=== PATIENT | female | born 1950 | race Caucasian/White ===

== ENCOUNTER 2020-09-28 17:08 | Outpatient (REF) | payer MEDICARE, MEDICAID, SELFPAY ==
--- NOTE | ~2020-09-28 | XR_ITS ---
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 COMPARISON: Incidentally included images of the hips from [facility] 02/15/2016. TECHNIQUE: AP view of the pelvis with AP and frog-leg lateral views of left hip. AP and lateral views of the right hip FINDINGS: There is severe degenerative arthrosis of the left hip with nearly a [id number] appearance superiorly. There are femoral collar and lateral acetabular marginal osteophytes. Right hip joint space is maintained. No fracture or dislocation of either hip. Bilateral sacroiliac joints are patent. Sacral ala are intact. XR/XR hip RT w PEL1V IMPRESSION: Severe degenerative arthrosis of the left hip, slightly progressed from the prior study in 2016. No acute osseous abnormality.
--- NOTE | ~2020-09-28 | XR_ITS ---
EXAMINATION: XR CHEST CLINICAL INFORMATION: Pneumonia COMPARISON: 02/15/2016 TECHNIQUE: 2 views of the chest were obtained. FINDINGS: Lung volumes are decreased from the prior study. Streaky opacity at the right lung base has an appearance more consistent with atelectasis than aspiration or pneumonia. Tortuous aorta. Normal heart size. S-shaped thoracolumbar scoliosis. No pleural effusion or pneumothorax. There is gaseous distention of the transverse colon. The hepatic flexure of the colon is seen immediately beneath the right hemidiaphragm, as was the case previously. XR/XR chest 2V IMPRESSION: Lung volumes are decreased from the prior study. There is streaky opacity at the right lung base, more likely atelectasis than aspiration or pneumonia.
--- NOTE | ~2020-09-28 | XR_ITS ---
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 COMPARISON: Incidentally included images of the hips from [facility] 02/15/2016. TECHNIQUE: AP view of the pelvis with AP and frog-leg lateral views of left hip. AP and lateral views of the right hip FINDINGS: There is severe degenerative arthrosis of the left hip with nearly a pfth-pw-wvuy appearance superiorly. There are femoral collar and lateral acetabular marginal osteophytes. Right hip joint space is maintained. No fracture or dislocation of either hip. Bilateral sacroiliac joints are patent. Sacral ala are intact. XR/XR hip LT min 2V IMPRESSION: Severe degenerative arthrosis of the left hip, slightly progressed from the prior study in 2016. No acute osseous abnormality.
== END 2020-09-28 17:09 | disposition home or self-care (01) ==
LOC: HO.XRAY 17:08
PROVIDERS: PCP Internal Medicine; Visit Provider Internal Medicine
DX: M16.11 Unilateral primary osteoarthritis, right hip (principal); M16.12 Unilateral primary osteoarthritis, left hip; J18.9 Pneumonia, unspecified organism
CPT/HCPCS: 71046; 73502

== ENCOUNTER 2021-02-21 11:48 | Outpatient (REF) | payer MEDICARE, MEDICAID, SELFPAY ==
[2021-02-21 11:50] VITALS: BP 145/84; PULSE 95; RESP 16; TEMP 36.2; O2SAT 98; BMI 27.2
== END 2021-02-21 11:49 | disposition home or self-care (01) ==
LOC: HO.MS 11:48
PROVIDERS: PCP Internal Medicine; Visit Provider Ophthalmology
PROC: (CPT 66821; principal; 2021-02-21 14:40)
DX: H26.492 Other secondary cataract, left eye (principal); I10 Essential (primary) hypertension; Z79.899 Other long term (current) drug therapy
CPT/HCPCS: 66821

== ENCOUNTER 2021-03-22 13:13 | Outpatient (REF) | payer MEDICARE, MEDICAID, SELFPAY ==
--- NOTE | ~2021-03-22 | XR_ITS ---
EXAMINATION: XR RIBS, BILATERAL CLINICAL INFORMATION: Pleurodynia. COMPARISON: Chest radiograph dated 09/28/2020 TECHNIQUE: PA view of the chest as well as 3 views of the ribs. FINDINGS: Hypoinflation of the lungs with linear left basilar atelectasis. No pleural effusion or pneumothorax. Stable cardiomediastinal silhouette. There appear to be healed rib fractures of the left 4th, 5th, 6th, and 7th ribs. No definite displaced acute fracture. Evaluation is somewhat limited. XR/XR ribs BI min 4V w CXR1V IMPRESSION: Probable healed left 4th, 5th, 6th, and 7th rib fractures. No definite displaced acute fracture.
--- NOTE | ~2021-03-22 | XR_ITS ---
EXAMINATION: XR KNEE, RIGHT CLINICAL INFORMATION: Right knee pain. COMPARISON: None TECHNIQUE: AP and lateral views of the right knee. FINDINGS: Medial and lateral compartment joint space narrowing. No significant marginal osteophytes. No fracture or dislocation. No osseous erosion. No abnormal soft tissue calcification. No joint effusion. XR/XR knee RT 2V IMPRESSION: Mild medial and lateral compartment osteoarthritis.
== END 2021-03-22 13:14 | disposition home or self-care (01) ==
LOC: HO.XRAY 13:13
PROVIDERS: PCP Internal Medicine; Visit Provider Nurse Practitioner Family
DX: R07.81 Pleurodynia (principal); M25.561 Pain in right knee
CPT/HCPCS: 71111; 73560

== ENCOUNTER 2021-06-08 11:08 | Outpatient (REF) | payer MEDICARE, MEDICAID, SELFPAY ==
--- NOTE | 2021-06-09 14:37 | MHC.AU.ANO ---
Adult Audiological Evaluation Date of Visit: 06/08/21 Business Taxes Specialist Used: Not Applicable Reason for Appointment: Joanna was referred for an audiologic evaluation by her Primary Care Physician, Dr. Aj Cortes due to question of decreased hearing ability. She reports a history of unsteadiness/dizziness and uses a walker; however, Joanna does not feel she has any hearing problems. Has hearing been tested previously?: No Hearing Handicap Inventory: HHIE SCORE: 0 Based on HHIE score, patient has: No perceived hearing handicap Ear History: None Medical History: Medical History: Joanna and PCP did not provide any medical history information. Medication List: Duloxetine, Buspirone, Divalproex, Trazadone, Gabapentin Otoscopy: Right Ear: Partially occluded with cerumen Left Ear: Partially occluded with cerumen Tympanometry: Tympanometry performed due to: To assess integrity of the middle ear system Right Ear: Normal Middle Ear System (Type A) Left Ear: Normal Middle Ear System (Type A) Otoacoustic Emissions Did not test due to amount of cerumen Hearing Evaluation: Transducer(s) Used: Insert Earphones Bone Conduction Method: Conventional Audiometry Stimuli Used: Pure Tones Right Ear: Description of Hearing: Mild sloping to severe sensorineural hearing loss. Left Ear: Description of Hearing: Mild sloping to severe sensorineural hearing loss. Speech Recognition Threshold (SRT): Method Used: Monitored Live Voice Stimuli Used: Spondee Words Right Ear: 20 dB HL Left Ear: 20 dB HL Word Discrimination: Method: Recorded Lists Word Lists Used: NU-6 Right Ear: 96% at 60 dB HL Left Ear: 96% at 60 dB HL QuickSIN: Binaural Quick SIN Test: 4 dB SNR Loss suggesting Joanna experiences a mild degree of difficulty understanding speech with increasing levels of background noise in this controlled test environment. Interpretation of Results: Discussed with Joanna that with this sloping hearing loss, she likely is able to hear , but may not always understand what was said. With the severe degree of high frequency loss, she is not able to hear all the consonant sounds which help to differentiate similar sounding words such as tree and free . Speech understanding will decrease when background noise is present or when she cannot see the face of the person speaking. Also discussed that this degree of hearing loss may benefit from consistent use of hearing aids. Joanna reports she is not interested in trying hearing aids at this time. Recommendations: Today's symmetric hearing test results do not suggest that Joanna's unsteadiness/dizziness may be ear related. However, if the symptom is concerning, may consider medical consultation with an Merchandise Shopper/Cigarette Examiner for further assessment. Audiological re-evaluation in one year. Will send a reminder card. Diagnosis: Primary Diagnosis: H90.3 Bilateral Sensorineural Hearing Loss Services Performed: Comprehensive Audiological Evaluation (CPT 52487) Tympanometry (CPT 34290) Signature: Provider: Clarissa Campbell, CCC-A
== END 2021-06-08 11:09 | disposition home or self-care (01) ==
LOC: HO.SH 11:08
PROVIDERS: Visit Provider Internal Medicine
DX: H90.3 Sensorineural hearing loss, bilateral (principal)
CPT/HCPCS: 92557; 92567

== ENCOUNTER 2021-09-19 11:15 | Outpatient (REF) | payer MEDICARE, MEDICAID, SELFPAY ==
--- NOTE | ~2021-09-19 | XR_ITS ---
EXAMINATION: XR LUMBOSACRAL SPINE CLINICAL INFORMATION: Left-sided sciatica. COMPARISON: Bilateral hips 09/28/2020 TECHNIQUE: Three views of the lumbosacral spine. FINDINGS: Severe degenerative changes are present in the lumbosacral spine with associated biconvex thoracolumbar scoliosis. Multiple compression fractures are also present at L4, L1 and T12. Severe degenerative changes are also noted in the left hip with marked joint space narrowing superiorly, sclerosis and osteophytes. XR/XR lumbar spine 2-3V IMPRESSION: Scoliosis and severe degenerative changes in visualized spine and left hip with compression fractures, as described above.
[2021-09-19 11:50] LABS: MANUAL DIFF FLAG NO
[2021-09-19 12:13] LABS: Basophils Percent Auto 0.6 % (0-2); Eosinophils Absolute Auto 0.2 X10*3/uL (0.0-0.4); Eosinophils Percent Auto 2.3 % (0-4); Hematocrit 38.8 % (37.0-47.0); Hemoglobin 12.4 g/dl (12.0-16.0); Imm Gran Abs Auto 0.02 X10*3/uL (0.00-0.03); Imm Gran Pct Auto 0.3 % (0.0-0.4); Lymphocytes Absolute Auto 1.8 X10*3/uL (1.2-4.9); Lymphocytes Percent Auto 26.6 % (20-40); Mean Corpuscular Hemoglobin 31.7 pg (27.0-33.0); Mean Corpuscular Volume 99.2 fL (80.0-98.0); Mean Platelet Volume 9.1 fL (9.4-12.3); Monocytes Absolute Auto 0.6 X10*3/uL (0.1-1.2); Monocytes Percent Auto 8.1 % (2-11); Neutrophils Absolute Auto 4.3 x10*3/uL (2.0-8.3); Neutrophils Percent Auto 62.1 % (45-73); Platelet Count 287 X10*3/uL (160-400); Red Blood Count 3.91 X10*6/uL (4.20-5.50); Red Cell Distribution Width 12.5 % (11.0-16.0); White Blood Count 6.9 X10*3/uL (4.8-10.8)
[2021-09-19 12:41] LABS: Alanine Aminotransferase 16 U/L (0-31); Albumin Level 4.4 g/dL (3.5-5.0); Alkaline Phosphatase 79 U/L (39-117); Anion Gap 12 (12-20); Aspartate Amino Transferase 20 U/L (5-31); Bilirubin Total 0.3 mg/dL (0.0-1.0); Blood Urea Nitrogen 23 mg/dL (9-16); Calcium 10.3 mg/dL (8.4-10.2); Carbon Dioxide 31 mmol/L (22-29); Chloride 100 mmol/L (96-108); Cholesterol 308 mg/dL; Estimated Glomerular Filt Rate > 60; Glucose Fasting 103 mg/dL (60-99); HDL Cholesterol 70 mg/dL; LDL Cholesterol Calculated 191 mg/dl; Potassium 5.2 mmol/L (3.3-5.1); Sodium 138 mmol/L (135-145); Total Protein 7.9 g/dL (6.5-8.0); Triglycerides 239 mg/dL
[2021-09-19 13:02] LABS: Thyroid Stimulating Hormone 2.24 uIU/mL (0.32-4.0)
== END 2021-09-19 11:16 | disposition home or self-care (01) ==
LOC: HO.XRAY 11:15
PROVIDERS: PCP Internal Medicine; Visit Provider Internal Medicine
DX: Z00.00 Encounter for general adult medical examination without abnormal findings (principal); Z13.0 Encounter for screening for diseases of the blood and blood-forming organs and certain disorders involving the immune mechanism; M54.9 Dorsalgia, unspecified
CPT/HCPCS: 36415; 72100; 80053; 80061; 84443; 85025

== ENCOUNTER 2021-09-28 10:29 | Outpatient (REF) | payer MEDICARE, MEDICAID, SELFPAY ==
--- NOTE | ~2021-09-28 | MM_ITS ---
EXAMINATION: MM SCREENING DIGITAL BREAST TOMOSYNTHESIS, BILATERAL CLINICAL INFORMATION: Screening. Asymptomatic. The lifetime risk of breast cancer based on the Tyrer-Cuzick Model is 3%. COMPARISON: Mammography: 08/31/2015, 04/29/2014 TECHNIQUE: Digital breast tomosynthesis is performed in both the craniocaudal and mediolateral oblique views along with computer-aided detection (CAD). Synthesized 2D images are generated from the tomosynthesis. Additional left MLO view is provided. FINDINGS: The breasts are heterogeneously dense, which may obscure small masses (ACR BI-RADS breast composition Category c). There are no significant masses, abnormal calcifications, or other abnormalities. There are scattered bilateral benign round and vascular calcifications. Low right axillary tail node again seen as incidental finding posterior upper outer right breast. No significant changes. MM/MM tomosynthesis screening BI IMPRESSION: No mammographic evidence of malignancy. ASSESSMENT: BI-RADS 2: Benign RECOMMENDATION: Routine annual mammography screening. This patient's information was entered into a reminder system with a target due date for their next mammogram.
== END 2021-09-28 10:30 | disposition home or self-care (01) ==
LOC: HO.MAMMO 10:29
PROVIDERS: PCP Internal Medicine; Visit Provider Nurse Practitioner Family
DX: Z12.31 Encounter for screening mammogram for malignant neoplasm of breast (principal)
CPT/HCPCS: 77063; 77067

== ENCOUNTER → 2021-10-04 14:41 | Outpatient (BNVA) | payer MEDICARE, MEDICAID, SELFPAY | PROVIDERS: PCP Internal Medicine; Visit Provider Advanced Practice Midwife | DX: N95.0 Postmenopausal bleeding (principal) | CPT/HCPCS: 99202 ==

== ENCOUNTER 2021-10-11 14:19 | Outpatient (REF) | payer MEDICARE, MEDICAID, SELFPAY ==
[2021-10-14 16:41] LABS: HPV mRNA E6/E7 rflx Not Detected (Not Detected)
== END 2021-10-11 14:20 | disposition home or self-care (01) ==
LOC: HO.LAB 14:19
PROVIDERS: Visit Provider Advanced Practice Midwife
DX: Z01.411 Encounter for gynecological examination (general) (routine) with abnormal findings (principal); Z11.51 Encounter for screening for human papillomavirus (HPV); N95.0 Postmenopausal bleeding
CPT/HCPCS: 58100; 87624; 88142; 88300; 88305

== ENCOUNTER 2021-11-01 14:15 | Outpatient (REF) | payer MEDICARE, MEDICAID, SELFPAY ==
--- NOTE | ~2021-11-01 | US_ITS ---
EXAMINATION: US PELVIS CLINICAL INFORMATION: Postmenopausal bleeding. COMPARISON: None TECHNIQUE: Ultrasound of the pelvis is performed using both transabdominal and transvaginal transducers along with Doppler. Transvaginal imaging is performed due to inadequate visualization transabdominally. FINDINGS: Severely limited transabdominal exam. UTERUS: The uterus is anteverted, anteflexed and measures 4.2 x 1.3 x 2.2 cm. The double wall endometrial thickness is 0.28 cm. The uterus is smooth in contour and has normal myometrial echogenicity. There is a solitary hypoechoic heterogeneous nonvascular lesion along the lower uterine segment measuring 1.5 x 1.7 x 1.3 cm suggestive of fibroid. ADNEXA: Both ovaries are nonvisualized. There is no free fluid in the cul-de-sac. US/US pelvic and transvaginal IMPRESSION: Likely lower uterine segment fibroid. Rest of the uterus is unremarkable. The ovaries are not seen.
== END 2021-11-01 14:16 | disposition home or self-care (01) ==
LOC: HO.HMGCX 14:15
PROVIDERS: Visit Provider Obstetrics & Gynecology
DX: N95.0 Postmenopausal bleeding (principal)
CPT/HCPCS: 76830; 76856

== ENCOUNTER → 2021-11-08 12:17 | Outpatient (BNVA) | payer MEDICARE, MEDICAID, SELFPAY | PROVIDERS: PCP Internal Medicine; Visit Provider Advanced Practice Midwife | DX: Z13.89 Encounter for screening for other disorder (principal) | CPT/HCPCS: Q3014 ==

== ENCOUNTER 2021-11-09 10:57 | Outpatient (REF) | payer MEDICARE, MEDICAID, SELFPAY ==
[2021-11-09 13:46] LABS: Appearance Urine HAZY; Color Urine YELLOW; Glucose Urine UA NEG (NEG); Leukocyte Esterase Urine NEG (NEG); Nitrite Urine NEG (NEG); Urine Blood NEG (NEG); Urine Ketones NEG (NEG); Urine Protein NEG (NEG-TRACE)
== END 2021-11-09 10:58 | disposition home or self-care (01) ==
LOC: HO.HMGCLDS 10:57
PROVIDERS: PCP Internal Medicine; Visit Provider Advanced Practice Midwife
DX: R31.9 Hematuria, unspecified (principal)
CPT/HCPCS: 81003

== ENCOUNTER → 2021-11-29 15:24 | Outpatient (BNVA) | payer MEDICARE, MEDICAID, SELFPAY | PROVIDERS: PCP Internal Medicine; Visit Provider Obstetrics & Gynecology | DX: N95.0 Postmenopausal bleeding (principal) | CPT/HCPCS: 99212 ==

== ENCOUNTER 2022-05-04 14:00 | Outpatient (RCR) | payer MEDICARE, MEDICAID, SELFPAY ==
--- NOTE | 2022-01-25 15:24 | MHC.PT.EP ---
[facility] [place] [facility] [place] [facility] [place] Office [address] Ramiro Castillo [address] [phone] F: [phone] F: [phone] F: [phone] F: [phone] Physical Therapy Plan of Care Date of Evaluation: Date of Surgery: Diagnosis: Dorsalgia Assessment: Pt is a 71 y/o female referred to PT for eval and treat of dorsalgia who presents with lumbar dysfunction and global decondition resulting in decreased tolerance and ability to perform ambulatory and standing tasks as well as performing personal care and HH chores, and rolling in bed secondary to decreased hip and core strength, severe slumbar scoliosis and Hx of multiple stress fractures of the spine, as well as decreased posture, increased tissue tension, pelvic asymmetry and pain. Pt is deemed an appropriate candidate to receive skilled PT in order to address her physical limitations to improve her functional ability. Frequency and Duration: The patient will be seen 2 x / wk x 5 wks. Short Term Goals: initiate HEP with evidence of compliance. Improve baseline pain at rest from 4/10 to < 3/10. Caramel Candy Maker Helper Goals: I with HEP with caregiver assistance. Pt will be able to consistently activate her transverse abdominis independently. Pt will be I with supine to sit at edge of mat; initial: min A x 1 Pt will be able to stand as long as shed like though her pain increases with time; initial: < 30 min. Treatment Plan: Modalities to reduce pain, spasms and effusion. Manual therapy to restore motion and function. Therapeutic exercise to improve strength and flexibility. Neuromuscular re-education for posture and balance. Therapeutic activities to return to functional activities of daily living. Electronically signed by: Prieto Whitaker PT. Please sign and return to therapist. Thank you for your referral.
--- NOTE | 2022-05-04 16:29 | MHC.PT.DC ---
[facility] [place] [facility] [place] Office [place] Office [address] Ramiro Castillo [address] [phone] F: [phone] F: [phone] F: [phone] F: [phone] Physical Therapy Discharge Report Diagnosis: Dorsalgia Date of Surgery: Date of Evaluation: 01/25/22 Date of Discharge: 05/04/22 Treatments to Date: 11 Cancellations to Date: No Shows to Date: 2 Discharge Status: Improved Function Independent with HEP Discharge Summary: Joanna has been an active and pleasant though reluctant participant in her therapy; she reports her back feels better though persists with some pain. She is I with her home program with help from aids which took some time to create compliance in the home with her home program. She is encouraged to continue her HEP and participate with her aid workers when they offer to help her. Electronically signed by: Prieto Whitaker PT. Please sign and return to therapist. Thank you for your referral.
== END 2022-05-04 16:29 | disposition home or self-care (01) ==
LOC: HO.PTCHIC 14:00
PROVIDERS: PCP Internal Medicine; Visit Provider Internal Medicine
DX: M54.9 Dorsalgia, unspecified (principal)
CPT/HCPCS: 97110; 97112; 97162

== ENCOUNTER 2022-10-02 11:31 | Outpatient (REF) | payer MEDICARE, MEDICAID, SELFPAY ==
--- NOTE | ~2022-10-02 | MM_ITS ---
EXAMINATION: MM SCREENING DIGITAL BREAST TOMOSYNTHESIS, BILATERAL CLINICAL INFORMATION: Screening. Asymptomatic. The lifetime risk of breast cancer based on the Tyrer-Cuzick Model is 3.9%. COMPARISON: Mammography: September 28, 2021 and studies dating back to September 04, 2011 TECHNIQUE: Digital breast tomosynthesis is performed in both the craniocaudal and mediolateral oblique views along with computer-aided detection (CAD). Synthesized 2D images are generated from the tomosynthesis. FINDINGS: The breasts are heterogeneously dense, which may obscure small masses (ACR BI-RADS breast composition Category c). There are no significant masses, abnormal calcifications, or other abnormalities. MM/MM tomosynthesis screening BI IMPRESSION: No significant changes from prior exam. ASSESSMENT: BI-RADS 1: Negative RECOMMENDATION: Routine annual mammography screening. This patient's information was entered into a reminder system with a target due date for their next mammogram.
== END 2022-10-02 11:32 | disposition home or self-care (01) ==
LOC: HO.MAMMO 11:31
PROVIDERS: PCP Internal Medicine; Visit Provider Internal Medicine
DX: Z12.31 Encounter for screening mammogram for malignant neoplasm of breast (principal)
CPT/HCPCS: 77063; 77067

== ENCOUNTER 2023-02-28 14:17 | Outpatient (AMB) | payer MEDICARE, SELFPAY ==
--- NOTE | 2023-02-28 14:27 | MHC.PC.OV ---
Vital Signs 02/28/23 14:28 Height 4 ft 8 in BMI Reason not done Patient refused/unable BP 122/64 Blood Pressure Location Lt brachial Position Sitting Pulse 85 Pulse Source Pulse Oximeter Pulse Oximetry (%) 95 Intake Visit Reasons: fall right arm rehab 01/25-02/24 Intake Note: pt is here for f/u from rehab due to fall on right arm -02/24. Patient also has concerns about wheezing, right big toe possible infection, and pt would like her ears to be checked and right collar bone/shoulder swelling. Casino Gaming Inspector Required: No Accompanied by: Daughter Allergies amoxicillin Allergy (Unknown, Verified 02/28/23 14:31) tachycardia doxycycline Allergy (Unknown, Verified 02/28/23 14:31) stomach upset iron Allergy (Unknown, Verified 02/28/23 14:31) unknown nitroglycerin Allergy (Unknown, Verified 02/28/23 14:31) Unknown From [facility]le[facility] Allergy (Mild, Uncoded 01/12/22 13:35) RED,ITCH,BURNING,SWELLING OF FEET iv dye Allergy (Unknown, Uncoded 01/12/22 13:35) Unknown Medication List - Last Reconciled 02/28/23 by Aj Cortes MD acetaminophen 650 mg PO Q4H PRN albuterol sulfate 90 mcg/actuation (ProAir HFA) 2 puffs PO Q6H PRN ascorbic acid (vitamin C) 1 g PO DAILY buspirone 5 mg PO BID calcium carbonate 500 mg PO BID divalproex 125 mg PO Q12H duloxetine 60 mg PO DAILY gabapentin 300 mg PO BEDTIME gabapentin 300 mg PO DAILY metoprolol succinate ER 50 mg PO DAILY [id number] 1 tab PO DAILY quetiapine ER 150 mg PO BEDTIME trazodone 100 mg PO BEDTIME Tobacco use date assessed: 12/29/22 Fall risk assessment: 1 Fall in past year Last assessed Fall Risk: 02/28/23 Dental Screening Dental Screen Date: 02/28/23 Did you have a dental visit in the last 12 months?: Yes Did you have a dental problem in the last 6 months where you did not have access to dental care?: No Was dental information given to patient?: Patient has dentist HPI fall right arm rehab 01/25-02/24 HPI Details right clav fx; doing well; healing PFSH Medical History Callus of foot Hypertension Osteoarthritis of left hip Osteoarthritis of right hip Otitis media Pneumonia Rib pain on left side Right knee pain Surgical History No history of previous surgery Family History Mother No problems noted. Father No problems noted. Social History Housing: Apartment Alcohol intake: never Patient Tobacco Use Status: Never used Tobacco e-Cigarette/Vaping Use: Never Used Second Hand Smoke Exposure: No service: No Current occupational status: retired and disabled Cognitive needs: No Hearing needs: No Vision needs: No Questionnaire PHQ-9 Over the last 2 weeks, how often have you been bothered by any of the following problems? Depression Screening Interpretation: Negative Source: Developed by Drs. Felipe Leiva, Estuardo Frazier and colleagues, with an educational nghia from [employer]. Thrive Questionnaire Date Thrive assessed: 06/12/22 Currently or been in a relationship where the following occur: no concerns reported SUSAN-7 AMB Questionnaire SUSAN-7 Date SUSAN - 7 assessed: 06/12/22 Source: Developed by Drs. Felipe Leiva, Estuardo Frazier and colleagues, with an educational nghia from [employer]. Review of Systems Const Denies chills, Denies headache(s) and Denies weight loss ENT Denies headache(s) Card Denies chest pain, Denies syncope, Denies irregular heart rhythm and Denies dyspnea Resp Denies chest congestion, Denies cough and Denies dyspnea GI Denies abdominal pain, Denies change in stool character, Denies nausea and Denies vomiting Musc Denies deformity and Denies joint swelling Neuro Denies syncope and Denies headache(s) Physical exam (Primary Care) Vital Signs: Last Vital Signs Pulse 85 02/28/23 14:28 BP 122/64 02/28/23 14:28 Pulse Ox 95 02/28/23 14:28 obesity BMI Assessment/Plan discussion: High BMI High, discussed plan: lifestyle, weight reduction, dietary and physical activity Tobacco/Smoking Status: Tobacco use Status Tobacco use date assessed 12/29/22 02/28/23 14:27 Patient Tobacco Use Status Never used Tobacco 02/28/23 14:27 e-Cigarette/Vaping Use Never Used 02/28/23 14:27 Depression Screening Interpretation: Negative Thrive Assessment: Date of Thrive Assessment Date Thrive assessed 06/12/22 02/28/23 14:27 Currently or been in a relationship where the following occur: no concerns reported Const General: cooperative, healthy appearing and no acute distress Orientation/consciousness: oriented to person, oriented to place and oriented to time HENMT Head: Yes normal to inspection, Yes normocephalic and Yes atraumatic Mouth: Normal oral and palatal mucosa present and tongue normal Throat: Yes posterior oropharynx normal and Yes uvula midline Eyes General: appearance normal, both eyes and all related structures Neck Neck: Yes normal visual inspection, Yes full ROM and Yes no lymphadenopathy Thyroid: Thyroid normal Carotids: normal carotid upstroke Chest Chest palpation & inspection: normal inspection of the chest Resp Effort & Inspection: normal respiratory effort and able to speak in complete sentences Auscultation: clear to auscultation bilaterally Cardio Jugular venous distension: no JVD Palpation: normal PMI Rate: regular rate Rhythm: regular rhythm Heart sounds: S1 normal heart sound present and S2 normal heart sound present GI Inspection: Yes normal to inspection Palpation (GI): Soft to palpation and No hepatosplenomegaly present Auscultation: normal bowel sounds General: Yes no CVA tenderness Back/Spine/Pelvis Back: no CVA tenderness Skin General skin exam: no rashes or lesions noted Neuro General: oriented to person, oriented to place and oriented to time Extrem General: Yes normal to inspection and Yes full ROM Assessment and Plan Assessment & Plan (1) Fracture, clavicle: Code(s): S42.009A - Fracture of unspecified part of unspecified clavicle, initial encounter for closed fracture Plan: resoving Orders: Referrals Ear/Nose/Throat Referral H61.20 - Impacted cerumen, unspecified ear Dermatology Referral R22.9 - Localized swelling, mass and lump, unspecified Medications: New azithromycin take 500 mg today (day 1), then 250 mg for 4 days (days 2-5) PO 6 tabs 0RF albuterol sulfate 90 mcg/actuation (ProAir HFA) 2 puffs PO Q6H PRN 18 grams 8RF bronchospasm Coding Level of Care Code Est Pt Level 3 (47690) Diagnoses Fracture, clavicle S42.009A
[2023-02-28 14:28] VITALS: BP 122/64; PULSE 85; O2SAT 95
== END 2023-02-28 15:19 | disposition home or self-care (01) ==
PROVIDERS: PCP Internal Medicine; Visit Provider Internal Medicine
DX: S42.001A Fracture of unspecified part of right clavicle, initial encounter for closed fracture (principal)
CPT/HCPCS: 99213

== ENCOUNTER 2023-06-13 11:42 | Outpatient (AMB) | payer MEDICARE, MEDICAID, SELFPAY ==
[2023-06-13 11:44] VITALS: BP 122/70; PULSE 85; O2SAT 94
--- NOTE | 2023-06-13 11:44 | MHC.PC.OV ---
Vital Signs 06/13/23 11:44 Height 4 ft 8 in BMI Reason not done Patient refused/unable BP 122/70 Blood Pressure Location Lt brachial Position Sitting Pulse 85 Pulse Source Pulse Oximeter Pulse Oximetry (%) 94 Oxygen Delivery Method Room Air Intake Visit Reasons: Yeast Issues Under Breasts Immunology Teacher: Not Required per policy Accompanied by: Self / Same As Patient Allergies amoxicillin Allergy (Unknown, Verified 06/13/23 11:44) tachycardia doxycycline Allergy (Unknown, Verified 06/13/23 11:44) stomach upset iron Allergy (Unknown, Verified 06/13/23 11:44) unknown nitroglycerin Allergy (Unknown, Verified 06/13/23 11:44) Unknown From Ferrlecit Allergy (Mild, Uncoded 06/13/23 11:44) RED,ITCH,BURNING,SWELLING OF FEET iv dye Allergy (Unknown, Uncoded 06/13/23 11:44) Unknown Medication List - Last Reconciled 06/13/23 by Aj Cortes MD acetaminophen 650 mg PO Q4H PRN albuterol sulfate 90 mcg/actuation (ProAir HFA) 2 puffs PO Q6H PRN ascorbic acid (vitamin C) 1 g PO DAILY atorvastatin (Lipitor) 40 mg PO DAILY azithromycin take 500 mg today (day 1), then 250 mg for 4 days (days 2-5) PO buspirone 5 mg PO BID calcium carbonate 500 mg PO BID divalproex 125 mg PO Q12H duloxetine 60 mg PO DAILY gabapentin 300 mg PO DAILY metoprolol succinate ER 50 mg PO DAILY oxmucyxpnxqd-[id number] 1 tab PO DAILY quetiapine ER 150 mg PO BEDTIME trazodone 100 mg PO BEDTIME Tobacco use date assessed: 12/29/22 Fall risk assessment: 1 Fall in past year Last assessed Fall Risk: 06/13/23 Dental Screening Dental Screen Date: 06/13/23 Did you have a dental visit in the last 12 months?: Yes Did you have a dental problem in the last 6 months where you did not have access to dental care?: No Was dental information given to patient?: Patient has dentist HPI Yeast Issues Under Breasts HPI Details intertrigo under both breasts PFSH Medical History Otitis media Rib pain on left side Right knee pain Callus of foot Pneumonia Osteoarthritis of left hip Osteoarthritis of right hip Hypertension Surgical History No history of previous surgery Family History Mother No problems noted. Father No problems noted. Social History Housing: Apartment Alcohol intake: never Patient Tobacco Use Status: Never used Tobacco e-Cigarette/Vaping Use: Never Used Second Hand Smoke Exposure: No service: No Current occupational status: retired and disabled Cognitive needs: No Hearing needs: No Vision needs: No Questionnaire PHQ-9 Over the last 2 weeks, how often have you been bothered by any of the following problems? Depression Screening Interpretation: Negative Depression Screening Done: Yes Source: Developed by Drs. Felipe Leiva, Jessica Valadez, Estuardo Livingston and colleagues, with an educational nghia from [employer]. Thrive Questionnaire Date Thrive assessed: 06/13/23 I am a: Patient What is your living situation today?: I have a steady place to live Within the past 12 months, did the food you bought not last and you didn't have the money to get more?: Never true Within the past 12 months, did you worry whether your food would run out before you got money to buy more?: Never true Do you have trouble paying for medicines?: No Do you have trouble getting transportation to medical appointments?: No Do you have trouble paying your heating and electricity bill?: No Do you have trouble taking care of your child, family member or friend?: No Do you have trouble with day-to-day activities such as bathing, preparing meals, shopping, managing finances, etc.?: No Are you currently unemployed and looking for a job?: No Are you interested in more education?: No Please select the resources that you would like help with: None AUDIT C Alcohol Use Questionnaire (AUDIT-C) 1. How often do you have a drink containing alcohol?: Never 3. How often do you have six or more drinks on one occasion?: Never Total Score: 0 Score Reviewed/Action Taken: Yes SUSAN-7 AMB Questionnaire SUSAN-7 Date SUSAN - 7 assessed: 11/08/23 Feeling nervous, anxious, or on edge: 0 = Not at all Not being able to stop or control worryin = Not at all Worrying too much about different things: 0 = Not at all Trouble relaxin = Not at all Being so restless that it is hard to sit still: 0 = Not at all Becoming easily annoyed or irritable: 0 = Not at all Feeling afraid as if something awful might happen: 0 = Not at all Total SUSAN-7 score (0-4 normal; 5-9 mild; 10-14 moderate; 15-21 severe): 0 Source: Developed by Drs. Felipe Leiva, Jessiac Valadez, Estuardo Livingston and colleagues, with an educational nghia from [employer]. Review of Systems Const Denies chills, Denies headache(s) and Denies weight loss ENT Denies headache(s) Card Denies chest pain, Denies syncope, Denies irregular heart rhythm and Denies dyspnea Resp Denies chest congestion, Denies cough and Denies dyspnea GI Denies abdominal pain, Denies change in stool character, Denies nausea and Denies vomiting Musc Denies deformity and Denies joint swelling Neuro Denies syncope and Denies headache(s) Physical exam (Primary Care) Vital Signs: Last Vital Signs Pulse 85 06/13/23 11:44 BP 122/70 06/13/23 11:44 Pulse Ox 94 06/13/23 11:44 Oxygen Delivery Method Room Air 06/13/23 11:44 Tobacco/Smoking Status: Tobacco use Status Tobacco use date assessed 12/29/22 06/13/23 11:53 Patient Tobacco Use Status Never used Tobacco 06/13/23 11:53 e-Cigarette/Vaping Use Never Used 06/13/23 11:53 Depression Screening Interpretation: Negative Thrive Assessment: Date of Thrive Assessment Date Thrive assessed 06/13/23 06/13/23 11:53 Const General: cooperative, comfortable and no acute distress [facility] Head: Yes normal to inspection Eyes General: appearance normal, both eyes and all related structures Neck Neck: Yes normal visual inspection Chest Other: intertrigo Assessment and Plan Assessment & Plan (1) Intertrigo: Code(s): L30.4 - Erythema intertrigo Plan: rx sent Medications: New clotrimazole-betamethasone 1-0.05 % 1 appl topical BID 45 grams 2RF 2 weeks Coding Level of Care Code Est Pt Level 3 (64585) Diagnoses Intertrigo L30.4
== END 2023-06-13 14:11 | disposition home or self-care (01) ==
PROVIDERS: PCP Internal Medicine; Visit Provider Internal Medicine
DX: L30.4 Erythema intertrigo (principal)
CPT/HCPCS: 99213

== ENCOUNTER 2023-06-19 10:50 | Outpatient (AMB) | payer MEDICARE, MEDICAID, SELFPAY ==
[2023-06-19 10:52] VITALS: BP 136/70; PULSE 90; O2SAT 96
--- NOTE | 2023-06-19 10:52 | A.OFFPC_ITS ---
Vital Signs 06/19/23 10:52 Height 4 ft 8 in BMI Reason not done Patient refused/unable BP 136/70 Blood Pressure Location Lt brachial Position Sitting Pulse 90 Pulse Source Pulse Oximeter Pulse Oximetry (%) 96 Oxygen Delivery Method Room Air Intake Visit Reasons: Yeast infection under breast Neon Sign Installer Required: No Allergies amoxicillin Allergy (Unknown, Verified 06/19/23 10:52) tachycardia doxycycline Allergy (Unknown, Verified 06/19/23 10:52) stomach upset iron Allergy (Unknown, Verified 06/19/23 10:52) unknown nitroglycerin Allergy (Unknown, Verified 06/19/23 10:52) Unknown From Ferrlecit Allergy (Mild, Uncoded 06/19/23 10:52) RED,ITCH,BURNING,SWELLING OF FEET iv dye Allergy (Unknown, Uncoded 06/19/23 10:52) Unknown Tobacco use date assessed: 12/29/22 Fall risk assessment: 1 Fall in past year Last assessed Fall Risk: 06/19/23 Dental Screening Dental Screen Date: 06/19/23 Did you have a dental visit in the last 12 months?: Yes Did you have a dental problem in the last 6 months where you did not have access to dental care?: No Was dental information given to patient?: Patient has dentist HPI Yeast infection under breast HPI Details intertrigo under breasts PFSH Medical History Otitis media Rib pain on left side Right knee pain Callus of foot Pneumonia Osteoarthritis of left hip Osteoarthritis of right hip Hypertension Surgical History No history of previous surgery Family History Mother No problems noted. Father No problems noted. Social History Housing: Apartment Alcohol intake: never Patient Tobacco Use Status: Never used Tobacco e-Cigarette/Vaping Use: Never Used Second Hand Smoke Exposure: No service: No Current occupational status: retired and disabled Cognitive needs: No Hearing needs: No Vision needs: No Questionnaire PHQ-9 Over the last 2 weeks, how often have you been bothered by any of the following problems? Depression Screening Interpretation: Negative Depression Screening Done: Yes Source: Developed by Drs. Felipe Leiva, Jessica Valadez, Estuardo Livingston and colleagues, with an educational nghia from [employer]. Thrive Questionnaire Date Thrive assessed: 06/13/23 AUDIT C Alcohol Use Questionnaire (AUDIT-C) 1. How often do you have a drink containing alcohol?: Never 3. How often do you have six or more drinks on one occasion?: Never Total Score: 0 Score Reviewed/Action Taken: Yes SUSAN-7 AMB Questionnaire SUSAN-7 Date SUSAN - 7 assessed: 06/13/23 Source: Developed by Drs. Felipe Leiva, Estuardo Frazier and colleagues, with an educational nghia from [employer]. Review of Systems Const Denies chills, Denies headache(s) and Denies weight loss ENT Denies headache(s) Card Denies chest pain, Denies syncope, Denies irregular heart rhythm and Denies dyspnea Resp Denies chest congestion, Denies cough and Denies dyspnea GI Denies abdominal pain, Denies change in stool character, Denies nausea and Denies vomiting Musc Denies deformity and Denies joint swelling Neuro Denies syncope and Denies headache(s) Physical exam (Primary Care) Vital Signs: Last Vital Signs Pulse 90 06/19/23 10:52 BP 136/70 06/19/23 10:52 Pulse Ox 96 06/19/23 10:52 Oxygen Delivery Method Room Air 06/19/23 10:52 Tobacco/Smoking Status: Tobacco use Status Tobacco use date assessed 12/29/22 06/19/23 10:53 Patient Tobacco Use Status Never used Tobacco 06/19/23 10:53 e-Cigarette/Vaping Use Never Used 06/19/23 10:53 Depression Screening Interpretation: Negative Thrive Assessment: Date of Thrive Assessment Date Thrive assessed 06/13/23 06/19/23 10:53 Const General: cooperative, comfortable and no acute distress [facility] Head: Yes normal to inspection Eyes General: appearance normal, both eyes and all related structures Neck Neck: Yes normal visual inspection Chest Other: intertrigo Assessment and Plan Assessment & Plan (1) Intertrigo: Code(s): L30.4 - Erythema intertrigo Plan: rx Medications: New nystatin 1 appl topical TID 60 grams 3RF ciprofloxacin HCl (Cipro) 250 mg PO BID 10 tabs 0RF Coding Level of Care Code Est Pt Level 3 (96014) Diagnoses Intertrigo L30.4
== END 2023-06-19 11:39 | disposition home or self-care (01) ==
PROVIDERS: Visit Provider Internal Medicine
DX: L30.4 Erythema intertrigo (principal)
CPT/HCPCS: 99213

== ENCOUNTER 2023-07-05 13:16 | Outpatient (AMB) | payer MEDICARE, MEDICAID, SELFPAY ==
[2023-07-05 13:24] VITALS: BP 130/68; PULSE 93; O2SAT 94
--- NOTE | 2023-07-05 13:24 | A.OFFPC_ITS ---
Vital Signs 07/05/23 13:24 Height 4 ft 8 in BP 130/68 Blood Pressure Location Lt brachial Position Sitting Pulse 93 Pulse Source Pulse Oximeter Pulse Oximetry (%) 94 Oxygen Delivery Method Room Air Intake Visit Reasons: Cysts under breasts Summer Babysitter Required: No Dietician: Not Required per policy Allergies amoxicillin Allergy (Unknown, Verified 07/05/23 13:25) tachycardia doxycycline Allergy (Unknown, Verified 07/05/23 13:25) stomach upset iron Allergy (Unknown, Verified 07/05/23 13:25) unknown nitroglycerin Allergy (Unknown, Verified 07/05/23 13:25) Unknown From Ferrlecit Allergy (Mild, Uncoded 07/05/23 13:25) RED,ITCH,BURNING,SWELLING OF FEET iv dye Allergy (Unknown, Uncoded 07/05/23 13:25) Unknown Tobacco use date assessed: 12/29/22 HPI Cysts under breasts HPI Details continues with intertrigo beneath both breasts; improving but still present with drainage PFSH Medical History Otitis media Rib pain on left side Right knee pain Callus of foot Pneumonia Osteoarthritis of left hip Osteoarthritis of right hip Hypertension Surgical History No history of previous surgery Family History Mother No problems noted. Father No problems noted. Social History Housing: Apartment Alcohol intake: never Patient Tobacco Use Status: Never used Tobacco e-Cigarette/Vaping Use: Never Used Second Hand Smoke Exposure: No service: No Current occupational status: retired and disabled Cognitive needs: No Hearing needs: No Vision needs: No Questionnaire PHQ-9 Over the last 2 weeks, how often have you been bothered by any of the following problems? Depression Screening Interpretation: Negative Depression Screening Done: Yes Source: Developed by Drs. Felipe Leiva, Jessica Valadez, Estuardo Livingston and colleagues, with an educational nghia from [employer]. Thrive Questionnaire Date Thrive assessed: 06/13/23 SUSAN-7 AMB Questionnaire SUSAN-7 Date SUSAN - 7 assessed: 06/13/23 Source: Developed by Drs. Felipe Leiva, Jessica Valadez, Estuardo Livingston and colleagues, with an educational nghia from [employer]. Review of Systems Const Denies chills, Denies headache(s) and Denies weight loss ENT Denies headache(s) Card Denies chest pain, Denies syncope, Denies irregular heart rhythm and Denies dyspnea Resp Denies chest congestion, Denies cough and Denies dyspnea GI Denies abdominal pain, Denies change in stool character, Denies nausea and Denies vomiting Musc Denies deformity and Denies joint swelling Neuro Denies syncope and Denies headache(s) Physical exam (Primary Care) Vital Signs: Last Vital Signs Pulse 93 07/05/23 13:24 BP 130/68 07/05/23 13:24 Pulse Ox 94 07/05/23 13:24 Oxygen Delivery Method Room Air 07/05/23 13:24 Tobacco/Smoking Status: Tobacco use Status Tobacco use date assessed 12/29/22 07/05/23 13:30 Patient Tobacco Use Status Never used Tobacco 07/05/23 13:30 e-Cigarette/Vaping Use Never Used 07/05/23 13:30 Depression Screening Interpretation: Negative Thrive Assessment: Date of Thrive Assessment Date Thrive assessed 06/13/23 07/05/23 13:30 Const General: cooperative, comfortable and no acute distress [facility] Head: Yes normal to inspection Eyes General: appearance normal, both eyes and all related structures Neck Neck: Yes normal visual inspection Chest Other: intertrigo Assessment and Plan Assessment & Plan (1) Intertrigo: Code(s): L30.4 - Erythema intertrigo Plan: cont rx and dressing and VNA now Orders: [facility]errals [facility] Referral L30.4 - Erythema intertrigo Coding Level of Care Code Est Pt Level 3 (31161) Diagnoses Intertrigo L30.4
== END 2023-07-05 13:52 | disposition home or self-care (01) ==
PROVIDERS: PCP Internal Medicine; Visit Provider Internal Medicine
DX: L30.4 Erythema intertrigo (principal)
CPT/HCPCS: 99213

== ENCOUNTER 2024-01-28 10:23 | Outpatient (REF) | payer MEDICARE, MEDICAID, SELFPAY ==
[2024-01-28 13:22] LABS: Appearance Urine Clear; Color Urine Yellow; Glucose Urine UA Negative (Negative); Leukocyte Esterase Urine Trace (Negative); Nitrite Urine Negative (Negative); PH 5.5 (5.0-9.0); UMIC TRIGGER UACC YES; Urine Blood Negative (Negative); Urine Ketones Negative (Negative); Urine Protein Negative (Neg-Trace)
[2024-01-28 13:25] LABS: Bacteria Urine None Seen (None Seen); Hyaline Casts Urine 0-2 /LPF (0-2); RBC Urine 0-2 /HPF (0-2); Squamous Epithelial Cell Urine 0-2 /HPF (0-2); WBC Urine 0-5 /HPF (0-5)
== END 2024-01-28 10:24 | disposition home or self-care (01) ==
LOC: HO.HMGCLDS 10:23
PROVIDERS: PCP Internal Medicine; Visit Provider Internal Medicine
DX: N39.0 Urinary tract infection, site not specified (principal)
CPT/HCPCS: 81001

== ENCOUNTER 2024-02-29 14:11 | Outpatient (AMB) | payer MEDICARE, MEDICAID, SELFPAY ==
[2024-02-29 14:13] VITALS: BP 124/70; PULSE 85; O2SAT 96; BMI 31.8
--- NOTE | 2024-02-29 14:13 | A.OFFVIS_ITS ---
Intake Vital Signs 02/29/24 14:13 Height 4 ft 8 in Weight 141 lb 15.643 oz BMI 31.8 BP 124/70 Blood Pressure Location Lt brachial Position Sitting Pulse 85 Pulse Source Pulse Oximeter Pulse Oximetry (%) 96 Oxygen Delivery Method Room Air Intake Visit Reasons: AWV Allergies amoxicillin Allergy (Unknown, Verified 02/29/24 14:15) tachycardia doxycycline Allergy (Unknown, Verified 02/29/24 14:15) stomach upset iron Allergy (Unknown, Verified 02/29/24 14:15) unknown nitroglycerin Allergy (Unknown, Verified 02/29/24 14:15) Unknown From Ferrlecit Allergy (Mild, Uncoded 02/29/24 14:15) RED,ITCH,BURNING,SWELLING OF FEET iv dye Allergy (Unknown, Uncoded 02/29/24 14:15) Unknown Medication List - Last Reconciled 03/03/24 by Aj Cortes MD acetaminophen 650 mg PO Q4H PRN albuterol sulfate 90 mcg/actuation (ProAir HFA) 2 puffs PO Q6H PRN ascorbic acid (vitamin C) 1 g PO DAILY atorvastatin (Lipitor) 40 mg PO DAILY buspirone 5 mg PO BID calcium carbonate 500 mg PO BID clotrimazole-betamethasone 1-0.05 % 1 appl topical BID 2 weeks divalproex 125 mg PO Q12H duloxetine 60 mg PO DAILY gabapentin 300 mg PO DAILY hydroxyzine HCl 10 mg PO BID metoprolol succinate ER 50 mg PO DAILY vpmgqcgjbhwj-zvggsjgq-upjvpj 1 tab PO DAILY nystatin 1 appl topical TID quetiapine ER 150 mg PO BEDTIME trazodone 100 mg PO BEDTIME HPI AWV HPI Details hyperlipidemia and depression; sees psych PFSH Medical History Otitis media Rib pain on left side Right knee pain Callus of foot Pneumonia Osteoarthritis of left hip Osteoarthritis of right hip Hypertension Surgical History No history of previous surgery Family History Mother No problems noted. Father No problems noted. Social History Housing: Apartment Alcohol intake: never Patient Tobacco Use Status: Never used Tobacco e-Cigarette/Vaping Use: Never Used Second Hand Smoke Exposure: No service: No Current occupational status: retired and disabled Cognitive needs: No Hearing needs: No Vision needs: No Questionnaire Medicare Wellness Checkup [age] What gender do you identify with?: female During the past 4 weeks, how much have you been bothered by emotional problems such as feeling anxious, depressed, irritable, sad or downhearted, and blue?: slightly During the past 4 weeks, has your physical & emotional health limited your social activities with family, friends, neighbors, or groups?: slightly During the past 4 weeks, how much bodily pain have you generally had?: moderate pain During the past 4 weeks, was someone available to help you if you needed & wanted help?: yes, some During the past 4 weeks, what was the hardest physical activity you could do for at least 2 minutes?: light Can you get to places out of walking distance without help? (For eg., can you travel alone on buses, taxis or drive your car?): No Can you go shopping for groceries or clothes without someone's help?: No Can you prepare your own meals?: No Can you do your housework without help?: No Because of any health problems, do you need the help of another person with your personal care needs such as eating, bathing, dressing or getting around the house?: Yes Can you handle your own money without help?: Yes During the past 4 weeks, how would you rate your health in general?: good During the past 4 weeks how have things been going for you?: good & bad parts about equal Are you having difficulties driving your car?: not applicable, I don't use a car Do you always fasten your seat belt when you are in a car?: yes, usually During past 4 weeks, have you been bothered by the following: never: Falling or dizzy when standing up and Sexual problems?, seldom: Teeth or denture problems? and sometimes: Trouble eating well?, Problems using the telephone? and Tiredness or fatigue? Have you fallen 2 or more times in the past year?: Yes Are you afraid of falling?: Yes Are you a smoker?: no During the past 4 weeks, how many drinks of wine, beer, or other alcoholic beverages did you have?: no alcohol at all Do you exercise for about 20 minutes 3 or more times a week?: no, I usually do not exercise this much Have you been given information to help with the following?: yes: Keeping track of your medications? How often do you have trouble taking medicines the way you have been told to take them?: I always take medicine as prescribed How confident are you that you can control & manage most of your health problems?: not very confident What is your race?: White Mini Mental State Exam (MMSE) Orientation What is the (year) (season) (date) (day) (month)?: year and season Where are we (state) (county) (town or city) (hospital) (floor)?: state, county and town or city Registration Name of 3 unrelated objects clearly and slowly, then ask patient to repeat all 3 of them. (1st repeat determines score. Make sure they can repeat all three): object 1, object 2 and object 3 Attention & Calculation (CHOOSE ONE) Ask pt to begin with 100 & count backward by 7. Stop after 5 repeats. If pt cannot ask them to spell the word WORLD backward.: 93 Spell WORLD backwards (DLROW): 1 letter Recall Ask patient to repeat the 3 items from question #3.: object 1 Score Score: 11 Activity of Daily Living Bathing - sponge bath, tub bath or shower: receives no assistance (gets in/out by self, if usual bathing means Dressing - getting clothes from closets & drawers, including inner/outer garments & fasteners.: gets clothes & gets completely dressed without help Transfer: moves in & out of bed and chair without help (may use support object) Continence: controls urination/bowel movements completely by self Feeding: feeds self without help Total Score: 0 Information obtained from: patient Using telephone: needs assistance Traveling: needs assistance Shopping: needs assistance Preparing meals: needs assistance Housework: needs assistance Taking medicine: needs assistance Managing money: needs assistance PHQ-9 Over the last 2 weeks, how often have you been bothered by any of the following problems? 1. Little interest or pleasure in doing things: several days 2. Feeling down, depressed, or hopeless: more than half the days 3. Trouble falling or staying asleep, or sleeping too much: several days 4. Feeling tired or having little energy: more than half the days 5. Poor appetite or overeating: more than half the days 6. Feeling bad about yourself - or that you are a failure or have let yourself or your family down: not at all 7. Trouble concentrating on things, such as reading the newspaper or watching television: more than half the days 8. Moving or speaking so slowly that other people could have noticed. Or the opposite - being so fidgety or restless that you have been moving around a lot more than usual: several days 9. Thoughts that you would be better off or of hurting yourself in some way: more than half the days Total score: 13 [id number] - PHQ-9 Billing: Yes Source: Developed by Drs. Felipe Leiva, Jessica Valadez, Estuardo Livingston and colleagues, with an educational nghia from [employer]. Review of Systems Const Denies chills, Denies fatigue, Denies headache(s) and Denies weight loss Eyes Denies change in vision, Denies diplopia and Denies eye pain ENT Reports Normal hearing present, Denies vertigo, Denies dizziness, Denies headache(s) and Denies nasal discharge Card Denies chest pain, Denies rapid heart rate and Denies dyspnea on exertion Resp Denies chest congestion, Denies cough, Denies pain with cough and Denies dyspnea on exertion GI Denies abdominal pain, Denies hematochezia and Denies change in bowel habits Musc Denies myalgias, Denies arthralgias and Denies joint swelling Skin/Breast Denies lesions and Denies unusual bruising Neuro Reports Normal hearing present, Denies vertigo, Denies dizziness, Denies headache(s) and Denies focal weakness Endo Denies fatigue Physical Exam Vital Signs: Last Vital Signs Pulse 85 02/29/24 14:13 BP 124/70 02/29/24 14:13 Pulse Ox 96 02/29/24 14:13 Oxygen Delivery Method Room Air 02/29/24 14:13 BMI result Body Mass Index 31.8 Neuro Cranial nerves: Yes Normal hearing present Assessment & Plan Assessment & Plan (1) Encounter for initial annual wellness visit (AWV) in Medicare patient: Code(s): Z00.00 - Encounter for general adult medical examination without abnormal findings Plan: rhomberg and whisper tests normal (2) Hypertension: Code(s): I10 - Essential (primary) hypertension Qualifiers: Hypertension type: essential hypertension Qualified Code(s): I10 - Essential (primary) hypertension Plan: stable; same rx (3) Depression: Code(s): F32.A - Depression, unspecified Plan: stable; same rx Orders: Orders Vitamin B12 02/29/24 R41.89 - Other symptoms and signs involving cognitive functions and awareness CT head/brain wo IV con 02/29/24 R41.89 - Other symptoms and signs involving cognitive functions and awareness Lipid Panel 02/29/24 Z13.220 - Encounter for screening for lipoid disorders Thyroid Stimulating Hormone 02/29/24 Z13.29 - Encounter for screening for other suspected endocrine disorder Comprehensive [place]. Panel Fast 02/29/24 Z13.9 - Encounter for screening, unspecified Erythrocyte Sedimentation Rate 02/29/24 R41.89 - Other symptoms and signs involving cognitive functions and awareness Medications: Refilled nystatin 1 appl topical TID 60 grams 3RF Quality Reporting (2019) Depression/Bipolar (159/160/161/177) PHQ-9: Total score: 13 Coding Level of Care Code Medicare First (G0438) Diagnoses Encounter for initial annual wellness visit (AWV) in Medicare patient Z00.00 Essential hypertension I10 Hypertension type: essential hypertension Depression F32.A
== END 2024-02-29 14:59 | disposition home or self-care (01) ==
PROVIDERS: PCP Internal Medicine; Visit Provider Internal Medicine
DX: Z00.00 Encounter for general adult medical examination without abnormal findings (principal); I10 Essential (primary) hypertension; F33.9 Major depressive disorder, recurrent, unspecified
CPT/HCPCS: G0438; G0439

== ENCOUNTER 2024-03-08 18:01 | Emergency (ER) | payer MEDICARE, MEDICAID, SELFPAY ==
--- NOTE | ~2024-03-08 | CT_ITS ---
EXAMINATION: CT ABDOMEN AND PELVIS WITHOUT IV CONTRAST CLINICAL INFORMATION: Left flank pain, left upper quadrant pain COMPARISON: None TECHNIQUE: Multiple axial images were obtained from the superior aspect of the liver through the pubic symphysis without intravenous contrast. Images were evaluated on independent dedicated 3-D workstation and 3-D images were reconstructed with concurrent radiologist supervision and subsequently interpreted. Oral contrast was not administered. This CT examination was performed using dose optimization techniques as appropriate, variously including the following: *Automated exposure control *Adjustment of mA and/or kV according to patient size (this includes techniques or standardized protocols for targeted exams where dose is matched to indication/reason for exam; i.e. extremities or head) *Use of iterative reconstruction technique DLP: 539 mGy-cm FINDINGS: LUNG BASES: Hypoventilatory changes dependently. Linear atelectasis of lingula. CARDIOMEDIASTINUM: The visualized heart is normal in size without pericardial effusion. No coronary artery calcification. LIVER: Homogeneous in attenuation. Normal in size. GALLBLADDER: Noninflamed. BILIARY SYSTEM: No intrahepatic or extrahepatic biliary dilation. PANCREAS: Atrophic. No contour deforming masses. SPLEEN: Normal in size. GENITOURINARY: No contour deforming masses. Bilateral extrarenal pelves. No perinephric fluid collection. No renal calculi. No hydroureteronephrosis. ADRENAL GLANDS: Unremarkable. REPRODUCTIVE: Uterus and and bilateral adnexa are unremarkable. GASTROINTESTINAL: The visualized alimentary tract is normal in course. Sigmoid diverticular disease without diverticulitis. No evidence of obstruction. APPENDIX: The appendix is not visualized; however, no pericecal inflammatory changes are seen in the right lower quadrant. PERITONEUM: No pneumoperitoneum. No intra-abdominal fluid collection. VASCULATURE: No abdominal aortic aneurysm. LYMPH NODES: No pathologically enlarged abdominal or pelvic lymph nodes. SOFT TISSUES/MUSCULOSKELETAL: Severe diffuse osteopenia. Severe left hip osteoarthritis. Multilevel degenerative changes of the lumbar spine, worst at L3-L4, and L4-L5. CT/CT abdomen pelvis wo IV con IMPRESSION: No acute pathology of the abdomen or pelvis on this noncontrast study. Fleischner guidelines were followed.
[2024-03-08 18:08] VITALS: BP 110/88; BP 144/62; PULSE 77; PULSE 88; RESP 18; TEMP 36.7; O2SAT 93; BMI 29.1
[2024-03-08 18:16] VITALS: BP 144/62; PULSE 77; RESP 18; TEMP 36.7; O2SAT 93
--- NOTE | 2024-03-08 18:16 | ECG_ITS ---
Test Reason : ABDOMINAL PAIN Blood Pressure : / mmHG Vent. Rate : 076 BPM Atrial Rate : 076 BPM P-R Int : 166 ms QRS Dur : 084 ms QT Int : 380 ms P-R-T Axes : 032 005 021 degrees QTc Int : 427 ms Normal sinus rhythm Normal ECG When compared with ECG of 14-JUN-2010 14:36, No significant change was found Referred By: Marissa Rivera Electronically Signed By:George Calhoun
[2024-03-08 19:03] LABS: MANUAL DIFF FLAG NO
[2024-03-08 19:04] LABS: Alanine Aminotransferase 14 U/L (0-31); Albumin Level 4.1 g/dL (3.5-5.0); Alkaline Phosphatase 51 U/L (39-117); Anion Gap 14 (12-20); Aspartate Amino Transferase 17 U/L (5-31); Bilirubin Total 0.2 mg/dL (0.0-1.0); Blood Urea Nitrogen 35 mg/dL (9-16); Calcium 10.1 mg/dL (8.4-10.2); Carbon Dioxide 27 mmol/L (22-29); Chloride 107 mmol/L (96-108); Creatinine Clr Calc Pharmacy 31.4; Estimated Glomerular Filt Rate 46; Glucose Random 100 mg/dL (60-115); Potassium 5.1 mmol/L (3.3-5.1); Sodium 143 mmol/L (135-145); Total Protein 6.7 g/dL (6.5-8.0)
[2024-03-08 19:05] LABS: Basophils Percent Auto 0.4 % (0-2); Eosinophils Absolute Auto 0.1 X10*3/uL (0.0-0.4); Hematocrit 31.9 % (37.0-47.0); Hemoglobin 10.5 g/dl (12.0-16.0); Imm Gran Abs Auto 0.01 X10*3/uL (0.00-0.03); Imm Gran Pct Auto 0.1 % (0.0-0.4); Lymphocytes Absolute Auto 2.1 X10*3/uL (1.2-4.9); Lymphocytes Percent Auto 25.3 % (20-40); Mean Corpuscular HGB Conc 32.9 g/dl (31.0-35.0); Mean Corpuscular Volume 100.3 fL (80.0-98.0); Mean Platelet Volume 8.8 fL (9.4-12.3); Monocytes Absolute Auto 0.6 X10*3/uL (0.1-1.2); Monocytes Percent Auto 7.3 % (2-11); Neutrophils Absolute Auto 5.4 x10*3/uL (2.0-8.3); Neutrophils Percent Auto 65.9 % (45-73); Platelet Count 225 X10*3/uL (160-400); Red Blood Count 3.18 X10*6/uL (4.20-5.50); Red Cell Distribution Width 13.2 % (11.0-16.0); White Blood Count 8.2 X10*3/uL (4.8-10.8)
[2024-03-08 19:09] LABS: Troponin-I High Sensitivity < 2.7 ng/L (<3.5-17.0)
[2024-03-08 19:23] VITALS: BP 131/73; PULSE 76; RESP 18; O2SAT 95
--- NOTE | 2024-03-08 19:30 | PC.NURSE ---
Pt unable to provide urine sample at this time. Pt encouraged to ask for assistance when ambulating to the bathroom. Pt updated on plan of care.
[2024-03-08] MEDS: oxyCODONE HCl Immed Release 5 MG TABLET PO (19:58)
[2024-03-08 20:31] LABS: Appearance Urine Clear; Color Urine Yellow; Glucose Urine UA Negative (Negative); Leukocyte Esterase Urine Small (1+) (Negative); Nitrite Urine Negative (Negative); PH 5.5 (5.0-9.0); Specific Gravity - Urine 1.025 (1.005-1.025); UMIC TRIGGER UACC YES; Urine Blood Negative (Negative); Urine Ketones Trace mg/dL (Negative); Urine Protein Negative (Neg-Trace)
[2024-03-08 20:36] LABS: Bacteria Urine None Seen (None Seen); Hyaline Casts Urine 0-2 /LPF (0-2); RBC Urine 0-2 /HPF (0-2); Squamous Epithelial Cell Urine 0-2 /HPF (0-2); UACC Culture Trigger YES
--- NOTE | 2024-03-08 20:59 | ED_ITS ---
HPI - Back Pain/Injury General Chief Complaint: Back Pain/Injury Stated Complaint: back and rib pain Time Seen by Provider: 03/08/24 18:29 Source: patient and RN notes reviewed Mode of arrival: ambulatory Limitations: no limitations History of Present Illness ED Provider: Leslie Caldwell PA-C HPI Narrative: This is a 73-year-old female who presents emergency department with complaints of right-sided flank pain which started at 2:30p.m. this afternoon. Patient states that she woke up from a nap and states she had this pain. States that this pain is a pressure-like sensation. She denies history of similar symptoms in the past. She denies any urinary symptoms. She denies any headache, dizziness, fevers, chills, chest pain, shortness of breath. She denies any recent trauma or injury. Reports that she had a normal bowel movement today. No bloody or black stool. No other complaints or concerns at this time. MD elicited complaint: back pain Timing: constant Similar Symptoms Previously: No Quality: aching Location: left flank Radiation: abdomen Exacerbating factors: none Relieving factors: none Associated symptoms: denies other symptoms Work related injury: No Related Data Home Medications ?Medication ?Instructions ?Recorded ?Confirmed acetaminophen 325 mg capsule 650 mg PO Q4H PRN 09/13/20 03/03/24 calcium carbonate 500 mg PO BID 09/13/20 03/03/24 duloxetine 60 mg capsule,delayed 60 mg PO DAILY 09/13/20 03/03/24 release metoprolol succinate 50 mg 50 mg PO DAILY 09/13/20 03/03/24 tablet,extended release 24 hr ascorbic acid (vitamin C) 1,000 mg 1 g PO DAILY 03/22/21 03/03/24 tablet buspirone 5 mg tablet 5 mg PO BID 03/22/21 03/03/24 ikeihupihaoo-hdndnywv-oophsq tablet 1 tab PO DAILY 03/22/21 03/03/24 gabapentin 300 mg capsule 300 mg PO DAILY 02/28/23 03/03/24 quetiapine 150 mg tablet,extended 150 mg PO BEDTIME 02/28/23 03/03/24 release 24 hr trazodone 100 mg tablet 100 mg PO BEDTIME 02/28/23 03/03/24 hydroxyzine HCl 10 mg tablet 10 mg PO BID 02/29/24 03/03/24 Previous Rx's ?Medication ?Instructions ?Recorded albuterol sulfate 90 mcg/actuation 2 puff PO Q6H PRN bronchospasm #18 02/28/23 aerosol inhaler (ProAir HFA) grams atorvastatin 40 mg tablet (Lipitor) 40 mg PO DAILY #90 tabs 03/12/23 clotrimazole-betamethasone 1 1 appl topical BID 2 weeks #45 09/12/23 %-0.05 % topical cream grams divalproex 125 mg tablet,delayed 125 mg PO Q12H #60 tabs 11/10/23 release nystatin 100,000 unit/gram topical 1 appl topical TID #60 grams 02/29/24 powder oxycodone 5 mg tablet 5 mg PO Q6H PRN pain #5 tabs 03/08/24 Allergies Allergy/AdvReac Type Severity Reaction Status Date / Time amoxicillin Allergy Unknown tachycardia Verified 03/08/24 18:12 doxycycline Allergy Unknown stomach Verified 03/08/24 18:12 upset iron Allergy Unknown unknown Verified 03/08/24 18:12 nitroglycerin Allergy Unknown Unknown Verified 03/08/24 18:12 From Ferrlecit Allergy Mild RED,ITCH,BURNING,SWELLING Uncoded 03/08/24 18:12 OF FEET iv dye Allergy Unknown Unknown Uncoded 03/08/24 18:12 Review of Systems 2 Review of Systems: Yes all other systems are reviewed and are negative Constitutional: Constitutional: Reports as per [facility] Past Medical History Attestation statement: The following information was validated with the patient. Medical History Otitis media Rib pain on left side Right knee pain Callus of foot Pneumonia Osteoarthritis of left hip Osteoarthritis of right hip Hypertension Surgical History No history of previous surgery Family History Family History Mother No problems noted. Father No problems noted. Social History Social History Housing: Apartment Alcohol intake: former Patient Tobacco Use Status: Never used Tobacco Smoked in Last 30 Days: No e-Cigarette/Vaping Use: Never Used Second Hand Smoke Exposure: No Advance Directives: No Advance Directives Information Provided: No Do you have a plan to hurt others: No Plan service: No Current occupational status: retired and disabled Cognitive needs: No Hearing needs: No Vision needs: No Physical Exam 2 Vital Signs: Vital Signs: Last Vital Signs Temp 98.3 F 03/08/24 23:50 Pulse 67 03/08/24 23:50 Resp 16 03/08/24 23:50 BP 151/75 H 03/08/24 23:50 Pulse Ox 93 03/08/24 23:50 O2 Del Method Room Air 03/08/24 23:50 BMI result Body Mass Index 29.1 Const: General: cooperative, comfortable and no acute distress O rientation/consciousness: patient oriented x3 Limitations: no limitations HEENT: Head: Yes normal to inspection, Yes normocephalic and Yes atraumatic Ears: hearing grossly normal bilaterally General nose exam: Normal external nose present Face and sinus: Yes normal facial exam Mouth: Normal oral and palatal mucosa present, oropharynx normal and moist mucous membranes Throat: Yes posterior oropharynx normal Eyes: General: appearance normal, both eyes and all related structures E yelids: Yes eyelids normal Conjunctivae: conjunctivae normal Sclerae: s clerae normal Pupils: Equal, round and reactive pupils present EOM: EOMs intact bilaterally Neck: Neck: Yes normal visual inspection, Yes full ROM and Yes no lymphadenopathy Lymphatic: no lymphadenopathy noted Chest: Chest palpation & inspection: normal inspection of the chest Resp: Effort & Inspection: normal respiratory effort and able to speak in complete sentences Auscultation: clear to auscultation bilaterally, no crackles, no rales, no rhonchi and no wheezes Cardio: Rate: regular rate Rhythm: regular rhythm Heart sounds: S1 normal heart sound present and S2 normal heart sound present GI: Other: Abdomen is soft, with tenderness palpation in the left upper quadrant, extending into the left flank. Inspection: Yes normal to inspection Skin: General skin exam: no rashes or lesions noted Trauma: no lacerations or abrasions Wounds: no wounds Neuro: General: patient oriented x3 and moves all extremities Cranial nerves: Yes Equal, round and reactive pupils present Extrem: General: Yes normal to inspection Right upper extremity: normal to inspection Left upper extremity: normal to inspection Right lower extremity: normal to inspection Left lower extremity: normal to inspection Course Reevaluation(s) Reevaluation #1: Labs returned, no leukocytosis, H&H revealing macrocytic anemia with an H&H of 10.5/31.9, patient has slight elevation in her baseline creatinine however she is drinking fluids in the department, BUN 35 which is chronic for her, troponin less than 2.7, urine with small leuk esterases and wbc's, she has no urinary symptoms therefore we will await urine culture for further analysis. Patient feeling better after receiving oxycodone. CT was reviewed, no obstructive process noted she does have severe diffuse osteopenia, and severe left hip osteoarthritis, with multilevel degenerative changes of the lumbar spine, worse at L4-L5 and L3-L4. Discussed findings with patient. She understands, discharged with oxycodone, and advised to follow-up with PCP. Advised that oxycodone should only be used for severe pain only. She understands and agrees with plan. Patient stable for discharge Medications Administered Discontinued Medications Generic Name Dose Route Start Last Admin Trade Name Freq PRN Reason Stop Dose Admin Oxycodone HCl 5 mg 03/08/24 19:35 03/08/24 19:58 Oxycodone Hcl Immed Release 5 Mg Tablet PO 03/08/24 19:36 5 mg ONCE ONE Administration Medical Decision Making Medical Decision Making [facility] Narrative: This is a 73-year-old female who presents emergency department with complaints of left-sided flank pain which started this afternoon. On arrival, vital signs within normal limits. She is afebrile and nontoxic appearing. Patient denies history of similar symptoms in the past. Differential diagnoses include ACS- unlikely, obstructive uropathy, acute cystitis, pyelonephritis, bowel obstruction-unlikely, gastritis, gastroenteritis. Plan: Labs, EKG, CT, UA Differential Diagnosis Differential Diagnoses: The differential diagnosis associated with the presentation includes See above Admission/Observation Consideration of admission/observation: Escalation of care including admission/observation considered Lab Data [facility] Lab Attestation statement: I reviewed the patient's lab results. 03/08/24 18:43 03/08/24 18:43 Labs: Lab Results 03/08/24 03/08/24 Range/Units 18:43 20:22 WBC 8.2 (4.8-10.8) X10*3/uL RBC 3.18 L (4.20-5.50) X10*6/uL Hgb 10.5 L (12.0-16.0) g/dl Hct 31.9 L (37.0-47.0) % MCV 100.3 H (80.0-98.0) fL MCH 33.0 (27.0-33.0) pg MCHC 32.9 (31.0-35.0) g/dl RDW 13.2 (11.0-16.0) % Plt Count 225 (160-400) X10*3/uL MPV 8.8 L (9.4-12.3) fL Immature Gran % (Auto) 0.1 (0.0-0.4) % Neut % (Auto) 65.9 (45-73) % Lymph % (Auto) 25.3 (20-40) % [place] % (Auto) 7.3 (2-11) % Eos % (Auto) 1.0 (0-4) % Baso % (Auto) 0.4 (0-2) % Lymph # (Auto) 2.1 (1.2-4.9) X10*3/uL [place] # (Auto) 0.6 (0.1-1.2) X10*3/uL Eos # (Auto) 0.1 (0.0-0.4) X10*3/uL Baso # (Auto) 0.0 (0.0-0.2) X10*3/uL Abs Immat Gran (auto) 0.01 (0.00-0.03) X10*3/uL Absolute Neuts (auto) 5.4 (2.0-8.3) x10*3/uL Absolute Nucleated RBC 0.000 (0.0-0.012) X10*3/uL Nucleated RBC % (auto) 0.0 (0.0-0.2) /100WBC Sodium 143 (135-145) mmol/L Potassium 5.1 (3.3-5.1) mmol/L Chloride 107 (96-108) mmol/L Carbon Dioxide 27 (22-29) mmol/L Anion Gap 14 (12-20) BUN 35 H (9-16) mg/dL Creatinine 1.16 (0.5-1.4) mg/dL Estim Creat Clear Calc 31.4 Estimated GFR 46 Random Glucose 100 (60-115) mg/dL Calcium 10.1 D (8.4-10.2) mg/dL Total Bilirubin 0.2 (0.0-1.0) mg/dL AST 17 (5-31) U/L ALT 14 (0-31) U/L Alkaline Phosphatase 51 (39-117) U/L Troponin I High Sens < 2.7 (<3.5-17.0) ng/L Total Protein 6.7 (6.5-8.0) g/dL Albumin 4.1 (3.5-5.0) g/dL Urine Color Yellow Urine Appearance Clear Urine pH 5.5 (5.0-9.0) Ur Specific [place] 1.025 (1.005-1.025) Urine Protein Negative (Neg-Trace) mg/dL Urine Glucose (UA) Negative (Negative) mg/dL Urine Ketones Trace (Negative) mg/dL Urine Blood Negative (Negative) Urine Nitrite Negative (Negative) Ur Leukocyte Esterase Small (1+) H (Negative) Urine RBC 0-2 (0-2) /HPF Urine WBC 6-10 H (0-5) /HPF Ur Squamous Epith Cells 0-2 (0-2) /HPF Urine Bacteria None Seen (None Seen) Hyaline Casts 0-2 (0-2) /LPF Radiology Impression Discussion of test interpretation with radiology: I have reviewed the radiologist's reading. Radiologist Impression: CT/CT abdomen pelvis wo IV con IMPRESSION: No acute pathology of the abdomen or pelvis on this noncontrast study. Fleischner guidelines were followed. Dictated By: Tom Corral Signed By: <Electronically signed by Tom Corral in OV> External Record Review External record reviewed: Inpatient record, Office record, Outpatient record, Prior outpatient labs, Prior outpatient radiology, Primary care record and Outside ED record Discharge Plan Discharge Clinical Impression: Acute left flank pain Patient Disposition: Home, Self-Care Instructions: Flank Pain (ED) Additional Instructions: You were seen in the emergency department due to left-sided flank pain. Your workup today was reassuring. Drink plenty of fluids get plenty of rest. Your CT scan does show evidence of severe osteopenia and degenerative changes. This is likely the source of your pain. Take prescribed medication as directed. Please be advised that this can cause drowsiness, do not drink alcohol or drive while taking this medication. Only take as needed. Continue taking Tylenol as needed. Follow-up with your primary care physician, call on Sunday to make an appointment. If any new or worsening symptoms occur including but not limited to chest pain, shortness of breath, please return for re-evaluation. Prescriptions: New oxycodone 5 mg tablet 5 mg PO Q6H PRN (Reason: pain) Qty: 5 0RF Rx Instructions: Partial Fill upon patient request. No Action atorvastatin [Lipitor] 40 mg tablet 40 mg PO DAILY Qty: 90 6RF clotrimazole-betamethasone 1-0.05 % cream 1 appl topical BID 14 Days Qty: 45 2RF divalproex 125 mg tablet,delayed release (DR/EC) 125 mg PO Q12H Qty: 60 8RF Rx Instructions: 7am and 7pm metoprolol succinate 50 mg tablet extended release 24 hr 50 mg PO DAILY duloxetine 60 mg capsule,delayed release(DR/EC) 60 mg PO DAILY calcium carbonate 500 mg calcium (1,250 mg) tablet,chewable 500 mg PO BID acetaminophen 325 mg capsule 650 mg PO Q4H PRN buspirone 5 mg tablet 5 mg PO BID eyoubogvfeqp-ychywzsx-hkljeg Tablet 1 tab PO DAILY ascorbic acid (vitamin C) 1,000 mg tablet 1 g PO DAILY quetiapine 150 mg tablet extended release 24 hr 150 mg PO BEDTIME gabapentin 300 mg capsule 300 mg PO DAILY trazodone 100 mg tablet 100 mg PO BEDTIME albuterol sulfate [ProAir HFA] 90 mcg/actuation HFA aerosol inhaler 2 puff PO Q6H PRN (Reason: bronchospasm) Qty: 18 8RF hydroxyzine HCl 10 mg tablet 10 mg PO BID nystatin 100,000 unit/gram powder 1 appl topical TID Qty: 60 3RF Interventions: ED Discharge Assessment Last Done: 03/08/24 23:50 Discharge Date/Time: 03/09/24 00:10 Print Language: Ukrainian
[2024-03-08 23:48] VITALS: BP 151/75; PULSE 67; RESP 16; TEMP 36.8; O2SAT 93
[2024-03-08 23:50] VITALS: BP 151/75; PULSE 67; RESP 16; TEMP 36.8; O2SAT 93
== END 2024-03-09 00:10 | disposition home or self-care (01) ==
PROVIDERS: Physician Assistant Medical; Emergency Provider Emergency Medicine; PCP Internal Medicine
DX: R10.9 Unspecified abdominal pain (principal); R10.12 Left upper quadrant pain; I10 Essential (primary) hypertension
CPT/HCPCS: 36415; 74176; 80053; 81001; 84484; 85025; 87086; 93005; 99284; 99285

== ENCOUNTER → 2024-03-08 18:16 | Outpatient (BNV) | payer MEDICARE, MEDICAID, SELFPAY | PROVIDERS: Emergency Provider Emergency Medicine; PCP Internal Medicine; Visit Provider Internal Medicine Cardiovascular Disease | DX: R10.9 Unspecified abdominal pain (principal) | CPT/HCPCS: 93010 ==

== ENCOUNTER 2024-03-12 08:32 | Outpatient (REF) | payer MEDICARE, MEDICAID, SELFPAY ==
[2024-03-12 11:49] LABS: Alanine Aminotransferase 13 U/L (0-31); Albumin Level 4.3 g/dL (3.5-5.0); Alkaline Phosphatase 55 U/L (39-117); Anion Gap 12 (12-20); Aspartate Amino Transferase 19 U/L (5-31); Bilirubin Total 0.2 mg/dL (0.0-1.0); Blood Urea Nitrogen 46 mg/dL (9-16); Calcium 10.5 mg/dL (8.4-10.2); Carbon Dioxide 27 mmol/L (22-29); Chloride 108 mmol/L (96-108); Cholesterol 168 mg/dL (<200); Estimated Glomerular Filt Rate 47; Glucose Fasting 107 mg/dL (60-99); HDL Cholesterol 62 mg/dL (>40); LDL Cholesterol Calculated 67 mg/dL (<100); Potassium 5.2 mmol/L (3.3-5.1); Sodium 142 mmol/L (135-145); Total Protein 7.2 g/dL (6.5-8.0); Triglycerides 196 mg/dL (<150)
[2024-03-12 12:00] LABS: Vitamin B12 1326 pg/mL (200-900)
[2024-03-12 12:04] LABS: Erythrocyte Sedimentation Rate 34 MM/HR (0-20)
[2024-03-12 12:06] LABS: Thyroid Stimulating Hormone 1.78 uIU/mL (0.32-4.0)
== END 2024-03-12 08:33 | disposition home or self-care (01) ==
LOC: HO.HMGCLDS 08:32
PROVIDERS: PCP Internal Medicine; Visit Provider Internal Medicine
DX: Z13.29 Encounter for screening for other suspected endocrine disorder (principal); R41.89 Other symptoms and signs involving cognitive functions and awareness; Z13.220 Encounter for screening for lipoid disorders; Z13.9 Encounter for screening, unspecified
CPT/HCPCS: 36415; 80053; 80061; 82607; 84443; 85652

== ENCOUNTER 2024-03-12 08:45 | Outpatient (AMB) | payer MEDICARE, MEDICAID, SELFPAY ==
--- NOTE | 2024-03-12 09:07 | AM.OFFWIN_ITS ---
Intake Vital Signs 03/12/24 09:08 Height 4 ft 8 in Weight 140 lb BMI 31.4 BP 124/82 Blood Pressure Location Lt brachial Position Sitting Pulse 78 Pulse Source Pulse Oximeter Temp 98.0 F Temp Source Oral Pulse Oximetry (%) 98 Oxygen Delivery Method Room Air Intake Visit Reasons: EP Infected Right Big Toe Intake Note: pt c/o infected RT great toe Patient Tobacco Use Status: Never used Tobacco Allergies amoxicillin Allergy (Unknown, Verified 03/12/24 09:07) tachycardia doxycycline Allergy (Unknown, Verified 03/12/24 09:07) stomach upset iron Allergy (Unknown, Verified 03/12/24 09:07) unknown nitroglycerin Allergy (Unknown, Verified 03/12/24 09:07) Unknown From Ferrlecit Allergy (Mild, Uncoded 03/12/24 09:07) RED,ITCH,BURNING,SWELLING OF FEET iv dye Allergy (Unknown, Uncoded 03/12/24 09:07) Unknown Do you need a note to return to daycare/school/sports/work: No HPI EP Infected Right Big Toe HPI Details This note is constructed using voice recognition software. While every effort has been made to ensure accuracy, program management analyst errors may have been incl uded. The patient is a 71 year old female who presents to the clinic today with infected right great toe for the past several days. She notes that she had a cystic structure next to the nail, and she had soaked it in Epsom salt, it popped and drained yellow discharge. There is some erythema remaining and some warmth, and she is concerned that this is infected. [facility] Medical History Otitis media Rib pain on left side Right knee pain Callus of foot Pneumonia Osteoarthritis of left hip Osteoarthritis of right hip Hypertension Surgical History No history of previous surgery Family History Mother No problems noted. Father No problems noted. Social History Housing: Apartment Alcohol intake: former Patient Tobacco Use Status: Never used Tobacco e-Cigarette/Vaping Use: Never Used Second Hand Smoke Exposure: No service: No Current occupational status: retired and disabled Cognitive needs: No Hearing needs: No Vision needs: No Review of Systems Const All systems reviewed & are unremarkable except as noted in HPI and below Physical Exam Vital Signs: Last Vital Signs Temp 98.0 F 03/12/24 09:08 Pulse 78 03/12/24 09:08 BP 124/82 03/12/24 09:08 Pulse Ox 98 03/12/24 09:08 Oxygen Delivery Method Room Air 03/12/24 09:08 BMI result Body Mass Index 31.4 Const General: cooperative, healthy appearing, comfortable, no acute distress and alert Orientation/consciousness: patient oriented x3 Limitations: no limitations Skin Other: Open paronychia to right great toe lateral aspect, with minimal yellow discharge . Surrounding erythema and warmth remain. Neuro General: patient oriented x3 Extrem General: Yes normal to inspection, Yes full ROM, Yes capillary refill normal and Yes normal exam except as noted Psych Appearance: grossly normal Mental Status: mental status grossly normal Speech and movement: Normal speech and movement present Affect: normal affect Assessment & Plan Assessment & Plan (1) Cellulitis: Code(s): L03.90 - Cellulitis, unspecified Qualifiers: Site of cellulitis: other site Qualified Code(s): L03.818 - Cellulitis of other sites Plan: Antimicrobial therapy selected based on patient's allergy profile. Advised monitoring for worsening symptoms including erythematous streaking which would r equire systemic antimicrobial therapy. (2) Paronychia of great toe: Code(s): L03.039 - Cellulitis of unspecified toe Plan: Given resulting cellulitis, we will treat this with antimicrobials. Advised nail cutting across not rounded to help avoid any ingrown toenails. Advised patient to follow up with PCP as needed or with worsening or failure to resolve. Plan See above for full details and plan. Medications: New sulfamethoxazole-trimethoprim 800-160 mg 1 tab PO BID 7 days 14 tabs 0RF Coding Level of Care Code Est Pt Level 3 (85552) Diagnoses Cellulitis of other specified site L03.818 Site of cellulitis: other site Paronychia of great toe L03.039
[2024-03-12 09:08] VITALS: BP 124/82; PULSE 78; TEMP 36.7; O2SAT 98; BMI 31.4
== END 2024-03-12 10:01 | disposition home or self-care (01) ==
PROVIDERS: PCP Internal Medicine; Visit Provider Registered Nurse
DX: L03.818 Cellulitis of other sites (principal); L03.039 Cellulitis of unspecified toe
CPT/HCPCS: 99213

== ENCOUNTER 2024-03-13 10:30 | Outpatient (REF) | payer MEDICARE, MEDICAID, SELFPAY ==
--- NOTE | ~2024-03-13 | CT_ITS ---
EXAMINATION CT HEAD WITHOUT CONTRAST CLINICAL INFORMATION: Signs and symptoms involving cognitive functions and awareness COMPARISON: None TECHNIQUE: CT of the head was performed without intravenous contrast. Reformatted axial, coronal, and sagittal images were reviewed. This CT examination was performed using dose optimization techniques as appropriate, variously including the following: *Automated exposure control *Adjustment of mA and/or kV according to patient size (this includes techniques or standardized protocols for targeted exams where dose is matched to indication/reason for exam; i.e. extremities or head) *Use of iterative reconstruction technique DLP: 794 mGy-cm FINDINGS: No intracranial hemorrhage, extra-axial fluid collection, or midline shift is identified. Zelaya-white matter differentiation is preserved. Prominence of the cerebral sulci with commensurate ventriculomegaly consistent with age-related cerebral volume loss. Periventricular white matter hypoattenuation consistent with chronic small vessel ischemic disease. Chronic lacunar infarct within the left centrum semiovale. Basal cisterns are within normal limits. Paranasal sinuses are clear. Mastoid air cells and middle ear cavities are clear. No acute calvarial fractures. Calcifications of the cavernous internal carotid arteries, right greater than left. CT/CT head/brain wo IV con IMPRESSION: 1. No acute intracranial abnormality. 2. Chronic small vessel ischemic disease and age-related cerebral volume loss. Electronically signed by: Tom Corral DO 04/07/2024 09:34 PM EDT
== END 2024-03-13 10:31 | disposition home or self-care (01) ==
LOC: HO.CT 10:30
PROVIDERS: PCP Internal Medicine; Visit Provider Internal Medicine
DX: R41.89 Other symptoms and signs involving cognitive functions and awareness (principal)
CPT/HCPCS: 70450

== ENCOUNTER 2024-03-14 21:13 | Inpatient (IN) | payer MEDICARE, MEDICAID, SELFPAY ==
--- NOTE | 2024-03-14 | ECG_ITS ---
Test Reason : fall Blood Pressure : / mmHG Vent. Rate : 092 BPM Atrial Rate : 092 BPM P-R Int : 158 ms QRS Dur : 084 ms QT Int : 346 ms P-R-T Axes : 025 001 030 degrees QTc Int : 427 ms Normal sinus rhythm Normal ECG When compared with ECG of 08-MAR-2024 18:51, No significant change was found Referred By: Generic ED Physician Electronically Signed By:DIMAS JASMINE MD
--- NOTE | ~2024-03-14 | XR_ITS ---
EXAMINATION: XR chest 1V CLINICAL INFORMATION: Reason for Exam hypoxia COMPARISON: 1 day earlier TECHNIQUE: Single portable frontal view. Tubes and lines: Endotracheal tube tip properly positioned with its tip approximately 3 cm from ab. Lungs and pleura: Diminished lung volume, there is pulmonary vascular congestion, bibasilar infiltrate/atelectasis and subpulmonic pleural effusion unchanged. Heart and mediastinum: Stable. Bones/soft tissue: Skeletal structures included are normal for patient's age. XR/XR chest 1V IMPRESSION: 1. No significant change. 2. Endotracheal tube properly positioned. 3. Pulmonary vascular congestion, bibasilar infiltrate/atelectasis and subpulmonic pleural effusion unchanged. 4. Diminished lung volume.
--- NOTE | ~2024-03-14 | CT_ITS ---
EXAMINATION: HEAD CT WITHOUT CONTRAST CERVICAL SPINE CT WITHOUT CONTRAST CLINICAL INFORMATION: Fall. Pain. COMPARISON: 03/13/2024 TECHNIQUE: Contiguous axial imaging of the head was performed without the administration of IV contrast. Axial multidetector volumetric images were also performed through the cervical spine without intravenous contrast. Multiplanar reconstructed images in coronal and sagittal orientations were submitted. This CT examination was performed using dose optimization techniques as appropriate, variously including the following: *Automated exposure control *Adjustment of mA and/or kV according to patient size (this includes techniques or standardized protocols for targeted exams where dose is matched to indication/reason for exam; i.e. extremities or head) *Use of iterative reconstruction technique DOSE: 1096 mGy-cm FINDINGS: HEAD: There is no evidence of acute intracranial hemorrhage or territorial infarction. No abnormal mass-effect or midline shift. No extra-axial fluid collections. Zelaya to white matter differentiation is well preserved. Mild enlargement of the ventricles, sulci, and extra-axial CSF spaces is indicative of parenchymal volume loss. Multiple areas of hypoattenuation in the subcortical and periventricular white matter are most consistent with chronic microangiopathic changes. Calcific atherosclerosis is present within the cavernous segments of the internal carotid arteries. Globes are aphakic. No periorbital abnormalities. Calvarium is intact. The sinuses and mastoid air cells are clear. CERVICAL SPINE: Vertebral body heights are normal. No fractures of the vertebral bodies or posterior elements. Vertebral alignment is normal. No subluxation. Degenerative osteophytes and sclerosis are present at the atlantodental articulation, though normal alignment is maintained. Craniocervical junction is normal. Mild to moderate degenerative disc disease at C4-C5, C5-C6, and C6-C7. More mild degenerative disc disease at other levels. Moderate facet arthropathy on the left at C3-C4. Posterior disc osteophytic protrusions are present at multiple levels, most notably at C5-C6, producing at least [id number] central canal narrowing. Multilevel neural foraminal encroachment is produced by uncovertebral and facet osteophytes, most notably on the left from C3-C4 through C5-C6. No significant paravertebral soft tissue swelling. Atherosclerotic calcifications are present in the carotid arteries. Imaged portions of the lung apices are clear. CT/CT cervical spine wo IV con IMPRESSION: 1. No acute intracranial pathology. 2. No acute fracture or malalignment in the cervical spine. Multilevel degenerative spondylosis in the cervical spine.
--- NOTE | ~2024-03-14 | XR_ITS ---
EXAMINATION: XR CHEST CLINICAL INFORMATION: Cough. Rib pain. COMPARISON: 03/22/2021 TECHNIQUE: Frontal view of the chest was obtained. FINDINGS: Low lung volumes. Mild bibasilar atelectasis, left side greater than right. No consolidation, pneumothorax, or pleural effusion. Bones are osteopenic. Degenerative spondylosis is present in the thoracic spine. 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 There is a fracture at the left seventh rib laterally which appears acute. XR/XR chest 1V IMPRESSION: Left seventh rib fracture laterally, likely acute. Low lung volumes with mild bibasilar atelectasis. No acute pulmonary findings.
--- NOTE | ~2024-03-14 | XR_ITS ---
EXAMINATION: XR ANKLE, LEFT CLINICAL INFORMATION: Fall. Acute pain. COMPARISON: None available. TECHNIQUE: AP, lateral, and mortise views of the left ankle. FINDINGS: Bones are osteopenic. Soft tissues are swollen at the ankle. There is an acute avulsion fracture at the posteromedial cortex of the medial malleolus, likely at the retinacular attachment. Ankle mortise is symmetric. Distal fibular is intact. Talar dome is normal in appearance. Joint spaces appear well-preserved. Ankle joint effusion. XR/XR ankle LT min 3V IMPRESSION: 1. Acute avulsion fracture at the posteromedial cortex of the medial malleolus. 2. Ankle joint effusion and soft tissue swelling.
--- NOTE | ~2024-03-14 | XR_ITS ---
EXAMINATION: XR CHEST CLINICAL INFORMATION: Orogastric tube placement. COMPARISON: Radiograph from the same date at 6:17 PM TECHNIQUE: Frontal view of the chest was obtained. FINDINGS: Low lung volumes. ET tube terminates 2 cm from the ab. Orogastric tube tip terminates in the central chest proximally 2.5 cm from the GE junction. EKG leads are present. Atelectasis is present in the lung bases with associated effusions. Enlargement of the cardiac and mediastinal contours is likely related to the low lung volumes. No pneumothorax. Bones are osteopenic. XR/XR chest 1V IMPRESSION: 1. ET tube terminates 2 cm from the ab. 2. Orogastric tube tip terminates in the central chest, 2.5 cm from the GE junction. Recommend advancing by at least 12 cm so that the side port just distal to the GE junction. 3. Low lung volumes with bibasilar atelectasis and small pleural effusions.
--- NOTE | ~2024-03-14 | XR_ITS ---
EXAMINATION: XR CHEST CLINICAL INFORMATION: Respiratory failure. COMPARISON: Chest radiograph 03/23/2024. TECHNIQUE: Frontal view of the chest was obtained. FINDINGS: An endotracheal tube is not seen. Unchanged prominence of the cardiomediastinal silhouette. Low lung volumes with stable bibasilar airspace opacities. No significant pleural effusion or pneumothorax. No acute osseous findings. XR/XR chest 1V IMPRESSION: 1. An endotracheal tube is not seen. 2. Low lung volumes with stable bibasilar airspace opacities. 3. No significant pleural effusion or pneumothorax. Electronically signed by: Christa Roman MD 03/27/2024 02:21 PM EDT
--- NOTE | ~2024-03-14 | XR_ITS ---
EXAMINATION: XR CHEST CLINICAL INFORMATION: Intubated patient. COMPARISON: 03/22/2024 TECHNIQUE: Frontal view of the chest was obtained. FINDINGS: ET tube terminates 2 cm from the ab. Lung volumes are low. Linear bibasilar opacities likely correspond to atelectasis. Possible small pleural effusions. No pneumothorax. Cardiac and mediastinal contours are within normal limits for technique. Degenerative spondylosis is present in the thoracolumbar spine. No acute osseous findings. XR/XR chest 1V IMPRESSION: 1. ET tube terminates 2 cm from the ab. 2. Low lung volumes with bibasilar atelectasis and possible small pleural effusions.
--- NOTE | ~2024-03-14 | XR_ITS ---
EXAMINATION: XR CHEST CLINICAL INFORMATION: Cough, dyspnea. COMPARISON: Chest radiograph 03/15/2024. TECHNIQUE: 2 views of the chest were obtained. FINDINGS: No focal consolidation, pleural effusion or pneumothorax. Stable enlargement of the cardiomediastinal silhouette with a prominent epicardial fat pad partially obscuring the left lateral costophrenic angle. Redemonstration of left-sided seventh rib fracture. Degenerative changes of the thoracic spine. XR/XR chest 2V IMPRESSION: 1. Stable enlargement of the cardiomediastinal silhouette. 2. No focal consolidation, pleural effusion or pneumothorax. 3. Redemonstration of left-sided seventh rib fracture.
--- NOTE | ~2024-03-14 | XR_ITS ---
EXAMINATION: XR CHEST CLINICAL INFORMATION: Shortness of breath COMPARISON: Chest radiograph from 03/18/2024 TECHNIQUE: 2 views of the chest were obtained. FINDINGS: Bilateral low lung volumes. Bibasilar atelectasis. No pneumothorax. Trachea is midline. Cardiac mediastinal silhouette is stable. Chronic left-sided rib fracture. Soft tissues are unremarkable. XR/XR chest 2V IMPRESSION: 1. Bilateral low lung volumes. 2. Bibasilar atelectasis.
--- NOTE | ~2024-03-14 | CT_ITS ---
EXAMINATION: HEAD CT WITHOUT CONTRAST CERVICAL SPINE CT WITHOUT CONTRAST CLINICAL INFORMATION: Fall. Pain. COMPARISON: 03/13/2024 TECHNIQUE: Contiguous axial imaging of the head was performed without the administration of IV contrast. Axial multidetector volumetric images were also performed through the cervical spine without intravenous contrast. Multiplanar reconstructed images in coronal and sagittal orientations were submitted. This CT examination was performed using dose optimization techniques as appropriate, variously including the following: *Automated exposure control *Adjustment of mA and/or kV according to patient size (this includes techniques or standardized protocols for targeted exams where dose is matched to indication/reason for exam; i.e. extremities or head) *Use of iterative reconstruction technique DOSE: 1096 mGy-cm FINDINGS: HEAD: There is no evidence of acute intracranial hemorrhage or territorial infarction. No abnormal mass-effect or midline shift. No extra-axial fluid collections. Zelaya to white matter differentiation is well preserved. Mild enlargement of the ventricles, sulci, and extra-axial CSF spaces is indicative of parenchymal volume loss. Multiple areas of hypoattenuation in the subcortical and periventricular white matter are most consistent with chronic microangiopathic changes. Calcific atherosclerosis is present within the cavernous segments of the internal carotid arteries. Globes are aphakic. No periorbital abnormalities. Calvarium is intact. The sinuses and mastoid air cells are clear. CERVICAL SPINE: Vertebral body heights are normal. No fractures of the vertebral bodies or posterior elements. Vertebral alignment is normal. No subluxation. Degenerative osteophytes and sclerosis are present at the atlantodental articulation, though normal alignment is maintained. Craniocervical junction is normal. Mild to moderate degenerative disc disease at C4-C5, C5-C6, and C6-C7. More mild degenerative disc disease at other levels. Moderate facet arthropathy on the left at C3-C4. Posterior disc osteophytic protrusions are present at multiple levels, most notably at C5-C6, producing at least [id number] central canal narrowing. Multilevel neural foraminal encroachment is produced by uncovertebral and facet osteophytes, most notably on the left from C3-C4 through C5-C6. No significant paravertebral soft tissue swelling. Atherosclerotic calcifications are present in the carotid arteries. Imaged portions of the lung apices are clear. CT/CT head/brain wo IV con IMPRESSION: 1. No acute intracranial pathology. 2. No acute fracture or malalignment in the cervical spine. Multilevel degenerative spondylosis in the cervical spine.
--- NOTE | ~2024-03-14 | NM_ITS ---
PULMONARY PERFUSION ONLY STUDY: CLINICAL INDICATION: Hypoxia. Shortness of breath. PROCEDURE: Following the intravenous administration of 4.0 millicuries technetium 99m MAA, images of the chest were obtained in multiple projections using a gamma scintiphotographic camera. COMPARISON: Chest radiograph done on 03/20/2024. PERFUSION IMAGES: No segmental perfusion defects or other perfusion abnormalities are noted. NM/NM pul perfusion IMPRESSION: Based on perfusion only modified PIOPED 2 criteria, pulmonary thromboembolism is absent.
--- NOTE | ~2024-03-14 | XR_ITS ---
EXAMINATION: XR CHEST CLINICAL INFORMATION: Shortness of breath. Aspiration. COMPARISON: 03/20/2024 TECHNIQUE: Frontal view of the chest was obtained. FINDINGS: Low lung volumes. Bibasilar atelectasis is noted, right side greater than left. Cardiac and mediastinal contours are within normal limits for technique. Pulmonary vasculature is unremarkable. No consolidation or pneumothorax. No acute osseous findings. Bones are osteopenic. XR/XR chest 1V IMPRESSION: Low lung volumes with bibasilar atelectasis. No acute pulmonary findings.
[2024-03-14 21:22] VITALS: BP 154/84; PULSE 95
[2024-03-14 21:29] VITALS: BP 153/85; PULSE 93; RESP 18; TEMP 37.2; O2SAT 93
[2024-03-14 21:31] VITALS: BP 160/82; PULSE 88; RESP 16; TEMP 36.7; O2SAT 88; BMI 29.8
[2024-03-14 21:37] VITALS: O2SAT 95
[2024-03-14 22:17] LABS: MANUAL DIFF FLAG NO
[2024-03-14 22:19] LABS: Basophils Percent Auto 0.5 % (0-2); Eosinophils Absolute Auto 0.2 X10*3/uL (0.0-0.4); Eosinophils Percent Auto 2.5 % (0-4); Hematocrit 30.4 % (37.0-47.0); Imm Gran Abs Auto 0.01 X10*3/uL (0.00-0.03); Imm Gran Pct Auto 0.2 % (0.0-0.4); Lymphocytes Absolute Auto 1.3 X10*3/uL (1.2-4.9); Lymphocytes Percent Auto 20.1 % (20-40); Mean Corpuscular HGB Conc 32.9 g/dl (31.0-35.0); Mean Corpuscular Hemoglobin 33.4 pg (27.0-33.0); Mean Corpuscular Volume 101.7 fL (80.0-98.0); Mean Platelet Volume 8.5 fL (9.4-12.3); Monocytes Absolute Auto 0.5 X10*3/uL (0.1-1.2); Monocytes Percent Auto 8.1 % (2-11); Neutrophils Absolute Auto 4.5 x10*3/uL (2.0-8.3); Neutrophils Percent Auto 68.6 % (45-73); Platelet Count 201 X10*3/uL (160-400); Red Blood Count 2.99 X10*6/uL (4.20-5.50); Red Cell Distribution Width 13.2 % (11.0-16.0); White Blood Count 6.5 X10*3/uL (4.8-10.8)
[2024-03-14 22:24] LABS: INTERNATIONAL NORM RATIO 0.9 (0.9-1.1); Prothrombin Time 11.5 SEC (11.1-13.3)
[2024-03-14 22:32] LABS: Alanine Aminotransferase 12 U/L (0-31); Albumin Level 4.1 g/dL (3.5-5.0); Alkaline Phosphatase 50 U/L (39-117); Anion Gap 13 (12-20); Aspartate Amino Transferase 20 U/L (5-31); Bilirubin Total 0.1 mg/dL (0.0-1.0); Blood Urea Nitrogen 38 mg/dL (9-16); Calcium 9.2 mg/dL (8.4-10.2); Carbon Dioxide 24 mmol/L (22-29); Chloride 109 mmol/L (96-108); Creatinine Clr Calc Pharmacy 39.7; Estimated Glomerular Filt Rate 48; Glucose Random 141 mg/dL (60-115); Sodium 141 mmol/L (135-145); Total Protein 6.7 g/dL (6.5-8.0)
[2024-03-14 22:41] LABS: Troponin-I High Sensitivity < 2.7 ng/L (<3.5-17.0)
[2024-03-15] VITALS (7 sets, daily range): BP systolic 138–158; BP diastolic 57–88; PULSE 76–88; RESP 15–20; TEMP 36.7–36.8; O2SAT 90–97
--- NOTE | 2024-03-15 05:17 | ED_ITS ---
HPI - General Adult General Chief complaint: Fall Stated complaint: Fall Time Seen by Provider: 03/15/24 05:16 History of Present Illness ED Provider: Myriam FOREMAN narrative: The patient is a 73-year-old woman who lives in her own apartment by herself. She apparently fell in the bathroom this evening. She says that she was using the toilet. She then stood and after she stood up she felt mildly lightheaded, lost her balance, and fell.. She does not think she lost consciousness. She believes she probably did not hit her head but she is not sure. She does feel that she injured her left ankle. She says that she did not feel that she could get up and so used her medical alert button on her right wrist to summon an ambulance. Her chief complaint is pain in the left ankle. The patient was apparently seen at her primary care doctor's office (Dr. Aj Cortes's office) 2 weeks ago and had an outpatient CT of the brain ordered at that time on February 28. The CT was done as an outpatient the day before presentation to the emergency room for this visit on March 13. The indication for the outpatient CT scan was ?symptoms and signs involving cognitive functions and awareness. ? The patient was seen in the emergency room 1 week ago for left flank pain. She had no definite findings made on her workup in the emergency room on March 08. Ultimately she was discharged with a small prescription for oxycodone. A urine culture was sent which grew mixed jared. Related Data Home Medications ?Medication ?Instructions ?Recorded ?Confirmed acetaminophen 325 mg capsule 650 mg PO Q4H PRN 09/13/20 03/03/24 calcium carbonate 500 mg PO BID 09/13/20 03/03/24 duloxetine 60 mg capsule,delayed 60 mg PO DAILY 09/13/20 03/03/24 release metoprolol succinate 50 mg 50 mg PO DAILY 09/13/20 03/03/24 tablet,extended release 24 hr ascorbic acid (vitamin C) 1,000 mg 1 g PO DAILY 03/22/21 03/03/24 tablet buspirone 5 mg tablet 5 mg PO BID 03/22/21 03/03/24 yjimqmrsjrpr-dutpjqgk-aiahpq tablet 1 tab PO DAILY 03/22/21 03/03/24 gabapentin 300 mg capsule 300 mg PO DAILY 02/28/23 03/03/24 quetiapine 150 mg tablet,extended 150 mg PO BEDTIME 02/28/23 03/03/24 release 24 hr trazodone 100 mg tablet 100 mg PO BEDTIME 02/28/23 03/03/24 hydroxyzine HCl 10 mg tablet 10 mg PO BID 02/29/24 03/03/24 Previous Rx's ?Medication ?Instructions ?Recorded albuterol sulfate 90 mcg/actuation 2 puff PO Q6H PRN bronchospasm #18 02/28/23 aerosol inhaler (ProAir HFA) grams atorvastatin 40 mg tablet (Lipitor) 40 mg PO DAILY #90 tabs 03/12/23 clotrimazole-betamethasone 1 1 appl topical BID 2 weeks #45 09/12/23 %-0.05 % topical cream grams divalproex 125 mg tablet,delayed 125 mg PO Q12H #60 tabs 11/10/23 release nystatin 100,000 unit/gram topical 1 appl topical TID #60 grams 02/29/24 powder oxycodone 5 mg tablet 5 mg PO Q6H PRN pain #5 tabs 03/08/24 sulfamethoxazole 800 1 tab PO BID 7 days #14 tabs 03/12/24 mg-trimethoprim 160 mg tablet Allergies Allergy/AdvReac Type Severity Reaction Status Date / Time amoxicillin Allergy Unknown tachycardia Verified 03/14/24 21:35 doxycycline Allergy Unknown stomach Verified 03/14/24 21:35 upset iron Allergy Unknown unknown Verified 03/14/24 21:35 nitroglycerin Allergy Unknown Unknown Verified 03/14/24 21:35 From Ferrlecit Allergy Mild RED,ITCH,BURNING,SWELLING Uncoded 03/12/24 09:07 OF FEET iv dye Allergy Unknown Unknown Uncoded 03/12/24 09:07 Review of Systems 2 Review of Systems: Yes all other systems are reviewed and are negative [facility] Past Medical History Medical History Otitis media Rib pain on left side Right knee pain Callus of foot Pneumonia Osteoarthritis of left hip Osteoarthritis of right hip Hypertension Surgical History No history of previous surgery Family History Family History Mother No problems noted. Father No problems noted. Social History Social History Housing: Apartment Alcohol intake: former Patient Tobacco Use Status: Never used Tobacco Smoked in Last 30 Days: No e-Cigarette/Vaping Use: Never Used Second Hand Smoke Exposure: No Use of substances other than those prescribed or required for medical reasons: No Advance Directives: No Advance Directives Information Provided: No Do you have a plan to hurt others: No Plan service: No Current occupational status: retired and disabled Cognitive needs: No Hearing needs: No Vision needs: No Physical Exam ED Vital Signs: Vital Signs - 24 hr 03/14/24 21:29 03/14/24 21:31 03/14/24 21:37 Temperature 99.0 F 98.0 F Pulse Rate 93 88 Respiratory Rate 18 16 Blood Pressure 153/85 H 160/82 H Pulse Oximetry 93 88 L 95 Oxygen Delivery Method Nasal Cannula Room Air Nasal Cannula Oxygen Flow Rate 2 2 03/15/24 00:00 03/15/24 02:43 Temperature Pulse Rate 88 78 Respiratory Rate 18 15 Blood Pressure 158/88 H 138/72 Pulse Oximetry 95 95 Oxygen Delivery Method Nasal Cannula Nasal Cannula Oxygen Flow Rate 2 2 BMI result Body Mass Index 29.8 Const Other: The patient is a chronically ill-appearing 73-year-old. She was sleeping but aroused easily with verbal stimuli. She complains of left ankle pain but does not seem in distress. No increased work of breathing. Mental status seems reasonably clear. HENMT Other: The face is symmetrical. Mucous membranes moist. Eyes Other: Pupils are round equal, conjunctivae are clear, extraocular movements intact Neck Other: Mild diffuse posterior C-spine tenderness. Chest Other: Mild chest wall tenderness anteriorly without crepitus or subcutaneous emphysema. Resp Other: Breath sounds fairly clear. Possibly some minimal wheezing bilaterally. Cardio Rate: regular rate Rhythm: regular rhythm Heart sounds: S1 normal heart sound present and S2 normal heart sound present GI Other: Abdomen is soft and nontender Skin Other: There is some bruising to the left lower lowe. There is some soft tissue swelling to the left ankle. Neuro Other: The patient had fallen asleep but awoke easily to verbal stimuli. Mental status was clear. She was appropriately oriented. Cranial nerves are grossly intact. She moves her extremities with symmetrical strength. Finger-nose is intact. She seems grossly neurologically intact. No focal deficits appreciated. Extrem Other: The patient is tender at the left ankle. There is soft tissue swelling to the left ankle but no gross deformity. Tenderness is more on the medial aspect than the lateral aspect. Foot itself does not seem tender. The foot itself has good pulses. There is a bruise to the lower lowe just above the ankle which is not remarkably tender. Other extremities are unremarkable. Medications Administered Discontinued Medications Generic Name Dose Route Start Last Admin Trade Name [place] PRN Reason Stop Dose Admin Acetaminophen 975 mg 03/15/24 05:45 03/15/24 05:50 Acetaminophen 325 Mg Tablet PO 03/15/24 05:46 975 mg ONCE ONE Administration Medical Decision Making Medical Decision Making [facility] Narrative: The patient is a 73-year-old woman who was quite frail at baseline. She lives alone in her own apartment and requires a walker to get around. She fell in her bathroom when she stood up after using the toilet. She seems to describe a mechanical fall or possibly a mildly orthostatic reason for falling. She has a negative head CT and a negative cervical spine CT. Her chief complaint seems to be left ankle pain. An x-ray of the left ankle shows an avulsion fracture to the distal tibia at the medial malleolus. The patient has some mild chest wall tenderness on exam. When awake the patient's oxygen saturation is good when she falls asleep her oxygen saturations dropped mildly. She will be given albuterol. Given that she is quite frail at baseline I am not certain she will do very well with the walking boot for her left ankle avulsion fracture. We will therefore get a case management and physical therapy consult. I will be signing the patient out to the oncoming emergency physician.. Lab Data 03/14/24 22:11 03/14/24 22:11 Labs: Lab Results 03/14/24 03/15/24 Range/Units 22:11 05:23 WBC 6.5 (4.8-10.8) X10*3/uL RBC 2.99 L (4.20-5.50) X10*6/uL Hgb 10.0 L (12.0-16.0) g/dl Hct 30.4 L (37.0-47.0) % MCV 101.7 H (80.0-98.0) fL MCH 33.4 H (27.0-33.0) pg MCHC 32.9 (31.0-35.0) g/dl RDW 13.2 (11.0-16.0) % Plt Count 201 (160-400) X10*3/uL MPV 8.5 L (9.4-12.3) fL Immature Gran % (Auto) 0.2 (0.0-0.4) % Neut % (Auto) 68.6 (45-73) % Lymph % (Auto) 20.1 (20-40) % [place] % (Auto) 8.1 (2-11) % Eos % (Auto) 2.5 (0-4) % Baso % (Auto) 0.5 (0-2) % Lymph # (Auto) 1.3 (1.2-4.9) X10*3/uL [place] # (Auto) 0.5 (0.1-1.2) X10*3/uL Eos # (Auto) 0.2 (0.0-0.4) X10*3/uL Baso # (Auto) 0.0 (0.0-0.2) X10*3/uL Abs Immat Gran (auto) 0.01 (0.00-0.03) X10*3/uL Absolute Neuts (auto) 4.5 (2.0-8.3) x10*3/uL Absolute Nucleated RBC 0.000 (0.0-0.012) X10*3/uL Nucleated RBC % (auto) 0.0 (0.0-0.2) /100WBC PT 11.5 (11.1-13.3) SEC INR 0.9 (0.9-1.1) Sodium 141 (135-145) mmol/L Potassium 5.0 (3.3-5.1) mmol/L Chloride 109 H (96-108) mmol/L Carbon Dioxide 24 (22-29) mmol/L Anion Gap 13 (12-20) BUN 38 H (9-16) mg/dL Creatinine 1.11 (0.5-1.4) mg/dL Estim Creat Clear Calc 39.7 Estimated GFR 48 Random Glucose 141 H (60-115) mg/dL Calcium 9.2 D (8.4-10.2) mg/dL Total Bilirubin 0.1 (0.0-1.0) mg/dL AST 20 (5-31) U/L ALT 12 (0-31) U/L Alkaline Phosphatase 50 (39-117) U/L Troponin I High Sens < 2.7 (<3.5-17.0) ng/L Total Protein 6.7 (6.5-8.0) g/dL Albumin 4.1 (3.5-5.0) g/dL Urine Color Dark Yellow Urine Appearance Clear Urine pH 5.5 (5.0-9.0) Ur Specific [place] 1.025 (1.005-1.025) Urine Protein Negative (Neg-Trace) mg/dL Urine Glucose (UA) Negative (Negative) mg/dL Urine Ketones Negative (Negative) mg/dL Urine Blood Negative (Negative) Urine Nitrite Negative (Negative) Ur Leukocyte Esterase Negative (Negative) Urine RBC 0-2 (0-2) /HPF Urine WBC 0-5 (0-5) /HPF Ur Squamous Epith Cells 0-2 (0-2) /HPF Urine Bacteria None Seen (None Seen) Hyaline Casts 0-2 (0-2) /LPF Independent Interpretation I performed an independent interpretation of an: EKG Interpretation: EKG at 21:53 shows normal sinus rhythm at 92 beats per minute. It is an unremarkable EKG. Discharge Plan Discharge Clinical Impression: Fall, Avulsion fracture of medial malleolus of left tibia Patient Disposition: Still a Patient Prescriptions: No Action atorvastatin [Lipitor] 40 mg tablet 40 mg PO DAILY Qty: 90 6RF clotrimazole-betamethasone 1-0.05 % cream 1 appl topical BID 14 Days Qty: 45 2RF divalproex 125 mg tablet,delayed release (DR/EC) 125 mg PO Q12H Qty: 60 8RF Rx Instructions: 7am and 7pm oxycodone 5 mg tablet 5 mg PO Q6H PRN (Reason: pain) Qty: 5 0RF Rx Instructions: Partial Fill upon patient request. metoprolol succinate 50 mg tablet extended release 24 hr 50 mg PO DAILY duloxetine 60 mg capsule,delayed release(DR/EC) 60 mg PO DAILY calcium carbonate 500 mg calcium (1,250 mg) tablet,chewable 500 mg PO BID acetaminophen 325 mg capsule 650 mg PO Q4H PRN buspirone 5 mg tablet 5 mg PO BID emthusxccmme-imsvqwtm-jdaxtg Tablet 1 tab PO DAILY ascorbic acid (vitamin C) 1,000 mg tablet 1 g PO DAILY quetiapine 150 mg tablet extended release 24 hr 150 mg PO BEDTIME gabapentin 300 mg capsule 300 mg PO DAILY trazodone 100 mg tablet 100 mg PO BEDTIME albuterol sulfate [ProAir HFA] 90 mcg/actuation HFA aerosol inhaler 2 puff PO Q6H PRN (Reason: bronchospasm) Qty: 18 8RF hydroxyzine HCl 10 mg tablet 10 mg PO BID nystatin 100,000 unit/gram powder 1 appl topical TID Qty: 60 3RF sulfamethoxazole-trimethoprim 800-160 mg tablet 1 tab PO BID 7 Days Qty: 14 0RF Print Language: Vietnamese
[2024-03-15 05:28] LABS: Appearance Urine Clear; Color Urine Dark Yellow; Glucose Urine UA Negative (Negative); Leukocyte Esterase Urine Negative (Negative); Nitrite Urine Negative (Negative); PH 5.5 (5.0-9.0); Specific Gravity - Urine 1.025 (1.005-1.025); Urine Blood Negative (Negative); Urine Ketones Negative (Negative); Urine Protein Negative (Neg-Trace)
[2024-03-15 05:30] LABS: Bacteria Urine None Seen (None Seen); Hyaline Casts Urine 0-2 /LPF (0-2); RBC Urine 0-2 /HPF (0-2); Squamous Epithelial Cell Urine 0-2 /HPF (0-2); WBC Urine 0-5 /HPF (0-5)
[2024-03-15] MEDS: Acetaminophen 325 MG TABLET 975 MG PO (05:50)
--- NOTE | 2024-03-15 08:33 | PC.NURSE ---
Family Shaniqua called and has med list for pt, pharmacy to complete med rec when able and contact given to pharmacy [phone]
[2024-03-15] MEDS: Albuterol Sulfate 90 MCG 8 GM INHALER 4 PUFF INHALE (08:40)
--- NOTE | 2024-03-15 09:16 | MHC.CM.PN ---
This CM attempted to meet with pt, pt on a lengthy phone conversation and told this CM to come back. CM spoke with pts ED nurse, she states PT eval pending, but pt had a fall at home with rib fracture and is looking for STR. Per RN pt states her first choice is [facility], however she would not want to go back to [facility]. STR referral placed to [facility]. CM will continue to follow for PT evsaurabh.
--- NOTE | 2024-03-15 09:31 | PC.NURSE ---
Pt cleaned, repositioned and purewick applied as pt reports difficulty bearing weight on affected left leg. Breakfast tray given and set up.
[2024-03-15] MEDS: oxyCODONE HCl Immed Release 5 MG TABLET PO ×2 (10:47→17:13)
--- NOTE | 2024-03-15 12:46 | PHA.MEDREC ---
Pharmacy Consult ? Medication Reconciliation Pharmacy has completed the medication reconciliation. Spoke to Shaniqua ([phone]) to confirm meds. Per Shaniqua, patient is high risk for developing addiction and they have restricted her from taking oxycodone, so she is not on it at home.
[2024-03-15] MEDS: Multivitamin TABLET 1 TAB PO (14:46)
[2024-03-15] MEDS: Metoprolol Succinate ER 50 MG TAB.ER.24H PO (14:46)
[2024-03-15] MEDS: Atorvastatin Calcium 40 MG TABLET PO (14:46)
[2024-03-15] MEDS: busPIRone HCl 10 MG TABLET PO ×2 (14:47→20:27)
[2024-03-15] MEDS: DULoxetine HCl 60 MG CAPSULE.DR PO (14:47)
--- NOTE | 2024-03-15 15:18 | PC.NURSE ---
Call to NELLY Ayala for run to nurse report completed. Pt will be transported to overflow unit.
--- NOTE | 2024-03-15 19:33 | PC.NURSE ---
pt is yelling out, making the other patients yell, pt moved to room 6, so she was not in front of the other pts. Pt keeps yelling to use the bedpan, and states she has pooped, but pt has not pooped. Asked Pt not to yell, and she says she is sorry for yelling, but then yells again
[2024-03-15] MEDS: traZODone HCL 50 MG TABLET 150 MG PO (20:27)
[2024-03-15] MEDS: QUEtiapine Fumarate 25 MG TABLET PO (20:27)
[2024-03-15] MEDS: polyethylene glycoL 3350 17 GM POWD.PACK PO (21:30)
--- NOTE | 2024-03-15 23:07 | PC.NURSE ---
pt is resting quietly on bed at this time, encouraged pt to go to sleep. Pt has been yelling, on the phone, to whomever, she was talking to. Informed pt it was 11pm and time to go to sleep and to stop yelling, the other patients were trying to sleep. Pt has been yelling at her phone, and on her call light repeatly, all shift. Pt will state, she has to poop, but never does, pt states, she has to pee, and she has a purewick.
--- NOTE | 2024-03-15 23:07 | MHC.EDTECH ---
Patient screaming and yelling several times. Every tiime patient rang the arreguin, this tech will go to the room. Patient was on her phone talking to her niece, patient mentioned that no one was going to her room when this tech was just in there. RN aware of everything
--- NOTE | 2024-03-15 23:51 | MHC.EDTECH ---
This pct assumed care of patient at 2300 ,Patient yelling for help not using her call arreguin ,Patient removed Pure wick ,was incontinent of urine , Annemarie care given ,bedding and gown changed and ,warm blanket given ,call arreguin within Pt reach ,all need are met at this time .
--- NOTE | 2024-03-16 00:08 | MHC.EDTECH ---
AT 0000 PATIENT YELLING I'M WET ,,PATIENT REMOVED THE PICKWICK AND IS HOLDING IT IN HER HAND ,BED PADS WET ,SHAWNA CARE GIVEN ,AND PADS CHANGE ,PATIENT WAS RE EDUCATED AGAIN TO USE CALL COWART ,PLAN OF CARE CONTINUE .
--- NOTE | 2024-03-16 01:47 | MHC.EDTECH ---
PATIENT RANG CALL COWART AND YELLING OUT TO MOVE HER BOWELS ,PATIENT WAS ASSISTED UNTO BEDPAN ,STAYED ON BEDPAN FOR LESS THAN 2 MINUTES ,YELLING OUT SHE WAS FINISHED ,PATIENT DID NOT MOVED HER BOWELS ,PLAN OF CARE CONTINUE .
--- NOTE | 2024-03-16 03:13 | MHC.EDTECH ---
Patient rang call arreguin to use bed wahl ,was not able to have a bowel movement ,patient was incontinent of urine ,tonja carte given and bed pads change ,RN aware that patient not able to moved her bowels ,Plan of care continue .
--- NOTE | 2024-03-16 04:09 | PC.NURSE ---
resting quietly on bed at this time, resp with ease, no s/s of any distress
[2024-03-16 04:31] VITALS: BP 152/68; PULSE 62; RESP 16; TEMP 36.2; O2SAT 97
--- NOTE | 2024-03-16 04:33 | MHC.EDTECH ---
Patient screaming help help ,Pt was incontinent of urine ,tonja care given and bed pads change ,pt kept on removing purewick ,so this pct removed it ,fresh ice water given and vitals taken ,all Patient needs are met .
--- NOTE | 2024-03-16 06:26 | PC.NURSE ---
pt on phone, she is yelling at whoever, she is speaking to. Tried to redirect patient, and asked her not to be yelling
--- NOTE | 2024-03-16 06:27 | MHC.EDTECH ---
Patient yelling out for help ,was just change ,Patient called her sister saying she got a fever and we aare not doing anything about it ,rn aware .
--- NOTE | 2024-03-16 06:42 | PC.NURSE ---
pt was yelling, and her call light was on, went into pt's room, and asked pt to quit yelling, she could be heard in other rooms. Pt got disconnetted from whomever she was talking to, and blamed this nurse. Pt agreed to stop yelling. She called her sister back, and started yelling at her again, and then started cussing over they phone, pt yelled, fuck you and continues to yell over the phone,
--- NOTE | 2024-03-16 06:48 | MHC.EDTECH ---
Patient is on the phone with her sister ,screaming and cursing ,other patient are getting upset .
[2024-03-16] MEDS: Multivitamin TABLET 1 TAB PO (08:21)
[2024-03-16] MEDS: oxyCODONE HCl Immed Release 5 MG TABLET PO ×3 (08:21→20:40)
[2024-03-16] MEDS: busPIRone HCl 10 MG TABLET PO ×2 (08:21→20:31)
[2024-03-16] MEDS: Calcium Carbonate 750 MG TAB.CHEW PO (08:21)
[2024-03-16 08:22] VITALS: BP 148/87; PULSE 107
[2024-03-16] MEDS: Acetaminophen 325 MG TABLET 650 MG PO (08:22)
[2024-03-16] MEDS: Atorvastatin Calcium 40 MG TABLET PO (08:22)
[2024-03-16] MEDS: Metoprolol Succinate ER 50 MG TAB.ER.24H PO (08:22)
[2024-03-16] MEDS: QUEtiapine Fumarate 25 MG TABLET PO ×3 (08:26→20:31)
--- NOTE | 2024-03-16 08:36 | MHC.EDTECH ---
pt was cleaned this morning by car salesperson & nurse, refused to eat breakfast & was yelling for meds.
[2024-03-16] MEDS: DULoxetine HCl 60 MG CAPSULE.DR PO ×2 (09:23→09:24)
[2024-03-16] MEDS: hydrOXYzine HCL 10 MG TABLET PO (09:25)
[2024-03-16] MEDS: Gabapentin 300 MG CAPSULE PO (12:08)
[2024-03-16] MEDS: OLANZapine 5 MG TABLET PO (12:08)
[2024-03-16] MEDS: Ascorbic Acid 500 MG TABLET 1000 MG PO (12:16)
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
--- NOTE | 2024-03-16 13:14 | MHC.CM.PN ---
PT recommended STR, referrals placed, no bed offer as pt does not currently qualify. Per pts RN, pt is more agitated has been yelling, swearing, throwing objects, requiring PRN medications. Psych consult has been ordered. This CM called pts friend from contact list Felpie Zapata, he states pt is not at her baseline. Prior to admission pt was living alone in an apartment (wheelchair accessible with an elevator), and used a walker to ambulate. 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 DCP TBD: CM will await psych consult findings.
[2024-03-16 14:00] VITALS: BP 97/71; PULSE 96; RESP 16; TEMP 36.9; O2SAT 96
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
[2024-03-16 19:21] VITALS: BP 97/71; PULSE 96; RESP 16; TEMP 36.9; O2SAT 96
[2024-03-16] MEDS: traZODone HCL 50 MG TABLET 150 MG PO (20:31)
[2024-03-16] MEDS: polyethylene glycoL 3350 17 GM POWD.PACK PO (20:40)
[2024-03-17 06:23] VITALS: BP 135/76; PULSE 89; RESP 20; O2SAT 95
--- NOTE | 2024-03-17 08:34 | MHC.EDTECH ---
Patient ate 50% of breakfast. Patient stated I have to have a bowel movement . This PCT asked the patient if she wanted to use the commode. Patient stated I can't put weight on my foot, so I can't get up to use a commode . Patient requested a bedpan. This PCT assisted the patient onto the bedpan. Patient unable to have bowel movement on bedpan and states I will try later . Patient positioned for comfort. Patient states she is comfortable. Call arreguin placed within reach.
[2024-03-17 09:02] VITALS: BP 159/87; PULSE 98; RESP 18; TEMP 37.4; O2SAT 94
[2024-03-17 09:05] VITALS: BP 159/87; PULSE 98
[2024-03-17] MEDS: Multivitamin TABLET 1 TAB PO (09:05)
[2024-03-17] MEDS: busPIRone HCl 10 MG TABLET PO ×2 (09:05→20:12)
[2024-03-17] MEDS: Metoprolol Succinate ER 50 MG TAB.ER.24H PO (09:05)
[2024-03-17] MEDS: Calcium Carbonate 750 MG TAB.CHEW PO (09:05)
[2024-03-17] MEDS: QUEtiapine Fumarate 25 MG TABLET PO ×2 (09:06→20:12)
[2024-03-17] MEDS: Atorvastatin Calcium 40 MG TABLET PO (09:06)
[2024-03-17] MEDS: hydrOXYzine HCL 10 MG TABLET PO (09:06)
--- NOTE | 2024-03-17 09:06 | PC.NURSE ---
Pt. medicated per OCT. Incontinence care also provided to pt. and a Purewick applied.
[2024-03-17] MEDS: oxyCODONE HCl Immed Release 5 MG TABLET PO ×2 (10:36→16:47)
[2024-03-17] MEDS: polyethylene glycoL 3350 17 GM POWD.PACK PO (13:57)
[2024-03-17] MEDS: Ascorbic Acid 500 MG TABLET 1000 MG PO (13:57)
[2024-03-17] MEDS: Acetaminophen 325 MG TABLET 650 MG PO ×2 (13:58→20:11)
[2024-03-17] MEDS: Gabapentin 300 MG CAPSULE PO (13:59)
--- NOTE | 2024-03-17 15:06 | MHC.CM.ED ---
Addendum entered by Mally Mae 03/17/24 15:09: [facility] unable to offer a bed. Psych evaluation pending for behaviors /med management/capacity. Will hold on placing additional referrals pending psych evaluation and recommendations. Original Note: Awaiting psych consult.
--- NOTE | 2024-03-17 16:53 | PM.PSYCN ---
History of Present Illness Date of Service: 03/17/2024 Chief Complaint: Fall Discussed with referring provider: Yes Sources of Information: patient interviewed, chart reviewed and crisis/core team assessment reviewed HPI Narrative: Mrs. Jones is a 73 year-old woman who was brought to [facility] ED due to fall. While in the ED, pt has presented with some irritable and demanding behaviors. Psychiatry asked to assess pt also due to concern in terms of worsening memory and cognitive. Lab- cbc with macrocytic anemia. B12 >1000; BUN elevated 38, Cr 1.11, creatinine clearance-39.7. TSH 1.78. Head CT showed atrophy and microvascular changes but no acute changes. Pt seen in the ED with friend Riky (pt in agreement to have long time friend join meeting). Pt reports she is here because she felt. She reports she may need more supports at home as she is not able to do much. She does have some health aids services. In terms of concern of irritable behaviors- mostly as RN described, pt asking RN to hold her bread and let her use her personal phone which RN redirected pt that this is not possible, pt became verbally abusive and at one point threw the tray. She has been demanding in that she questions if she is in fact getting right dose of pain medications. when asked about this, pt reports she was a little upset but does not seem to remember extend of combative behavior which then required PO prn medication (given olanzapine with good effect). she denies SI/HI. No signs of psychosis or delusions. Per friend Riky, pt becoming more irritable in evening, however, this is not result of confusion, but demanding behavior with intact orientation. Pt reports she has one prior psychiatric admission at [place]. Friend reported that she may have hx of Bipolar, although pt denied this. Past Psychiatric History: INpt: [facility] 2017 OP: none. PCP prescribed buspar and seroquel Past trials: seroquel, buspar Medical Evaluation Reviewed: Yes [facility] Medical History Otitis media Rib pain on left side Right knee pain Callus of foot Pneumonia Osteoarthritis of left hip Osteoarthritis of right hip Hypertension Surgical History No history of previous surgery Diagnostics Vital Signs (24Hr): Vital Signs - 24 hr 03/16/24 19:21 03/17/24 06:23 03/17/24 09:02 Temperature 98.5 F 99.4 F Pulse Rate 96 89 98 Respiratory Rate 16 20 18 Blood Pressure 97/71 135/76 159/87 H Pulse Oximetry 96 95 94 Oxygen Delivery Method Room Air Room Air 03/17/24 09:05 Temperature Pulse Rate 98 Respiratory Rate Blood Pressure 159/87 H Pulse Oximetry Oxygen Delivery Method BMI result Body Mass Index 29.8 Labs 03/14/24 22:11 03/14/24 22:11 Imaging Radiology Impressions: ITS Impressions Cervical Spine CT 03/14/24 21:53 IMPRESSION: 1. No acute intracranial pathology. 2. No acute fracture or malalignment in the cervical spine. Multilevel degenerative spondylosis in the cervical spine. Head CT 03/14/24 21:53 IMPRESSION: 1. No acute intracranial pathology. 2. No acute fracture or malalignment in the cervical spine. Multilevel degenerative spondylosis in the cervical spine. Ankle X-Ray 03/15/24 05:31 IMPRESSION: 1. Acute avulsion fracture at the posteromedial cortex of the medial malleolus. 2. Ankle joint effusion and soft tissue swelling. Chest X-Ray 03/15/24 05:47 IMPRESSION: Left seventh rib fracture laterally, likely acute. Low lung volumes with mild bibasilar atelectasis. No acute pulmonary findings. Mental Status Exam Mental Status Exam Narrative: Appearance: wearing hospital gown, good hygiene, in NAD Behavior: somewhat guarded, but mostly cooperative Psychomotor: no agitation or retardation noted speech: clear, normal rate/rhythm/volume, spontaneous TP: mostly linear TC; wanting help with getting more supports in the community Mood: good Affect: congruent SI: denies HI: denies VH/AH: none Delusions: none Insight/judgment: poor x 2 Memory/cog: alert, oriented to place, month, situation not year. pending MOCA Medications Medications Current Medications Acetaminophen (Acetaminophen 325 Mg Tablet) 650 mg PO Q4H PRN PRN Reason: Pain, Mild (Pain Scale 1-3) Last Admin: 03/17/24 13:58 Dose: 650 mg Ascorbic Acid (Ascorbic Acid 500 Mg Tablet) 1,000 mg PO DAILY@1200 JESSA Last Admin: 03/17/24 13:57 Dose: 1,000 mg Atorvastatin Calcium (Atorvastatin Calcium 40 Mg Tablet) 40 mg PO DAILY [facility] Last Admin: 03/17/24 09:06 Dose: 40 mg Buspirone HCl (Buspirone Hcl 10 Mg Tablet) 10 mg PO BID [facility] Last Admin: 03/17/24 09:05 Dose: 10 mg Calcium Carbonate (Calcium Carbonate 750 Mg Tab.Chew) 750 mg PO DAILY [facility] Last Admin: 03/17/24 09:05 Dose: 750 mg Duloxetine HCl (Duloxetine Hcl 60 Mg Capsule.Dr) 60 mg PO DAILY [facility] Last Admin: 03/16/24 09:24 Dose: 60 mg Gabapentin (Gabapentin 300 Mg Capsule) 300 mg PO DAILY@1300 [facility] Last Admin: 03/17/24 13:59 Dose: 300 mg Hydroxyzine HCl (Hydroxyzine Hcl 10 Mg Tablet) 10 mg PO SUMOWEFR@1000 [facility] Last Admin: 03/17/24 09:06 Dose: 10 mg Metoprolol Succinate (Metoprolol Succinate Er 50 Mg Tab.Er.24h) 50 mg PO DAILY [facility]; Protocol Last Admin: 03/17/24 09:05 Dose: 50 mg Multivitamins/Vitamin C (Multivitamin Tablet) 1 tab PO DAILY [facility] Last Admin: 03/17/24 09:05 Dose: 1 tab Nystatin (Nystatin Powder 15 Gm Bottle) 1 appl TOPICAL TID PRN; Protocol PRN Reason: Rash Oxycodone HCl (Oxycodone Hcl Immed Release 5 Mg Tablet) 5 mg PO Q6H PRN PRN Reason: Pain, Moderate(Pain Scale 4-6) Last Admin: 03/17/24 16:47 Dose: 5 mg Polyethylene Glycol (Polyethylene Glycol 3350 17 Gm Powd.Pack) 17 gm PO DAILY PRN PRN Reason: Constipation Last Admin: 03/17/24 13:57 Dose: 17 gm Quetiapine Fumarate (Quetiapine Fumarate 25 Mg Tablet) 25 mg PO BID [facility] Last Admin: 03/17/24 09:06 Dose: 25 mg Quetiapine Fumarate (Quetiapine Fumarate 25 Mg Tablet) 25 mg PO Q6H PRN PRN Reason: agitation Last Admin: 03/16/24 11:26 Dose: 25 mg Trazodone HCl (Trazodone Hcl 50 Mg Tablet) 150 mg PO BEDTIME [facility] Last Admin: 03/16/24 20:31 Dose: 150 mg Allergies Allergies Allergy/AdvReac Type Severity Reaction Status Date / Time amoxicillin Allergy Unknown tachycardia Verified 03/14/24 21:35 doxycycline Allergy Unknown stomach Verified 03/14/24 21:35 upset iron Allergy Unknown unknown Verified 03/14/24 21:35 nitroglycerin Allergy Unknown Unknown Verified 03/14/24 21:35 From Ferrlecit Allergy Mild RED,ITCH,BURNING,SWELLING Uncoded 03/12/24 09:07 OF FEET iv dye Allergy Unknown Unknown Uncoded 03/12/24 09:07 Assessment & Plan Assessment & Plan (1) Cognitive impairment: Status: Acute Code(s): R41.89 - Other symptoms and signs involving cognitive functions and awareness Plan Mrs. Moses is a 73 year-old woman who was brought after fall at home. She has been observed to have irritable and demanding behaviors and question of cognitive impairments. Pt presents as cooperative, somewhat guarded but not in a paranoid way. She does not present with signs of delirium. She is observed with some gaps in memory, although her orientation seems mostly intact. demanding behaviors are not due to increase confusion, but either personality or mood. She does not seem to have much insight as to how her behaviors affect others, including referrals for STR. She does report seroquel has been helpful for anxiety. We discussed increasing seroquel to 50mg po TID. monitor for over sedation. pending MOCA. PLAN 1. complete MOCA/ACL- determine extent of cognitive impairment and needs in community 2. no imminent safety concerns to need inpatient psych admission. 3. will increase seroquel 50mg po TID- monitor oversedation. Total time managing care of this patient today ____ minutes.
[2024-03-17 19:00] VITALS: BP 112/64; PULSE 77; RESP 16; TEMP 36.8; O2SAT 91
--- NOTE | 2024-03-17 19:15 | PC.NURSE ---
received report from Lili VILLEGAS, assume care of pt at this time
[2024-03-17] MEDS: traZODone HCL 50 MG TABLET 150 MG PO (20:12)
[2024-03-17 20:21] VITALS: BP 171/74; PULSE 80; RESP 16; O2SAT 91
--- NOTE | 2024-03-18 02:51 | PC.NURSE ---
1900- Assumed care of patient . Patient resting comfortably, safety measures in place, call arreguin within reach.
[2024-03-18] MEDS: polyethylene glycoL 3350 17 GM POWD.PACK PO (04:48)
[2024-03-18 04:49] VITALS: BP 116/68; PULSE 102; RESP 18; TEMP 36.6; O2SAT 93
[2024-03-18 08:27] VITALS: BP 117/70; PULSE 98; RESP 17; TEMP 37.6; O2SAT 92
[2024-03-18] MEDS: Multivitamin TABLET 1 TAB PO (08:47)
[2024-03-18] MEDS: Atorvastatin Calcium 40 MG TABLET PO (08:48)
[2024-03-18] MEDS: busPIRone HCl 10 MG TABLET PO ×2 (08:48→20:52)
[2024-03-18] MEDS: Metoprolol Succinate ER 50 MG TAB.ER.24H PO (08:48)
[2024-03-18] MEDS: Calcium Carbonate 750 MG TAB.CHEW PO (08:48)
[2024-03-18] MEDS: DULoxetine HCl 60 MG CAPSULE.DR PO (08:49)
[2024-03-18] MEDS: oxyCODONE HCl Immed Release 5 MG TABLET PO ×2 (11:37→18:00)
[2024-03-18] MEDS: QUEtiapine Fumarate 25 MG TABLET PO ×2 (11:38→20:52)
--- NOTE | 2024-03-18 11:40 | PC.NURSE ---
Pt medicated per MAR with PRN Seroquel and Oxycodone. Pt is A&OX3 Staff Research Scientist at bedside and Pt resting in bed with TV on.
[2024-03-18] MEDS: Gabapentin 300 MG CAPSULE PO (12:29)
[2024-03-18] MEDS: Ascorbic Acid 500 MG TABLET 1000 MG PO (12:29)
[2024-03-18] MEDS: Albuterol/Iprat 2.5/0.5MG 3 ML AMPUL.NEB INHALE (14:09)
[2024-03-18 14:12] VITALS: PULSE 98; RESP 17
[2024-03-18 14:17] VITALS: BP 97/56; PULSE 100; RESP 19; TEMP 37.6; O2SAT 94
[2024-03-18 15:57] VITALS: BP 106/74; PULSE 96; RESP 18; TEMP 36.9; O2SAT 93
[2024-03-18] MEDS: traZODone HCL 50 MG TABLET 150 MG PO (20:52)
[2024-03-18 21:00] VITALS: BP 115/72; PULSE 84; RESP 18; TEMP 36.6; O2SAT 95
--- NOTE | 2024-03-19 00:08 | MHC.EDTECH ---
THIS PCT ASSUMED CARE OF PT AT 2300 ,PT SLEEPING ,CALL COWART WITHIN PT REACH ,PLAN OF CARE CONTINUE .
[2024-03-19 05:34] VITALS: BP 139/79; PULSE 98; RESP 16; TEMP 36.7; O2SAT 96
--- NOTE | 2024-03-19 05:37 | MHC.EDTECH ---
Patient slept all night woke up around 0520 ,watching television ,vitals taken ,Patient was given a bed bath,Patient was incontinent once ,clean Pure wick in placed Pt reposition for comfort ,Pillow placed under heels ,warm blanket given ,Patient is calm and cooperative and in pleasant mood topher danelle given ,Call arreguin given and bed alarm on ,Plan of care continue .
[2024-03-19] MEDS: hydrOXYzine HCL 10 MG TABLET PO (08:52)
[2024-03-19] MEDS: Metoprolol Succinate ER 50 MG TAB.ER.24H PO (08:52)
[2024-03-19] MEDS: Multivitamin TABLET 1 TAB PO (08:53)
[2024-03-19] MEDS: Acetaminophen 325 MG TABLET 650 MG PO ×2 (08:53→12:19)
[2024-03-19] MEDS: busPIRone HCl 10 MG TABLET PO ×2 (08:53→20:38)
[2024-03-19] MEDS: Atorvastatin Calcium 40 MG TABLET PO (08:53)
[2024-03-19] MEDS: Calcium Carbonate 750 MG TAB.CHEW PO (08:53)
[2024-03-19] MEDS: QUEtiapine Fumarate 25 MG TABLET PO (08:53)
[2024-03-19] MEDS: oxyCODONE HCl Immed Release 5 MG TABLET PO ×2 (08:55→15:42)
--- NOTE | 2024-03-19 09:05 | MHC.EDTECH ---
pt was assisted in in washing up took a hour pt very demanding and wanting to do everything for her.
--- NOTE | 2024-03-19 09:08 | MHC.EDTECH ---
pt brushed her teeth and ate 75% of her breakfast
[2024-03-19] MEDS: DULoxetine HCl 60 MG CAPSULE.DR PO (10:40)
[2024-03-19] MEDS: Ascorbic Acid 500 MG TABLET 1000 MG PO (11:50)
[2024-03-19] MEDS: Gabapentin 300 MG CAPSULE PO (12:03)
--- NOTE | 2024-03-19 12:41 | PC.NURSE ---
Pt. is requesting a breathing treatment. Brianna Jay NP notified.
--- NOTE | 2024-03-19 12:46 | MHC.EDTECH ---
pt ate 100% lunch
--- NOTE | 2024-03-19 12:47 | PC.NURSE ---
Pt. continues to be very demanding of staff, continuously on the call light as soon as you leave the room from the previous task.
[2024-03-19 13:09] VITALS: PULSE 79; RESP 16; O2SAT 95
[2024-03-19] MEDS: Albuterol/Iprat 2.5/0.5MG 3 ML AMPUL.NEB INHALE (13:09)
[2024-03-19 13:49] VITALS: BP 92/45; PULSE 89; RESP 20; TEMP 36.8; O2SAT 93
--- NOTE | 2024-03-19 14:33 | PC.NURSE ---
Pt. requested PRN Oxycodone. When this RN entered pt.'s room with the medication, pt. was noted to be sleeping/snoring and also with a low BP 92/45. PRN Oxycodone held at this time and LEENA Jay aware.
[2024-03-19 15:21] VITALS: BP 93/59
[2024-03-19 18:25] VITALS: BP 97/60; PULSE 84
--- NOTE | 2024-03-19 18:25 | MHC.CM.ED ---
Pt behaviors have improved over past 2 days, is demanding, but not aggressive. Pt is taking all medications. Awaiting psych report.
--- NOTE | 2024-03-19 18:49 | PC.NURSE ---
Patient medicated for pain per MAR . Blood pressure stable. Patient resting comfortably at present time.
[2024-03-19] MEDS: QUEtiapine Fumarate 50 MG TABLET PO (20:38)
[2024-03-19] MEDS: traZODone HCL 50 MG TABLET 150 MG PO (20:38)
[2024-03-19 22:00] VITALS: BP 101/60; PULSE 81; RESP 18; TEMP 36.2; O2SAT 92
--- NOTE | 2024-03-20 02:41 | PC.NURSE ---
Patient resting comfortably at this time, eyes closed, resp. even, unlabored. call arreguin within reach, no complaints at this time.
[2024-03-20 06:00] VITALS: BP 142/74; PULSE 101; RESP 18; TEMP 37.3; O2SAT 97
[2024-03-20] MEDS: Acetaminophen 325 MG TABLET 650 MG PO ×2 (07:55→12:19)
[2024-03-20] MEDS: Calcium Carbonate 750 MG TAB.CHEW PO (07:55)
[2024-03-20] MEDS: busPIRone HCl 10 MG TABLET PO ×2 (07:56→19:40)
[2024-03-20] MEDS: QUEtiapine Fumarate 50 MG TABLET PO ×3 (07:56→19:40)
[2024-03-20] MEDS: Atorvastatin Calcium 40 MG TABLET PO (07:56)
[2024-03-20] MEDS: Multivitamin TABLET 1 TAB PO (07:56)
[2024-03-20] MEDS: oxyCODONE HCl Immed Release 5 MG TABLET PO ×3 (07:56→22:00)
[2024-03-20 07:57] VITALS: BP 98/72; PULSE 102
[2024-03-20] MEDS: Metoprolol Succinate ER 50 MG TAB.ER.24H PO (07:57)
--- NOTE | 2024-03-20 09:08 | PC.NURSE ---
This RN and FIXTURE RELAMPER have been in patient room since resuming care at 0700. Pt is very demanding and demeaning to staff. PA ordered scans to assess for r/o PE d/t new O2 demand and complaint of SOB when transport brought pt she was yelling at them, refusing the scan, woud not lay still screaming she needed pain medications. When patient came back this RN talked with patient that she just received her pain medication, and that we need this scan to better help her, pt then stated she never told them no. Tech who is performing the scan was at bedside with this RN, will attempt one more time to get scan completed.
[2024-03-20] MEDS: DULoxetine HCl 60 MG CAPSULE.DR PO (10:56)
[2024-03-20] MEDS: QUEtiapine Fumarate 25 MG TABLET PO (12:19)
[2024-03-20] MEDS: Gabapentin 300 MG CAPSULE PO (12:19)
[2024-03-20 14:00] VITALS: BP 116/60; PULSE 94; RESP 18; TEMP 36.9; O2SAT 97
--- NOTE | 2024-03-20 16:09 | MHC.EDTECH ---
pt was 1 assisted in the bed pt was cleaned up had a small bowel movement brown and pasty.
--- NOTE | 2024-03-20 17:41 | MHC.EDTECH ---
pt ate 75% dinner
--- NOTE | 2024-03-20 18:02 | MHC.CM.ED ---
Pt remains demanding, but is not aggressive and has been cooperative at times. Pt is taking her medications. Awaiting psych evaluation. [place] text to Kari Roach NP.
[2024-03-20] MEDS: traZODone HCL 50 MG TABLET 150 MG PO (19:39)
[2024-03-20 22:00] VITALS: BP 120/58; PULSE 86; RESP 15; TEMP 37; O2SAT 97
[2024-03-21] VITALS (8 sets, daily range): BP systolic 87–117; BP diastolic 61–69; PULSE 81–89; RESP 18; TEMP 36.6–37; O2SAT 88–95
[2024-03-21] MEDS: oxyCODONE HCl Immed Release 5 MG TABLET PO ×2 (05:10→12:16)
--- NOTE | 2024-03-21 05:32 | PC.NURSE ---
a&ox3, hard of hearing at times. patient interittent bursts of anger/rudeness but at other times is pleasant. medicated with oxycodone x2 overnight see OCT. safety and comfort maintained, call arreguin within reach.
[2024-03-21] MEDS: busPIRone HCl 10 MG TABLET PO ×2 (08:09→21:20)
[2024-03-21] MEDS: Multivitamin TABLET 1 TAB PO (08:09)
[2024-03-21] MEDS: Atorvastatin Calcium 40 MG TABLET PO (08:12)
[2024-03-21] MEDS: QUEtiapine Fumarate 50 MG TABLET PO ×3 (08:12→21:20)
[2024-03-21] MEDS: DULoxetine HCl 60 MG CAPSULE.DR PO (08:12)
[2024-03-21] MEDS: Calcium Carbonate 750 MG TAB.CHEW PO (08:13)
[2024-03-21] MEDS: Metoprolol Succinate ER 50 MG TAB.ER.24H PO (08:16)
--- NOTE | 2024-03-21 08:49 | MHC.EDTECH ---
pt requesting bedpan to have a bowel movement, bedpan placed, pt did not have bm, pt given pericare and pure wick removed due to contamination, unable to obtain another at the moment, all needs of pt are met at this time, will continue to monitor
[2024-03-21] MEDS: hydrOXYzine HCL 10 MG TABLET PO (09:08)
--- NOTE | 2024-03-21 09:23 | PC.NURSE ---
pt trailed off O2 per request of PA. pt dips to id 80s when asleep and high 80s when awake when off oxygen. communicated this to PA. Pt put back on 2L of O2 and spo2 is mid 90s.
--- NOTE | 2024-03-21 11:06 | MHC.CM.ED ---
Patient remains in ER overflow. Per Kari, band ripsaw operator, has capacity. CM will attempt to find STR. Continue to monitor for d/c needs.
[2024-03-21] MEDS: Gabapentin 300 MG CAPSULE PO (12:13)
[2024-03-21] MEDS: Ascorbic Acid 500 MG TABLET 1000 MG PO (12:14)
--- NOTE | 2024-03-21 12:51 | PC.NURSE ---
pt agitated, and argumentative. will medicate with PRN seroquil. HAIR MACHINE OPERATOR here and has been assisting trying to keep pt calm.
[2024-03-21] MEDS: QUEtiapine Fumarate 25 MG TABLET PO (12:53)
--- NOTE | 2024-03-21 16:09 | PC.NURSE ---
pt has visitor, awake from nap. slept for approximately 2 hours in the afternoon
--- NOTE | 2024-03-21 16:14 | PC.NURSE ---
pt awake, watching television, reports no pain at this time. 250ml in purewick canister. visitor, Riky, at bedside. warm blanket given
--- NOTE | 2024-03-21 18:05 | PC.NURSE ---
full bed changed. Pt had a medium/large solid BM. purewick back in place.
--- NOTE | 2024-03-21 19:07 | PC.NURSE ---
This RN assumed pt care @ 1900. Pt resting in bed, watching TV. Plan of care ongoing.
--- NOTE | 2024-03-21 19:41 | PC.NURSE ---
Pt req and channel changed Pt req and given drink Plan of care ongoing.
[2024-03-21] MEDS: traZODone HCL 50 MG TABLET 150 MG PO (21:20)
--- NOTE | 2024-03-21 21:25 | PC.NURSE ---
Pt medicated per oct, tolerated well. Pts b/p provider notified and aware. Plan of care ongoing.
[2024-03-22] VITALS (16 sets, daily range): BP systolic 83–144; BP diastolic 6–89; PULSE 77–96; RESP 14–20; TEMP 35–37.1; O2SAT 89–100
[2024-03-22] MEDS: oxyCODONE HCl Immed Release 5 MG TABLET PO ×2 (05:10→12:45)
--- NOTE | 2024-03-22 07:58 | PC.NURSE ---
Pt was trialed off of Oxygen per provider request. After 45 min off O2, Pt is maintaining Spo2 of 93%. Provider notified.
[2024-03-22] MEDS: Calcium Carbonate 750 MG TAB.CHEW PO (08:30)
[2024-03-22] MEDS: busPIRone HCl 10 MG TABLET PO (08:30)
[2024-03-22] MEDS: Acetaminophen 325 MG TABLET 650 MG PO (08:30)
[2024-03-22] MEDS: Atorvastatin Calcium 40 MG TABLET PO (08:30)
[2024-03-22] MEDS: Multivitamin TABLET 1 TAB PO (08:35)
[2024-03-22] MEDS: QUEtiapine Fumarate 50 MG TABLET PO ×2 (08:35→14:37)
[2024-03-22] MEDS: DULoxetine HCl 60 MG CAPSULE.DR PO (08:35)
[2024-03-22] MEDS: Ascorbic Acid 500 MG TABLET 1000 MG PO (12:44)
--- NOTE | 2024-03-22 14:49 | MHC.CM.ED ---
Patient remains in ER overflow. [facility], [facility] and [facility] are the only facilities that are willing to offer a bed at this time. Met with patient and friend, Felipe, in regards to discharge planning. Patient was hoping to go to [facility]. T/W explained [facility] didn't have a bed. Patient and Felipe agreeable to [facility]. Both are aware patient will not transfer to facility until [facility] leveling is obtained. Earliest availability would be Sunday afternoon. Both verbalize understanding. Felipe can be reached via telephone at [phone] when transfer time is available. Continue to monitor for d/c needs.
[2024-03-22 16:57] LABS: Glucose, Whole Blood 147 mg/dL (60-115)
[2024-03-22] MEDS: Ketamine HCl/NS 50 MG/5 ML SYRINGE 90 MG IVPUSH (17:11)
[2024-03-22] MEDS: Succinylcholine Chloride 100 MG/5 ML SYRINGE 90 MG IVPUSH (17:16)
[2024-03-22] MEDS: Morphine Sulfate 4 MG/ML CARTRIDGE IVPUSH (17:21)
[2024-03-22] MEDS: LORazepam 2 MG/ML VIAL IVPUSH (17:22)
[2024-03-22] MEDS: propofoL 1,000 MG/100 ML VIAL 12.46 MG IVCONT ×2 (17:25→21:17)
--- NOTE | 2024-03-22 17:28 | ECG_ITS ---
Test Reason : S/P CARDIAC ARREST CHOKING Blood Pressure : / mmHG Vent. Rate : 087 BPM Atrial Rate : 087 BPM P-R Int : 164 ms QRS Dur : 086 ms QT Int : 362 ms P-R-T Axes : 018 001 025 degrees QTc Int : 435 ms Normal sinus rhythm Nonspecific ST abnormality Abnormal ECG When compared with ECG of 14-MAR-2024 21:53, Nonspecific ST abnormality is now Present Referred By: Ignacio Miguel Electronically Signed By:SIOMARA SHAW
[2024-03-22] MEDS: Lidocaine HCl 2 % Urojet 10 ML JEL.PF.APP TOPICAL (17:30)
[2024-03-22] MEDS: Midazolam HCl/NS 50 MG/50 ML PLAST..BAG IVCONT (17:30)
[2024-03-22] MEDS: Lactated Ringers 1,000 ML 999 ML IV (17:33)
--- NOTE | 2024-03-22 18:20 | PC.NURSE ---
late entry: patient presented from overflow to ED 5 at 1700 post choking episode which resulted in cardiac arrest with rosc. patient satting 82% on oxymask HR 130. patient not responding to commands, not managing airway or secretions. patient given 90mg ketamine via IV at 1711 VSS 105HR 94% 13 RR 128/88. patient desat down to 74% patient then ambu bagged for ventilation. 1716 succinylcholine given IV for intubation to begin 1717. patient intubated with a 7.5 tube 21' at the lip, positive color metric change. Rice seen in airway, jesse forceps and suction used to re,move food product. patient given 4mg morphine 1721 and 1722 2mg ativan for sedation. 1725 propofol started at 12.45ml/hr 92HR 95% 93/59. prop titrated at 1730 to 40mcg/kg/min due to patient agitation. patient provider had two unsuccessful attempts at og/ng placement. 1733 propofol stopped due to patient becoming increasingly hypotensive 71/39, Lr started 1L, switched to versed gtt 2mg/hr, adequate sedation. patient bp stable 16fr chen cath placed by this RN 300cc urine output. 1836 patient now appears to be sedated properly, with 2mg/hr versed gtt. patient on vent, labs being drawn by cnc maintenance technician.
[2024-03-22 18:47] LABS: MANUAL DIFF FLAG NO
[2024-03-22 18:49] LABS: Basophils Percent Auto 0.5 % (0-2); Eosinophils Absolute Auto 0.1 X10*3/uL (0.0-0.4); Eosinophils Percent Auto 1.5 % (0-4); Hematocrit 24.6 % (37.0-47.0); Hemoglobin 7.9 g/dl (12.0-16.0); Imm Gran Abs Auto 0.07 X10*3/uL (0.00-0.03); Imm Gran Pct Auto 0.8 % (0.0-0.4); Lymphocytes Absolute Auto 1.1 X10*3/uL (1.2-4.9); Lymphocytes Percent Auto 12.4 % (20-40); Mean Corpuscular HGB Conc 32.1 g/dl (31.0-35.0); Mean Corpuscular Hemoglobin 33.3 pg (27.0-33.0); Mean Corpuscular Volume 103.8 fL (80.0-98.0); Mean Platelet Volume 8.5 fL (9.4-12.3); Monocytes Absolute Auto 0.6 X10*3/uL (0.1-1.2); Monocytes Percent Auto 6.9 % (2-11); Neutrophils Absolute Auto 6.6 x10*3/uL (2.0-8.3); Neutrophils Percent Auto 77.9 % (45-73); Platelet Count 257 X10*3/uL (160-400); Red Blood Count 2.37 X10*6/uL (4.20-5.50); Red Cell Distribution Width 12.5 % (11.0-16.0); White Blood Count 8.5 X10*3/uL (4.8-10.8)
[2024-03-22 19:02] LABS: Lactic Acid 1.9 mmol/L (0.5-2.0)
[2024-03-22 19:06] LABS: Anion Gap 15 (12-20); Blood Urea Nitrogen 36 mg/dL (9-16); Calcium 9.1 mg/dL (8.4-10.2); Carbon Dioxide 23 mmol/L (22-29); Chloride 105 mmol/L (96-108); Creatinine Clr Calc Pharmacy 53.1; Estimated Glomerular Filt Rate > 60; Glucose Random 128 mg/dL (60-115); Magnesium 1.8 mg/dL (1.6-2.6); Potassium 4.2 mmol/L (3.3-5.1); Sodium 139 mmol/L (135-145)
[2024-03-22] MEDS: fentaNYL citrate/NS 1,000 MCG/100 ML PLAST..BAG 2.5 MCG IVCONT (19:20)
--- NOTE | 2024-03-22 19:22 | PM.CCHP ---
History of Present Illness Date of Service: 03/22/24 Attending physician on admission: Everardo Spears Chief Complaint: Cardiopulmonary arrest ?The patient is a 73-year-old female with a past medical history of? hypertension, chronic lower back pain,? osteoarthritis and depression who presented to the emergency department on 03/15/2024 after sustaining a fall.? She denied loss of consciousness in hitting her head at the time of the fall,? but reported left ankle pain.An x-ray of the left ankle shows an avulsion fracture to the distal tibia at the medial malleolus and was seen by ortho who recommended? immobilization with a boot.? Patient lives at home by herself, ? so she was admitted to [facility] until she was able to go to rehab. Today,? patient acutely became hypoxic and cardiac arrested.? She received 2 rounds of epi, total CPR was about 4 minutes.? She was intubated post cardiac arrest, during intubation significant amount of food was noted in her her airway.? ??No significant laboratory data findings Review of Systems Review of Systems: Yes unobtainable due to endotracheal tube PMFSH Past Medical History Medical History Otitis media Rib pain on left side Right knee pain Callus of foot Pneumonia Osteoarthritis of left hip Osteoarthritis of right hip Hypertension Family History Family History Mother No problems noted. Father No problems noted. Surgical History Surgical History No history of previous surgery Social History Social History Household Members: Unknown / Unable to assess Housing: Apartment Unable to assess alcohol history related to: Unknown Alcohol intake: former Patient Tobacco Use Status: Never used Tobacco Smoked in Last 30 Days: No e-Cigarette/Vaping Use: Never Used Second Hand Smoke Exposure: No Use of substances other than those prescribed or required for medical reasons: Unable to respond Currently Displaying Signs/Symptoms of Drug Intoxication Withdrawal: No Advance Directives: No Advance Directives Information Provided: No Do you have a plan to hurt others: No Plan Recently lost weight without trying: Unsure Patient : No service: No Current occupational status: retired and disabled Cognitive needs: No Hearing needs: No Vision needs: No Meds Allergies Allergy/AdvReac Type Severity Reaction Status Date / Time amoxicillin Allergy Unknown tachycardia Verified 03/14/24 21:35 doxycycline Allergy Unknown stomach Verified 03/14/24 21:35 upset iron Allergy Unknown unknown Verified 03/14/24 21:35 nitroglycerin Allergy Unknown Unknown Verified 03/14/24 21:35 From Ferrlecit Allergy Mild RED,ITCH,BURNING,SWELLING Uncoded 03/12/24 09:07 OF FEET iv dye Allergy Unknown Unknown Uncoded 03/12/24 09:07 Active Medications: Current Medications Heparin Sodium (Porcine) (Heparin Sodium,Porcine 5,000 Unit/Ml Vial) 5,000 unit SUBCUT Q8H JESSA Propofol (Diprivan) 1,000 mg in 100 mls @ 0 mls/hr IVCONT .Q0M JESSA; Protocol Last Titration: 03/22/24 17:33 Dose: Infused Fentanyl (Sublimaze/Ns) 1,000 mcg in 100 mls @ 0 mls/hr IVCONT .Q0M JESSA; Protocol Midazolam HCl (Versed) 50 mg in 50 mls @ 2 mls/hr IVCONT .Q24H JESSA Last Admin: 03/22/24 17:30 Dose: 2 mg/hr, 2 mls/hr Levofloxacin (Levaquin) 750 mg in 150 mls @ 100 mls/hr IV ONCE ONE Stop: 03/22/24 20:10 Nystatin (Nystatin Powder 15 Gm Bottle) 1 appl TOPICAL TID PRN; Protocol PRN Reason: Rash Polyethylene Glycol (Polyethylene Glycol 3350 17 Gm Powd.Pack) 17 gm PO DAILY PRN PRN Reason: Constipation Last Admin: 03/18/24 04:48 Dose: 17 gm Home Medications ?Medication ?Instructions ?Recorded ?Confirmed ?Last Taken ?Type acetaminophen 325 mg capsule 650 mg PO Q4H PRN Pain 09/13/20 03/15/24 Unknown History duloxetine 60 mg capsule,delayed 60 mg PO DAILY 09/13/20 03/15/24 03/14/24 History release metoprolol succinate 50 mg 50 mg PO DAILY 09/13/20 03/15/24 03/14/24 History tablet,extended release 24 hr ascorbic acid (vitamin C) 1,000 mg 1 g PO DAILY@1200 03/22/21 03/15/24 03/14/24 History tablet ajatqzuzuocg-hluqvbao-rrsjtp tablet 1 tab PO DAILY 03/22/21 03/15/24 03/14/24 History gabapentin 300 mg capsule 300 mg PO DAILY@1300 02/28/23 03/15/24 03/14/24 History quetiapine 150 mg tablet,extended 150 mg PO BEDTIME 02/28/23 03/15/24 03/14/24 History release 24 hr hydroxyzine HCl 10 mg tablet 10 mg PO SUMOWEFR@1000 02/29/24 03/15/24 03/14/24 History buspirone 10 mg tablet 10 mg PO BID 03/15/24 03/15/24 03/14/24 History calcium carbonate (Calcium 600) 600 mg PO DAILY 03/15/24 03/15/24 03/14/24 History nystatin 100,000 unit/gram topical 1 appl topical TID PRN Rash 03/15/24 03/15/24 Unknown History powder trazodone 150 mg tablet 150 mg PO BEDTIME 03/15/24 03/15/24 03/14/24 History Physical Exam Vital Signs: Vital Signs: Last Vital Signs Temp 97.8 F 03/22/24 14:00 Pulse 83 03/22/24 19:10 Resp 14 03/22/24 19:10 BP 92/53 L 03/22/24 19:10 Pulse Ox 93 03/22/24 19:10 O2 Del Method Mechanical Ventil ation 03/22/24 19:10 O2 Flow Rate 2 03/22/24 06:00 FiO2 40 03/22/24 17:00 BMI result Body Mass Index 29.8 ?General:? Intubated ?HEENT:? Head is normocephalic, atraumatic, pupils equal round reactive to light accommodation bilaterally.? Extraocular movements appear intact.? Buccal mucosa is dry, Neck is supple ?Cardiac:? Clear S1-S2, no murmurs rubs or gallops. ?Pulmonary:? Diminished at bases. no wheezes ?Abdomen:? ?Abdomen soft, non-tender, non-distended. Normal bowel sounds. No pulsatile mass. No hepatosplenomegaly. ?Musculoskeletal:? Moving all 4 extremities to pain and randomly. Left ortho air boot ?Neurologic:?+ gag ?Skin:? Intact, no lesions, edema, erythema, clubbing or cyanosis.? No ulcers. Vascular:? 2+ pulses upper and lower extremities distally.? Results Labs 03/23/24 06:37 03/23/24 05:26 Labs: Laboratory Results - last 24 hr 03/22/24 03/22/24 03/22/24 16:54 18:34 18:39 Anion Gap 15 Estim Creat Clear Calc 53.1 Estimated GFR > 60 POC Glucose 147 H Random Glucose 128 H Lactic Acid 1.9 Calcium 9.1 Magnesium 1.8 Imaging Radiologist's Impressions: Impressions Chest X-Ray 03/22/24 17:08 IMPRESSION: Low lung volumes with bibasilar atelectasis. No acute pulmonary findings. Assessment and Plan (1) Cardiopulmonary arrest: Status: Acute (2) Airway obstruction due to foreign body: Status: Acute (3) Aspiration into airway: Status: Acute (4) Avulsion fracture of medial malleolus of left tibia: Status: Acute (5) Transaminitis: Status: Acute (6) Anemia: Status: Acute Plan 73-year-old female with a past medical history of? hypertension, chronic lower back pain,? osteoarthritis and depression? admitted to ICU status post cardiopulmonary arrest from aspiration/ Obstruction in the airway event Neuro:? ?No acute issues Cardiac:?? ?Status post cardiapulmonary arrest: ? patient has had approximately 4 minutes of CPR, From aspiration/Obstruction in the airway event, noted to have food in airway at time of intubation. ? Hypotensive from sedation,? no evidence of septic shock at this time.?? Pulmonary:? ?Acute hypoxic respiratory failure from aspiration/ Obstruction in the airway- ? this is likely the reason for cardiopulmonary arrest .? Patient does not seem to have severe infection at this time.? Will empirically treat with? Levaquin.? Wean off vent as tolerated Renal:?? ?No acute issues MSK:? Left avulsion fracture to the distal tibia at the medial malleolus: cont immobilazation with aircast boot?? GI:?? ?Transaminitis:? from cardiopulmonary arrest,? continue to trend Endo:?? ?No acute issues Heme/Onc:? ?Anemia:? hemoglobin is stable,? no evidence of bleeding.? Continue to trend hemoglobin.? ID:? ?No acute issues Psych:? No acute issues. Prophylaxis: ? subQ heparin. GI:? IV Protonix Code? status: ? ? FULL CODE.? Critical care time: x 90 min of critical care time?
[2024-03-22 19:33] LABS: Alanine Aminotransferase 190 U/L (0-31); Albumin Level 3.4 g/dL (3.5-5.0); Alkaline Phosphatase 72 U/L (39-117); Aspartate Amino Transferase 187 U/L (5-31); Bilirubin Direct < 0.2 mg/dL (0.0-0.5); Bilirubin Total 0.2 mg/dL (0.0-1.0); Phosphorus 3.1 mg/dL (2.7-4.5); Total Protein 5.9 g/dL (6.5-8.0)
[2024-03-22] MEDS: levoFLOXacin/D5W 750 MG/150 ML PIGGYBACK 100 MG IV (19:37)
[2024-03-22 19:39] LABS: Venous Blood Gas Refer to POC result
[2024-03-22] MEDS: Heparin Sodium,Porcine 5,000 UNIT/ML VIAL 5000 UNIT SUBCUT (19:39)
[2024-03-22 19:41] LABS: VBG Base Excess 0.8 mmol/L; VBG HCO3 25 mmol/L (22-26); VBG pCO2 39 mmHg; VBG pO2 182 mmHg
--- NOTE | 2024-03-22 19:55 | PC.NURSE ---
ogt placed, +placement verification ausc, pending cxr for confirmation. fent gtt started d/t vent asynchrony. bp improving. remains nsr. fio2 inc to 45%.
--- NOTE | 2024-03-22 21:06 | PC.NURSE ---
ogt not in place on cxr, Ignacio MCCRACKEN advanced tube. pt did not tlerate well, became restless, biting on ett, desatting. mouth guard for tube requested and placed by RT, sedation increased as per facility protocol. MAP remains >65. #22 piv placed in L hand. 300ccs urinary output upon transfer to ICU.
[2024-03-22] MEDS: Albumin Human 25 % 100 ML IV ×2 (21:22→22:01)
[2024-03-22] MEDS: Chlorhexidine Gluc Oral Rinse 15 ML MOUTHWASH BUCCAL (21:24)
[2024-03-22 23:59] LABS: ABG Base Excess 7.4 mmol/L; ABG HCO3 30 mmol/L (22-26); ABG pCO2 34 mmHg (32-45); ABG pH 7.54 (7.35-7.45); ABG pO2 89 mmHg (83-108)
[2024-03-23] VITALS (30 sets, daily range): BP systolic 101–152; BP diastolic 18–86; PULSE 77–122; RESP 12–21; TEMP 35–37.9; O2SAT 92–99
[2024-03-23 00:07] LABS: ABG Refer to POC result
[2024-03-23 01:06] LABS: Albumin Level 3.9 g/dL (3.5-5.0); Anion Gap 17 (12-20); Blood Urea Nitrogen 32 mg/dL (9-16); Calcium 9.5 mg/dL (8.4-10.2); Carbon Dioxide 22 mmol/L (22-29); Chloride 103 mmol/L (96-108); Creatinine Clr Calc Pharmacy 54.5; Estimated Glomerular Filt Rate > 60; Glucose Random 103 mg/dL (60-115); Magnesium 1.8 mg/dL (1.6-2.6); Phosphorus 1.4 mg/dL (2.7-4.5); Potassium 4.4 mmol/L (3.3-5.1); Sodium 138 mmol/L (135-145)
[2024-03-23] MEDS: Potassium Phosphate/NS 15 MMOL/250 ML PLAST..BAG 62.5 MMOL IV ×2 (02:27→07:30)
[2024-03-23] MEDS: Heparin Sodium,Porcine 5,000 UNIT/ML VIAL 5000 UNIT SUBCUT ×3 (02:28→18:57)
[2024-03-23 02:33] LABS: Basophils Percent Auto 0.3 % (0-2); Eosinophils Absolute Auto 0.1 X10*3/uL (0.0-0.4); Eosinophils Percent Auto 0.9 % (0-4); Hemoglobin 7.6 g/dl (12.0-16.0); Imm Gran Abs Auto 0.04 X10*3/uL (0.00-0.03); Imm Gran Pct Auto 0.5 % (0.0-0.4); Lymphocytes Absolute Auto 1.3 X10*3/uL (1.2-4.9); MANUAL DIFF FLAG SCAN; Mean Corpuscular HGB Conc 34.5 g/dl (31.0-35.0); Mean Corpuscular Hemoglobin 33.8 pg (27.0-33.0); Mean Corpuscular Volume 97.8 fL (80.0-98.0); Mean Platelet Volume 8.9 fL (9.4-12.3); Monocytes Absolute Auto 0.6 X10*3/uL (0.1-1.2); Monocytes Percent Auto 7.9 % (2-11); Neutrophils Absolute Auto 5.9 x10*3/uL (2.0-8.3); Neutrophils Percent Auto 74.4 % (45-73); PLT CLUMP 1; Red Blood Count 2.25 X10*6/uL (4.20-5.50); Red Cell Distribution Width 12.7 % (11.0-16.0); SCAN SMEAR FLAG 1
[2024-03-23 02:37] LABS: White Blood Count 7.9 X10*3/uL (4.8-10.8)
[2024-03-23 03:19] LABS: SLIDE REVIEW VERIFIED
[2024-03-23] MEDS: propofoL 1,000 MG/100 ML VIAL 12.46 MG IVCONT ×2 (04:06→09:07)
[2024-03-23 05:36] LABS: VBG Base Excess 7.2 mmol/L; VBG HCO3 29 mmol/L (22-26); VBG pCO2 32 mmHg; VBG pH 7.57 (7.32-7.43); VBG pO2 60 mmHg
[2024-03-23 05:52] LABS: Venous Blood Gas Refer to POC result
[2024-03-23] MEDS: Pantoprazole Sodium 40 MG/10 ML VIAL IVPUSH (06:02)
[2024-03-23 06:31] LABS: Alanine Aminotransferase 133 U/L (0-31); Albumin Level 4.3 g/dL (3.5-5.0); Alkaline Phosphatase 65 U/L (39-117); Anion Gap 16 (12-20); Aspartate Amino Transferase 117 U/L (5-31); Bilirubin Total 0.5 mg/dL (0.0-1.0); Blood Urea Nitrogen 28 mg/dL (9-16); Calcium 9.5 mg/dL (8.4-10.2); Carbon Dioxide 24 mmol/L (22-29); Chloride 105 mmol/L (96-108); Creatinine Clr Calc Pharmacy 61.3; Estimated Glomerular Filt Rate > 60; Glucose Random 89 mg/dL (60-115); Magnesium 1.7 mg/dL (1.6-2.6); Phosphorus 2.3 mg/dL (2.7-4.5); Sodium 141 mmol/L (135-145); Total Protein 6.7 g/dL (6.5-8.0)
[2024-03-23 07:18] LABS: Basophils Percent Auto 0.5 % (0-2); Eosinophils Absolute Auto 0.1 X10*3/uL (0.0-0.4); Eosinophils Percent Auto 1.5 % (0-4); Hematocrit 21.4 % (37.0-47.0); Hemoglobin 7.5 g/dl (12.0-16.0); Imm Gran Abs Auto 0.06 X10*3/uL (0.00-0.03); Imm Gran Pct Auto 0.7 % (0.0-0.4); Lymphocytes Absolute Auto 1.6 X10*3/uL (1.2-4.9); Lymphocytes Percent Auto 19.7 % (20-40); MANUAL DIFF FLAG SCAN; Mean Corpuscular Hemoglobin 33.9 pg (27.0-33.0); Mean Corpuscular Volume 96.8 fL (80.0-98.0); Mean Platelet Volume 9.2 fL (9.4-12.3); Monocytes Absolute Auto 0.7 X10*3/uL (0.1-1.2); Monocytes Percent Auto 8.9 % (2-11); Neutrophils Absolute Auto 5.6 x10*3/uL (2.0-8.3); Neutrophils Percent Auto 68.7 % (45-73); PLT CLUMP 1; Red Blood Count 2.21 X10*6/uL (4.20-5.50); Red Cell Distribution Width 12.9 % (11.0-16.0); SCAN SMEAR FLAG 1
[2024-03-23 07:19] LABS: White Blood Count 8.2 X10*3/uL (4.8-10.8)
[2024-03-23 07:47] LABS: Platelet Count 233 X10*3/uL (160-400)
[2024-03-23] MEDS: Chlorhexidine Gluc Oral Rinse 15 ML MOUTHWASH BUCCAL (09:07)
--- NOTE | 2024-03-23 09:45 | PC.NURSE ---
Sedation vacation initiated at 0908. RT initiated PSV trial at 09. Pt extubated at 0930 with MD and RT at bedside. Oral suction provided. Pt placed on 5L supplemental o2 via oxymask.
--- NOTE | 2024-03-23 10:00 | P.PNCC_ITS ---
Subjective Subjective Date of Service: 03/23/24 Interval History: 73-year-old lady with underlying history of hypertension, low-back pain, depression in emergency department on 03/15/24 after fall, monitored in the ER overflow unit through 03/22/2024 for rehab placement. On 03/22/2024 patient with pulmonary aspiration of food resulting in a systolic cardiac arrest with return of spontaneous circulation after 2 rounds of CPR, intubated during CPR, admitted to intensive care unit. No events overnight. Awake and alert on sedation vacation this a.m., extubated uneventfully. Critical Care Time (minutes): 60 Physical Exam 2 Vital Signs: Vital Signs: Last Vital Signs Temp 100.2 F 03/23/24 09:00 Pulse 86 03/23/24 09:00 Resp 16 03/23/24 09:00 BP 125/59 L 03/23/24 09:00 Pulse Ox 92 03/23/24 09:00 O2 Del Method Mechanical Ventil ation 03/23/24 09:00 O2 Flow Rate 2 03/22/24 06:00 FiO2 40 03/23/24 09:00 BMI result Body Mass Index 29.8 Const: General: no acute distress, alert and awake Eyes: Sclerae: sclerae normal EOM: EOMs intact bilaterally Neck: Neck: Yes no lymphadenopathy, Yes trachea midline and Yes supple Resp: Effort & Inspection: normal respiratory effort and no respiratory distress Auscultation: clear to auscultation bilaterally Cardio: Rate: tachycardic Rhythm: regular rhythm Heart sounds: no gallops, no murmurs and no rubs GI: Palpation (GI): Soft to palpation and Other GI palpation findings present ( Nontender) Auscultation: normal bowel sounds Extrem: General: Yes no pedal edema, No clubbing and No cyanosis Objective Data Labs 03/23/24 06:37 03/23/24 05:26 Labs: Laboratory Results - last 24 hr 03/22/24 03/22/24 03/22/24 16:54 18:34 18:39 WBC RBC Hgb Hct MCV MCH MCHC RDW Plt Count MPV Immature Gran % (Auto) Neut % (Auto) Lymph % (Auto) [place] % (Auto) Eos % (Auto) Baso % (Auto) Lymph # (Auto) [place] # (Auto) Eos # (Auto) Baso # (Auto) Abs Immat Gran (auto) Absolute Neuts (auto) Absolute Nucleated RBC Nucleated RBC % (auto) Smear Tech's Comments O2 Saturation ABG pH at Pt Temp ABG pCO2 at Pt Temp ABG pO2 at Pt Temp ABG HCO3 ABG Base Excess (Actual) VBG pH VBG pCO2 VBG pO2 VBG HCO3 VBG O2 Saturation VBG Base Excess Sodium 139 Potassium 4.2 Chloride 105 Carbon Dioxide 23 Anion Gap 15 BUN 36 H Creatinine 0.83 Estim Creat Clear Calc 53.1 Estimated GFR > 60 POC Glucose 147 H Random Glucose 128 H Lactic Acid 1.9 Calcium 9.1 Phosphorus 3.1 Magnesium 1.8 Total Bilirubin 0.2 Direct Bilirubin < 0.2 AST 187 H ALT 190 H Alkaline Phosphatase 72 Troponin I High Sens Total Protein 5.9 L Albumin 3.4 L 03/22/24 03/22/24 03/22/24 18:40 19:31 23:49 WBC 8.5 RBC 2.37 L D Hgb 7.9 L D Hct 24.6 L MCV 103.8 H MCH 33.3 H MCHC 32.1 RDW 12.5 Plt Count 257 D MPV 8.5 L Immature Gran % (Auto) 0.8 H Neut % (Auto) 77.9 H Lymph % (Auto) 12.4 L [place] % (Auto) 6.9 Eos % (Auto) 1.5 Baso % (Auto) 0.5 Lymph # (Auto) 1.1 L [place] # (Auto) 0.6 Eos # (Auto) 0.1 Baso # (Auto) 0.0 Abs Immat Gran (auto) 0.07 H Absolute Neuts (auto) 6.6 Absolute Nucleated RBC 0.000 Nucleated RBC % (auto) 0.0 Smear Tech's Comments O2 Saturation 98.0 ABG pH at Pt Temp 7.54 H ABG pCO2 at Pt Temp 34 ABG pO2 at Pt Temp 89 ABG HCO3 30 H ABG Base Excess (Actual) 7.4 VBG pH 7.40 VBG pCO2 39 VBG pO2 182 VBG HCO3 25 VBG O2 Saturation 99.0 VBG Base Excess 0.8 Sodium Potassium Chloride Carbon Dioxide Anion Gap BUN Creatinine Estim Creat Clear Calc Estimated GFR POC Glucose Random Glucose Lactic Acid Calcium Phosphorus Magnesium Total Bilirubin Direct Bilirubin AST ALT Alkaline Phosphatase Troponin I High Sens Total Protein Albumin 03/23/24 03/23/24 03/23/24 00:37 02:26 05:26 WBC 7.9 RBC 2.25 L Hgb 7.6 L Hct 22.0 L MCV 97.8 D MCH 33.8 H MCHC 34.5 RDW 12.7 Plt Count TNP MPV 8.9 L Immature Gran % (Auto) 0.5 H Neut % (Auto) 74.4 H Lymph % (Auto) 16.0 L [place] % (Auto) 7.9 Eos % (Auto) 0.9 Baso % (Auto) 0.3 Lymph # (Auto) 1.3 [place] # (Auto) 0.6 Eos # (Auto) 0.1 Baso # (Auto) 0.0 Abs Immat Gran (auto) 0.04 H Absolute Neuts (auto) 5.9 Absolute Nucleated RBC 0.000 Nucleated RBC % (auto) 0.0 Smear Tech's Comments VERIFIED O2 Saturation ABG pH at Pt Temp ABG pCO2 at Pt Temp ABG pO2 at Pt Temp ABG HCO3 ABG Base Excess (Actual) VBG pH 7.57 H VBG pCO2 32 VBG pO2 60 VBG HCO3 29 H VBG O2 Saturation 94.0 VBG Base Excess 7.2 Sodium 138 141 Potassium 4.4 4.0 Chloride 103 105 Carbon Dioxide 22 24 Anion Gap 17 16 BUN 32 H 28 H Creatinine 0.81 0.72 Estim Creat Clear Calc 54.5 61.3 Estimated GFR > 60 > 60 POC Glucose Random Glucose 103 89 Lactic Acid Calcium 9.5 9.5 Phosphorus 1.4 L 2.3 L Magnesium 1.8 1.7 Total Bilirubin 0.5 Direct Bilirubin AST 117 H ALT 133 H Alkaline Phosphatase 65 Troponin I High Sens Total Protein 6.7 Albumin 3.9 4.3 03/23/24 03/23/24 05:27 06:37 WBC 8.2 RBC 2.21 L Hgb 7.5 L Hct 21.4 L MCV 96.8 MCH 33.9 H MCHC 35.0 RDW 12.9 Plt Count 233 MPV 9.2 L Immature Gran % (Auto) 0.7 H Neut % (Auto) 68.7 Lymph % (Auto) 19.7 L [place] % (Auto) 8.9 Eos % (Auto) 1.5 Baso % (Auto) 0.5 Lymph # (Auto) 1.6 [place] # (Auto) 0.7 Eos # (Auto) 0.1 Baso # (Auto) 0.0 Abs Immat Gran (auto) 0.06 H Absolute Neuts (auto) 5.6 Absolute Nucleated RBC 0.000 Nucleated RBC % (auto) 0.0 Smear Tech's Comments O2 Saturation ABG pH at Pt Temp ABG pCO2 at Pt Temp ABG pO2 at Pt Temp ABG HCO3 ABG Base Excess (Actual) VBG pH VBG pCO2 VBG pO2 VBG HCO3 VBG O2 Saturation VBG Base Excess Sodium Potassium Chloride Carbon Dioxide Anion Gap BUN Creatinine Estim Creat Clear Calc Estimated GFR POC Glucose Random Glucose Lactic Acid Calcium Phosphorus Magnesium Total Bilirubin Direct Bilirubin AST ALT Alkaline Phosphatase Troponin I High Sens 10.0 D Total Protein Albumin Progress Note: A&P Assessment and plan (1) Cardiopulmonary arrest: Status: Acute (2) Aspiration into airway: Status: Acute (3) Anemia: Status: Acute Plan Assessment: 71-year-old lady admitted with cardiac arrest secondary to pulmonary aspiration food with returned spontaneous circulation after 2 rounds of CPR, intubated during the CPR Plan: Neuro: This a.m. with return to baseline mental status. Cardiac: Status post cardiac arrest secondary to pulmonary aspiration of food. 2D echo is pending. Underlying hypertension. Pulmonary: Intubated during cardiac arrest, extubated uneventfully this morning. Renal: No acute issues. Endo: No acute issues. GI: No acute issues. ID: No acute issues Heme/Onc: No acute issues. Psych: No acute issues. Miscellaneous: Left ankle avulsion fracture, evaluated by Orthopedics, now in immobilization boot Prophylaxis: Heparin Diet: Pending swallow evaluation Critical care time spent: 60 minutes Quality Stroke Does the patient have a stroke diagnosis?: No VTE Prior VTE?: No VTE Risk Level:: Medical - moderate - high VTE Device Contraindication: Treatment Not Indicated VTE Drug Contraindication: N/A - Med Ordered
[2024-03-23] MEDS: hydrOXYzine HCL 25 MG TABLET PO (11:59)
[2024-03-23] MEDS: fentaNYL citrate/PF 100 MCG/2 ML VIAL 25 MCG IVPUSH ×3 (14:03→23:16)
--- NOTE | 2024-03-23 14:09 | MHC.CM.PN ---
Addendum entered by Olinda Mancuso 03/23/24 14:14: Riky's email: tel: [phone] Original Note: Patient was in ER since 03/14 after a fall. Physical therapy eval completed. Short term rehab was recommended. Patient was aggitated and appeared confused at one point and psych consult for capacity was ordered. It was determined patient had capacity to make her own decisions. Short term rehab was attempting to be found. [facility] was only facility willing to offer a bed. It was anticipated patient would d/c on Sunday. Patient has aspiration episode and went into cardiac arrest. Patient was intubated and transferred to ICU. Patient extubated on 03/23. Met with patient and friend/2nd HCP, Riky in regards to discharge planning. [facility] 1st choice for [facility]. [facility] made aware and asked to follow for d/c needs. IMM explained and left bedside. Patient is alert and oriented to self but still a liittle confused from medications. Riky is legally blind and is not able to sign IMM. IMM explained and left bedside. Also emailed to Riky at his request. Copy of HCP obtained from [facility]. Continue to monitor for d/c needs.
[2024-03-23] MEDS: 0.9 % Sodium Chloride Flush 3 ML SYRINGE IVFLUSH (23:16)
[2024-03-24] VITALS (14 sets, daily range): BP systolic 131–161; BP diastolic 50–78; PULSE 87–113; RESP 14–24; TEMP 36.1–36.7; O2SAT 92–99
[2024-03-24] MEDS: fentaNYL citrate/PF 100 MCG/2 ML VIAL 25 MCG IVPUSH (01:21)
[2024-03-24] MEDS: Heparin Sodium,Porcine 5,000 UNIT/ML VIAL 5000 UNIT SUBCUT ×3 (03:28→17:18)
[2024-03-24 05:24] LABS: VBG Base Excess 4.5 mmol/L; VBG HCO3 29 mmol/L (22-26); VBG pCO2 42 mmHg; VBG pH 7.43 (7.32-7.43); VBG pO2 46 mmHg; Venous Blood Gas Refer to POC result
[2024-03-24 05:30] LABS: MANUAL DIFF FLAG NO
[2024-03-24 05:35] LABS: Basophils Percent Auto 0.6 % (0-2); Eosinophils Absolute Auto 0.2 X10*3/uL (0.0-0.4); Eosinophils Percent Auto 2.3 % (0-4); Hematocrit 25.4 % (37.0-47.0); Imm Gran Abs Auto 0.03 X10*3/uL (0.00-0.03); Imm Gran Pct Auto 0.5 % (0.0-0.4); Lymphocytes Absolute Auto 1.3 X10*3/uL (1.2-4.9); Lymphocytes Percent Auto 19.7 % (20-40); Mean Corpuscular HGB Conc 31.5 g/dl (31.0-35.0); Mean Corpuscular Hemoglobin 33.1 pg (27.0-33.0); Mean Platelet Volume 8.6 fL (9.4-12.3); Monocytes Absolute Auto 0.6 X10*3/uL (0.1-1.2); Neutrophils Absolute Auto 4.5 x10*3/uL (2.0-8.3); Neutrophils Percent Auto 67.9 % (45-73); Platelet Count 267 X10*3/uL (160-400); Red Blood Count 2.42 X10*6/uL (4.20-5.50); Red Cell Distribution Width 13.3 % (11.0-16.0); White Blood Count 6.6 X10*3/uL (4.8-10.8)
[2024-03-24 05:50] LABS: Albumin Level 3.9 g/dL (3.5-5.0); Anion Gap 15 (12-20); Blood Urea Nitrogen 15 mg/dL (9-16); Calcium 9.3 mg/dL (8.4-10.2); Carbon Dioxide 25 mmol/L (22-29); Chloride 107 mmol/L (96-108); Creatinine Clr Calc Pharmacy 66.8; Estimated Glomerular Filt Rate > 60; Glucose Random 95 mg/dL (60-115); Magnesium 1.7 mg/dL (1.6-2.6); Phosphorus 3.3 mg/dL (2.7-4.5); Potassium 4.1 mmol/L (3.3-5.1); Sodium 143 mmol/L (135-145)
[2024-03-24] MEDS: ondansetron HCL 4 MG/2 ML VIAL IVPUSH ×2 (06:01→21:37)
--- NOTE | 2024-03-24 09:34 | P.PNCC_ITS ---
Subjective Subjective Date of Service: 03/24/24 Interval History: 73-year-old lady with underlying history of hypertension, low-back pain, depression in emergency department on 03/15/24 after fall, monitored in the ER overflow unit through 03/22/2024 for rehab placement. On 03/22/2024 patient with pulmonary aspiration of food resulting in a systolic cardiac arrest with return of spontaneous circulation after 2 rounds of CPR, intubated during CPR, admitted to intensive care unit. Extubated uneventfully on 03/23/2024. No events overnight. Critical Care Time (minutes): 0 Physical Exam 2 Vital Signs: Vital Signs: Last Vital Signs Temp 98.1 F 03/24/24 08:00 Pulse 108 H 03/24/24 09:00 Resp 14 03/24/24 09:00 BP 131/60 03/24/24 09:00 Pulse Ox 97 03/24/24 09:00 O2 Del Method Oxymask 03/24/24 09:00 O2 Flow Rate 5 03/24/24 09:00 FiO2 40 03/23/24 09:00 BMI result Body Mass Index 29.8 Const: General: no acute distress, alert and awake Eyes: Sclerae: sclerae normal EOM: EOMs intact bilaterally Neck: Neck: Yes no lymphadenopathy, Yes trachea midline and Yes supple Resp: Effort & Inspection: normal respiratory effort and no respiratory distress Auscultation: clear to auscultation bilaterally Cardio: Rate: tachycardic Rhythm: regular rhythm Heart sounds: no gallops, no murmurs and no rubs GI: Palpation (GI): Soft to palpation and Other GI palpation findings present ( Nontender) Auscultation: normal bowel sounds Extrem: General: Yes no pedal edema, No clubbing and No cyanosis Objective Data Labs 03/24/24 05:17 03/24/24 05:17 Labs: Laboratory Results - last 24 hr 03/24/24 03/24/24 05:14 05:17 WBC 6.6 RBC 2.42 L Hgb 8.0 L Hct 25.4 L MCV 105.0 H D MCH 33.1 H MCHC 31.5 RDW 13.3 Plt Count 267 MPV 8.6 L Immature Gran % (Auto) 0.5 H Neut % (Auto) 67.9 Lymph % (Auto) 19.7 L [place] % (Auto) 9.0 Eos % (Auto) 2.3 Baso % (Auto) 0.6 Lymph # (Auto) 1.3 [place] # (Auto) 0.6 Eos # (Auto) 0.2 Baso # (Auto) 0.0 Abs Immat Gran (auto) 0.03 Absolute Neuts (auto) 4.5 Absolute Nucleated RBC 0.000 Nucleated RBC % (auto) 0.0 VBG pH 7.43 VBG pCO2 42 VBG pO2 46 VBG HCO3 29 H VBG O2 Saturation 78.0 VBG Base Excess 4.5 Sodium 143 Potassium 4.1 Chloride 107 Carbon Dioxide 25 Anion Gap 15 BUN 15 Creatinine 0.66 Estim Creat Clear Calc 66.8 Estimated GFR > 60 Random Glucose 95 Calcium 9.3 Phosphorus 3.3 Magnesium 1.7 Albumin 3.9 Microbiology Microbiology Results: Microbiology 03/22/24 18:34 Blood - Venous Blood Culture - Preliminary No growth after 24 hours. 03/22/24 18:39 Blood - Venous Blood Culture - Preliminary No growth after 24 hours. Progress Note: A&P Assessment and plan (1) Cardiopulmonary arrest: Status: Acute (2) Aspiration into airway: Status: Acute (3) Avulsion fracture of medial malleolus of left tibia: Status: Acute Plan Assessment: 71-year-old lady admitted with cardiac arrest secondary to pulmonary aspiration food with returned spontaneous circulation after 2 rounds of CPR, intubated during the CPR Plan: Neuro: This a.m. with return to baseline mental status. Cardiac: Status post cardiac arrest secondary to pulmonary aspiration of food. 2D echo is pending. Underlying hypertension. Pulmonary: Intubated during cardiac arrest, extubated uneventfully 03/23/2024. Continue to titrate off supplemental oxygen as tolerated. Renal: No acute issues. Endo: No acute issues. GI: No acute issues. ID: No acute issues Heme/Onc: No acute issues. Psych: No acute issues. Miscellaneous: Left ankle avulsion fracture, evaluated by Orthopedics, now in immobilization boot Prophylaxis: Heparin Diet: Pending swallow evaluation Quality Stroke Does the patient have a stroke diagnosis?: No VTE Prior VTE?: No VTE Risk Level:: Medical - moderate - high VTE Device Contraindication: Treatment Not Indicated VTE Drug Contraindication: N/A - Med Ordered
[2024-03-24] MEDS: 0.9 % Sodium Chloride Flush 3 ML SYRINGE IVFLUSH ×3 (09:56→21:37)
--- NOTE | 2024-03-24 10:45 | PM.EVENT ---
Event Note Date of Service: 03/24/24 Event Note: Discussed with ICU attending. Transfer to medical floor. Admitted for aspiration pneumonia, 2 rounds of CPR, intubated on 03/22/2024, extubated 03/23/2024. Awake and alert, pass swallow evaluation. Time Spent With Patient Time: Total time managing care of this patient today ____ minutes.
--- NOTE | 2024-03-24 11:09 | PC.NURSE ---
Indwelling catheter removed at 1100, patient due to void by 1700
--- NOTE | 2024-03-24 12:00 | CA_ITS ---
Transthoracic Echocardiogram Patient (Last, First, Middle): Joanna Jones H Gender: Female Date of : 1950 Age: 73 Procedure Date: 03/24/2024 Procedure Type: Transthoracic Echocardiogram Location: ICU Height: 152.4 cm Weight: 68.95 kg BSA: 1.66 m2 Heart Rate: 73 bpm BP: 152 / 72 mmHg Analysis Engineer: SB Referring MD: Everardo Spears MD Symptoms: Status post cardiac arrest Study Quality: Adequate w contrast ECG Rhythm: Sinus Conclusions: - Normal left ventricular cavity size. There is mildly increased left ventricular wall thickness. The left ventricular systolic function is hyperdynamic. The visually estimated ejection fraction is >70%. - Normal right ventricular cavity size and systolic function. - The left atrium is normal in size. - There is mild calcification of the aortic valve. - Mild pulmonary hypertension is present. Findings Procedure Information Contrast agent, definity, is being given per protocol without apparent complications. The quality of the study was technically difficult. The study quality is limited by the patients inability to tolerate the test. Left Ventricle Normal left ventricular cavity size. There is mildly increased left ventricular wall thickness. The left ventricular systolic function is hyperdynamic. The visually estimated ejection fraction is >70%. There is no evidence of regional wall motion abnormalities. Diastolic function is indeterminate on the basis of available data. Right Ventricle Normal right ventricular cavity size and systolic function. Atria The left atrium is normal in size. Aortic Valve There is a normal trileaflet aortic valve. There is mild calcification of the aortic valve. There is no aortic valve stenosis. There is no aortic valve regurgitation. Mitral Valve The mitral valve appears normal. There is no mitral valve regurgitation. There is no mitral valve stenosis. Pulmonic Valve The pulmonic valve is normal. There is trace pulmonic valve regurgitation. Tricuspid Valve Likely normal tricuspid valve structure and function. The right ventricular systolic pressure is 43 mmHg. Normal right atrial pressure. Mild pulmonary hypertension is present. Great Vessels All visible segments of the aorta are normal in size. Venous The inferior vena cava is normal in size and collapses greater than 50% with inspiration. Pericardium/Pleural There is no evidence of pericardial effusion. Measurements 2D Linear Measurements IVSd: 0.97 0.6-0.9/0.6-1.0 cm LVIDd: 4.54 3.9-5.3/4.2-5.9 cm LVIDd Index: 2.73 2.4-3.2/2.2-3.1 cm/m2 LVIDs: 2.15 2.0-3.6 cm LVPWd: 0.93 0.7-1.1 cm LA Diam: 3.50 2.7-3.8/3.0-4.0 cm LAIDs Index: 2.11 1.5-2.3 cm/m2 LV Mass: 180.84 67-162/88-224 g LV Mass Index: 108.94 43-95/49-115 g/m2 LVOT Diam: 2.10 3.0+(-)1.3 cm 2D Systolic Function EF 4C: 80.30 >55% EF 2C: 85.80 >55% EF BiP: 83.10 >55% Mitral Valve MV Pk E: 1.00 MV PK A: 1.52 MV Decel Time: 159.00 E/A: 0.70 PHT: 47.00 MVA PHT: 4.68 Decel Solano: 6.27 Aortic Valve AoV Pk Mitchell: 1.42 AoV Pk Grad: 8.00 ADRIÁN: 2.99 LVOT LVOT Pk Mitchell: 1.33 LVOT Mn Mitchell: 0.92 LVOT VTI: 0.25 LVOT Pk Grad: 7.00 LVOT Mn Grad: 4.00 LVOT Diam: 2.10 LVOT Area: 3.46 Diastolic Function MV Pk E: 1.00 MV Pk A: 1.52 E/A: 0.70 Right Ventricle TAPSE (mm): 22.30 TVS' Mitchell: 17.50 Tricuspid Valve TR Pk Mitchell: 2.96 TR Pk Grad: 35.00 RA Press: 8.00 RVSP: 43.00 Great Vessels Aorta Sinus of Valsalva: 3.30 2.0-3.5 cm Ao Asc: 3.00 2.1-3.4 cm Pulmonary Valve PV Pk Mitchell: 1.15 Peak PV Grad: 5.00 Updated in Other Vendor System with Status of Final George Calhoun MD electronically signed on 03/24/2024 2:10:12 PM with status of Final
--- NOTE | 2024-03-24 12:05 | MHC.SL.SWA ---
Speech Pathologist Impression: Risk of aspiration, oropharyngeal dysphagia Risk of Aspiration Due to: History of Pneumonia Hx of Recent Extubation Dysphasia Diet Status:UPGRADE from NPO, start on NDD2/THIN Liquid Consistency and Strategies for Safe Swallow: Liquid Intake Recommendation: Thin Liquid Intake Strategies: Small Sips No Straws Solid Food Consistency: Dietary Recommendations: Grnd/Mech Altered (NDD2) Additional Modifications to Solid Foods: Recommend UPGRADE from NPO, start on GROUND/MECH ALTERED (NDD2) diet and THIN liquids, pills CRUSHED in PUREE. Given recent choking event, patient is recommended direct supervision and close monitoring during all PO intake. Patient was counselled on strategies: optimal positioning (90 degrees upright), taking small bites, chew food well, dry swallow then liquid wash between bites, clear oral cavity before taking next bite. Oral Medication Intake: Crushed with Puree Please contact the pharmacy regarding appropriate crushable or liquid drug formulations that are available whenever modified delivery is recommended. Compensatory Strategies and Precautions to be Taken for Safe Swallow: Sitting Upright (90 deg) Double Swallow No Straw Small Bites and Sips Alternate Liquids/Solids Rate of Ingestion Change Oral Check Avoid Specific Foods Supervision While Eating and Drinking for Safe Swallow: Total Supervision (1:1) Foods to Avoid: Hard to chew solids; crunchy, dry, or sticky foods Swallowing Recommended Treatments: Compens. Strategy Educat. Recommendation for Speech: Inpatient Speech Therapy Comment: GEOGRAPHY HEAD will continue to follow to monitor patient's tolerance of recommended dietary textures; feeding needs; provide counselling/education for behavioral strategies. Frequency/Duration: PRN M-F Date Range for Service Req: Timeline to reassess: [place] Clinican/Clinical Fellow: No Supervisory Statement: I have reviewed and agree with the student/clinical fellow's documentation: N/A Speech Language Pathologist: Stephany Jacobs M.A., CCC-GEOGRAPHY HEAD
[2024-03-24] MEDS: Acetaminophen 325 MG TABLET 650 MG PO (13:24)
[2024-03-24] MEDS: Metoprolol Succinate ER 50 MG TAB.ER.24H PO (13:24)
[2024-03-24] MEDS: hydrOXYzine HCL 25 MG TABLET PO (13:25)
[2024-03-24] MEDS: oxyCODONE HCl Immed Release 5 MG TABLET PO ×2 (16:50→22:44)
[2024-03-25] VITALS (10 sets, daily range): BP systolic 131–185; BP diastolic 68–90; PULSE 80–97; RESP 14–20; TEMP 36.4–36.8; O2SAT 94–98; BMI 29.1
[2024-03-25] MEDS: Heparin Sodium,Porcine 5,000 UNIT/ML VIAL 5000 UNIT SUBCUT ×3 (03:43→21:00)
[2024-03-25] MEDS: oxyCODONE HCl Immed Release 5 MG TABLET PO ×5 (03:53→22:53)
[2024-03-25 06:31] LABS: MANUAL DIFF FLAG NO
[2024-03-25 06:33] LABS: Basophils Absolute Auto 0.1 X10*3/uL (0.0-0.2); Basophils Percent Auto 0.6 % (0-2); Eosinophils Absolute Auto 0.2 X10*3/uL (0.0-0.4); Eosinophils Percent Auto 2.2 % (0-4); Hematocrit 26.8 % (37.0-47.0); Hemoglobin 8.5 g/dl (12.0-16.0); Imm Gran Abs Auto 0.04 X10*3/uL (0.00-0.03); Imm Gran Pct Auto 0.5 % (0.0-0.4); Lymphocytes Absolute Auto 1.4 X10*3/uL (1.2-4.9); Lymphocytes Percent Auto 17.2 % (20-40); Mean Corpuscular HGB Conc 31.7 g/dl (31.0-35.0); Mean Corpuscular Hemoglobin 33.2 pg (27.0-33.0); Mean Corpuscular Volume 104.7 fL (80.0-98.0); Mean Platelet Volume 8.6 fL (9.4-12.3); Monocytes Absolute Auto 0.8 X10*3/uL (0.1-1.2); Monocytes Percent Auto 9.7 % (2-11); Neutrophils Absolute Auto 5.7 x10*3/uL (2.0-8.3); Neutrophils Percent Auto 69.8 % (45-73); Platelet Count 298 X10*3/uL (160-400); Red Blood Count 2.56 X10*6/uL (4.20-5.50); Red Cell Distribution Width 12.8 % (11.0-16.0); White Blood Count 8.2 X10*3/uL (4.8-10.8)
[2024-03-25] MEDS: Acetaminophen 325 MG TABLET 650 MG PO ×2 (06:43→22:53)
[2024-03-25 06:59] LABS: Albumin Level 4.1 g/dL (3.5-5.0); Anion Gap 13 (12-20); Blood Urea Nitrogen 17 mg/dL (9-16); Calcium 9.6 mg/dL (8.4-10.2); Carbon Dioxide 29 mmol/L (22-29); Chloride 104 mmol/L (96-108); Creatinine Clr Calc Pharmacy 62.1; Estimated Glomerular Filt Rate > 60; Glucose Random 113 mg/dL (60-115); Magnesium 1.6 mg/dL (1.6-2.6); Phosphorus 3.1 mg/dL (2.7-4.5); Potassium 4.1 mmol/L (3.3-5.1); Sodium 142 mmol/L (135-145)
[2024-03-25] MEDS: Metoprolol Succinate ER 50 MG TAB.ER.24H PO ×3 (07:49→17:45)
[2024-03-25] MEDS: hydrOXYzine HCL 25 MG TABLET PO ×3 (07:51→21:00)
[2024-03-25] MEDS: 0.9 % Sodium Chloride Flush 3 ML SYRINGE IVFLUSH ×2 (07:51→17:45)
--- NOTE | 2024-03-25 11:06 | HO.PM.IMPN ---
Subjective Subjective Date of Service: 03/25/24 Physical Exam Vital Signs: Vital Signs: Last Vital Signs Temp 97.8 F 03/25/24 08:00 Pulse 85 03/25/24 08:00 Resp 20 03/25/24 08:00 BP 178/77 H 03/25/24 08:00 Pulse Ox 97 03/25/24 08:00 O2 Del Method Nasal Cannula 03/25/24 08:00 O2 Flow Rate 1 03/25/24 08:00 FiO2 40 03/23/24 09:00 BMI result Body Mass Index 29.8 Objective Data Active Medications Acetaminophen (Acetaminophen 325 Mg Tablet) 650 mg PO Q6H PRN PRN Reason: Pain, Mild (Pain Scale 1-3) Last Admin: 03/25/24 06:43 Dose: 650 mg Documented By: DARRIN Benzonatate (Benzonatate 100 Mg Capsule) 200 mg PO TID PRN PRN Reason: Cough Heparin Sodium (Porcine) (Heparin Sodium,Porcine 5,000 Unit/Ml Vial) 5,000 unit SUBCUT Q8H [facility] Last Admin: 03/25/24 10:46 Dose: 5,000 unit Documented By: ROBB Hydroxyzine HCl (Hydroxyzine Hcl 25 Mg Tablet) 25 mg PO Q6H PRN PRN Reason: anxiety/restlessness Last Admin: 03/25/24 07:51 Dose: 25 mg Documented By: MIRIAM Metoprolol Succinate (Metoprolol Succinate Er 50 Mg Tab.Er.24h) 50 mg PO DAILY [facility]; Protocol Last Admin: 03/25/24 07:49 Dose: 50 mg Documented By: MIRIAM Nystatin (Nystatin Powder 15 Gm Bottle) 1 appl TOPICAL TID PRN; Protocol PRN Reason: Rash Ondansetron HCl (Ondansetron Hcl 4 Mg/2 Ml Vial) 4 mg IVPUSH Q6H PRN PRN Reason: Nausea and Vomiting Last Admin: 03/24/24 21:37 Dose: 4 mg Documented By: DARRIN Oxycodone HCl (Oxycodone Hcl Immed Release 5 Mg Tablet) 5 mg PO Q4H PRN PRN Reason: Pain, Severe (Pain Scale 7-10) Last Admin: 03/25/24 07:50 Dose: 5 mg Documented By: MIRIAM Polyethylene Glycol (Polyethylene Glycol 3350 17 Gm Powd.Pack) 17 gm PO DAILY PRN PRN Reason: Constipation Last Admin: 03/18/24 04:48 Dose: 17 gm Documented By: TREVIN Sodium Chloride (0.9 % Sodium Chloride Flush 3 Ml Syringe) 3 ml IVFLUSH QSHIFT JESSA Last Admin: 03/25/24 07:51 Dose: 3 ml Documented By: MIRIAM Labs 03/25/24 05:55 03/25/24 05:55 Labs: Laboratory Results - last 24 hr 03/25/24 05:55 MCV 104.7 H MCH 33.2 H MCHC 31.7 RDW 12.8 Plt Count 298 MPV 8.6 L Immature Gran % (Auto) 0.5 H Neut % (Auto) 69.8 Lymph % (Auto) 17.2 L [place] % (Auto) 9.7 Eos % (Auto) 2.2 Baso % (Auto) 0.6 Lymph # (Auto) 1.4 [place] # (Auto) 0.8 Eos # (Auto) 0.2 Baso # (Auto) 0.1 Abs Immat Gran (auto) 0.04 H Absolute Neuts (auto) 5.7 Absolute Nucleated RBC 0.000 Nucleated RBC % (auto) 0.0 Anion Gap 13 Estim Creat Clear Calc 62.1 Estimated GFR > 60 Random Glucose 113 Calcium 9.6 Phosphorus 3.1 Magnesium 1.6 Albumin 4.1 Microbiology Microbiology Results: Microbiology 03/22/24 18:34 Blood Culture - Preliminary Blood - Venous No growth after 48 hours. 03/22/24 18:39 Blood Culture - Preliminary Blood - Venous No growth after 48 hours. Assessment and Plan (1) Anemia: Status: Acute (2) Cardiopulmonary arrest: Status: Acute Plan 73 year old women admitted after a fall at home. She had an episode while she was in overflow of aspiration and a code blue was called. She had systolic cardiac arrest with return of spontaneous circulation after 2 rounds of CPR. She was intubated during CPR and admitted to the ICU. She was successfully extubated on 03/23/2024 and transferred to medical floor yesterday. Aspiration secondary to airway obstruction with cardiac arrest Patient is stable at this time Seen by speech therapy with recommendation for ground mechanical diet with thin liquids Medications crushed with puree Hypertension Continue metoprolol Hyperlipidemia Continue statin Mental health Continue home medications Microcytic anemia Stable H&H DVT prophylaxis with heparin Full code Attending Dr. Corral Disposition. Physical therapy recommended short-term rehab, out of bed to chair Quality Stroke Does the patient have a stroke diagnosis?: No VTE Prior VTE?: No VTE Risk Level:: Medical - moderate - high VTE Device Contraindication: Treatment Not Indicated VTE Drug Contraindication: N/A - Med Ordered
--- NOTE | 2024-03-25 12:54 | MHC.SPEECHCO ---
TYPE CASTER attempted to work with the Pt however she declined multiple offers of different PO. She is agitated and perseverating on someone coming to visit her.
[2024-03-25] MEDS: Gabapentin 300 MG CAPSULE PO (17:40)
[2024-03-25] MEDS: DULoxetine HCl 60 MG CAPSULE.DR PO (17:40)
[2024-03-25] MEDS: Atorvastatin Calcium 40 MG TABLET PO (21:00)
[2024-03-25] MEDS: busPIRone HCl 10 MG TABLET PO (21:00)
[2024-03-25] MEDS: QUEtiapine Fumarate 50 MG TABLET 150 MG PO (21:00)
[2024-03-26] VITALS (7 sets, daily range): BP systolic 97–120; BP diastolic 52–61; PULSE 66–84; RESP 16–20; TEMP 36.1–37; O2SAT 93–97; BMI 29.9
[2024-03-26] MEDS: Heparin Sodium,Porcine 5,000 UNIT/ML VIAL 5000 UNIT SUBCUT ×3 (04:25→18:31)
[2024-03-26] MEDS: 0.9 % Sodium Chloride Flush 3 ML SYRINGE IVFLUSH ×2 (04:26→11:11)
[2024-03-26] MEDS: oxyCODONE HCl Immed Release 5 MG TABLET PO ×3 (06:01→19:58)
[2024-03-26] MEDS: DULoxetine HCl 60 MG CAPSULE.DR PO (08:31)
[2024-03-26] MEDS: busPIRone HCl 10 MG TABLET PO ×2 (08:31→19:58)
[2024-03-26] MEDS: Metoprolol Succinate ER 50 MG TAB.ER.24H PO ×2 (08:31→12:20)
[2024-03-26] MEDS: Gabapentin 300 MG CAPSULE PO (08:31)
[2024-03-26] MEDS: hydrOXYzine HCL 25 MG TABLET PO (11:05)
--- NOTE | 2024-03-26 11:48 | HO.PM.IMPN ---
Subjective Subjective Date of Service: 03/26/24 Interval History: Somnolent but arousable. No acute issues overnight Review of Systems Denies chest pain Denies shortness of breath Denies nausea vomiting diarrhea Denies fever Physical Exam Vital Signs: Vital Signs: Last Vital Signs Temp 97.5 F 03/26/24 10:58 Pulse 83 03/26/24 10:58 Resp 18 03/26/24 10:58 BP 118/55 L 03/26/24 10:58 Pulse Ox 94 03/26/24 10:58 O2 Del Method Nasal Cannula 03/26/24 10:58 O2 Flow Rate 5 03/26/24 10:58 FiO2 40 03/23/24 09:00 BMI result Body Mass Index 29.9 Const: Other: Awake alert when aroused. No acute distress Resp: Other: Diminished at bases. Scattered expiratory wheezes Cardio: Other: No S4; positive S1-S2; no S3 murmurs rubs or gallops GI: Other: Soft nontender nondistended normoactive bowel sounds Extrem: Other: No edema bilaterally Objective Data Active Medications Acetaminophen (Acetaminophen 325 Mg Tablet) 650 mg PO Q6H PRN PRN Reason: Pain, Mild (Pain Scale 1-3) Last Admin: 03/25/24 22:53 Dose: 650 mg Documented By: GEORGINA Atorvastatin Calcium (Atorvastatin Calcium 40 Mg Tablet) 40 mg PO BEDTIME [facility] Last Admin: 03/25/24 21:00 Dose: 40 mg Documented By: GEORGINA Benzonatate (Benzonatate 100 Mg Capsule) 200 mg PO TID PRN PRN Reason: Cough Buspirone HCl (Buspirone Hcl 10 Mg Tablet) 10 mg PO BID [facility] Last Admin: 03/26/24 08:31 Dose: 10 mg Documented By: DIMAS Duloxetine HCl (Duloxetine Hcl 60 Mg Capsule.) 60 mg PO DAILY [facility] Last Admin: 03/26/24 08:31 Dose: 60 mg Documented By: DIMAS Gabapentin (Gabapentin 300 Mg Capsule) 300 mg PO DAILY [facility] Last Admin: 03/26/24 08:31 Dose: 300 mg Documented By: DIMAS Heparin Sodium (Porcine) (Heparin Sodium,Porcine 5,000 Unit/Ml Vial) 5,000 unit SUBCUT Q8H [facility] Last Admin: 03/26/24 11:05 Dose: 5,000 unit Documented By: DIMAS Hydroxyzine HCl (Hydroxyzine Hcl 25 Mg Tablet) 25 mg PO Q6H PRN PRN Reason: anxiety/restlessness Last Admin: 03/26/24 11:05 Dose: 25 mg Documented By: DIMAS Metoprolol Succinate (Metoprolol Succinate Er 50 Mg Tab.Er.24h) 50 mg PO DAILY [facility]; Protocol Last Admin: 03/26/24 08:31 Dose: 50 mg Documented By: DIMAS Metoprolol Succinate (Metoprolol Succinate Er 50 Mg Tab.Er.24h) 50 mg PO DAILY [facility]; Protocol Last Admin: 03/25/24 17:45 Dose: 50 mg Documented By: GEORGINA Nystatin (Nystatin Powder 15 Gm Bottle) 1 appl TOPICAL TID PRN; Protocol PRN Reason: Rash Ondansetron HCl (Ondansetron Hcl 4 Mg/2 Ml Vial) 4 mg IVPUSH Q6H PRN PRN Reason: Nausea and Vomiting Last Admin: 03/24/24 21:37 Dose: 4 mg Documented By: DARRIN Oxycodone HCl (Oxycodone Hcl Immed Release 5 Mg Tablet) 5 mg PO Q4H PRN PRN Reason: Pain, Severe (Pain Scale 7-10) Last Admin: 03/26/24 11:09 Dose: 5 mg Documented By: DIMAS Polyethylene Glycol (Polyethylene Glycol 3350 17 Gm Powd.Pack) 17 gm PO DAILY PRN PRN Reason: Constipation Last Admin: 03/18/24 04:48 Dose: 17 gm Documented By: TREVIN Quetiapine Fumarate (Quetiapine Fumarate 50 Mg Tablet) 150 mg PO BEDTIME [facility] Last Admin: 03/25/24 21:00 Dose: 150 mg Documented By: GEORGINA Sodium Chloride (0.9 % Sodium Chloride Flush 3 Ml Syringe) [facility] Last Admin: 03/26/24 11:11 Dose: 3 ml Documented By: DIMAS Labs 03/25/24 05:55 03/25/24 05:55 Assessment and Plan (1) Aspiration into airway: Status: Acute (2) Cardiopulmonary arrest: Status: Acute Plan 73 year old women admitted after a fall at home. She had an episode while she was in overflow of aspiration and a code blue was called. She had systolic cardiac arrest with return of spontaneous circulation after 2 rounds of CPR. She was intubated during CPR and admitted to the ICU. She was successfully extubated on 03/23/2024 and transferred to medical floor yesterday. 1.Aspiration secondary to airway obstruction with cardiac arrest -speech recommendations noted (recently extubated 03/23) -titrate O2 to maintain sats greater than equal to 90% -no white count; follow clinically 2.Hypertension -Continue metoprolol -adjust as indicated Heparin Full code Disposition. Physical therapy recommended short-term rehab, out of bed to chair Quality Stroke Does the patient have a stroke diagnosis?: No VTE Prior VTE?: No VTE Risk Level:: Medical - moderate - high VTE Device Contraindication: Treatment Not Indicated VTE Drug Contraindication: N/A - Med Ordered
--- NOTE | 2024-03-26 13:46 | MHC.SL.SWA ---
Risk of Aspiration Due to: History of Pneumonia Hx of Recent Extubation Dysphasia Diet Status: NO CHANGE Liquid Consistency and Strategies for Safe Swallow: Liquid Intake Recommendation: Thin Liquid Intake Strategies: Small Sips No Straws Solid Food Consistency: Dietary Recommendations: Grnd/Mech Altered (NDD2) Oral Medication Intake: Crushed with Puree Please contact the pharmacy regarding appropriate crushable or liquid drug formulations that are available whenever modified delivery is recommended. Compensatory Strategies and Precautions to be Taken for Safe Swallow: Sitting Upright (90 deg) No Straw Small Bites and Sips Alternate Liquids/Solids Rate of Ingestion Change Avoid Specific Foods Supervision While Eating and Drinking for Safe Swallow: Total Supervision (1:1) Foods to Avoid: Hard to chew solids; crunchy, dry, or sticky foods Swallowing Recommended Treatments: Compens. Strategy Educat. Recommendation for Speech: Inpatient Speech Therapy Comment: Recommend pt continue with GROUND solids (NDD2), THIN liquids, and pills CRUSHED in PUREE. Pt requires cues to not talk while eating/drinking. Given recent choking event, patient is recommended direct supervision and close monitoring during all PO intake. Recommended strategies: optimal positioning (90 degrees upright), taking small bites, chew food well, dry swallow then liquid wash between bites, clear oral cavity before taking next bite. Recommend avoid use of straws at this time until evaluated by RECORDER GRAVITY PROSPECTING. RECORDER GRAVITY PROSPECTING will continue to follow to monitor patient's tolerance of recommended dietary textures; feeding needs; provide counselling/education for behavioral strategies. Examination [place] Clinican/Clinical Fellow: No Supervisory Statement: I have reviewed and agree with the student/clinical fellow's documentation: N/A Speech Language Pathologist: Tina Stubbs M.A., [facility]-RECORDER GRAVITY PROSPECTING
[2024-03-26] MEDS: metroNIDAZOLE 500 MG TABLET PO ×2 (14:50→19:59)
--- NOTE | 2024-03-26 17:51 | PC.NURSE ---
Pt had difficulty swallowing. This is not new to the pt. speech eval completed. pt states I cant breathe . O2 sat 97 pt insists she is choking. Dr. Basurto at bedside. ordered IV solumedrol and flagyl. IV leaking. pt refuses to let another IV be placed in her. notified.
[2024-03-26] MEDS: methylPREDNISolone Sod Succ 125 MG/2 ML VIAL 60 MG IVPUSH (19:57)
[2024-03-26] MEDS: Atorvastatin Calcium 40 MG TABLET PO (19:58)
[2024-03-26] MEDS: QUEtiapine Fumarate 50 MG TABLET 150 MG PO (19:58)
[2024-03-27] VITALS (7 sets, daily range): BP systolic 134–171; BP diastolic 63–83; PULSE 78–98; RESP 18–20; TEMP 36.1–37.1; O2SAT 92–97
[2024-03-27] MEDS: oxyCODONE HCl Immed Release 5 MG TABLET PO ×4 (00:41→19:57)
[2024-03-27] MEDS: methylPREDNISolone Sod Succ 125 MG/2 ML VIAL 60 MG IVPUSH ×2 (00:41→10:28)
[2024-03-27] MEDS: hydrOXYzine HCL 25 MG TABLET PO ×2 (00:41→10:18)
[2024-03-27] MEDS: Heparin Sodium,Porcine 5,000 UNIT/ML VIAL 5000 UNIT SUBCUT ×3 (05:03→17:55)
[2024-03-27] MEDS: metroNIDAZOLE 500 MG TABLET PO ×3 (05:04→19:56)
[2024-03-27] MEDS: 0.9 % Sodium Chloride Flush 3 ML SYRINGE IVFLUSH ×4 (05:06→20:03)
[2024-03-27] MEDS: DULoxetine HCl 60 MG CAPSULE.DR PO (10:17)
[2024-03-27] MEDS: Gabapentin 300 MG CAPSULE PO (10:18)
[2024-03-27] MEDS: Metoprolol Succinate ER 50 MG TAB.ER.24H PO (10:18)
[2024-03-27] MEDS: busPIRone HCl 10 MG TABLET PO ×2 (10:18→19:57)
--- NOTE | 2024-03-27 10:58 | MHC.CM.PN ---
CM received a call from Patient's Niece/Addie @ [phone]. Addie's Mother/Elizabeth, is the Patient's HCP. Addie is asking if the PA could call Addie and Elizabeth around 2PM today to provide them with an update on Patient's medical condition; this request has been relayed to PA/Dionne, who is agreeable to call.CM will continue to follow.
--- NOTE | 2024-03-27 13:05 | MHC.SL.SWA ---
Speech Pathologist Impression: Risk of Aspiration Due to: History of Pneumonia Hx of Recent Extubation Dysphasia Diet Status: Recommend pt continue with GROUND solids (NDD2), THIN liquids, and pills CRUSHED in PUREE. Pt requires cues to not talk while eating/drinking. Given recent choking event, patient is recommended direct supervision and close monitoring during all PO intake. Recommended strategies: optimal positioning (90 degrees upright), taking small bites, chew food well, alternate liquids and solids. Liquid Consistency and Strategies for Safe Swallow: Liquid Intake Recommendation: Thin Liquid Intake Strategies: Small Sips Solid Food Consistency: Dietary Recommendations: Grnd/Mech Altered (NDD2) Additional Modifications to Solid Foods: Given recent choking event, behavioral issues (impulsivity, confusion, anxiety) patient is recommended direct supervision and close monitoring during all PO intake. Patient was counselled on strategies: optimal positioning (90 degrees upright), taking small bites, chew food well, dry swallow then liquid wash between bites, clear oral cavity before taking next bite. Oral Medication Intake: Crushed with Puree Please contact the pharmacy regarding appropriate crushable or liquid drug formulations that are available whenever modified delivery is recommended. Compensatory Strategies and Precautions to be Taken for Safe Swallow: Sitting Upright (90 deg) No Straw Small Bites and Sips Alternate Liquids/Solids Rate of Ingestion Change Avoid Specific Foods Supervision While Eating and Drinking for Safe Swallow: Total Supervision (1:1) Foods to Avoid: Hard to chew solids; crunchy, dry, or sticky foods Swallowing Recommended Treatments: Compens. Strategy Educat. Recommendation for Speech: Inpatient Speech Therapy Comment: Patient seen at lunch with NDD2 diet/thin liquids. Patient was awake and alert, somewhat slumped in bed with the head of the bead at 70 degrees at onset, and complaining/agitated about a number of issues. Patient had friend in room who was very pleasant and encouraging with her. Friend assisted SPACE SYSTEMS OPERATIONS SUPERINTENDENT with repositioning patient so that she was seated more comfortably with the head of bed at 90 degrees. Patient c/o it's the same every time with the meal, but with encouragement and direct assistance, took bites of ground chicken, mashed potatoes and pureed squash. When given the ground chicken patient immediately c/o I'm choking with food in mouth, then produced a swallow with good clearance of the bolus. On bites of purees, patient produced timely oral and pharyngeal phases of swallow. Patient needed occasional cuing not to speak with food in mouth. Patient had an array of liquids on tray, including and iced coffee brought from outside, and topher ales in cups with ice, all with straws. Patient was observed sipping ice coffee with straw, demonstrated small sips, timely swallow and no clinical signs of aspiration. Patient appeared to expect to be fed and accepted offered bites of food from the SPACE SYSTEMS OPERATIONS SUPERINTENDENT, but also evidenced that she could independently eat if oriented to the food and given supervision and assurance. Given patient's level of confusion, anxiety about a repeat choking event, and impulsivity, current diet of NDD2/Ground with thin liquids continues to present as the safest most appropriate diet at this time. Straws for drinking is o.k., patient will continue to benefit from supervision at meals. If upgrade to be considered, would recommend observation of meal with next level consistency before advancing. Frequency/Duration: PRN M-F Date Range for Service Req: Timeline to reassess: Chief Of Hospital Medicine Clinican/Clinical Fellow: No Supervisory Statement: I have reviewed and agree with the student/clinical fellow's documentation: N/A Speech Language Pathologist: Celeste Browning M.A., CCC-SPACE SYSTEMS OPERATIONS SUPERINTENDENT
--- NOTE | 2024-03-27 13:19 | P.PNIM_ITS ---
Subjective Subjective Date of Service: 03/27/24 Interval History: Seen and examined this morning Follow-up for respiratory arrest/aspiration Patient awake alert, oriented to person and place but seems confused denies sob Review of Systems Review of Systems: Yes all other systems are reviewed and are negative Constitutional Constitutional: Denies fever(s) Cardiovascular Cardiovascular: Denies chest pain, Denies palpitations and Denies dyspnea Respiratory Respiratory: Denies cough and Denies dyspnea Endocrine Endocrine: Denies palpitations Physical Exam 2 Vital Signs: Vital Signs: Last Vital Signs Temp 97.0 F 03/27/24 12:00 Pulse 98 03/27/24 12:00 Resp 19 03/27/24 12:00 BP 166/83 H 03/27/24 12:00 Pulse Ox 93 03/27/24 12:00 O2 Del Method Nasal Cannula 03/27/24 12:00 O2 Flow Rate 5 03/27/24 12:00 FiO2 40 03/23/24 09:00 BMI result Body Mass Index 29.9 Const: General: no acute distress, alert and awake Nutritional Appearance: overweight Orientation/consciousness: oriented to person and oriented to place Resp: Effort & Inspection: normal respiratory effort, able to speak in complete sentences, no respiratory distress and no use of accessory muscles Cardio: Rate: regular rate GI: Inspection: No distended Palpation (GI): Soft to palpation and nontender Neuro: General: oriented to person, oriented to place, moves all extremities and CN's II-XI intact bilaterally Extrem: Other: left ankle in boot right great toe small area dry ulceration, no surrounding erythema, no fluctuance or drainage General: Yes no pedal edema Objective Data Active Medications Acetaminophen (Acetaminophen 325 Mg Tablet) 650 mg PO Q6H PRN PRN Reason: Pain, Mild (Pain Scale 1-3) Last Admin: 03/25/24 22:53 Dose: 650 mg Documented By: GEORGINA Atorvastatin Calcium (Atorvastatin Calcium 40 Mg Tablet) 40 mg PO BEDTIME [facility] Last Admin: 03/26/24 19:58 Dose: 40 mg Documented By: SALMOD Benzonatate (Benzonatate 100 Mg Capsule) 200 mg PO TID PRN PRN Reason: Cough Buspirone HCl (Buspirone Hcl 10 Mg Tablet) 10 mg PO BID [facility] Last Admin: 03/27/24 10:18 Dose: 10 mg Documented By: PABLO Duloxetine HCl (Duloxetine Hcl 60 Mg Capsule.) 60 mg PO DAILY [facility] Last Admin: 03/27/24 10:17 Dose: 60 mg Documented By: PABLO Gabapentin (Gabapentin 300 Mg Capsule) 300 mg PO DAILY [facility] Last Admin: 03/27/24 10:18 Dose: 300 mg Documented By: PABLO Heparin Sodium (Porcine) (Heparin Sodium,Porcine 5,000 Unit/Ml Vial) 5,000 unit SUBCUT Q8H [facility] Last Admin: 03/27/24 10:20 Dose: 5,000 unit Documented By: PABLO Hydroxyzine HCl (Hydroxyzine Hcl 25 Mg Tablet) 25 mg PO Q6H PRN PRN Reason: anxiety/restlessness Last Admin: 03/27/24 10:18 Dose: 25 mg Documented By: PABLO Levofloxacin (Levaquin) 500 mg in 100 mls @ 100 mls/hr IV Q24H [facility] Last Admin: 03/26/24 16:10 Dose: Not Given Documented By: DIMAS Non-Admin Reason: No Access Methylprednisolone Sodium Succinate (Methylprednisolone Sod Succ 125 Mg/2 Ml Vial) 60 mg IVPUSH Q12H [facility] Last Admin: 03/27/24 10:28 Dose: Not Given Documented By: PABLO Non-Admin Reason: Previously Administered Metoprolol Succinate (Metoprolol Succinate Er 50 Mg Tab.Er.24h) 50 mg PO DAILY [facility]; Protocol Last Admin: 03/26/24 08:31 Dose: 50 mg Documented By: DIMAS Metoprolol Succinate (Metoprolol Succinate Er 50 Mg Tab.Er.24h) 50 mg PO DAILY [facility]; Protocol Last Admin: 03/27/24 10:18 Dose: 50 mg Documented By: PABLO Metronidazole (Metronidazole 500 Mg Tablet) 500 mg PO Q8H [facility] Last Admin: 03/27/24 05:04 Dose: 500 mg Documented By: SAMY Nystatin (Nystatin Powder 15 Gm Bottle) 1 appl TOPICAL TID PRN; Protocol PRN Reason: Rash Ondansetron HCl (Ondansetron Hcl 4 Mg/2 Ml Vial) 4 mg IVPUSH Q6H PRN PRN Reason: Nausea and Vomiting Last Admin: 03/24/24 21:37 Dose: 4 mg Documented By: DARRIN Oxycodone HCl (Oxycodone Hcl Immed Release 5 Mg Tablet) 5 mg PO Q4H PRN PRN Reason: Pain, Severe (Pain Scale 7-10) Last Admin: 03/27/24 10:17 Dose: 5 mg Documented By: PABLO Polyethylene Glycol (Polyethylene Glycol 3350 17 Gm Powd.Pack) 17 gm PO DAILY PRN PRN Reason: Constipation Last Admin: 03/18/24 04:48 Dose: 17 gm Documented By: TREVIN Quetiapine Fumarate (Quetiapine Fumarate 50 Mg Tablet) 150 mg PO BEDTIME [facility] Last Admin: 03/26/24 19:58 Dose: 150 mg Documented By: SAMY Sodium Chloride (0.9 % Sodium Chloride Flush 3 Ml Syringe) 3 ml IVFLUSH QSHIFT [facility] Last Admin: 03/27/24 10:18 Dose: 3 ml Documented By: PABLO Labs 03/25/24 05:55 03/25/24 05:55 Assessment and Plan (1) Airway obstruction due to foreign body: Status: Acute (2) Aspiration into airway: Status: Acute Plan This is a 73 year old women admitted after a fall at home. She had an episode while she was in overflow of aspiration and a code blue was called. She had systolic cardiac arrest with return of spontaneous circulation after 2 rounds of CPR. She was intubated during CPR and admitted to the ICU. She was successfully extubated on 03/23/2024 and downgraded to the medical floor 03/24 acute respiratory failure due to Aspiration secondary to airway obstruction with cardiac arrest s/p intubation in ICU Seen by speech therapy with recommendation for NDD2 diet with thin liquids and direct supervision with meals due to recent choking event, impulsively etc Medications crushed with puree wean oxygen as tolerated empiric antibiotics with flagyl and levaquin started 03/26 continue systemic steroids, will begin to wean repeat CXR wean oxygen as tolerated Hypertension Continue metoprolol Hyperlipidemia hold statin due to transaminitis Transaminitis Hold statin as above Repeat LFTs in a.m. Mental health Continue home medications psych consult pending acute on chronic Microcytic anemia Stable H&H follow CBC Left ankle Acute avulsion fracture at the posteromedial cortex of the medial malleolus. continue walking boot Outpatient follow-up with ortho DVT prophylaxis with heparin Full code Attending Dr. Corral Disposition. Physical therapy recommended short-term rehab Quality Stroke Does the patient have a stroke diagnosis?: No VTE Prior VTE?: No VTE Risk Level:: Medical - moderate - high VTE Device Contraindication: Treatment Not Indicated VTE Drug Contraindication: N/A - Med Ordered
--- NOTE | 2024-03-27 14:39 | PM.PSYCN ---
History of Present Illness Date of Service: 03/27/24 Chief Complaint: Cardiac arrest Reason for Consult: mood, agitation, cognitive impairment Requesting physician: Dionne Vasquez Discussed with referring provider: Yes Sources of Information: patient interviewed and chart reviewed HPI Narrative: Patient is a 73 year old women admitted after a fall at home. She had an episode while she was in overflow of aspiration and a code blue was called. She had systolic cardiac arrest with return of spontaneous circulation after 2 rounds of CPR. She was intubated during CPR and admitted to the ICU. She was successfully extubated on 03/23/2024 and downgraded to the medical floor 03/24 Psychiatric consult placed for: mood, agitation, cognitive impairment. During assessment, pt presents alert and oriented x3, calm and cooperative. Pt reports feeling okay today; pt was able to express reason for hospitalization. When discussing mood and agitation, pt stated, I don't mean to be agitated; I say I'm sorry. I just feel like the nurses agarwal me to do things and it upsets me . Patient reports she sees Dr. Tai for her outpatient psychiatrist every few months; she reports being medication compliant at home. pt denies any substance use. Per OT notes on 03/18/24, MOCA score was 24/30 (please see note). No signs of psychosis or delusions. Past Psychiatric History: Inpt: [place] [id number] Psychiatrist: Dr. Tai pt does not have outpatient therapist. denies SA/SIB. Medical Evaluation Reviewed: Yes [facility] Medical History Otitis media Rib pain on left side Right knee pain Callus of foot Pneumonia Osteoarthritis of left hip Osteoarthritis of right hip Hypertension Surgical History No history of previous surgery Family History: unknown Social History: Lives alone, . Substance History: hx of alcohol use. Diagnostics Vital Signs (24Hr): Vital Signs - 24 hr 03/26/24 15:37 03/26/24 20:00 03/26/24 23:45 Temperature 97.5 F 98.6 F 98.1 F Pulse Rate 78 83 82 Respiratory Rate 20 20 20 Blood Pressure 111/57 L 118/56 L 120/61 Pulse Oximetry 96 93 93 Oxygen Delivery Method Nasal Cannula Nasal Cannula Nasal Cannula Oxygen Flow Rate 5 5 5 03/27/24 04:00 03/27/24 08:00 03/27/24 12:00 Temperature 97.3 F 97.0 F 97.0 F Pulse Rate 82 95 98 Respiratory Rate 20 19 19 Blood Pressure 144/63 H 171/69 H 166/83 H Pulse Oximetry 92 92 93 Oxygen Delivery Method Nasal Cannula Nasal Cannula Nasal Cannula Oxygen Flow Rate 5 3 5 03/27/24 13:39 Temperature Pulse Rate 98 Respiratory Rate Blood Pressure 166/83 H Pulse Oximetry 93 Oxygen Delivery Method Oxygen Flow Rate BMI result Body Mass Index 29.9 Labs 03/25/24 05:55 03/25/24 05:55 Imaging Radiology Impressions: ITS Impressions Cervical Spine CT 03/14/24 21:53 IMPRESSION: 1. No acute intracranial pathology. 2. No acute fracture or malalignment in the cervical spine. Multilevel degenerative spondylosis in the cervical spine. Head CT 03/14/24 21:53 IMPRESSION: 1. No acute intracranial pathology. 2. No acute fracture or malalignment in the cervical spine. Multilevel degenerative spondylosis in the cervical spine. Ankle X-Ray 03/15/24 05:31 IMPRESSION: 1. Acute avulsion fracture at the posteromedial cortex of the medial malleolus. 2. Ankle joint effusion and soft tissue swelling. Chest X-Ray 03/15/24 05:47 IMPRESSION: Left seventh rib fracture laterally, likely acute. Low lung volumes with mild bibasilar atelectasis. No acute pulmonary findings. Chest X-Ray 03/18/24 16:56 IMPRESSION: 1. Stable enlargement of the cardiomediastinal silhouette. 2. No focal consolidation, pleural effusion or pneumothorax. 3. Redemonstration of left-sided seventh rib fracture. Pulmonary Perfusion Imaging 03/20/24 09:30 IMPRESSION: Based on perfusion only modified PIOPED 2 criteria, pulmonary thromboembolism is absent. Chest X-Ray 03/20/24 10:47 IMPRESSION: 1. Bilateral low lung volumes. 2. Bibasilar atelectasis. Chest X-Ray 03/22/24 17:08 IMPRESSION: Low lung volumes with bibasilar atelectasis. No acute pulmonary findings. Chest X-Ray 03/22/24 18:27 IMPRESSION: 1. ET tube terminates 2 cm from the ab. 2. Low lung volumes with bibasilar atelectasis and possible small pleural effusions. Chest X-Ray 03/22/24 20:13 IMPRESSION: 1. ET tube terminates 2 cm from the ab. 2. Orogastric tube tip terminates in the central chest, 2.5 cm from the GE junction. Recommend advancing by at least 12 cm so that the side port just distal to the GE junction. 3. Low lung volumes with bibasilar atelectasis and small pleural effusions. Chest X-Ray 03/23/24 09:22 IMPRESSION: 1. No significant change. 2. Endotracheal tube properly positioned. 3. Pulmonary vascular congestion, bibasilar infiltrate/atelectasis and subpulmonic pleural effusion unchanged. 4. Diminished lung volume. Chest X-Ray 03/27/24 13:42 IMPRESSION: 1. An endotracheal tube is not seen. 2. Low lung volumes with stable bibasilar airspace opacities. 3. No significant pleural effusion or pneumothorax. Electronically signed by: Christa Roman MD 03/27/2024 02:21 PM EDT Mental Status Exam Mental Status Exam Narrative: Pt is alert and oriented x3; behavior is cooperative, friendly and calm; dressed in hospital attire; mood is described as okay ; eye contact appropriate; Speech is normal rate, volume and not pressured; thought process is organized and goal directed; Thought content is on tx; otherwise pertinent to relevant topics and without any delusional content, paranoid ideations or grandiosity; denies SI/HI/VH/AH Medications Medications Current Medications Acetaminophen (Acetaminophen 325 Mg Tablet) 650 mg PO Q6H PRN PRN Reason: Pain, Mild (Pain Scale 1-3) Last Admin: 03/25/24 22:53 Dose: 650 mg Atorvastatin Calcium (Atorvastatin Calcium 40 Mg Tablet) 40 mg PO BEDTIME [facility] Last Admin: 03/26/24 19:58 Dose: 40 mg Benzonatate (Benzonatate 100 Mg Capsule) 200 mg PO TID PRN PRN Reason: Cough Buspirone HCl (Buspirone Hcl 10 Mg Tablet) 10 mg PO BID [facility] Last Admin: 03/27/24 10:18 Dose: 10 mg Duloxetine HCl (Duloxetine Hcl 60 Mg Capsule.Dr) 60 mg PO DAILY [facility] Last Admin: 03/27/24 10:17 Dose: 60 mg Gabapentin (Gabapentin 300 Mg Capsule) 300 mg PO DAILY [facility] Last Admin: 03/27/24 10:18 Dose: 300 mg Heparin Sodium (Porcine) (Heparin Sodium,Porcine 5,000 Unit/Ml Vial) 5,000 unit SUBCUT Q8H [facility] Last Admin: 03/27/24 10:20 Dose: 5,000 unit Hydroxyzine HCl (Hydroxyzine Hcl 25 Mg Tablet) 25 mg PO Q6H PRN PRN Reason: anxiety/restlessness Last Admin: 03/27/24 10:18 Dose: 25 mg Levofloxacin (Levaquin) 500 mg in 100 mls @ 100 mls/hr IV Q24H [facility] Last Admin: 03/26/24 16:10 Dose: Not Given Methylprednisolone Sodium Succinate (Methylprednisolone Sod Succ 125 Mg/2 Ml Vial) 60 mg IVPUSH Q12H [facility] Last Admin: 03/27/24 10:28 Dose: Not Given Metoprolol Succinate (Metoprolol Succinate Er 50 Mg Tab.Er.24h) 50 mg PO DAILY [facility]; Protocol Last Admin: 03/26/24 08:31 Dose: 50 mg Metoprolol Succinate (Metoprolol Succinate Er 50 Mg Tab.Er.24h) 50 mg PO DAILY [facility]; Protocol Last Admin: 03/27/24 10:18 Dose: 50 mg Metronidazole (Metronidazole 500 Mg Tablet) 500 mg PO Q8H [facility] Last Admin: 03/27/24 14:14 Dose: 500 mg Nystatin (Nystatin Powder 15 Gm Bottle) 1 appl TOPICAL TID PRN; Protocol PRN Reason: Rash Ondansetron HCl (Ondansetron Hcl 4 Mg/2 Ml Vial) 4 mg IVPUSH Q6H PRN PRN Reason: Nausea and Vomiting Last Admin: 03/24/24 21:37 Dose: 4 mg Oxycodone HCl (Oxycodone Hcl Immed Release 5 Mg Tablet) 5 mg PO Q4H PRN PRN Reason: Pain, Severe (Pain Scale 7-10) Last Admin: 03/27/24 14:14 Dose: 5 mg Polyethylene Glycol (Polyethylene Glycol 3350 17 Gm Powd.Pack) 17 gm PO DAILY PRN PRN Reason: Constipation Last Admin: 03/18/24 04:48 Dose: 17 gm Quetiapine Fumarate (Quetiapine Fumarate 50 Mg Tablet) 50 mg PO TID [facility] Sodium Chloride (0.9 % Sodium Chloride Flush 3 Ml Syringe) 3 ml IVFLUSH QSHIFT [facility] Last Admin: 03/27/24 10:18 Dose: 3 ml Allergies Allergies Allergy/AdvReac Type Severity Reaction Status Date / Time amoxicillin Allergy Unknown tachycardia Verified 03/14/24 21:35 doxycycline Allergy Unknown stomach Verified 03/14/24 21:35 upset iron Allergy Unknown unknown Verified 03/14/24 21:35 nitroglycerin Allergy Unknown Unknown Verified 03/14/24 21:35 From Ferrlecit Allergy Mild RED,ITCH,BURNING,SWELLING Uncoded 03/12/24 09:07 OF FEET iv dye Allergy Unknown Unknown Uncoded 03/12/24 09:07 Assessment & Plan Assessment & Plan (1) Depression: Status: Acute Code(s): F32.A - Depression, unspecified Plan Psychiatric consult placed for: mood, agitation, cognitive impairment. During assessment, pt presents alert and oriented x3, calm and cooperative. Pt reports feeling okay today; pt was able to express reason for hospitalization. When discussing mood and agitation, pt stated, I don't mean to be agitated; I say I'm sorry. I just feel like the nurses agarwal me to do things and it upsets me . Patient reports she sees Dr. Tai for her outpatient psychiatrist every few months; she reports being medication compliant at home. pt denies any substance use. Per OT notes on 03/18/24, MOCA score was 24/30 (please see note). No signs of psychosis or delusions. Recommendation: Continue home medications Change Seroquel from 150mg PO bedtime to 50mg PO TID; monitor for sedation. Total time managing care of this patient today _30___ minutes. Patient educated on: diagnosis and medication risk/benefits Informed Consent: understands
[2024-03-27] MEDS: QUEtiapine Fumarate 50 MG TABLET PO ×2 (14:53→19:56)
[2024-03-27] MEDS: levoFLOXacin/D5W 500 MG/100 ML PIGGYBACK 100 MG IV (14:53)
[2024-03-27] MEDS: Atorvastatin Calcium 40 MG TABLET PO (19:56)
[2024-03-27] MEDS: traZODone HCL 50 MG TABLET 150 MG PO (19:57)
[2024-03-28] MEDS: methylPREDNISolone Sod Succ 125 MG/2 ML VIAL 60 MG IVPUSH (00:21)
[2024-03-28 03:48] VITALS: BP 168/83; PULSE 88; RESP 18; TEMP 36.3; O2SAT 93
[2024-03-28] MEDS: Heparin Sodium,Porcine 5,000 UNIT/ML VIAL 5000 UNIT SUBCUT ×3 (03:53→18:09)
[2024-03-28] MEDS: metroNIDAZOLE 500 MG TABLET PO ×3 (05:08→21:05)
[2024-03-28] MEDS: hydrOXYzine HCL 25 MG TABLET PO ×2 (05:52→12:33)
[2024-03-28 07:05] LABS: Hematocrit 26.9 % (37.0-47.0); Hemoglobin 8.9 g/dl (12.0-16.0); Mean Corpuscular HGB Conc 33.1 g/dl (31.0-35.0); Mean Corpuscular Hemoglobin 33.3 pg (27.0-33.0); Mean Corpuscular Volume 100.7 fL (80.0-98.0); Mean Platelet Volume 8.9 fL (9.4-12.3); Platelet Count 335 X10*3/uL (160-400); Red Blood Count 2.67 X10*6/uL (4.20-5.50); Red Cell Distribution Width 12.9 % (11.0-16.0)
[2024-03-28 07:16] VITALS: BP 150/83; PULSE 89; RESP 17; TEMP 37.1; O2SAT 93
[2024-03-28 07:26] LABS: Alanine Aminotransferase 38 U/L (0-31); Alkaline Phosphatase 90 U/L (39-117); Aspartate Amino Transferase 20 U/L (5-31); Bilirubin Direct 0.1 mg/dL (0.0-0.5); Bilirubin Total 0.3 mg/dL (0.0-1.0); Total Protein 6.9 g/dL (6.5-8.0)
[2024-03-28 07:46] VITALS: BMI 30.4
[2024-03-28] MEDS: oxyCODONE HCl Immed Release 5 MG TABLET PO ×3 (07:51→21:04)
[2024-03-28] MEDS: polyethylene glycoL 3350 17 GM POWD.PACK PO (07:51)
[2024-03-28] MEDS: QUEtiapine Fumarate 50 MG TABLET PO ×3 (07:51→21:05)
[2024-03-28] MEDS: DULoxetine HCl 60 MG CAPSULE.DR PO (07:51)
[2024-03-28] MEDS: Gabapentin 300 MG CAPSULE PO (07:51)
[2024-03-28] MEDS: Metoprolol Succinate ER 50 MG TAB.ER.24H PO (07:51)
[2024-03-28] MEDS: busPIRone HCl 10 MG TABLET PO ×2 (07:51→21:05)
[2024-03-28] MEDS: 0.9 % Sodium Chloride Flush 3 ML SYRINGE IVFLUSH ×3 (07:58→21:05)
[2024-03-28 11:19] VITALS: BP 158/75; PULSE 81; RESP 17; TEMP 36; O2SAT 92
--- NOTE | 2024-03-28 12:30 | P.PNIM_ITS ---
Subjective Subjective Date of Service: 03/28/24 Interval History: Seen and examined this morning Follow-up for aspiration reporting pain in left leg no sob, no cough frequently complaining of pain in left ankle Review of Systems Review of Systems: Yes all other systems are reviewed and are negative Constitutional Constitutional: Denies chills and Denies fever(s) ENT Ears, Nose, Mouth, and Throat: Denies dizziness Cardiovascular Cardiovascular: Denies chest pain, Denies palpitations and Denies dyspnea Respiratory Respiratory: Denies cough and Denies dyspnea Neurologic Neurologic: Denies dizziness Endocrine Endocrine: Denies palpitations Physical Exam 2 Vital Signs: Vital Signs: Last Vital Signs Temp 96.8 F 03/28/24 11:19 Pulse 81 03/28/24 11:19 Resp 17 03/28/24 11:19 BP 158/75 H 03/28/24 11:19 Pulse Ox 92 03/28/24 11:19 O2 Del Method Nasal Cannula 03/28/24 11:19 O2 Flow Rate 2 03/28/24 11:19 FiO2 40 03/23/24 09:00 BMI result Body Mass Index 30.4 Const: General: comfortable, no acute distress, alert and awake Nutritional Appearance: overweight Orientation/consciousness: oriented to person and oriented to place Resp: Effort & Inspection: normal respiratory effort, able to speak in complete sentences, no respiratory distress and no use of accessory muscles A uscultation: clear to auscultation bilaterally Cardio: Rate: regular rate GI: Inspection: No distended Palpation (GI): Soft to palpation and nontender Neuro: General: oriented to person, oriented to place, moves all extremities and CN's II-XI intact bilaterally Extrem: Other: left ankle in boot right great toe small area dry ulceration, no surrounding erythema, no fluctuance or drainage General: Yes no pedal edema Objective Data Active Medications Acetaminophen (Acetaminophen 325 Mg Tablet) 650 mg PO Q6H PRN PRN Reason: Pain, Mild (Pain Scale 1-3) Last Admin: 03/25/24 22:53 Dose: 650 mg Documented By: GEORGINA Atorvastatin Calcium (Atorvastatin Calcium 40 Mg Tablet) 40 mg PO BEDTIME [facility] Last Admin: 03/27/24 19:56 Dose: 40 mg Documented By: MARIELA Benzonatate (Benzonatate 100 Mg Capsule) 200 mg PO TID PRN PRN Reason: Cough Buspirone HCl (Buspirone Hcl 10 Mg Tablet) 10 mg PO BID [facility] Last Admin: 03/28/24 07:51 Dose: 10 mg Documented By: FARRUKH Duloxetine HCl (Duloxetine Hcl 60 Mg Capsule.Dr) 60 mg PO DAILY [facility] Last Admin: 03/28/24 07:51 Dose: 60 mg Documented By: FARRUKH Gabapentin (Gabapentin 300 Mg Capsule) 300 mg PO DAILY [facility] Last Admin: 03/28/24 07:51 Dose: 300 mg Documented By: FARRUKH Heparin Sodium (Porcine) (Heparin Sodium,Porcine 5,000 Unit/Ml Vial) 5,000 unit SUBCUT Q8H [facility] Last Admin: 03/28/24 10:55 Dose: 5,000 unit Documented By: FARRUKH Hydroxyzine HCl (Hydroxyzine Hcl 25 Mg Tablet) 25 mg PO Q6H PRN PRN Reason: anxiety/restlessness Last Admin: 03/28/24 05:52 Dose: 25 mg Documented By: MARIELA Levofloxacin (Levaquin) 500 mg in 100 mls @ 100 mls/hr IV Q24H [facility] Last Infusion: 03/27/24 16:03 Dose: Infused Documented By: PABLO Metoprolol Succinate (Metoprolol Succinate Er 50 Mg Tab.Er.24h) 50 mg PO DAILY [facility]; Protocol Last Admin: 03/28/24 07:51 Dose: 50 mg Documented By: FARRUKH Metronidazole (Metronidazole 500 Mg Tablet) 500 mg PO Q8H [facility] Last Admin: 03/28/24 05:08 Dose: 500 mg Documented By: MARIELA Nystatin (Nystatin Powder 15 Gm Bottle) 1 appl TOPICAL TID PRN; Protocol PRN Reason: Rash Ondansetron HCl (Ondansetron Hcl 4 Mg/2 Ml Vial) 4 mg IVPUSH Q6H PRN PRN Reason: Nausea and Vomiting Last Admin: 03/24/24 21:37 Dose: 4 mg Documented By: DARRIN Oxycodone HCl (Oxycodone Hcl Immed Release 5 Mg Tablet) 5 mg PO Q4H PRN PRN Reason: Pain, Severe (Pain Scale 7-10) Last Admin: 03/28/24 07:51 Dose: 5 mg Documented By: FARRUKH Polyethylene Glycol (Polyethylene Glycol 3350 17 Gm Powd.Pack) 17 gm PO DAILY PRN PRN Reason: Constipation Last Admin: 03/28/24 07:51 Dose: 17 gm Documented By: FARRUKH Quetiapine Fumarate (Quetiapine Fumarate 50 Mg Tablet) 50 mg PO TID [facility] Last Admin: 03/28/24 07:51 Dose: 50 mg Documented By: FARRUKH Sodium Chloride (0.9 % Sodium Chloride Flush 3 Ml Syringe) 3 ml IVFLUSH QSHIFT [facility] Last Admin: 03/28/24 07:58 Dose: 3 ml Documented By: FARRUKH Trazodone HCl (Trazodone Hcl 50 Mg Tablet) 150 mg PO BEDTIME [facility] Last Admin: 03/27/24 19:57 Dose: 150 mg Documented By: MARIELA Comments: per pt request Labs 03/28/24 06:31 03/25/24 05:55 Labs: Laboratory Results - last 24 hr 03/28/24 06:31 MCV 100.7 H MCH 33.3 H MCHC 33.1 RDW 12.9 Plt Count 335 MPV 8.9 L Absolute Nucleated RBC 0.000 Nucleated RBC % (auto) 0.0 Total Bilirubin 0.3 Direct Bilirubin 0.1 AST 20 ALT 38 H Alkaline Phosphatase 90 Total Protein 6.9 Albumin 4.0 Microbiology Microbiology Results: Microbiology 03/22/24 18:39 Blood Culture - Final Blood - Venous No growth after 5 days. 03/22/24 18:34 Blood Culture - Final Blood - Venous No growth after 5 days. Assessment and Plan (1) Aspiration into airway: Status: Acute Plan This is a 73 year old women admitted after a fall at home. She had an episode while she was in overflow of aspiration and a code blue was called. She had systolic cardiac arrest with return of spontaneous circulation after 2 rounds of CPR. She was intubated during CPR and admitted to the ICU. She was successfully extubated on 03/23/2024 and downgraded to the medical floor 03/24 acute respiratory failure due to Aspiration secondary to airway obstruction with cardiac arrest s/p intubation in ICU Seen by speech therapy with recommendation for NDD2 diet with thin liquids and direct supervision with meals due to recent choking event, impulsively etc Medications crushed with puree wean oxygen as tolerated - down to 2L NC empiric antibiotics with flagyl and levaquin started 03/26, plan 5 days continue systemic steroids, weaned to po repeat CXR stable Hypertension Continue metoprolol Hyperlipidemia statin on hold due to transaminitis, can resume upon discharge Transaminitis Hold statin as above LFTs trending down no abdominal pain Mental health Continue home medications psych consult pending acute on chronic Microcytic anemia Stable H&H follow CBC Left ankle Acute avulsion fracture at the posteromedial cortex of the medial malleolus. continue walking boot Outpatient follow-up with ortho left 7th rib fracture Seen on imaging from 03/15 IS DVT prophylaxis with heparin Full code Disposition. Physical therapy recommended short-term rehab Quality Stroke Does the patient have a stroke diagnosis?: No VTE Prior VTE?: No VTE Risk Level:: Medical - moderate - high VTE Device Contraindication: Treatment Not Indicated VTE Drug Contraindication: N/A - Med Ordered
[2024-03-28] MEDS: levoFLOXacin/D5W 500 MG/100 ML PIGGYBACK 100 MG IV (12:33)
--- NOTE | 2024-03-28 12:56 | MHC.CM.PN ---
Per ROUNDS discussion, Patient is medically cleared for dc to [facility] today. Patient[facility] SNF[facility] has denied admission. Patient has 3 SNFs ([place] & [place]) that are offering beds and the [place] location is easiest for her Friend/Felipe @ [phone] to visit (Felipe is blind and stated that it would be easiest for him to get a ride to the [place] facility)IMM was discussed at bedside and the original was given to Patient and a copy was placed on the chart. CM pointed out the # to call to appeal and summarized the process. Per Felipe's request, CM has emailed the address to [facility] to him. Patient is requesting to speak with PA, who will meet with Patient once it is confirmed that [facility] has a bed today.Felipe asked if the reason Patient was medically cleared for dc is because Patient can be difficult; CHAZ explained that Patient is medically cleared for dc because her needs can be managed at a lesser setting, other than an acute hospital.CM awaits a response from [facility], as to their bed availability today. CM will follow.
--- NOTE | 2024-03-28 13:17 | MHC.SL.SWA ---
Speech Pathologist Impression: Risk of Aspiration, Oropharyngeal Dysphagia Risk of Aspiration Due to: History of Pneumonia Hx of Recent Extubation Dysphasia Diet Status: No Change Liquid Consistency and Strategies for Safe Swallow: Liquid Intake Recommendation: Thin Liquid Intake Strategies: Small Sips Solid Food Consistency: Dietary Recommendations: Grnd/Mech Altered (NDD2) Additional Modifications to Solid Foods: Recommend continue on GROUND/MECH ALTERED (NDD2) diet and THIN liquids, pills CRUSHED in PUREE. Patient was counselled on strategies: optimal positioning (90 degrees upright), taking small bites, chew food well, dry swallow then liquid wash between bites, clear oral cavity before taking next bite. Oral Medication Intake: Crushed with Puree Please contact the pharmacy regarding appropriate crushable or liquid drug formulations that are available whenever modified delivery is recommended. Compensatory Strategies and Precautions to be Taken for Safe Swallow: Sitting Upright (90 deg) No Straw Small Bites and Sips Alternate Liquids/Solids Rate of Ingestion Change Avoid Specific Foods Supervision While Eating and Drinking for Safe Swallow: Total Supervision (1:1) Foods to Avoid: Hard to chew solids; crunchy, dry, or sticky foods Swallowing Recommended Treatments: Compens. Strategy Educat. Recommendation for Speech: Inpatient Speech Therapy Comment: TECHNICAL CONSULTANT will continue to follow to monitor patient's tolerance of recommended dietary textures; feeding needs; provide counselling/education for behavioral strategies. Frequency/Duration: PRN M-F Date Range for Service Req: Timeline to reassess: Street Sweeper Clinican/Clinical Fellow: No Supervisory Statement: I have reviewed and agree with the student/clinical fellow's documentation: N/A Speech Language Pathologist: Stephany Jacobs M.A., [facility]-TECHNICAL CONSULTANT
--- NOTE | 2024-03-28 13:58 | MHC.CM.PN ---
Per Patient's request, a referral has been made to [facility].
--- NOTE | 2024-03-28 14:37 | PM.DS ---
DS: Providers Provider Date of Service: 03/29/24 Date of admission: 03/22/24 18:40 Date of discharge: 03/29/24 Primary care physician: Aj Cortes MD Consults: 03/16/24 13:07 Consult to Psychiatry Stat Consulting Provider: Psych Covering Reason for consultation: increased agitation, concern for capacity, worsening cognitive decline. 03/27/24 11:06 Consult to Psychiatry Routine Consulting Provider: Psych Covering Reason for consultation: mood, agitation, cognitive impairment Has provider been notified: No Attending physician on discharge: [facility] Discharging clinician: Dionne Vasquez DS: Diagnosis Discharge Diagnosis (1) Aspiration into airway: Status: Acute (2) Cardiopulmonary arrest: Status: Acute (3) Transaminitis: Status: Acute (4) Avulsion fracture of medial malleolus of left tibia: Status: Acute DS: Summary Hospital Course Hospital Course: From H&P on the day of admission The patient is a 73-year-old female with a past medical history of? hypertension, chronic lower back pain,? osteoarthritis and depression who presented to the emergency department on 03/15/2024 after sustaining a fall.? She denied loss of consciousness or hitting her head at the time of the fall,? but reported left ankle pain. An x-ray of the left ankle shows an avulsion fracture to the distal tibia at the medial malleolus and was seen by ortho who recommended immobilization with a boot.? Patient lives at home by herself, so she was [facility] until she was able to go to rehab. 03/22 the patient acutely became hypoxic and cardiac arrested.? She received 2 rounds of epi, total CPR was about 4 minutes.? She was intubated post cardiac arrest, during intubation significant amount of food was noted in her her airway.?No significant laboratory data findings. She was extubated 03/23 and downgraded tot he medical floor on 03/24 acute respiratory failure due to Aspiration secondary to airway obstruction with cardiac arrest s/p intubation in ICU Seen by speech therapy with recommendation for NDD2 diet with thin liquids and direct supervision with meals due to recent choking event, impulsively etc Medications crushed with puree wean oxygen as tolerated - down to 2L NC empiric antibiotics with flagyl and levaquin, 2 more days to complete course continue systemic steroids, weaned to po, continue 2 more days to complete course repeat CXR stable Hypertension Continue metoprolol Hyperlipidemia statin initially held due to transaminitis, will resume upon discharge Transaminitis LFTs trending down as above Mental health Continue home medications. seen by the psych team - recommended to split seroquel three times per day. All other mental health medications with no change unspecified cognitive impairment, mild outpatient follow up Left ankle Acute avulsion fracture at the posteromedial cortex of the medial malleolus. continue walking boot, weight bearing as tolerated. Outpatient follow-up with ortho, call to schedule an appointment Frequently requesting pain medication. recommend to begin weaning of narcotics she was seen by PT who recommended STR left 7th rib fracture Seen on imaging from 03/15 recommend IS Time Attestation Discharge Coordination Time (in mins): 40 Quality: Safe Use of Opioids Does Pt have an Active Cancer Diagnosis on the Problem List?: No Quality: Stroke Does the patient have a stroke diagnosis?: No Physical Exam Vital Signs: Vital Signs: Last Vital Signs Temp 96.8 F 03/28/24 11:19 Pulse 81 03/28/24 11:19 Resp 17 03/28/24 11:19 BP 158/75 H 03/28/24 11:19 Pulse Ox 92 03/28/24 11:19 O2 Del Method Nasal Cannula 03/28/24 11:19 O2 Flow Rate 2 03/28/24 11:19 FiO2 40 03/23/24 09:00 BMI result Body Mass Index 30.4 Const: General: comfortable, no acute distress, alert and awake Nutritional Appearance: overweight Orientation/consciousness: oriented to person and oriented to place Resp: Effort & Inspection: normal respiratory effort, able to speak in complete sentences, no respiratory distress and no use of accessory muscles Auscultation: clear to auscultation bilaterally Cardio: Rate: regular rate GI: Inspection: No distended Palpation (GI): Soft to palpation and nontender Neuro: General: oriented to person, oriented to place, moves all extremities and CN's II-XI intact bilaterally Extrem: Other: left ankle in boot right great toe small area dry ulceration, no surrounding erythema, no fluctuance or drainage General: Yes no pedal edema DS: Data Data Completed and Pending Labs on day of discharge: Laboratory Results - last 24 hr 03/28/24 06:31 WBC 12.0 H RBC 2.67 L Hgb 8.9 L Hct 26.9 L MCV 100.7 H MCH 33.3 H MCHC 33.1 RDW 12.9 Plt Count 335 MPV 8.9 L Absolute Nucleated RBC 0.000 Nucleated RBC % (auto) 0.0 Total Bilirubin 0.3 Direct Bilirubin 0.1 AST 20 ALT 38 H Alkaline Phosphatase 90 Total Protein 6.9 Albumin 4.0 Discharge Plan Discharge Anticipated Discharge Date/Time: 03/29/24 13:00 Patient Disposition: Xfer [facility] Discharge Diagnosis: aspiration respiratory/cardiac arrest Referrals: [place] [facility] [Other] - 1 Week Charlene Mosley PA-C [Physician Financial Analysis Consultant] - 2 Weeks Aj Cortes MD [Primary Care Provider] - 1 Week Discharge Medications: New oxycodone 5 mg Tablet 5 mg PO Q6H PRN (Reason: Pain, Severe (Pain Scale 7-10)) Qty: 10 0RF Rx Instructions: Partial Fill upon patient request. quetiapine 50 mg Tablet 50 mg PO TID Qty: 1 0RF prednisone 20 mg Tablet 20 mg PO DAILY Qty: 2 0RF metronidazole 500 mg tablet 500 mg PO Q8H 2 Days Qty: 6 0RF levofloxacin 500 mg tablet 500 mg PO Q24H 2 Days Qty: 2 0RF Continued atorvastatin [Lipitor] 40 mg tablet 40 mg PO DAILY Qty: 90 6RF trazodone 150 mg tablet 150 mg PO BEDTIME buspirone 10 mg tablet 10 mg PO BID calcium carbonate [Calcium 600] 600 mg calcium (1,500 mg) Tablet 600 mg PO DAILY nystatin 100,000 unit/gram powder 1 appl topical TID PRN (Reason: Rash) metoprolol succinate 50 mg tablet extended release 24 hr 50 mg PO DAILY duloxetine 60 mg capsule,delayed release(DR/EC) 60 mg PO DAILY acetaminophen 325 mg capsule 650 mg PO Q4H PRN (Reason: Pain) [id number] Tablet 1 tab PO DAILY ascorbic acid (vitamin C) 1,000 mg tablet 1 g PO DAILY@1200 gabapentin 300 mg capsule 300 mg PO DAILY@1300 hydroxyzine HCl 10 mg tablet 10 mg PO SUMOWEFR@1000 Discontinued quetiapine 150 mg tablet extended release 24 hr 150 mg PO BEDTIME Discharge Orders: Discharge Order (Routine); Ordered 03/29/24 Ordered By: Dionne Vasquez Activity on Discharge: As tolerated Stand Alone Forms: Patient Portal Discharge page Print Language: Latvian Care Plan Goals: see below Health Concerns: choking episode/aspiration cardiac arrest left ankle avulsion fracture Plan of Treatment: Complete course of antibiotics and steroids as prescribed Call to schedule follow-up appointment with Orthopedics for monitoring of left ankle weight bearing as tolerated left leg with boot strict aspiration precautions and assistance with all meals recommended; continue NDD2 diet with think liquids and pills crushed in puree. Recommend for speech therapy to follow in facility. minimize use of narcotics when able, begin to wean oxycodone 2 more days of antibiotics and steroids as prescribed call to schedule follow up appointment with PCP continue to wean oxygen as tolerated Incentive spirometry anticipate less then 30 days stay at SNF Assessment: see discharge summary
--- NOTE | 2024-03-28 14:42 | MHC.CM.PN ---
Addendum entered by Addie Garcia 03/28/24 14:54: CM spoke with Corazon/Addie @ [phone] and informed her of the dc plan. Original Note: CM met with Patient at bedside. [facility] denied admission. Patient will dc to [facility] tomorrow at 12 noon, [facility] (who has given permission for Patient's Friend/Advocate/Felipe to ride in the Ambulance with her). Patient has her IMM and is aware of her right to appeal the dc; at this time, she is agreeable with the plan.
[2024-03-28 15:25] VITALS: BP 155/76; PULSE 80; RESP 17; TEMP 36.9; O2SAT 92
[2024-03-28 19:09] VITALS: BP 149/74; PULSE 83; RESP 18; TEMP 37.2; O2SAT 93
[2024-03-28] MEDS: traZODone HCL 50 MG TABLET 150 MG PO (21:04)
[2024-03-28] MEDS: ondansetron HCL 4 MG/2 ML VIAL IVPUSH (21:05)
[2024-03-28] MEDS: Atorvastatin Calcium 40 MG TABLET PO (21:05)
[2024-03-28] MEDS: Acetaminophen 325 MG TABLET 650 MG PO (21:05)
[2024-03-28 23:53] VITALS: BP 138/64; PULSE 78; RESP 18; TEMP 37.1; O2SAT 94
[2024-03-29] MEDS: Heparin Sodium,Porcine 5,000 UNIT/ML VIAL 5000 UNIT SUBCUT ×2 (03:15→09:30)
[2024-03-29 04:00] VITALS: BP 133/63; PULSE 67; RESP 20; TEMP 37.1; O2SAT 98
[2024-03-29] MEDS: metroNIDAZOLE 500 MG TABLET PO (06:14)
[2024-03-29 07:03] VITALS: BMI 29.7
[2024-03-29 07:26] VITALS: BP 157/73; PULSE 85; RESP 18; TEMP 36.8; O2SAT 92
[2024-03-29] MEDS: 0.9 % Sodium Chloride Flush 3 ML SYRINGE IVFLUSH (09:29)
[2024-03-29] MEDS: DULoxetine HCl 60 MG CAPSULE.DR PO (09:31)
[2024-03-29] MEDS: predniSONE 20 MG TABLET PO (09:31)
[2024-03-29] MEDS: QUEtiapine Fumarate 50 MG TABLET PO (09:31)
[2024-03-29] MEDS: oxyCODONE HCl Immed Release 5 MG TABLET PO (09:31)
[2024-03-29] MEDS: Gabapentin 300 MG CAPSULE PO (09:32)
[2024-03-29] MEDS: busPIRone HCl 10 MG TABLET PO (09:32)
[2024-03-29] MEDS: Metoprolol Succinate ER 50 MG TAB.ER.24H PO (09:32)
[2024-03-29] MEDS: hydrOXYzine HCL 25 MG TABLET PO (11:06)
== END 2024-03-29 12:00 | disposition skilled nursing facility (03) | DRG 208 ==
LOC: HO.ED 03-22 18:54 → HO.EDOVER 03-22 18:57 → HO.ICU 03-22 19:23 → HO.IMC 03-24 11:16
PROVIDERS: Registered Nurse Community Health; Admitting Provider Internal Medicine Pulmonary Disease; Emergency Provider Emergency Medicine; PCP Internal Medicine; Visit Provider Physician Assistant Medical
DX: T17.420A Food in trachea causing asphyxiation, initial encounter (principal); I46.8 Cardiac arrest due to other underlying condition; J69.0 Pneumonitis due to inhalation of food and vomit; S22.32XA Fracture of one rib, left side, initial encounter for closed fracture; S82.52XA Displaced fracture of medial malleolus of left tibia, initial encounter for closed fracture; W19.XXXA Unspecified fall, initial encounter; D50.9 Iron deficiency anemia, unspecified; F32.A Depression, unspecified; M54.50 Low back pain, unspecified; G89.29 Other chronic pain; Z79.899 Other long term (current) drug therapy
CPT/HCPCS: 36415; 36600; 70450; 71045; 71046; 72125; 73610; 78580; 80048; 80053; 80076; 81001; 82040; 82803; 82947; 83605; 83735; 84100; 84484; 85025; 85027; 85610; 87040; 92526; 92610; 93005; 93306; 94002; 94003; 94640; 94799; 97110; 97162; 97166; 97530; 99285; A9540; C1758; J0330; J1644; J1956; J2060; J2251; J2270; J2405; J2470; J2704; J2919; J3010; J7120; P9047

== ENCOUNTER → 2024-03-14 21:53 | Outpatient (BNV) | payer MEDICARE, MEDICAID, SELFPAY | PROVIDERS: Emergency Provider Emergency Medicine; PCP Internal Medicine; Visit Provider Internal Medicine Cardiovascular Disease | DX: I10 Essential (primary) hypertension (principal); S82.52XA Displaced fracture of medial malleolus of left tibia, initial encounter for closed fracture; W19.XXXA Unspecified fall, initial encounter | CPT/HCPCS: 93010 ==

== ENCOUNTER → 2024-03-14 22:18 | Outpatient (BNV) | payer MEDICARE, MEDICAID, SELFPAY | PROVIDERS: Emergency Provider Emergency Medicine; PCP Internal Medicine; Visit Provider Social Worker | DX: R41.89 Other symptoms and signs involving cognitive functions and awareness (principal) | CPT/HCPCS: 99222; 99232 ==

== ENCOUNTER 2024-03-22 18:40 | Outpatient (BNV) | payer MEDICARE, MEDICAID, SELFPAY | END 2024-03-24 12:00 | PROVIDERS: Admitting Provider Internal Medicine Pulmonary Disease; Emergency Provider Emergency Medicine; PCP Internal Medicine; Visit Provider Internal Medicine Cardiovascular Disease | DX: I46.9 Cardiac arrest, cause unspecified (principal); I35.8 Other nonrheumatic aortic valve disorders | CPT/HCPCS: 93306 ==

== ENCOUNTER → 2024-03-22 18:40 | Outpatient (BNV) | payer MEDICARE, MEDICAID, SELFPAY | PROVIDERS: Admitting Provider Internal Medicine Pulmonary Disease; Emergency Provider Emergency Medicine; PCP Internal Medicine; Visit Provider Internal Medicine Pulmonary Disease | DX: I46.9 Cardiac arrest, cause unspecified (principal); T17.908A Unspecified foreign body in respiratory tract, part unspecified causing other injury, initial encounter; D64.9 Anemia, unspecified | CPT/HCPCS: 99233; 99291 ==

== ENCOUNTER → 2024-03-22 18:40 | Outpatient (BNV) | payer MEDICARE, MEDICAID, SELFPAY | PROVIDERS: Admitting Provider Internal Medicine Pulmonary Disease; Emergency Provider Emergency Medicine; PCP Internal Medicine; Visit Provider Registered Nurse Community Health | DX: I46.9 Cardiac arrest, cause unspecified (principal); T17.900A Unspecified foreign body in respiratory tract, part unspecified causing asphyxiation, initial encounter; T17.908A Unspecified foreign body in respiratory tract, part unspecified causing other injury, initial encounter; S82.52XA Displaced fracture of medial malleolus of left tibia, initial encounter for closed fracture; R74.01 Elevation of levels of liver transaminase levels; D64.9 Anemia, unspecified | CPT/HCPCS: 99291 ==

== ENCOUNTER → 2024-03-22 18:40 | Outpatient (BNV) | payer MEDICARE, MEDICAID, SELFPAY | PROVIDERS: Admitting Provider Internal Medicine Pulmonary Disease; Emergency Provider Emergency Medicine; PCP Internal Medicine; Visit Provider Nurse Practitioner Acute Care | DX: T17.908A Unspecified foreign body in respiratory tract, part unspecified causing other injury, initial encounter (principal); I46.9 Cardiac arrest, cause unspecified; R74.01 Elevation of levels of liver transaminase levels; S82.52XA Displaced fracture of medial malleolus of left tibia, initial encounter for closed fracture | CPT/HCPCS: 99231; 99239; 99499 ==

== ENCOUNTER 2024-03-31 16:17 | Emergency (ER) | payer MEDICARE, MEDICAID, SELFPAY ==
--- NOTE | ~2024-03-31 | XR_ITS ---
EXAMINATION: XR CHEST 2 VIEWS CLINICAL INFORMATION: Recent aspiration pneumonia. COMPARISON: Chest radiographs dated 03/27/2024. TECHNIQUE: Frontal and lateral views of the chest were obtained. FINDINGS: There is stable cardiomegaly. Lung volumes are diminished. There is bibasilar patchy airspace disease, with mild interim improvement from 03/27/2024. No pleural effusion or pneumothorax is seen. There is no acute osseous abnormality. There is mandibular orthopedic hardware. XR/XR chest 2V IMPRESSION: 1. There is cardiomegaly, without congestive heart failure. 2. Lung volumes are low. 3. There is bibasilar airspace disease, with mild interval improvement from 03/27/2024. Electronically signed by: Jim Cotton MD 03/31/2024 08:46 PM EDT
[2024-03-31 16:23] VITALS: BP 144/84; PULSE 92; O2SAT 94
--- NOTE | 2024-03-31 17:19 | ED_ITS ---
HPI - General Adult General Chief complaint: Altered Mental Status Stated complaint: BEHAVIORAL Time Seen by Provider: 03/31/24 16:43 Source: patient, family and EMS Mode of arrival: EMS Limitations: no limitations History of Present Illness HPI narrative: Patient is a 73-year-old female coming, shelter facility; [facility] in [place] who was brought to the emergency department after becoming aggressive towards staff and throwing things at staff. When asked why she was here states ?I am sorry please do not be mad at me?. She frequently is asking for her Riky who is currently present at bedside, when he is out of her immediate line of sight she is asking for him. Jose states that she ?has not been right mentally since her hospital admission?, but he states he has not noticed a difference in her behavior as of lately. She is calm and cooperative with myself and staff here at the hospital, she was cooperative for EMS. Related Data Home Medications ?Medication ?Instructions ?Recorded ?Confirmed acetaminophen 325 mg capsule 650 mg PO Q4H PRN Pain 09/13/20 03/15/24 duloxetine 60 mg capsule,delayed 60 mg PO DAILY 09/13/20 04/01/24 release metoprolol succinate 50 mg 50 mg PO DAILY 09/13/20 04/01/24 tablet,extended release 24 hr ascorbic acid (vitamin C) 1,000 mg 1 g PO DAILY@1200 03/22/21 03/15/24 tablet iqnqryikafbz-yqxvpvmm-sobnpn tablet 1 tab PO DAILY 03/22/21 03/15/24 gabapentin 300 mg capsule 300 mg PO DAILY@1300 02/28/23 04/01/24 hydroxyzine HCl 10 mg tablet 10 mg PO SUMOWEFR@1000 02/29/24 04/01/24 buspirone 10 mg tablet 10 mg PO BID 03/15/24 04/01/24 calcium carbonate (Calcium 600) 600 mg PO DAILY 03/15/24 03/15/24 nystatin 100,000 unit/gram topical 1 appl topical TID PRN Rash 03/15/24 04/01/24 powder trazodone 150 mg tablet 150 mg PO BEDTIME 03/15/24 04/01/24 Previous Rx's ?Medication ?Instructions ?Recorded atorvastatin 40 mg tablet (Lipitor) 40 mg PO DAILY #90 tabs 03/12/23 levofloxacin 500 mg tablet 500 mg PO Q24H 2 days #2 tabs 03/29/24 metronidazole 500 mg tablet 500 mg PO Q8H 2 days #6 tabs 03/29/24 oxycodone 5 mg tablet 5 mg PO Q6H PRN Pain, Severe (Pain 03/29/24 Scale 7-10) #10 tabs prednisone 20 mg tablet 20 mg PO DAILY #2 tabs 03/29/24 quetiapine 50 mg tablet 50 mg PO TID #1 tab 03/29/24 Allergies Allergy/AdvReac Type Severity Reaction Status Date / Time amoxicillin Allergy Unknown tachycardia Verified 03/31/24 17:30 doxycycline Allergy Unknown stomach Verified 03/31/24 17:30 upset iron Allergy Unknown unknown Verified 03/31/24 17:30 nitroglycerin Allergy Unknown Unknown Verified 03/31/24 17:30 From Ferrlecit Allergy Mild RED,ITCH,BURNING,SWELLING Uncoded 03/12/24 09:07 OF FEET iv dye Allergy Unknown Unknown Uncoded 03/12/24 09:07 Review of Systems 2 Review of Systems: Yes all other systems are reviewed and are negative [facility] Past Medical History Attestation statement: The following information was validated with the patient. Source: old records reviewed Medical History Otitis media Rib pain on left side Right knee pain Callus of foot Pneumonia Osteoarthritis of left hip Osteoarthritis of right hip Hypertension Surgical History No history of previous surgery Family History Family History Mother No problems noted. Father No problems noted. Social History Social History Household Members: Unknown / Unable to assess Housing: Apartment Unable to assess alcohol history related to: Unknown Alcohol intake: former Patient Tobacco Use Status: Never used Tobacco Smoked in Last 30 Days: No e-Cigarette/Vaping Use: Never Used Second Hand Smoke Exposure: No Use of substances other than those prescribed or required for medical reasons: No Advance Directives: No Advance Directives Information Provided: No service: No Current occupational status: retired and disabled Cognitive needs: No Hearing needs: No Vision needs: No Physical Exam ED Vital Signs: Vital Signs - 24 hr 03/31/24 17:26 03/31/24 18:43 03/31/24 22:07 Temperature 98.0 F 97.9 F 98.5 F Pulse Rate 85 91 81 Respiratory Rate 16 18 17 Blood Pressure 146/67 H 169/89 H 184/80 H Pulse Oximetry 94 96 95 Oxygen Delivery Method Room Air Nasal Cannula Nasal Cannula Oxygen Flow Rate 2 3 04/01/24 03:11 04/01/24 12:44 Temperature 98.6 F 97.9 F Pulse Rate 86 92 Respiratory Rate 17 20 Blood Pressure 162/76 H 172/78 H Pulse Oximetry 98 95 Oxygen Delivery Method Nasal Cannula Nasal Cannula Oxygen Flow Rate 3 3 BMI result Body Mass Index 28.3 Appearance: Alert.?Oriented to person. No acute distress.?Normal affect. Eyes: Pupils equal, round and reactive to light.? ENT: Pharynx normal.?? Neck: Normal inspection.? Neck supple.?? CVS: Heart sounds normal. Normal heart rate and rhythm.? Pulses normal.?? Respiratory: No respiratory distress.? Lung sounds clear to auscultation bilaterally?? Abdomen: Soft and non-tender. Normoactive bowel sounds. Skin: Skin warm and dry.? Normal skin color.? Extremities: No lower extremity edema.? No calf ttp? Neuro: Moves all extremities spontaneously. Sensation intact bilaterally. CN II- XII intact. No focal neuro deficits. Course Course Course Narrative: 04/01/24--[id number]--patient was evaluated by CARE team and does not meet inpatient criteria. Psychiatry MANAGER ANALYSIS also met with patient. Patient referred to . Will continue to monitor for discharge needs Reevaluation(s) Reevaluation #1: CBC is without leukocytosis, macrocytic anemia consistent with baseline does not meet transfusion criteria, no thrombocytopenia. No electrolyte derangement. No CELINE. LFTs within normal range. Urinalysis without evidence of infection, microscopic hematuria secondary to straight catheterization. Viral panel is negative. CXR reveals mild interval improvement in basilar airspace disease, cardiomegaly but no evidence of CHF. At this time I feel that she could be discharged back to shelter facility, when nursing staff attempted to call report, they are declining accepting patient back until she is evaluated by Psychiatry as they feel as though she requires [facility] psych placement. I did discuss this case with the care team, she has received her nighttime scheduled trazodone and Seroquel, she will be evaluated in the morning and has been placed in physician observation as per MDM portion of this note. Additional Reevaluation(s): 04/01/2024 at 16:44 hours,Dr. Geovany Bacon's note: Continue physician observation The patient had 1 episode of vomiting while eating and given her previous aspirin therefore a obtained a speech bedside swallow exam and made the following recommendations: ?Chopped/Advanced with CHOPPED/ADVANCED SOLIDS , THIN LIQUIDS and MEDS WHOLE with PUREE. Close supervision given history of aspiration. FOOD BEVERAGE SUPERVISOR will continue to follow ? Patient was also seen by psychiatric nurse practitioner, Kari Roach who felt that the patient had vascular dementia but her behaviors were related to personality related issues. She recommended and ordered Depakote 250 mg b.i.d.. I did speak to our casework manager and the plan is to keep the patient in the emergency department to see if she demonstrates improvement on this new medications. Therefore the patient's will remain in the emergency department Behavioral Health Unit until disposition can be determined or until patient's symptoms improve over time. Medications Administered Discontinued Medications Generic Name Dose Route Start Last Admin Trade Name Freq PRN Reason Stop Dose Admin Quetiapine Fumarate 50 mg 03/31/24 21:28 03/31/24 21:42 Quetiapine Fumarate 50 Mg Tablet PO 03/31/24 21:29 50 mg ONCE ONE Administration Trazodone HCl 150 mg 03/31/24 21:28 03/31/24 21:42 Trazodone Hcl 50 Mg Tablet PO 03/31/24 21:29 150 mg ONCE ONE Administration Medical Decision Making Medical Decision Making MDM Narrative: 17:15 Patient transitioned from EMS stretcher to assigned ED stretcher. Patient is a 73-year-old female past medical history of hypertension, chronic lower back pain, osteoarthritis, depression, cognitive impairment, recent cardiac arrest, avulsion fracture of the distal tibia at the medial malleolus, left 7th rib fracture who presents emergency department for evaluation of aggression toward staff at shelter facility. Patient not offering any physical complaints at this time. Of note patient had a recent hospital stay 03/15/2024 for a left medial malleolus avulsion fracture complicated by cardiac arrest with subsequent RROSC, aspiration pneumonia treated empirically with Flagyl and Levaquin, during that time Psychiatry was involved in her care, recommendation was to split her Seroquel in to 3 times a day dosing; previously on 150 mg at bedtime currently taking 50 mg TID, she was advised to have outpatient follow-up for nonspecific cognitive impairment. Given her recent treatment for aspiration pneumonia, hospital stay, and her reported behavioral outburst, will check basic labs, obtain urinalysis to exclude urinary tract infection, repeat CXR, viral testing. Although I suspect that some degree of her behavioral changes may be due to her underlying cognitive impairment, recent hospitalization and change of environment can certainly provoked this as well. Differential Diagnosis Differential Diagnoses: The differential diagnosis associated with the presentation includes (See narrative above) Admission/Observation Consideration of admission/observation: Escalation of care including admission/observation considered Patient placed in physician observation at 22:41 on 03/31/2024 pending care team for/psychiatry evaluation as per narrative in course. Consult Healthcare Provider Management of the patient was discussed with: Behavioral Health Provider Lab Data MDM Lab Attestation statement: I reviewed the patient's lab results. 03/31/24 19:15 03/31/24 19:15 Labs: Lab Results 03/31/24 03/31/24 Range/Units 18:49 19:15 WBC 8.9 (4.8-10.8) X10*3/uL RBC 2.85 L (4.20-5.50) X10*6/uL Hgb 9.7 L (12.0-16.0) g/dl Hct 28.7 L (37.0-47.0) % MCV 100.7 H (80.0-98.0) fL MCH 34.0 H (27.0-33.0) pg MCHC 33.8 (31.0-35.0) g/dl RDW 13.0 (11.0-16.0) % Plt Count 324 (160-400) X10*3/uL MPV 8.2 L (9.4-12.3) fL Immature Gran % (Auto) 0.9 H (0.0-0.4) % Neut % (Auto) 82.0 H (45-73) % Lymph % (Auto) 9.2 L (20-40) % [place] % (Auto) 7.8 (2-11) % Eos % (Auto) 0.0 (0-4) % Baso % (Auto) 0.1 (0-2) % Lymph # (Auto) 0.8 L (1.2-4.9) X10*3/uL [place] # (Auto) 0.7 (0.1-1.2) X10*3/uL Eos # (Auto) 0.0 (0.0-0.4) X10*3/uL Baso # (Auto) 0.0 (0.0-0.2) X10*3/uL Abs Immat Gran (auto) 0.08 H (0.00-0.03) X10*3/uL Absolute Neuts (auto) 7.3 (2.0-8.3) x10*3/uL Absolute Nucleated RBC 0.000 (0.0-0.012) X10*3/uL Nucleated RBC % (auto) 0.0 (0.0-0.2) /100WBC Sodium 138 (135-145) mmol/L Potassium 4.6 (3.3-5.1) mmol/L Chloride 97 (96-108) mmol/L Carbon Dioxide 33 H (22-29) mmol/L Anion Gap 13 (12-20) BUN 18 H (9-16) mg/dL Creatinine 0.70 (0.5-1.4) mg/dL Estim Creat Clear Calc 61.5 Estimated GFR > 60 Random Glucose 125 H (60-115) mg/dL Calcium 9.3 (8.4-10.2) mg/dL Total Bilirubin 0.4 (0.0-1.0) mg/dL AST 20 (5-31) U/L ALT 22 (0-31) U/L Alkaline Phosphatase 89 (39-117) U/L Total Protein 6.1 L (6.5-8.0) g/dL Albumin 3.7 (3.5-5.0) g/dL Urine Color Yellow Urine Appearance Clear Urine pH 6.5 (5.0-9.0) Ur Specific [place] 1.015 (1.005-1.025) Urine Protein Negative (Neg-Trace) mg/dL Urine Glucose (UA) Negative (Negative) mg/dL Urine Ketones Negative (Negative) mg/dL Urine Blood Small (1+) H (Negative) Urine Nitrite Negative (Negative) Ur Leukocyte Esterase Negative (Negative) Urine RBC 3-5 H (0-2) /HPF Urine WBC 0-5 (0-5) /HPF Ur Squamous Epith Cells 0-2 (0-2) /HPF Urine Bacteria None Seen (None Seen) Hyaline Casts 0-2 (0-2) /LPF Influenza Type A (PCR) NEGATIVE (Negative) Influenza Type B (PCR) NEGATIVE (Negative) RSV RNA Qual (PCR) NEGATIVE (Negative) SARS-CoV-2 RNA (RT-PCR) NEGATIVE (Negative) Independent Interpretation I performed an independent interpretation of an: Plain X-Ray Radiology Impression Discussion of test interpretation with radiology: I have reviewed the radiologist's reading. Radiologist Impression: XR/XR chest 2V IMPRESSION: 1. There is cardiomegaly, without congestive heart failure. 2. Lung volumes are low. 3. There is bibasilar airspace disease, with mild interval improvement from 03/27/2024. Independent Historian Clinical information obtained from an independent historian. History obtained from or confirmed by: Spouse and EMS External Record Review External record reviewed: Inpatient record Discharge Plan Discharge Clinical Impression: Agitation Patient Disposition: Still a Patient Prescriptions: No Action atorvastatin [Lipitor] 40 mg tablet 40 mg PO DAILY Qty: 90 6RF trazodone 150 mg tablet 150 mg PO BEDTIME buspirone 10 mg tablet 10 mg PO BID calcium carbonate [Calcium 600] 600 mg calcium (1,500 mg) Tablet 600 mg PO DAILY nystatin 100,000 unit/gram powder 1 appl topical TID PRN (Reason: Rash) oxycodone 5 mg Tablet 5 mg PO Q6H PRN (Reason: Pain, Severe (Pain Scale 7-10)) Qty: 10 0RF Rx Instructions: Partial Fill upon patient request. quetiapine 50 mg Tablet 50 mg PO TID Qty: 1 0RF prednisone 20 mg Tablet 20 mg PO DAILY Qty: 2 0RF metronidazole 500 mg tablet 500 mg PO Q8H 2 Days Qty: 6 0RF levofloxacin 500 mg tablet 500 mg PO Q24H 2 Days Qty: 2 0RF metoprolol succinate 50 mg tablet extended release 24 hr 50 mg PO DAILY duloxetine 60 mg capsule,delayed release(DR/EC) 60 mg PO DAILY acetaminophen 325 mg capsule 650 mg PO Q4H PRN (Reason: Pain) iuvwhtejhzit-fsdhrqcb-wcmeza Tablet 1 tab PO DAILY ascorbic acid (vitamin C) 1,000 mg tablet 1 g PO DAILY@1200 gabapentin 300 mg capsule 300 mg PO DAILY@1300 hydroxyzine HCl 10 mg tablet 10 mg PO SUMOWEFR@1000 Referrals: Aj Cortes MD [Primary Care Provider] - Print Language: Syrian
[2024-03-31 17:26] VITALS: BP 146/67; PULSE 85; RESP 16; TEMP 36.7; O2SAT 94; BMI 28.3
[2024-03-31 18:43] VITALS: BP 169/89; PULSE 91; RESP 18; TEMP 36.6; O2SAT 96
[2024-03-31 19:12] LABS: Appearance Urine Clear; Color Urine Yellow; Glucose Urine UA Negative (Negative); Leukocyte Esterase Urine Negative (Negative); Nitrite Urine Negative (Negative); PH 6.5 (5.0-9.0); Specific Gravity - Urine 1.015 (1.005-1.025); UMIC TRIGGER UACC YES; Urine Blood Small (1+) (Negative); Urine Ketones Negative (Negative); Urine Protein Negative (Neg-Trace)
[2024-03-31 19:19] LABS: MANUAL DIFF FLAG NO
[2024-03-31 19:21] LABS: Basophils Percent Auto 0.1 % (0-2); Hematocrit 28.7 % (37.0-47.0); Hemoglobin 9.7 g/dl (12.0-16.0); Imm Gran Abs Auto 0.08 X10*3/uL (0.00-0.03); Imm Gran Pct Auto 0.9 % (0.0-0.4); Lymphocytes Absolute Auto 0.8 X10*3/uL (1.2-4.9); Lymphocytes Percent Auto 9.2 % (20-40); Mean Corpuscular HGB Conc 33.8 g/dl (31.0-35.0); Mean Corpuscular Volume 100.7 fL (80.0-98.0); Mean Platelet Volume 8.2 fL (9.4-12.3); Monocytes Absolute Auto 0.7 X10*3/uL (0.1-1.2); Monocytes Percent Auto 7.8 % (2-11); Neutrophils Absolute Auto 7.3 x10*3/uL (2.0-8.3); Platelet Count 324 X10*3/uL (160-400); Red Blood Count 2.85 X10*6/uL (4.20-5.50); White Blood Count 8.9 X10*3/uL (4.8-10.8)
[2024-03-31 19:24] LABS: Bacteria Urine None Seen (None Seen); Hyaline Casts Urine 0-2 /LPF (0-2); Squamous Epithelial Cell Urine 0-2 /HPF (0-2); WBC Urine 0-5 /HPF (0-5)
[2024-03-31 19:36] LABS: Alanine Aminotransferase 22 U/L (0-31); Albumin Level 3.7 g/dL (3.5-5.0); Alkaline Phosphatase 89 U/L (39-117); Anion Gap 13 (12-20); Aspartate Amino Transferase 20 U/L (5-31); Bilirubin Total 0.4 mg/dL (0.0-1.0); Blood Urea Nitrogen 18 mg/dL (9-16); Calcium 9.3 mg/dL (8.4-10.2); Carbon Dioxide 33 mmol/L (22-29); Chloride 97 mmol/L (96-108); Creatinine Clr Calc Pharmacy 61.5; Estimated Glomerular Filt Rate > 60; Glucose Random 125 mg/dL (60-115); Potassium 4.6 mmol/L (3.3-5.1); Sodium 138 mmol/L (135-145); Total Protein 6.1 g/dL (6.5-8.0)
[2024-03-31 19:40] LABS: Influenza A PCR NEGATIVE (Negative); Influenza B PCR NEGATIVE (Negative); Resp Syncy Virus RNA Qual PCR NEGATIVE (Negative); SARS COV2 PCR INHOUSE NEGATIVE (Negative)
[2024-03-31] MEDS: traZODone HCL 50 MG TABLET 150 MG PO (21:42)
[2024-03-31] MEDS: QUEtiapine Fumarate 50 MG TABLET PO (21:42)
[2024-03-31 22:07] VITALS: BP 184/80; PULSE 81; RESP 17; TEMP 36.9; O2SAT 95
--- NOTE | 2024-03-31 22:51 | MHC.CARE ---
CARE Team was unable to see the pt due to her being given her night time medications that made her sleep. She was not able to be assessed. CARE Team will see the pt in the morning when she is more lucid.
[2024-04-01 03:11] VITALS: BP 162/76; PULSE 86; RESP 17; TEMP 37; O2SAT 98
--- NOTE | 2024-04-01 03:12 | MHC.EDTECH ---
Pt O2 tank replaced with a full tank. Pt placed back on 3L oxygen. PT is Saturating at 98% currently
--- NOTE | 2024-04-01 09:18 | PC.NURSE ---
Patient vomited her breakfast of scrambled eggs shortly after eating. Will follow up with ED provider to ask if additional testing can be performed as aspiration happened in the past.
--- NOTE | 2024-04-01 11:44 | MHC.SL.SWA ---
Speech Pathologist Impression: Oralpharyngeal Dysphagia Risk of Aspiration Due to: Medically Fragile Neurological Condition History of Pneumonia Poor PO Intake Reduced Cognition Dysphasia Diet Status: Recommend pt continue with GROUND solids (NDD2), THIN liquids, and pills CRUSHED in PUREE. Pt requires cues to not talk while eating/drinking. Given recent choking event, patient is recommended direct supervision and close monitoring during all PO intake. Recommended strategies: optimal positioning (90 degrees upright), taking small bites, chew food well, alternate liquids and solids. Liquid Consistency and Strategies for Safe Swallow: Liquid Intake Recommendation: Thin Liquid Intake Strategies: Small Sips Solid Food Consistency: Dietary Recommendations: Chopped/Advanced (NDD3) Additional Modifications to Solid Foods: Recommend CHOPPED/ADVANCED SOLIDS (NDD3) and THIN LIQUIDS with MEDS WHOLE with PUREE. Close supervision given history of aspiration. PROCESSING REP will continue to follow. Oral Medication Intake: Whole with Puree Please contact the pharmacy regarding appropriate crushable or liquid drug formulations that are available whenever modified delivery is recommended. Compensatory Strategies and Precautions to be Taken for Safe Swallow: Sitting Upright (90 deg) Double Swallow Liquids from Straw Small Bites and Sips Alternate Liquids/Solids Rate of Ingestion Change Supervision While Eating and Drinking for Safe Swallow: Total Supervision (1:1) Foods to Avoid: Mixed consistencies. Swallowing Recommended Treatments: Compens. Strategy Educat. Recommendation for Speech: NA:Typical Evaluation Further Testing Needed Discharged with Instructions for Home Use Inpatient Speech Therapy Comment: Recommend CHOPPED/ADVANCED SOLIDS (NDD3) and THIN LIQUIDS with MEDS WHOLE with PUREE. Close supervision given history of aspiration. PROCESSING REP will continue to follow. Timeline to reassess: PRN Bereavement Counselor Clinican/Clinical Fellow: No Supervisory Statement: I have reviewed and agree with the student/clinical fellow's documentation: N/A Speech Language Pathologist: Ken Gray M.A., [facility]-PROCESSING REP
--- NOTE | 2024-04-01 11:47 | MHC.SL.SWA ---
Speech Pathologist Impression: Oralpharyngeal Dysphagia Risk of Aspiration Due to: Medically Fragile Neurological Condition History of Pneumonia Poor PO Intake Reduced Cognition Dysphasia Diet Status: NPO Liquid Consistency and Strategies for Safe Swallow: Liquid Intake Recommendation: Thin Liquid Intake Strategies: Small Sips Solid Food Consistency: Dietary Recommendations: Chopped/Advanced (NDD3) Additional Modifications to Solid Foods: Recommend CHOPPED/ADVANCED SOLIDS (NDD3) and THIN LIQUIDS with MEDS WHOLE with PUREE. Close supervision given history of aspiration. DISTRICT PLANT ENGINEER will continue to follow. Oral Medication Intake: Whole with Puree Please contact the pharmacy regarding appropriate crushable or liquid drug formulations that are available whenever modified delivery is recommended. Compensatory Strategies and Precautions to be Taken for Safe Swallow: Sitting Upright (90 deg) Double Swallow Liquids from Straw Small Bites and Sips Alternate Liquids/Solids Rate of Ingestion Change Supervision While Eating and Drinking for Safe Swallow: Total Supervision (1:1) Foods to Avoid: Mixed consistencies. Swallowing Recommended Treatments: Compens. Strategy Educat. Recommendation for Speech: NA:Typical Evaluation Further Testing Needed Discharged with Instructions for Home Use Inpatient Speech Therapy Comment: Recommend CHOPPED/ADVANCED SOLIDS (NDD3) and THIN LIQUIDS with MEDS WHOLE with PUREE. Close supervision given history of aspiration. DISTRICT PLANT ENGINEER will continue to follow. Frequency/Duration: Date Range for Service Req: Timeline to reassess: PRN Fire Control Assistant Clinican/Clinical Fellow: No Supervisory Statement: I have reviewed and agree with the student/clinical fellow's documentation: N/A Speech Language Pathologist: Ken Gray M.A., [facility]-DISTRICT PLANT ENGINEER
[2024-04-01 12:44] VITALS: BP 172/78; PULSE 92; RESP 20; TEMP 36.6; O2SAT 95
--- NOTE | 2024-04-01 15:50 | PM.PSYCN ---
History of Present Illness Date of Service: 04/02/2024 Chief Complaint: BEHAVIORAL Discussed with referring provider: Yes Sources of Information: patient interviewed, chart reviewed and crisis/core team assessment reviewed HPI Narrative: Mrs. Jones is a 73 year-old woman who was brought from [facility] where she was receiving STR due to throwing things and verbally abusive. Medical work up is mostly unremarkable. She is known to this typewriter assembler from previous assessment due to explosive behaviors while she was here in the hospital. Pt seen in the ED. Pt is with friend Riky. Pt asks this typewriter assembler are you mad at me? referring to incident in the SNF and led to been sent to the ED. Pt reports she does not recall what happened, but yet she is asking in several occasions if we are mad at her for her behavior. Riky who states was present when events happened, reports that pt had arreguin, calling for RN to help her change herself, she threw arreguin, not at anyone in particular but outside her room. Riky says he got the arreguin back and gave it back to her and she threw it all over again. At that point apparently, the called an ambulance and sent her to the hospital. Pt denies SI/HI. No signs f psychosis or delusions. Pt not presenting as labile nor manic nor hypomanic. No grandiose delusions. Pt had similar incidents of explosive behaviors which usually were around her asking help (at times about things that she was able to do like lifting bread of sandwich and putting condiments to it) and if requests were not completed immediately, pt would throw things and become verbally abusive towards staff. These patterns of behaviors seem to be maladaptive ways of trying to meet her needs without insight into effects on others. Collateral information from her sister, who reports she has always presented this way, in that she would make demands at times without being able to see other people's needs and becoming explosive if demands not met immediately. Collateral information from OP psychiatrist, Dr. Ruffin who reports treating pt for depression. No safety concerns reported. Past Psychiatric History: Inpt: [place] [id number] Psychiatrist: Dr. Tai pt does not have outpatient therapist. denies SA/SIB. [facility] Medical History Otitis media Rib pain on left side Right knee pain Callus of foot Pneumonia Osteoarthritis of left hip Osteoarthritis of right hip Hypertension Surgical History No history of previous surgery Family History: unknown Social History: Lives alone, . Diagnostics Vital Signs (24Hr): Vital Signs - 24 hr 03/31/24 17:26 03/31/24 18:43 03/31/24 22:07 Temperature 98.0 F 97.9 F 98.5 F Pulse Rate 85 91 81 Respiratory Rate 16 18 17 Blood Pressure 146/67 H 169/89 H 184/80 H Pulse Oximetry 94 96 95 Oxygen Delivery Method Room Air Nasal Cannula Nasal Cannula Oxygen Flow Rate 2 3 04/01/24 03:11 04/01/24 12:44 Temperature 98.6 F 97.9 F Pulse Rate 86 92 Respiratory Rate 17 20 Blood Pressure 162/76 H 172/78 H Pulse Oximetry 98 95 Oxygen Delivery Method Nasal Cannula Nasal Cannula Oxygen Flow Rate 3 3 BMI result Body Mass Index 28.3 Labs 03/31/24 19:15 03/31/24 19:15 Labs: Laboratory Results - last 48 hr 03/31/24 03/31/24 18:49 19:15 WBC 8.9 RBC 2.85 L Hgb 9.7 L Hct 28.7 L MCV 100.7 H MCH 34.0 H MCHC 33.8 RDW 13.0 Plt Count 324 MPV 8.2 L Immature Gran % (Auto) 0.9 H Neut % (Auto) 82.0 H Lymph % (Auto) 9.2 L [place] % (Auto) 7.8 Eos % (Auto) 0.0 Baso % (Auto) 0.1 Lymph # (Auto) 0.8 L [place] # (Auto) 0.7 Eos # (Auto) 0.0 Baso # (Auto) 0.0 Abs Immat Gran (auto) 0.08 H Absolute Neuts (auto) 7.3 Absolute Nucleated RBC 0.000 Nucleated RBC % (auto) 0.0 Sodium 138 Potassium 4.6 Chloride 97 Carbon Dioxide 33 H Anion Gap 13 BUN 18 H Creatinine 0.70 Estim Creat Clear Calc 61.5 Estimated GFR > 60 Random Glucose 125 H Calcium 9.3 Total Bilirubin 0.4 AST 20 ALT 22 Alkaline Phosphatase 89 Total Protein 6.1 L Albumin 3.7 Urine Color Yellow Urine Appearance Clear Urine pH 6.5 Ur Specific [place] 1.015 Urine Protein Negative Urine Glucose (UA) Negative Urine Ketones Negative Urine Blood Small (1+) H Urine Nitrite Negative Ur Leukocyte Esterase Negative Urine RBC 3-5 H Urine WBC 0-5 Ur Squamous Epith Cells 0-2 Urine Bacteria None Seen Hyaline Casts 0-2 Influenza Type A (PCR) NEGATIVE Influenza Type B (PCR) NEGATIVE RSV RNA Qual (PCR) NEGATIVE SARS-CoV-2 RNA (RT-PCR) NEGATIVE Imaging Radiology Impressions: ITS Impressions Chest X-Ray 03/31/24 17:29 IMPRESSION: 1. There is cardiomegaly, without congestive heart failure. 2. Lung volumes are low. 3. There is bibasilar airspace disease, with mild interval improvement from 03/27/2024. Electronically signed by: Jim Cotton MD 03/31/2024 08:46 PM EDT RP Mental Status Exam Mental Status Exam Narrative: Appearance: wearing hospital gown, good hygiene, in NAD Behavior: somewhat guarded, but mostly cooperative Psychomotor: no agitation or retardation noted speech: clear, normal rate/rhythm/volume, spontaneous TP: mostly linear TC; wanting help with getting more supports in the community Mood: are you mad at me Affect: calm SI: denies HI: denies VH/AH: none Delusions: none Insight/judgment: poor x 2 Memory/cog: alert, oriented to place, month,and situation. MOCA on 03/2024-> . Medications Allergies Allergies Allergy/AdvReac Type Severity Reaction Status Date / Time amoxicillin Allergy Unknown tachycardia Verified 03/31/24 17:30 doxycycline Allergy Unknown stomach Verified 03/31/24 17:30 upset iron Allergy Unknown unknown Verified 03/31/24 17:30 nitroglycerin Allergy Unknown Unknown Verified 03/31/24 17:30 From Ferrlecit Allergy Mild RED,ITCH,BURNING,SWELLING Uncoded 03/12/24 09:07 OF FEET iv dye Allergy Unknown Unknown Uncoded 03/12/24 09:07 Assessment & Plan Assessment & Plan (1) Mood disorder: Status: Acute Code(s): F39 - Unspecified mood [affective] disorder Plan Mrs. Jones is a 73 year-old woman who was sent from [facility] due to throwing things at staff. Pt known to this typewriter assembler while she was in the ED and had similar incidents. Pt does not present as delirious. Pt also does not present with alena nor hypomania(racing thoughts, flight of ideas, grandiose delusions). Pt does have tendency, which is long standing, to become explosive when demands are not met immediately independent of others needs or her own unrealistic expectations. It seems that this behaviors steam from characteriological traits, dependent personality disorder, rather than underlying dementia, or a primarily mood disorder such as bipolar. However, she may still benefit from mood stabilizer like depakote to decrease explosive behaviors in setting of low frustration tolerance and lack of insight into effects of behaviors on others. She is not suicidal nor homicidal. There is no added therapeutic benefit from inpatient psychiatric admission. Will start depakote, pt can follow up with OP psychiatrist, Dr. Tai. PLAN 1. No need for inpatient psychiatric admission. 2. Start depakote 250mg po BID 3. Pt to follow up with OP psychiatrist Dr. Tai. Total time managing care of this patient today ____ minutes.
--- NOTE | 2024-04-01 16:29 | MHC.CARE ---
Pt seen and cleared by CARE team as well as hospital psychiatry Sarah Roach BANANA ROOM CUTTER and referred to case management.
--- NOTE | 2024-04-01 16:35 | PC.NURSE ---
Recommend CHOPPED/ADVANCED SOLIDS (NDD3) and THIN LIQUIDS with MEDS WHOLE with PUREE. Close supervision given history of aspiration. HR DIRECTOR will continue to follow. [ End ]
[2024-04-01] MEDS: Divalproex Sodium 250 MG TABLET.DR PO (16:44)
--- NOTE | 2024-04-01 17:50 | MHC.CM.ED ---
CM met with patient. Pt has been cleared by the CARE team-patient does not need IPLOC. Pt seen by Kari Roach engineering psychologist. Pt does not meet criteria for IPLOC. Kari will start Depakote BID for irritability and explosive behaviors. Pt has been on Depakote in the past. Pt sees Dr. Cooley for psychiatry. HCP on file. HCP#1 Elizabeth Abdipkins ([phone]) and HCP#2/friend Riky Barrientos ([phone]). Pt lives alone. Has 35 hours/wk from [employer]. Uses a walker. No other services. Has help from friend Riky. Pt was at [facility] and returned to [facility] ED for behaviors. Pt does not remember behaviors. Pt has been cooperative and pleasant. Very forgetful and poor historian. Pt and Riky are aware of the plan of care. CM will upload psych evaluation and nurses notes to [facility] with hope that facility will accept patient after improved behaviors with new medication. Hope for return to facility on . CM will follow for discharge planning.
--- NOTE | 2024-04-01 19:33 | PC.NURSE ---
pt is resting comfortably in bed, bed alarm on. pct assist with meals pt tolerated well and ate approx 50% of food, no signs of distress/aspiration, resp even and unlabored. pt is nervous and needs frequent redirecting. call arreguin within reach.
--- NOTE | 2024-04-01 19:40 | MHC.EDTECH ---
this tech 1:1 fed pt finely chopped and puree food. pt was given regular diet so the chicken was not given. pt ate approximately 50% of their meal. Now resting comfortbaly, resp. even and unlabored.
--- NOTE | 2024-04-01 20:03 | PC.NURSE ---
depakote given to pt per oct approx 1600, Carlos Eduardo PHYSICIAN/INTERNIST aware, to skip 2100 dose and next dose at 0900.
[2024-04-01 20:36] VITALS: BP 118/75; PULSE 99; RESP 20; TEMP 37; O2SAT 97
[2024-04-01] MEDS: QUEtiapine Fumarate 50 MG TABLET PO (20:38)
[2024-04-01] MEDS: traZODone HCL 50 MG TABLET 150 MG PO (20:38)
[2024-04-01] MEDS: busPIRone HCl 10 MG TABLET PO (20:38)
--- NOTE | 2024-04-01 22:38 | MHC.EDTECH ---
pt found incontinent of stool and urine. bed & pt cleaned, linens changed. RN aware
--- NOTE | 2024-04-01 22:51 | PHA.MEDREC ---
Pharmacy Consult ? Medication Reconciliation Pharmacy has completed the medication reconciliation. Morning team attempted to call [facility] in the AM and at 2pm with no luck in getting a med list faxed over even tho they were told the facility was going to fax it over. I called 3 times and was put on hold for atleast 10 minutes and still had no luck even tho I was promised as well that I would get one faxed at 2130 and never got anything. I used a Discharge Packet from 03/29 to confirm her list.
[2024-04-02] VITALS (8 sets, daily range): BP systolic 97–175; BP diastolic 58–89; PULSE 81–120; RESP 12–18; TEMP 36.8–37.2; O2SAT 95–98
--- NOTE | 2024-04-02 00:02 | PC.NURSE ---
pt is resting comfortably with eyes closed resp even and unlabored. bed alarm on. continuous o2 monitoring sats 96& on 2L NC. call arreguin within reach.
--- NOTE | 2024-04-02 08:13 | ECG_ITS ---
Test Reason : tachycardic Blood Pressure : / mmHG Vent. Rate : 114 BPM Atrial Rate : 114 BPM P-R Int : 130 ms QRS Dur : 072 ms QT Int : 314 ms P-R-T Axes : 009 -04 068 degrees QTc Int : 432 ms Sinus tachycardia Abnormal ECG When compared with ECG of 22-MAR-2024 17:40, Heart rate has increased Nonspecific ST abnormality is no longer Present Referred By: Leslie Caldwell Electronically Signed By:SIOMARA SHAW
--- NOTE | 2024-04-02 08:15 | PC.NURSE ---
pt awake, alert and confused. breathing even and unlabored. noted to have an increase in HR to 120. Vitals assessed, no temp noted. provider alerted and ECG order placed.
[2024-04-02] MEDS: QUEtiapine Fumarate 50 MG TABLET PO ×3 (09:02→22:19)
[2024-04-02] MEDS: Divalproex Sodium 250 MG TABLET.DR PO ×2 (09:03→22:19)
[2024-04-02] MEDS: DULoxetine HCl 60 MG CAPSULE.DR PO (09:03)
[2024-04-02] MEDS: Atorvastatin Calcium 40 MG TABLET PO (09:04)
[2024-04-02] MEDS: hydrOXYzine HCL 10 MG TABLET PO (09:04)
[2024-04-02] MEDS: busPIRone HCl 10 MG TABLET PO ×2 (09:04→22:19)
[2024-04-02] MEDS: Metoprolol Succinate ER 50 MG TAB.ER.24H PO (09:05)
--- NOTE | 2024-04-02 13:17 | MHC.CM.ED ---
Patient remains in ER. Psych consult completed with medication recommendations. Spoke with patient's niece, Addie and sister, Elizabeth, via telephone at [phone]. Both are aware and agreeable to keeping patient to see if [facility] will accept patient back. Both live in [place]. Per Addie and Elizabeth, Addie can be called with updates in regards to d/c. Continue to monitor for d/c needs.
--- NOTE | 2024-04-02 13:40 | MHC.SL.SWA ---
Speech Pathologist Impression: Oralpharyngeal Dysphagia Risk of Aspiration Due to: Medically Fragile Neurological Condition History of Pneumonia Poor PO Intake Reduced Cognition Dysphasia Diet Status: NO CHANGE Liquid Consistency and Strategies for Safe Swallow: Liquid Intake Recommendation: Thin Liquid Intake Strategies: Small Sips Solid Food Consistency: Dietary Recommendations: Chopped/Advanced (NDD3) Oral Medication Intake: Whole with Puree Please contact the pharmacy regarding appropriate crushable or liquid drug formulations that are available whenever modified delivery is recommended. Compensatory Strategies and Precautions to be Taken for Safe Swallow: Sitting Upright (90 deg) Small Bites and Sips Alternate Liquids/Solids Rate of Ingestion Change Supervision While Eating and Drinking for Safe Swallow: Total Supervision (1:1) Foods to Avoid: Mixed consistencies. Swallowing Recommended Treatments: Compens. Strategy Educat. Recommendation for Speech: Inpatient Speech Therapy Comment: Patient seen by FREELANCE PATTERNMAKER w/ chopped/advanced lunch tray on this date. She persistently asked if her friend was coming to visit today and for this clinician not to leave. She frequently stated I'm scared. When asked, she reported she was scared to be in the hospital and also scared of choking. Patient tolerated chopped meatloaf, mashed potato, puree squash, pudding, and thin liquids via cup. Patient adamant for this clinician to feed her. Recommend patient continue w/ CHOPPED/ADVANCED SOLIDS (NDD3) and THIN LIQUIDS with MEDS WHOLE with PUREE. FULL supervision w/ assistance as needed. Given recent choking event, patient is recommended direct supervision and close monitoring during all PO intake. Encourage patient to self-feed. FREELANCE PATTERNMAKER will continue to follow. Patient requires frequent reminders to avoid talking w/ food/drink in her mouth. Recommended strategies: optimal positioning (90 degrees upright), taking small bites, chew food well, alternate liquids and solids. Deputy Sheriff Generalist/Bailiff Clinican/Clinical Fellow: No Supervisory Statement: I have reviewed and agree with the student/clinical fellow's documentation: N/A Speech Language Pathologist: Ken Gray M.A., [facility] PAT[facility]
[2024-04-02] MEDS: Gabapentin 300 MG CAPSULE PO (13:48)
--- NOTE | 2024-04-02 16:47 | MHC.CM.ED ---
Pt is sleeping. Friend/HCP#2 Riky present at bedside. Concerned that patient has been sleeping most of afternoon. Pt did not eat lunch. Will report to primary RN. Riky aware that [facility] is following and the hope is that patient will return to the facility tomorrow. CM will reach out to facility in am. Updated notes and Psych consult uploaded to facility.
[2024-04-02] MEDS: Acetaminophen 325 MG TABLET 975 MG PO (18:25)
--- NOTE | 2024-04-02 18:30 | PC.NURSE ---
vss and up to date aside from being slightly hypotensive. nsr on the monitoring tech. pt verbalizing 7/10 generalized body pain - one time dose of tylenol administered. effectiveness pending. pt remains on 97% on 4L via NC. resting in no apparent distress. no sob/wob noted. respirations even/unlabored. family bedside for support. plan of care ongoing. call bellp laced within reach.
--- NOTE | 2024-04-02 19:52 | PC.NURSE ---
pt fed dinner by tech via 1:1/close supervision. pt tolerated well. no difficulties noted. pt now resting comfortably in bed in no apparent distress. no sob/wob noted. respirations remain even/unlabored. plan of care ongoing. call arreguin placed within reach.
[2024-04-02] MEDS: traZODone HCL 50 MG TABLET 150 MG PO (22:19)
[2024-04-03 05:25] VITALS: BP 123/69; PULSE 88; RESP 14; O2SAT 95
--- NOTE | 2024-04-03 06:26 | PC.NURSE ---
pt's best friend Riky would like to be contacted before 1000 with an update regarding the patient's disposition. He is wondering whether or not she will be transitioning back to [place] today or if she will remain in the ER. riky can be reached at [phone]. He also stressed that he would like to ensure the patient leaves with her cell phone and wall at risk paraprofessional as he states during a previous visit she was not transferred to the next facility with it.
--- NOTE | 2024-04-03 08:27 | MHC.EDTECH ---
pt was incontinent of bowels, pt was alex cleaned, new purewick was placed, warm blankets given. pt was also 1:1 fed for breakfast. Pt ate 50% of breakfast, RN aware
--- NOTE | 2024-04-03 08:36 | MHC.CM.ED ---
Addendum entered by Olinda Mancuso 04/03/24 16:01: [facility] is unable to offer a bed. Addendum entered by Olinda Mancuso 04/03/24 15:56: Spoke with Reema Vaughn at [facility]. She is reviewing. Addendum entered by Olinda Mancuso 04/03/24 14:48: [facility] follow [facility] to see if they can offer a bed. Addendum entered by Olinda Mancuso 04/03/24 14:15: [facility] unable to offer a bed. Addendum entered by Olinda Mancuso 04/03/24 13:33: Per Riky, [facility] not [facility]. [facility] is still reviewing. Addendum entered by Olinda Mancuso 04/03/24 12:44: Due to behaviors at facility, [facility] not able to accept patient back. Also unable to offer bed at [facility] or [facility]. Referral will be broadcasted at this time. Addie, patient's niece made aware via telephone. Patient's friend and 2nd HCP, Riky, made aware via telephone. Original Note: Patient remains in ER. Clinical updates sent to [facility]. Hoping to get patient back to facility today. Continue to monitor for d/c needs.
[2024-04-03 08:39] VITALS: BP 123/72; PULSE 102
[2024-04-03] MEDS: Metoprolol Succinate ER 50 MG TAB.ER.24H PO (08:39)
[2024-04-03] MEDS: Divalproex Sodium 250 MG TABLET.DR PO ×2 (08:40→21:07)
[2024-04-03] MEDS: Atorvastatin Calcium 40 MG TABLET PO (08:40)
[2024-04-03] MEDS: DULoxetine HCl 60 MG CAPSULE.DR PO (08:40)
[2024-04-03] MEDS: QUEtiapine Fumarate 50 MG TABLET PO ×3 (08:40→21:07)
[2024-04-03 08:45] VITALS: BP 114/73; PULSE 107; RESP 13; TEMP 36.7; O2SAT 96
[2024-04-03] MEDS: busPIRone HCl 10 MG TABLET PO ×2 (08:48→21:07)
[2024-04-03 12:04] VITALS: BP 133/66; PULSE 96; RESP 20; TEMP 36.8; O2SAT 97
--- NOTE | 2024-04-03 14:25 | MHC.SLORD ---
Speech Language Pathology Order Status: Attempted to see patient this a.m. at breakfast, however it had concluded at time of visit. Patient known to this television script writer from last inpatient stay, patient had pleasant interaction on this visit with LADLE LINER. Diet recommendation is baseline from previous visit, appropriate for patient as dysphagia issues are mostly behavioral (e.g. choking events due to talking while eating, taking too much food at once). LADLE LINER will continue to follow.
[2024-04-03] MEDS: Gabapentin 300 MG CAPSULE PO (15:42)
--- NOTE | 2024-04-03 18:18 | MHC.CM.ED ---
Waiting for response on bed availability from: [facility] and [facility].
[2024-04-03 21:04] VITALS: BP 128/71; PULSE 100; RESP 16; TEMP 36.7; O2SAT 97
[2024-04-03] MEDS: traZODone HCL 50 MG TABLET 150 MG PO (21:07)
[2024-04-04] VITALS (7 sets, daily range): BP systolic 114–150; BP diastolic 56–71; PULSE 75–98; RESP 14–20; TEMP 36.8; O2SAT 94–99
[2024-04-04] MEDS: Divalproex Sodium 250 MG TABLET.DR PO ×2 (08:54→21:23)
[2024-04-04] MEDS: Metoprolol Succinate ER 50 MG TAB.ER.24H PO (08:54)
[2024-04-04] MEDS: Atorvastatin Calcium 40 MG TABLET PO (08:54)
[2024-04-04] MEDS: DULoxetine HCl 60 MG CAPSULE.DR PO (08:54)
[2024-04-04] MEDS: busPIRone HCl 10 MG TABLET PO ×2 (08:54→21:23)
[2024-04-04] MEDS: QUEtiapine Fumarate 50 MG TABLET PO ×3 (08:55→21:23)
[2024-04-04] MEDS: hydrOXYzine HCL 10 MG TABLET PO (09:00)
--- NOTE | 2024-04-04 09:09 | PC.NURSE ---
Pt. medicated per OCT. VSS. Checked for incontinence- pt. is clean at this time, no urine or stool. Purewick remains in place. Call light within reach. No complaints or concerns per pt. at this time.
--- NOTE | 2024-04-04 09:11 | PC.NURSE ---
Pt. remains on authorization coordinator at this time.
--- NOTE | 2024-04-04 09:22 | PC.NURSE ---
Pt. provided with breakfast try to bedside and breakfast tray set up.
--- NOTE | 2024-04-04 11:15 | PC.NURSE ---
Pt. requesting pain medications. MANAGER SECURITY notified
[2024-04-04] MEDS: Acetaminophen 325 MG TABLET 975 MG PO (11:40)
--- NOTE | 2024-04-04 11:51 | PC.NURSE ---
Pt. medicated per MAR for pain. Incontinence care provided and Purewick re-positioned. Call arreguin within reach
--- NOTE | 2024-04-04 13:31 | MHC.CM.ED ---
Patient remains in ER. [facility] and [facility] are not able to offer a bed. [facility] will re-review on . Waiting to hear from [facility] for [facility] Care. Patient's niece, Addie, made aware via telephone at [phone]. Continue to monitor for d/c needs.
[2024-04-04] MEDS: Gabapentin 300 MG CAPSULE PO (14:29)
--- NOTE | 2024-04-04 14:35 | PC.NURSE ---
Medicated per OCT. Incontinence care provided.
--- NOTE | 2024-04-04 20:43 | PC.NURSE ---
pt requested warm blanket. resting comfortably. call arreguin within reach TV on. Bed alarm on.
[2024-04-04] MEDS: traZODone HCL 50 MG TABLET 150 MG PO (21:23)
--- NOTE | 2024-04-04 21:28 | PC.NURSE ---
pt medicated per oct with applesauce. pt tolerated well swallowed medication well without additional swallowing/throat clearning noted. call rodríguez lai.
[2024-04-05 03:42] VITALS: PULSE 86; RESP 12
[2024-04-05 04:54] VITALS: PULSE 83; RESP 14
[2024-04-05 06:12] VITALS: BP 114/85; PULSE 85; RESP 15; TEMP 37; O2SAT 94
--- NOTE | 2024-04-05 06:50 | MHC.EDTECH ---
Pt given bed bath, alex care done. Pt changed into clean hospital gown and new purewick placed. 700ml of urine emptied from canister. Vital signs up to date, call arreguin within reach.
[2024-04-05 09:18] VITALS: BP 136/73; PULSE 94
[2024-04-05] MEDS: Metoprolol Succinate ER 50 MG TAB.ER.24H PO (09:18)
[2024-04-05] MEDS: DULoxetine HCl 60 MG CAPSULE.DR PO (09:18)
[2024-04-05] MEDS: Atorvastatin Calcium 40 MG TABLET PO (09:20)
[2024-04-05] MEDS: busPIRone HCl 10 MG TABLET PO ×2 (09:20→21:53)
[2024-04-05] MEDS: Divalproex Sodium 250 MG TABLET.DR PO ×2 (09:20→21:54)
[2024-04-05] MEDS: QUEtiapine Fumarate 50 MG TABLET PO ×3 (09:20→21:54)
[2024-04-05] MEDS: Gabapentin 300 MG CAPSULE PO (13:19)
[2024-04-05 14:39] VITALS: BP 119/58; PULSE 87; RESP 20; TEMP 36.9; O2SAT 94
--- NOTE | 2024-04-05 14:51 | MHC.EDTECH ---
Patient care progress. Assumed care of pt this AM @ 700. Pt medicated by NELLY Ayala @ approx 930. Pt fed breakfast at 1030 am upon tray arrival. Carefully observed and assisted while eating.No incidence of dysphagia. However patient advised multiple times to refrain from speaking while she is eating. Pt cleaned at 1100. Visitor Linus arrived at 1230. Pt medicated by NELLY Ayala at 1330. Pt fed lunch at 1400. Carefully observed and assisted while pt eating finely chopped and pureed foods. No incidence of dysphagia. However patient advised multiple times to refrain from speaking while she is eating. Pt cleaned at 1430. Patient continues to asked repetitive questions throughout the day and does not recall short term events and is unable to recall answers to questions she has asked a few moments prior. Although confused, Patient is fully verbal, speaking full coherent sentences without any distress.
--- NOTE | 2024-04-05 19:16 | PC.NURSE ---
assumed care of pt at 1900.
--- NOTE | 2024-04-05 19:53 | MHC.EDTECH ---
Pt fed supper with minimal assistance. Carefully observed and assisted while eating.No incidence of dysphagia. However patient advised multiple times to refrain from speaking while she is eating. Pt cleaned after supper and made comfortable. Pure wick urine canister emptied with 1050 cc of urine disposed. Call arreguin left in patient hands.
[2024-04-05] MEDS: traZODone HCL 50 MG TABLET 150 MG PO (21:53)
[2024-04-05 22:22] VITALS: PULSE 70; RESP 12; TEMP 36.4; O2SAT 95
--- NOTE | 2024-04-06 01:36 | PC.NURSE ---
pt is resting in hospital bed comfortably in no apparent distress, respirations even and unlabored. on custodian supervisor, wearing baseline O2, 96%. call arreguin within reach, plan of care ongoing
[2024-04-06 06:33] VITALS: BP 172/82; PULSE 86; RESP 12; TEMP 36.6; O2SAT 93
--- NOTE | 2024-04-06 06:37 | MHC.EDTECH ---
morning rounding complete. vital signs taken. RN made aware of BP. Pt found incontinent of urine. 750 mL emptied from suction canister. Annemarie care provided, bed linens changed. Pt given new Purewick and new hospital gown. Pt now resting comfortably resp. even and unlabored at this time.
--- NOTE | 2024-04-06 07:07 | PC.NURSE ---
report recieved from previous RN, patient resting on hospital bed at this time, offering no complaints, patient states she did not sleep well overnight, adjusted by this RN and lights dimmed for comfort. updated on plan of care.
[2024-04-06] MEDS: DULoxetine HCl 60 MG CAPSULE.DR PO (09:10)
[2024-04-06] MEDS: busPIRone HCl 10 MG TABLET PO ×2 (09:10→22:00)
[2024-04-06] MEDS: Divalproex Sodium 250 MG TABLET.DR PO ×2 (09:10→22:00)
[2024-04-06 09:11] VITALS: BP 131/74; PULSE 88
[2024-04-06] MEDS: Metoprolol Succinate ER 50 MG TAB.ER.24H PO (09:11)
[2024-04-06] MEDS: Atorvastatin Calcium 40 MG TABLET PO (09:11)
[2024-04-06] MEDS: hydrOXYzine HCL 10 MG TABLET PO (09:12)
[2024-04-06] MEDS: QUEtiapine Fumarate 50 MG TABLET PO ×3 (09:12→22:00)
--- NOTE | 2024-04-06 09:29 | PC.NURSE ---
patient medicated without incident, patient not offering any complaints at this time.
--- NOTE | 2024-04-06 10:24 | PC.NURSE ---
patient placed in recliner chair in bedroom, able to stand and pivot and take a few steps with this RN and tech at each side. patient educated on how to use call arreguin educated to press when she needs to use the bathroom so we can place her on a commode. patient states to this RN no I can just go in the bed told patient that she needs to start using the call arreguin and that it is inappropriate for her to pee the bed when she is able to get up. patient demonstrated appropriate use of call arreguin, table placed in front of patient with multiple cups of drinks, patient requesting to go back into bed , educated that she needs to sit in the chair for a little while. all safety maintained
[2024-04-06 14:17] VITALS: BP 98/54; PULSE 83; RESP 18; TEMP 36.8; O2SAT 95
[2024-04-06] MEDS: Gabapentin 300 MG CAPSULE PO (14:20)
[2024-04-06] MEDS: oxyCODONE HCl Immed Release 5 MG TABLET PO (14:20)
[2024-04-06] MEDS: Ascorbic Acid 500 MG TABLET 1000 MG PO (14:21)
--- NOTE | 2024-04-06 17:45 | PC.NURSE ---
patient placed back on hospital stretcher by ED techs, requesting pure wick be placed back on, educated patient that she needs to use the commode, at the plan is for her to be more self sufficient, patient agreeable to use callbell when she has to use the restroom. asked patient if she would like to use the bedpan while she waits for the commode, patient agreeable, placed on bedpan, then states to this RN i actually dont have to pee right now patient removed from bedpan, remains on hospital stretcher, family at bedside. all safety maintained
--- NOTE | 2024-04-06 19:10 | PC.NURSE ---
This RN assumed pt care @ 1900. Plan of care ongoing.
--- NOTE | 2024-04-06 19:41 | PC.NURSE ---
Pt ca&ox4, no signs of distress. Pt requesting and given dinner, tech assisting pt with dinner Pt reporting pain Plan of care ongoing.
[2024-04-06 20:54] VITALS: BP 106/71; PULSE 82; RESP 17; TEMP 36.7; O2SAT 96
[2024-04-06] MEDS: traZODone HCL 50 MG TABLET 150 MG PO (22:00)
--- NOTE | 2024-04-06 22:25 | PC.NURSE ---
pt medicated per oct Pt requested and given warm blanket Plan of care ongoing
[2024-04-07 06:00] VITALS: BP 135/75; PULSE 100; RESP 18; TEMP 36.6; O2SAT 96
--- NOTE | 2024-04-07 07:43 | PC.NURSE ---
patient found to be in saturated, urine stained sheets. patient had purewick in place- not working. patient cleaned up, new linens and pads. respirations equal and unlabored. skin dry and intact, patient has walking boot on left foot. patient awake and alert, focus level low. patient repeats asking this RN and RADIO OPERATOR if we are mad at her for wetting the bed, patient reassured that no one is mad at her and that it happens. patient repositioned and sat up for breakfast. patient eating on 1:1 with shipping technician.
--- NOTE | 2024-04-07 08:00 | MHC.EDTECH ---
patient was soak in urine did a complete bed bath and washed her hair as well did her vitals and set up for breakfast sat with her while she ate. nurse aware
[2024-04-07] MEDS: Divalproex Sodium 250 MG TABLET.DR PO ×2 (09:10→20:29)
[2024-04-07] MEDS: hydrOXYzine HCL 10 MG TABLET PO (09:10)
[2024-04-07] MEDS: Metoprolol Succinate ER 50 MG TAB.ER.24H PO (09:10)
[2024-04-07] MEDS: QUEtiapine Fumarate 50 MG TABLET PO ×3 (09:10→20:28)
[2024-04-07] MEDS: Atorvastatin Calcium 40 MG TABLET PO (09:10)
[2024-04-07] MEDS: Calcium Oyster Shell Elemental 500 MG TABLET PO (09:10)
[2024-04-07] MEDS: busPIRone HCl 10 MG TABLET PO ×2 (09:10→20:28)
[2024-04-07] MEDS: DULoxetine HCl 60 MG CAPSULE.DR PO (09:11)
[2024-04-07] MEDS: Multivitamin TABLET 1 TAB PO (09:11)
[2024-04-07 09:15] VITALS: BP 146/77; PULSE 91; RESP 14; TEMP 36.6; O2SAT 97
[2024-04-07] MEDS: Ascorbic Acid 500 MG TABLET 1000 MG PO (11:38)
[2024-04-07 14:00] VITALS: BP 125/65; PULSE 90; RESP 16; TEMP 36.2; O2SAT 98
--- NOTE | 2024-04-07 14:21 | MHC.SLORD ---
Speech Language Pathology Order Status: Patient monitored for toleration of diet this morning, has been tolerating well over past five days. Recommend continue on diet of Chopped/Advanced with thin liquids, pills whole with liquid, while awaiting STR placement. D/C speech service at this time.
--- NOTE | 2024-04-07 14:32 | MHC.CM.PN ---
[facility] CONTINUES TO FOLLOW FOR POSSIBLE ADMISSION 04/08. [facility]
[2024-04-07] MEDS: Gabapentin 300 MG CAPSULE PO (15:13)
--- NOTE | 2024-04-07 20:00 | MHC.EDTECH ---
Pt fed supper with minimal assistance. Carefully observed and assisted while eating.No incidence of dysphagia. However patient advised multiple times to refrain from speaking while she is eating. Pt repositioned and made comfortable after supper.
[2024-04-07] MEDS: traZODone HCL 50 MG TABLET 150 MG PO (20:28)
--- NOTE | 2024-04-07 20:40 | PC.NURSE ---
Patient medicated per OCT, patient swallowed medications whole with water w/o issues. Patient reports mild, generalized pain 3/10 at present. This RN offered patient PRN Tylenol, patient refused. Purewick in place, call arreguin in patient's reach.
[2024-04-07 22:16] VITALS: BP 113/63; PULSE 84; RESP 18; TEMP 37; O2SAT 96
[2024-04-08 05:51] VITALS: BP 160/78; PULSE 86; RESP 14; TEMP 36.7; O2SAT 96
--- NOTE | 2024-04-08 05:52 | MHC.EDTECH ---
PT repositioned in bed and given warm blankets. pt checked and is not soiled Purwick still in place. AM vital signs completed
--- NOTE | 2024-04-08 08:28 | MHC.CM.ED ---
Addendum entered by Olinda Mancuso 04/08/24 13:47: [facility] is unable to offer a bed. Original Note: Patient remains in ER. Clinical updates sent to [facility]. [facility] has not responded. T/W reached out to facility. Continue to monitor for d/c needs.
[2024-04-08 10:38] VITALS: BP 120/60; PULSE 80
[2024-04-08] MEDS: busPIRone HCl 10 MG TABLET PO ×2 (10:38→21:27)
[2024-04-08] MEDS: Multivitamin TABLET 1 TAB PO (10:38)
[2024-04-08] MEDS: Metoprolol Succinate ER 50 MG TAB.ER.24H PO (10:38)
[2024-04-08] MEDS: Divalproex Sodium 250 MG TABLET.DR PO ×2 (10:39→21:27)
[2024-04-08] MEDS: DULoxetine HCl 60 MG CAPSULE.DR PO (10:39)
[2024-04-08] MEDS: QUEtiapine Fumarate 50 MG TABLET PO ×3 (10:39→21:27)
[2024-04-08] MEDS: Calcium Oyster Shell Elemental 500 MG TABLET PO (10:39)
[2024-04-08] MEDS: Atorvastatin Calcium 40 MG TABLET PO (10:40)
[2024-04-08 12:06] VITALS: BP 151/76; PULSE 85; RESP 16; TEMP 36.7; O2SAT 100
[2024-04-08] MEDS: Gabapentin 300 MG CAPSULE PO (15:05)
[2024-04-08] MEDS: Ascorbic Acid 500 MG TABLET 1000 MG PO (15:10)
--- NOTE | 2024-04-08 16:02 | MHC.CM.ED ---
[facility] is able to offer a bed. Patient can leave tomorrow at 11am. Mariam MILLS booked. Med nec with chart. Pam RN and Laurie COYLE aware. Patient's niece, Addie, made aware via telephone. Addie will let her mother, Elizabeth know. Attempted to notify patient's 2nd HCP/friend, Riky via telephone at [phone]. Left voicemail providing d/c info and return telephone number. Continue to monitor for d/c needs.
[2024-04-08 16:23] VITALS: BP 145/72; PULSE 81; RESP 16; TEMP 36.9; O2SAT 98
[2024-04-08 18:13] VITALS: BP 114/58; PULSE 81; RESP 16; TEMP 36.8; O2SAT 98
--- NOTE | 2024-04-08 19:26 | PC.NURSE ---
Assumed care of pt. pt jayden gonzalez, no acute distress at this time. Plan for D/C to [facility] 04/09 @ 1100a per CM.
[2024-04-08] MEDS: traZODone HCL 50 MG TABLET 150 MG PO (21:27)
[2024-04-08 22:07] VITALS: BP 120/61; PULSE 76; RESP 16; TEMP 36.8; O2SAT 97
[2024-04-08] MEDS: oxyCODONE HCl Immed Release 5 MG TABLET PO (22:55)
--- NOTE | 2024-04-08 22:56 | PC.NURSE ---
pt sleeping for 10p assessment, woke at 1050p and endorsed L sided pain.
[2024-04-09 01:24] VITALS: BP 143/66; PULSE 76; RESP 15; TEMP 36.6; O2SAT 97
--- NOTE | 2024-04-09 01:28 | MHC.EDTECH ---
Q4 vitals done, Pt suction canninster emptied and purwick was checked for proper positioning. war, blankets given to patient
[2024-04-09 05:36] VITALS: BP 112/63; PULSE 87; RESP 16; TEMP 36.6; O2SAT 99
[2024-04-09 07:57] VITALS: BP 123/59; PULSE 99; RESP 18; TEMP 36.6; O2SAT 95
[2024-04-09] MEDS: DULoxetine HCl 60 MG CAPSULE.DR PO (07:59)
[2024-04-09] MEDS: QUEtiapine Fumarate 50 MG TABLET PO (07:59)
[2024-04-09] MEDS: Metoprolol Succinate ER 50 MG TAB.ER.24H PO (07:59)
[2024-04-09] MEDS: oxyCODONE HCl Immed Release 5 MG TABLET PO (07:59)
[2024-04-09] MEDS: Calcium Oyster Shell Elemental 500 MG TABLET PO (07:59)
[2024-04-09] MEDS: Atorvastatin Calcium 40 MG TABLET PO (07:59)
[2024-04-09] MEDS: Multivitamin TABLET 1 TAB PO (07:59)
[2024-04-09] MEDS: busPIRone HCl 10 MG TABLET PO (07:59)
[2024-04-09] MEDS: Divalproex Sodium 250 MG TABLET.DR PO (07:59)
--- NOTE | 2024-04-09 08:33 | PC.NURSE ---
awake, talking on phone in room. tech at bedside for breakfast w/out any incident. patient took medications - pills whole with water without issue. encouraged to get out of bed and up in the recliner by this RN and tech, patient refusing to get out of bed. bed bath done, patient changed and repositioned in bed. pure wick remains in place. call arreguin is within reach.
--- NOTE | 2024-04-09 10:34 | MHC.CM.ED ---
Patient remains in ER. Will d/c to [facility] today at 11am. Per Esteban Knott, outpatient follow up should be scheduled for 1-2 weeks. Appointment scheduled for 04/16 at 1130am. [facility] aware. Continue to monitor for d/c needs.
[2024-04-09 11:58] VITALS: BP 123/59; PULSE 99; RESP 18; TEMP 36.6; O2SAT 95
== END 2024-04-09 11:59 ==
PROVIDERS: Nurse Practitioner Family; Emergency Provider Internal Medicine; PCP Internal Medicine
DX: F39 Unspecified mood [affective] disorder (principal); R45.6 Violent behavior; R00.0 Tachycardia, unspecified; Z79.899 Other long term (current) drug therapy; Z03.818 Encounter for observation for suspected exposure to other biological agents ruled out
CPT/HCPCS: 0241U; 36415; 71046; 80053; 81001; 81003; 85025; 93005; 99285; S9485

== ENCOUNTER → 2024-03-31 18:28 | Outpatient (BNV) | payer MEDICARE, MEDICAID, SELFPAY | PROVIDERS: Emergency Provider Internal Medicine; PCP Internal Medicine; Visit Provider Social Worker | DX: F39 Unspecified mood [affective] disorder (principal) | CPT/HCPCS: 99284 ==

== ENCOUNTER 2024-04-09 13:42 | Emergency (ER) | payer MEDICARE, MEDICAID, SELFPAY ==
[2024-04-09 13:45] VITALS: BP 118/72; PULSE 82; O2SAT 95
--- NOTE | 2024-04-09 13:45 | ED.GENADULT ---
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 No complaints at this time. She is calm and cooperative. last turner report she was just asking for a lot of things and nursing staff there got overwhelmed and asked for patient to return here. Related Data Home Medications ?Medication ?Instructions ?Recorded ?Confirmed acetaminophen 325 mg capsule 650 mg PO Q4H PRN Pain 09/13/20 04/01/24 duloxetine 60 mg capsule,delayed 60 mg PO DAILY 09/13/20 04/01/24 release metoprolol succinate 50 mg 50 mg PO DAILY 09/13/20 04/01/24 tablet,extended release 24 hr ascorbic acid (vitamin C) 1,000 mg 1 g PO DAILY@1200 03/22/21 04/01/24 tablet bhotisuqhiod-trsmouty-bcgdny tablet 1 tab PO DAILY 03/22/21 04/01/24 gabapentin 300 mg capsule 300 mg PO DAILY@1300 02/28/23 04/01/24 hydroxyzine HCl 10 mg tablet 10 mg PO SUMOWEFR@1000 02/29/24 04/01/24 buspirone 10 mg tablet 10 mg PO BID 03/15/24 04/01/24 calcium carbonate (Calcium 600) 600 mg PO DAILY 03/15/24 04/01/24 nystatin 100,000 unit/gram topical 1 appl topical TID PRN Rash 03/15/24 04/01/24 powder trazodone 150 mg tablet 150 mg PO BEDTIME 03/15/24 04/01/24 Previous Rx's ?Medication ?Instructions ?Recorded atorvastatin 40 mg tablet (Lipitor) 40 mg PO DAILY #90 tabs 03/12/23 oxycodone 5 mg tablet 5 mg PO Q6H PRN Pain, Severe (Pain 03/29/24 Scale 7-10) #10 tabs prednisone 20 mg tablet 20 mg PO DAILY #2 tabs 03/29/24 quetiapine 50 mg tablet 50 mg PO TID #1 tab 03/29/24 oxycodone 5 mg tablet 5 mg PO Q6H PRN pain #10 tabs 04/09/24 Allergies Allergy/AdvReac Type Severity Reaction Status Date / Time amoxicillin Allergy Unknown tachycardia Verified 04/09/24 14:04 doxycycline Allergy Unknown stomach Verified 04/09/24 14:04 upset iron Allergy Unknown unknown Verified 04/09/24 14:04 nitroglycerin Allergy Unknown Unknown Verified 04/09/24 14:04 From Ferrlecit Allergy Mild RED,ITCH,BURNING,SWELLING Uncoded 04/09/24 14:04 OF FEET iv dye Allergy Unknown Unknown Uncoded 04/09/24 14:04 Review of Systems Review of Systems: Yes all other systems are reviewed and are [facility] Past Medical History Attestation statement: The following information was validated with the patient. Source: old records reviewed and nursing notes reviewed Medical History Anemia Cognitive impairment Depression Otitis media Rib pain on left side Right knee pain Callus of foot Pneumonia Osteoarthritis of left hip Osteoarthritis of right hip Hypertension Surgical History No history of previous surgery Family History Family History Mother No problems noted. Father No problems noted. Social History Social History Household Members: Unknown / Unable to assess Housing: Apartment Unable to assess alcohol history related to: Unknown Alcohol intake: former Patient Tobacco Use Status: Never used Tobacco e-Cigarette/Vaping Use: Never Used Second Hand Smoke Exposure: No Advance Directives: Yes Advance Directives on File: Yes Advance Directives Date on File: 03/21/24 Do you have a plan to hurt others: No Plan service: No Current occupational status: retired and disabled Cognitive needs: No Hearing needs: No Vision needs: No Physical Exam ED Vital Signs: Vital Signs - 24 hr 04/09/24 14:03 Pulse Rate 82 Respiratory Rate 18 Blood Pressure 118/72 Pulse Oximetry 95 Oxygen Delivery Method Room Air BMI result Body Mass Index 30.0 vss Appearance: Alert.? Oriented X3.? No acute distress.? Head: Normocephalic, atraumatic, no step-offs or deformities Eyes: Pupils equal, round and reactive to light.? Neck: Normal inspection.? Neck supple.? CVS: Normal heart rate and rhythm.? Pulses normal.? Respiratory: No respiratory distress.? Breath sounds normal.? Abdomen: Soft and nontender.? Skin: Skin warm and dry.? Normal skin color.? Normal skin turgor.? Extremities: No lower extremity edema.? No calf ttp. 5/5 strength to bilateral upper and lower extremities Back: No midline tenderness, no C-spine tenderness, full range of motion, no CVA tenderness bilaterally Neuro: Oriented X 3.? No motor deficit.? No sensory deficit. CN 2-12 intact Course Reevaluation(s) Reevaluation #1: Hunter AKHTAR at [facility], Omaira display director they report she was not stable , was in pain and was asking for a purewick they report that they cant provide services for her so they asked EMS to return patient here. Time: 13:54 Reevaluation #2: Mendez wide area network systems administrator at [facility] not aware at this time that patient was sent back there. He will speak to the nurses listed above. Basic labs reordered. Time: 14:02 Reevaluation #3: Still have not received a call from the wide area network systems administrator at [facility]. Labs pending however, patient will likely go to [facility] either today or tomorrow. Time: 15:32 Additional Reevaluation(s): Chemistry around patients baseline no acute abnormaliteis. Sign out to Michael to follow CBC and do med rec Medical Decision Making Medical Decision Making MDM Narrative: 73-year-old female presents from shelter facility due to her being too much for the facility to handle. She offers no complaints. Physical exam benign History and physical exam concerning for mood disorder versus dependent personality disorder versus agitation likely due to change/Chel setting. Unlikely metabolic derangements. She was medically cleared and discharge from this facility prior to arrival. Plan labs, urine Differential Diagnosis Differential Diagnoses: The differential diagnosis associated with the presentation includes History and physical exam concerning for mood disorder versus dependent personality disorder versus agitation likely due to change/Chel setting. Unlikely metabolic derangements. She was medically cleared and discharge from this facility prior to arrival. Admission/Observation Consideration of admission/observation: Escalation of care including admission/observation considered possible Lab Data MDM Lab Attestation statement: I reviewed the patient's lab results. 04/09/24 15:43 04/09/24 15:44 Labs: Lab Results 04/09/24 Range/Units 15:44 Sodium 138 (135-145) mmol/L Potassium 4.9 (3.3-5.1) mmol/L Chloride 94 L (96-108) mmol/L Carbon Dioxide 35 H (22-29) mmol/L Anion Gap 14 (12-20) BUN 19 H (9-16) mg/dL Creatinine 0.66 (0.5-1.4) mg/dL Estim Creat Clear Calc 56.0 Estimated GFR > 60 Random Glucose 100 (60-115) mg/dL Calcium 9.7 (8.4-10.2) mg/dL Total Bilirubin 0.2 (0.0-1.0) mg/dL AST 17 (5-31) U/L ALT 10 (0-31) U/L Alkaline Phosphatase 181 H (39-117) U/L Total Protein 6.2 L (6.5-8.0) g/dL Albumin 3.6 (3.5-5.0) g/dL External Record Review External record reviewed: Inpatient record, Office record, Outpatient record, Prior outpatient labs, Prior outpatient radiology, Primary care record and Outside ED record Critical Care Time Critical Care Time Critical Care Time: No Discharge Plan Discharge Clinical Impression: Mood disorder, Agitation Patient Disposition: Still a Patient Prescriptions: No Action atorvastatin [Lipitor] 40 mg tablet 40 mg PO DAILY Qty: 90 6RF oxycodone 5 mg tablet 5 mg PO Q6H PRN (Reason: pain) Qty: 10 0RF Rx Instructions: Partial Fill upon patient request. trazodone 150 mg tablet 150 mg PO BEDTIME buspirone 10 mg tablet 10 mg PO BID calcium carbonate [Calcium 600] 600 mg calcium (1,500 mg) Tablet 600 mg PO DAILY nystatin 100,000 unit/gram powder 1 appl topical TID PRN (Reason: Rash) oxycodone 5 mg Tablet 5 mg PO Q6H PRN (Reason: Pain, Severe (Pain Scale 7-10)) Qty: 10 0RF Rx Instructions: Partial Fill upon patient request. quetiapine 50 mg Tablet 50 mg PO TID Qty: 1 0RF prednisone 20 mg Tablet 20 mg PO DAILY Qty: 2 0RF metoprolol succinate 50 mg tablet extended release 24 hr 50 mg PO DAILY duloxetine 60 mg capsule,delayed release(DR/EC) 60 mg PO DAILY acetaminophen 325 mg capsule 650 mg PO Q4H PRN (Reason: Pain) nuwjiyhlvcne-dqvuftwz-lzmtts Tablet 1 tab PO DAILY ascorbic acid (vitamin C) 1,000 mg tablet 1 g PO DAILY@1200 gabapentin 300 mg capsule 300 mg PO DAILY@1300 hydroxyzine HCl 10 mg tablet 10 mg PO SUMOWEFR@1000 Print Language: Finnish
[2024-04-09 14:03] VITALS: BP 118/72; PULSE 82; RESP 18; O2SAT 95
--- NOTE | 2024-04-09 14:48 | MHC.CM.ED ---
Addendum entered by Olinda Mancuso 04/09/24 14:52: Patient was also demanding Purewick at [place]. Patient has been made aware multiple times that Purewick is not available at any SNF. Original Note: Patient was d/c'd from ER to [facility] via EMS around 11am. Received telephone call from geronimo Patrick for [facility] around 1pm stating patient was going to be returning to the ER. Patient returned to ER. EMS stated patient was requesting pain meds and water the whole 30 min transport. When patient was being taken out of the ambulance and then wheeled into building and into her assigned room, patient was yelling that she wanted water and meds. Nursing staff became concerned, notified JASMIN Tucker, Caitlin and EMS crew spoke. Patient returned to ER via EMS. T/W spoke with JASMIN Tucker and Mendez, Unloader, via speaker phone. Caitlin felt patient was not stable. T/W explained patient's hospital stay since 03/15, admission to hospital 03/22 after cardiac arrest and then d/c'd to [facility] on 03/29 and return to ER on 03/31 d/t patient throwing a call bed and facility being concerned about roommates safety d/t being a frail, elderly patient. Psych consult was completed. Patient was started on Depakote on 04/01. Patient continued to be demanding and forgetful but was not throwing things or hitting. Patient was accepted by [facility]. Plan at this time is to watch patient in ER overnight, send clinical updates in the morning and hopefully transport patient back to [facility] at 9am, that way provider can evaluate patient upon admission. Continue to monitor for d/c needs.
[2024-04-09 16:00] VITALS: BP 107/59; PULSE 80; RESP 15; TEMP 36.7; O2SAT 98
[2024-04-09 16:03] LABS: Alanine Aminotransferase 10 U/L (0-31); Albumin Level 3.6 g/dL (3.5-5.0); Alkaline Phosphatase 181 U/L (39-117); Anion Gap 14 (12-20); Aspartate Amino Transferase 17 U/L (5-31); Bilirubin Total 0.2 mg/dL (0.0-1.0); Blood Urea Nitrogen 19 mg/dL (9-16); Calcium 9.7 mg/dL (8.4-10.2); Carbon Dioxide 35 mmol/L (22-29); Chloride 94 mmol/L (96-108); Estimated Glomerular Filt Rate > 60; Glucose Random 100 mg/dL (60-115); Potassium 4.9 mmol/L (3.3-5.1); Sodium 138 mmol/L (135-145); Total Protein 6.2 g/dL (6.5-8.0)
--- NOTE | 2024-04-09 16:23 | PC.NURSE ---
Montserrat (case management) at bedside speaking with patient, her boyfriend Riky , & another visitor.
[2024-04-09 16:46] LABS: Basophils Percent Auto 0.5 % (0-2); Eosinophils Absolute Auto 0.2 X10*3/uL (0.0-0.4); Eosinophils Percent Auto 2.6 % (0-4); Hematocrit 29.3 % (37.0-47.0); Hemoglobin 9.4 g/dl (12.0-16.0); Imm Gran Abs Auto 0.05 X10*3/uL (0.00-0.03); Imm Gran Pct Auto 0.7 % (0.0-0.4); Lymphocytes Absolute Auto 2.2 X10*3/uL (1.2-4.9); Lymphocytes Percent Auto 28.8 % (20-40); Mean Corpuscular HGB Conc 32.1 g/dl (31.0-35.0); Mean Corpuscular Volume 102.8 fL (80.0-98.0); Monocytes Absolute Auto 0.6 X10*3/uL (0.1-1.2); Monocytes Percent Auto 8.4 % (2-11); Neutrophils Absolute Auto 4.5 x10*3/uL (2.0-8.3); Platelet Count 234 X10*3/uL (160-400); Red Blood Count 2.85 X10*6/uL (4.20-5.50); Red Cell Distribution Width 12.3 % (11.0-16.0); White Blood Count 7.6 X10*3/uL (4.8-10.8)
[2024-04-09 17:30] LABS: MANUAL DIFF FLAG NO
--- NOTE | 2024-04-09 19:07 | PC.NURSE ---
Ground diet tray ordered. This RN called kitchen to have tray brought to ED. Ground diet/nectar thick per provider orders. Pt requesting food. Aware that kitchen has been called.
--- NOTE | 2024-04-09 19:39 | PHA.MEDREC ---
Addendum entered by Jose Alejandro Roberts [facility] 04/09/24 19:45: MED REC CHECKED BY [facility] Original Note: Pharmacy Consult ? Medication Reconciliation Pharmacy has completed the medication reconciliation. Patient was just discharged from [facility] this morning [facility], however was refused and brought back to [facility]. Called [facility] and they said there is no record of patent at there facility. Called contact on file Addie she said she would get a list and call me back, however never received a call back. Utilized claims and medical records to confirm med list.
--- NOTE | 2024-04-09 19:50 | MHC.CM.ED ---
Addendum entered by Mally Mae 04/09/24 21:33: Pt lives alone. Dr. Tai is her psychiatrist. She has [employer] hours through [employer]. She uses a walker. Her friend, Riky Barrientos helps her. He is legally blind. HCP is on file. Elizabeth Smyth (sister/HCP#1) [phone]. lives in [place]. No additional referrals made pending conversation with facility in the morning. Pt and Riky aware that if facility refuses to take her back, then referrals will again be made and CM might need to refer farther out-50-100 miles. Original Note: CM met with patient and her friend, Riky (HCP alternate). Pt has no recollection of what happened at the retirement, or that she was at a retirement. Riky tells CM that she was asking for pain medication and water. Was also asking for a purewick. He denies that she was speaking loudly or demanding. Riky feels that the facility knew of her previous behavior issues and that clouded their judgment regarding her requests.
--- NOTE | 2024-04-09 20:50 | PC.NURSE ---
Pt sleeping at this time. Plan to monitor overnight with plan to transfer back to [facility] tomorrow once cleared by case management, provider, & facility agreement. No needs at this time. Pt ate all of her dinner without issue. Respirations even/unlabored.
[2024-04-09] MEDS: busPIRone HCl 10 MG TABLET PO (21:27)
[2024-04-09] MEDS: traZODone HCL 50 MG TABLET 150 MG PO (21:27)
[2024-04-09] MEDS: QUEtiapine Fumarate 50 MG TABLET PO (21:27)
[2024-04-10] MEDS: oxyCODONE HCl Immed Release 5 MG TABLET PO (06:56)
--- NOTE | 2024-04-10 07:08 | MHC.CM.ED ---
Patient remains in ER. No behaviors noted overnight. Clinical updates sent to [facility]. Continue to monitor for d/c needs.
--- NOTE | 2024-04-10 07:41 | PC.NURSE ---
This RN sat with patient at 7:15 and listened to her concerns that she is back in the ED. Plan was made with her input to arrange for scheduled visits from ED and TEch on a routine bases at which point all demands would be met. Times for next visit will be 30-45 minutes apart and written on the white board. Patient is aware that RN will make her best effort to attend to all needs.
--- NOTE | 2024-04-10 08:02 | PC.NURSE ---
7:45 patient cleansed of urine, repositioned, clean rossy and linens, drink provided. skin check on LLE Under boot. one small blanchable red spot on ball of great toe. New time noted on white board. Pt has cell phone and boyfriend available throughout the am. has no requests at this time.
[2024-04-10 08:52] VITALS: BP 133/63; PULSE 96; RESP 18; TEMP 36.7; O2SAT 97
[2024-04-10] MEDS: Atorvastatin Calcium 40 MG TABLET PO (08:57)
[2024-04-10] MEDS: Calcium Oyster Shell Elemental 500 MG TABLET PO (08:57)
[2024-04-10] MEDS: Multivitamin TABLET 1 TAB PO (08:57)
[2024-04-10] MEDS: DULoxetine HCl 60 MG CAPSULE.DR PO (08:57)
[2024-04-10 08:58] VITALS: BP 133/63; PULSE 96
[2024-04-10] MEDS: Metoprolol Succinate ER 50 MG TAB.ER.24H PO (08:58)
[2024-04-10] MEDS: QUEtiapine Fumarate 50 MG TABLET PO (08:58)
--- NOTE | 2024-04-10 09:28 | PC.NURSE ---
at 8:45 patient was repositioned, assisted to use TV, given meds and VS. is aware that RN will return at 9:45. has not requested anything since last interventions.
--- NOTE | 2024-04-10 09:30 | MHC.CM.ED ---
[facility] Patient can leave at 10am. Mariam MILLS booked. [facility] with chart. Patient, Cate VILLEGAS and Marissa COYLE aware. Attempted to notifiy patient's niece, Addie, via telephone at [phone]. Left voicemail with d/c info. Notified Riky, friend/2nd HCP, via telephone at [phone]. Continue to monitor for d/c needs.
[2024-04-10] MEDS: busPIRone HCl 10 MG TABLET PO (10:36)
--- NOTE | 2024-04-10 10:41 | PC.NURSE ---
repositioned. brief in place. pt is aware that transfer will occur soon to SNF. is asking to stay in the ED because she likes it here. Was reminded that it isn't the appropriate setting for her needs.
--- NOTE | 2024-04-10 10:44 | PC.NURSE ---
Arcelia RN to RN at [phone] [facility].
== END 2024-04-10 11:21 ==
PROVIDERS: Physician Assistant; Emergency Provider Emergency Medicine; PCP Internal Medicine
DX: R45.1 Restlessness and agitation (principal); F39 Unspecified mood [affective] disorder; I10 Essential (primary) hypertension; L30.4 Erythema intertrigo; Z79.899 Other long term (current) drug therapy
CPT/HCPCS: 36415; 80053; 85025; 99284; 99285

== ENCOUNTER 2024-04-16 11:26 | Outpatient (AMB) | payer MEDICARE, MEDICAID, SELFPAY ==
--- NOTE | 2024-04-16 11:30 | MHC.OFFVIS ---
Vital Signs 04/16/24 11:39 Height 4 ft 8 in Weight 134 lb BMI 30.0 Intake Visit Reasons: FC left ankle avulsion fx Intake Note: Joanna a 73 year old female who presents today in a stretcher for a new patient evaluation of left ankle fracture. Patient reports soreness in her ankle. Patient was seen at [facility] on 03/15/24 for a fall when she stood up after using the toilet. Xrays were taken and she was placed in a walking boot. She currently complains of soreness in her leg. Denies numbness or tingling. Allergies amoxicillin Allergy (Unknown, Verified 04/16/24 11:39) tachycardia doxycycline Allergy (Unknown, Verified 04/16/24 11:39) stomach upset iron Allergy (Unknown, Verified 04/16/24 11:39) unknown nitroglycerin Allergy (Unknown, Verified 04/16/24 11:39) Unknown From Ferrlecit Allergy (Mild, Uncoded 04/16/24 11:39) RED,ITCH,BURNING,SWELLING OF FEET iv dye Allergy (Unknown, Uncoded 04/16/24 11:39) Unknown Medication List - Last Reviewed 04/16/24 by BECCA Brewster acetaminophen 650 mg PO Q4H PRN ascorbic acid (vitamin C) 1 g PO DAILY@1200 atorvastatin (Lipitor) 40 mg PO DAILY buspirone 10 mg PO BID calcium carbonate (Calcium 600) 600 mg PO DAILY duloxetine 60 mg PO DAILY gabapentin 300 mg PO DAILY@1300 hydroxyzine HCl 10 mg PO SUMOWEFR@1000 metoprolol succinate ER 50 mg PO DAILY pimyymjqpqxc-eyphkfpb-ilylkm 1 tab PO DAILY nystatin 1 appl topical TID PRN oxycodone 5 mg PO Q6H PRN quetiapine ER 150 mg PO BEDTIME trazodone 150 mg PO BEDTIME HPI HPI FC left ankle avulsion fx: Details: 73-year-old female who presents to the office today in a stretcher for an evaluation of left ankle injury after sustaining a fall when she stood up after using the toilet. She was seen at ER on 03/15 24 where x-rays were performed and she was placed in a walking boot. She currently states she has soreness in her ankle however she denies any numbness or tingling. FOR[facility]LY [facility] Medical History Anemia Cognitive impairment Depression Otitis media Rib pain on left side Right knee pain Callus of foot Pneumonia Osteoarthritis of left hip Osteoarthritis of right hip Hypertension Surgical History No history of previous surgery Family History Mother No problems noted. Father No problems noted. Social History Household Members: Unknown / Unable to assess Housing: Apartment Unable to assess alcohol history related to: Unknown Alcohol intake: former Patient Tobacco Use Status: Never used Tobacco e-Cigarette/Vaping Use: Never Used Second Hand Smoke Exposure: No Advance Directives Date on File: 03/21/24 service: No Current occupational status: retired and disabled Cognitive needs: No Hearing needs: No Vision needs: No Review of Systems Const All systems reviewed & are unremarkable except as noted in HPI and below Physical Exam Vital Signs: BMI result Body Mass Index 30.0 Const General: cooperative, healthy appearing, comfortable, no acute distress, well developed and alert Orientation/consciousness: patient oriented x3 HEENT Head: Yes normal to inspection, Yes normocephalic and Yes atraumatic Eyes General: appearance normal, both eyes and all related structures Resp Effort & Inspection: normal respiratory effort and able to speak in complete sentences Cardio Rate: regular rate Peripheral pulses: Peripheral pulses 2+ throughout GI Palpation (GI): Soft to palpation Skin Lesions: no lesions Rashes: no rashes Neuro General: patient oriented x3 Extrem Other: Left ankle: Normal to inspection. She has mild tenderness at the lateral side of the ankle along the soft tissues and medial malleolus. No tenderness over the syndesmosis. NVI. Office Procedures Fracture Care Fracture Billing Code: Fracture Billing Code Results Reviewed Results Reviewed: XR ankle LT min 3V IMPRESSION: 1. Acute avulsion fracture at the posteromedial cortex of the medial malleolus. 2. Ankle joint effusion and soft tissue swelling. Assessment & Plan Assessment & Plan (1) Avulsion fracture of medial malleolus of left tibia: Code(s): S82.52XA - Displaced fracture of medial malleolus of left tibia, initial encounter for closed fracture Category: Medical Qualifiers: Encounter type: subsequent encounter Fracture healing: with routine healing Fracture type: closed Qualified Code(s): S82.52XD - Displaced fracture of medial malleolus of left tibia, subsequent encounter for closed fracture with routine healing Plan She will continue wearing her boot for 3 weeks. She can remove the boot for physical therapy and hygiene. Physical therapy will include working on ROM, gait training and strengthening. She will transition to a regular street shoe if symptoms allow in 3 weeks and she will increase activities as tolerated. If symptoms persist or worsen, patient will contact the office, otherwise follow-up as needed. Patient Instructions: Scribed for Nikos Bowen PA-C, by Nahid Morrell behavioral medical director, on 04/06/2024 at 11:30 AM EST.? I, Nikos Bowen PA-C, have personally reviewed and agree with the information entered by the scribe. Coding Level of Care Code New Pt Level 3 (30874) Complex EM visit Add On G2211 Diagnoses Avulsion fracture of medial malleolus of left tibia S82.52XD Encounter type: subsequent encounter Fracture healing: with routine healing Fracture type: closed CPT Codes Fracture Care - Fracture Billing Code: Fracture Billing Code ([id number])
== END 2024-04-16 12:36 | disposition home or self-care (01) ==
PROVIDERS: PCP Internal Medicine; Visit Provider Physician Assistant
DX: S82.52XD Displaced fracture of medial malleolus of left tibia, subsequent encounter for closed fracture with routine healing (principal)
CPT/HCPCS: 99203; G2211

== ENCOUNTER → 2024-04-16 11:26 | Outpatient (BNVA) | payer MEDICARE, MEDICAID, SELFPAY | PROVIDERS: PCP Internal Medicine; Visit Provider Physician Assistant | DX: S82.52XD Displaced fracture of medial malleolus of left tibia, subsequent encounter for closed fracture with routine healing (principal); W19.XXXD Unspecified fall, subsequent encounter | CPT/HCPCS: 99202 ==

== ENCOUNTER 2024-05-22 13:58 | Outpatient (AMB) | payer MEDICARE, MEDICAID, SELFPAY ==
[2024-05-22 14:00] VITALS: BP 112/62; PULSE 100; O2SAT 93
--- NOTE | 2024-05-22 14:00 | MHC.PC.OV ---
Vital Signs 05/22/24 14:00 Height 4 ft 8 in BMI Reason not done Patient refused/unable BP 112/62 Blood Pressure Location Lt brachial Position Sitting Pulse 100 Pulse Source Pulse Oximeter Pulse Oximetry (%) 93 Oxygen Delivery Method Room Air Intake Visit Reasons: [place] [facility] 05/08 fracture of LT tibia Piper Helper Required: No Accompanied by: Self / Same As Patient Allergies amoxicillin Allergy (Unknown, Verified 05/22/24 14:00) tachycardia doxycycline Allergy (Unknown, Verified 05/22/24 14:00) stomach upset iron Allergy (Unknown, Verified 05/22/24 14:00) unknown nitroglycerin Allergy (Unknown, Verified 05/22/24 14:00) Unknown From Ferrlecit Allergy (Mild, Uncoded 05/22/24 14:00) RED,ITCH,BURNING,SWELLING OF FEET iv dye Allergy (Unknown, Uncoded 05/22/24 14:00) Unknown Medication List - Last Reconciled 05/23/24 by Aj Cortes MD acetaminophen 650 mg PO Q4H PRN ascorbic acid (vitamin C) 1 g PO DAILY@1200 atorvastatin (Lipitor) 40 mg PO DAILY buspirone 10 mg PO BID calcium carbonate (Calcium 600) 600 mg PO DAILY duloxetine 60 mg PO DAILY gabapentin 300 mg PO DAILY@1300 hydroxyzine HCl 10 mg PO SUMOWEFR@1000 metoprolol succinate ER 50 mg PO DAILY vtvycxivwyiz-afdsflpl-wcntxv 1 tab PO DAILY nystatin 1 appl topical TID PRN oxycodone 5 mg PO Q6H PRN quetiapine ER 150 mg PO BEDTIME trazodone 150 mg PO BEDTIME Tobacco use date assessed: 05/22/24 Fall risk assessment: 1 Fall in past year Last assessed Fall Risk: 05/22/24 Dental Screening Dental Screen Date: 05/22/24 Did you have a dental visit in the last 12 months?: No Did you have a dental problem in the last 6 months where you did not have access to dental care?: No Was dental information given to patient?: Patient declined HPI [place] [facility] 05/08 fracture of LT tibia HPI Details had a prolonged [facility] care after a left ankle fracture; doing well [facility] Medical History Anemia Cognitive impairment Depression Otitis media Rib pain on left side Right knee pain Callus of foot Pneumonia Osteoarthritis of left hip Osteoarthritis of right hip Hypertension Surgical History No history of previous surgery Family History Mother No problems noted. Father No problems noted. Social History Household Members: Unknown / Unable to assess Housing: Apartment Unable to assess alcohol history related to: Unknown Alcohol intake: former Patient Tobacco Use Status: Never used Tobacco Tobacco use type: Cigarette e-Cigarette/Vaping Use: Never Used Second Hand Smoke Exposure: No Advance Directives Date on File: 03/21/24 service: No Current occupational status: retired and disabled Cognitive needs: No Hearing needs: No Vision needs: No Questionnaire PHQ-9 Over the last 2 weeks, how often have you been bothered by any of the following problems? 1. Little interest or pleasure in doing things: several days 2. Feeling down, depressed, or hopeless: more than half the days 3. Trouble falling or staying asleep, or sleeping too much: several days 4. Feeling tired or having little energy: more than half the days 5. Poor appetite or overeating: more than half the days 6. Feeling bad about yourself - or that you are a failure or have let yourself or your family down: not at all 7. Trouble concentrating on things, such as reading the newspaper or watching television: more than half the days 8. Moving or speaking so slowly that other people could have noticed. Or the opposite - being so fidgety or restless that you have been moving around a lot more than usual: several days 9. Thoughts that you would be better off or of hurting yourself in some way: more than half the days Total score: 13 [id number] - PHQ-9 Billing: Yes Source: Developed by Drs. Felipe Leiva, Jessica Valadez, Estuardo Livingston and colleagues, with an educational nghia from [employer]. Thrive Questionnaire Date Thrive assessed: 03/23/24 AUDIT C Alcohol Use Questionnaire (AUDIT-C) 1. How often do you have a drink containing alcohol?: Never 3. How often do you have six or more drinks on one occasion?: Never Total Score: 0 Score Reviewed/Action Taken: Yes SUSAN-7 AMB Questionnaire SUSAN-7 Date SUSAN - 7 assessed: 05/22/24 Feeling nervous, anxious, or on edge: 0 = Not at all Not being able to stop or control worryin = Not at all Worrying too much about different things: 0 = Not at all Trouble relaxin = Not at all Being so restless that it is hard to sit still: 0 = Not at all Becoming easily annoyed or irritable: 0 = Not at all Feeling afraid as if something awful might happen: 0 = Not at all Total SUSAN-7 score (0-4 normal; 5-9 mild; 10-14 moderate; 15-21 severe): 0 Source: Developed by Drs. Felipe Leiva, Jessica Valadez, Estuardo Livingston and colleagues, with an educational nghia from [employer]. Review of Systems Const Denies chills, Denies headache(s) and Denies weight loss ENT Denies headache(s) Card Denies chest pain, Denies syncope, Denies irregular heart rhythm and Denies dyspnea Resp Denies chest congestion, Denies cough and Denies dyspnea GI Denies abdominal pain, Denies change in stool character, Denies nausea and Denies vomiting Musc Denies deformity and Denies joint swelling Neuro Denies syncope and Denies headache(s) Physical exam (Primary Care) Vital Signs: Last Vital Signs Pulse 100 05/22/24 14:00 BP 112/62 05/22/24 14:00 Pulse Ox 93 05/22/24 14:00 Oxygen Delivery Method Room Air 05/22/24 14:00 Tobacco/Smoking Status: Tobacco use Status Tobacco use date assessed 05/22/24 05/22/24 14:04 Patient Tobacco Use Status Never used Tobacco 05/22/24 14:04 Tobacco use type Cigarette 05/22/24 14:04 e-Cigarette/Vaping Use Never Used 05/22/24 14:04 PHQ-9: PHQ-9 Score PHQ-9: Total score 13 05/22/24 14:51 Thrive Assessment: Date of Thrive Assessment Date Thrive assessed 03/23/24 05/22/24 14:04 Const General: cooperative, comfortable, no acute distress and alert Neck Neck: Yes no lymphadenopathy Thyroid: Thyroid normal Resp Effort & Inspection: normal respiratory effort Auscultation: clear to auscultation bilaterally Percussion: percussion normal Cardio Jugular venous distension: no JVD Palpation: normal PMI Rate: regular rate Rhythm: regular rhythm Heart sounds: S1 normal heart sound present and S2 normal heart sound present GI Inspection: Yes normal to inspection Palpation (GI): No hepatosplenomegaly present Skin General skin exam: no rashes or lesions noted Extrem General: Yes no clubbing, cyanosis or edema Office Procedures Flu Questionnaire Does the patient have a severe egg allergy?: No Does the patient have severe life threatening allergies?: No Does the patient have a fever or illness today?: No Has the patient ever had Guillain-Wadsworth Syndrome?: No Has the patient ever had any past reaction to a flu shot?: No Immunizations Fluarix Triv [id number] (PF) 45 mcg (15 mcg x 3)/0.5 mL IM syringe Performing Provider: Aj Cortes MD [facility] Administered by: Lindy Holcomb RN on 05/22/24 14:25 Dose Route Admin Location Dispensed Lot Number Expiration Date NDC Beef Breaker 0.5 mL IM Left Deltoid 0.5 mL [id number] 02/02/25 [id number] [employer] VIS Given Date VIS Provided VIS Publication Date 05/22/24 Single Vaccine 21 Eligibility Eligibility Date Funding Source Not [facility] Eligible 05/22/24 Private Coding Level of Care Code Est Pt Level 3 (05249) Diagnoses Closed left ankle fracture S82.892A Assessment & Plan Assessment & Plan (1) Closed left ankle fracture: Code(s): S82.892A - Other fracture of left lower leg, initial encounter for closed fracture Plan: as per ortho Orders: Orders Influenza [id number] Immunization 05/22/24 Z23 - Encounter for immunization XR DEXA axial skeleton 05/22/24 M85.80 - Other specified disorders of bone density and structure, unspecified site
== END 2024-05-22 14:59 | disposition home or self-care (01) ==
PROVIDERS: PCP Internal Medicine; Visit Provider Internal Medicine
DX: S82.892A Other fracture of left lower leg, initial encounter for closed fracture (principal)

== ENCOUNTER → 2024-05-22 13:58 | Outpatient (BNVA) | payer MEDICARE, MEDICAID, SELFPAY | PROVIDERS: PCP Internal Medicine; Visit Provider Internal Medicine | DX: S82.892D Other fracture of left lower leg, subsequent encounter for closed fracture with routine healing (principal); X58.XXXD Exposure to other specified factors, subsequent encounter; Z23 Encounter for immunization | CPT/HCPCS: 90471; 90656; 96127; 99212 ==

== ENCOUNTER 2024-06-17 10:07 | Emergency (ER) | payer MEDICARE, MEDICAID, SELFPAY ==
--- NOTE | ~2024-06-17 | XR_ITS ---
EXAMINATION: XR ANKLE, LEFT CLINICAL INFORMATION: Trauma COMPARISON: 03/15/2024 TECHNIQUE: AP, lateral, and mortise views of the left ankle. FINDINGS: Medial soft tissue prominence again seen. Medial malleolar posterolateral avulsion fracture seen in March 2024 is slightly more conspicuous currently. Mortise is mildly narrowed. Subtle oblique lucency distal fibula without soft tissue swelling to suggest acute fracture. XR/XR ankle LT min 3V IMPRESSION: Medial malleolar avulsion fracture slightly more conspicuous currently. Persistent medial soft tissue swelling. Acute on chronic injury component not absolutely excluded. Electronically signed by: Kelly Pate MD 06/17/2024 02:09 PM [facility]
--- NOTE | ~2024-06-17 | CT_ITS ---
EXAMINATION: CT CERVICAL SPINE WITHOUT CONTRAST CLINICAL INFORMATION: Trauma. Neck pain COMPARISON: None available. TECHNIQUE: Thin section axial images with sagittal and coronal reformats. This CT examination was performed using dose optimization techniques as appropriate, variously including the following: *Automated exposure control *Adjustment of mA and/or kV according to patient size (this includes techniques or standardized protocols for targeted exams where dose is matched to indication/reason for exam; i.e. extremities or head) *Use of iterative reconstruction technique DLP: 385 mGy-cm FINDINGS: Advanced degenerative change noted, C4-C7 with disc space narrowing and posterior spurring. Heart disc material at the C4-5 and C5-6 levels does create slight mass effect on the ventral aspect of the spinal canal but not cord. The prevertebral soft tissues are normal and there is no fracture or destructive process. Incidental note is made, of atherosclerotic calcification in the carotid siphons. CT/CT cervical spine wo IV con IMPRESSION: Multilevel degenerative change. No acute findings or fracture. Fleischner guidelines were followed. Electronically signed by: Wilson Shepard MD 06/17/2024 12:21 PM [facility]
--- NOTE | ~2024-06-17 | CT_ITS ---
EXAMINATION: CT HEAD WITHOUT CONTRAST CLINICAL INFORMATION: Head trauma COMPARISON: None available. TECHNIQUE: Contiguous axial imaging was performed from the skull base to vertex without intravenous administration of contrast. This CT examination was performed using dose optimization techniques as appropriate, variously including the following: *Automated exposure control *Adjustment of mA and/or kV according to patient size (this includes techniques or standardized protocols for targeted exams where dose is matched to indication/reason for exam; i.e. extremities or head) *Use of iterative reconstruction technique DLP: 647 mGy-cm FINDINGS: There is mild prominence to the sulci and ventricles with moderate deep white matter gliosis. No intra or extra-axial fluid collection or hemorrhage, mass or mass effect. Calvarium intact. CT/CT head/brain wo IV con IMPRESSION: Involutional changes noted. No acute intracranial pathology. Electronically signed by: Wilson Shepard MD 06/17/2024 12:12 PM [facility]
[2024-06-17 10:21] VITALS: BP 130/78; PULSE 78; O2SAT 92
[2024-06-17 10:39] VITALS: BP 161/71; PULSE 73; RESP 18; TEMP 37.1; O2SAT 93; BMI 29.9
--- NOTE | 2024-06-17 10:49 | ED.FALL ---
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 She ambulates at baseline with a walker she was recently at the rehab. She has a history of cognitive impairment mild depression, anemia MD complaint: fall Onset (ago): hour(s) (1) Fall from: standing Fall witnessed: no Place fall occurred: home Loss of consciousness: none Prolonged down time: no Symptoms prior to fall: none Associated symptoms (after fall): denies Related Data Home Medications ?Medication ?Instructions ?Recorded ?Confirmed acetaminophen 325 mg capsule 650 mg PO Q4H PRN Pain 09/13/20 05/23/24 duloxetine 60 mg capsule,delayed 60 mg PO DAILY 09/13/20 05/23/24 release metoprolol succinate 50 mg 50 mg PO DAILY 09/13/20 05/23/24 tablet,extended release 24 hr ascorbic acid (vitamin C) 1,000 mg 1 g PO DAILY@1200 03/22/21 05/23/24 tablet qexfqnckgild-sudauqer-kusngn tablet 1 tab PO DAILY 03/22/21 05/23/24 gabapentin 300 mg capsule 300 mg PO DAILY@1300 02/28/23 05/23/24 hydroxyzine HCl 10 mg tablet 10 mg PO SUMOWEFR@1000 02/29/24 05/23/24 buspirone 10 mg tablet 10 mg PO BID 03/15/24 05/23/24 calcium carbonate (Calcium 600) 600 mg PO DAILY 03/15/24 05/23/24 nystatin 100,000 unit/gram topical 1 appl topical TID PRN Rash 03/15/24 05/23/24 powder trazodone 150 mg tablet 150 mg PO BEDTIME 03/15/24 05/23/24 quetiapine 150 mg tablet,extended 150 mg PO BEDTIME 04/09/24 05/23/24 release 24 hr oxycodone 5 mg capsule 5 mg PO Q6H PRN 04/16/24 05/23/24 Previous Rx's ?Medication ?Instructions ?Recorded atorvastatin 40 mg tablet (Lipitor) 40 mg PO DAILY #90 tabs 03/12/23 Allergies Allergy/AdvReac Type Severity Reaction Status Date / Time amoxicillin Allergy Unknown tachycardia Verified 06/17/24 10:43 doxycycline Allergy Unknown stomach Verified 06/17/24 10:43 upset iron Allergy Unknown unknown Verified 06/17/24 10:43 nitroglycerin Allergy Unknown Unknown Verified 06/17/24 10:43 From Ferrlecit Allergy Mild RED,ITCH,BURNING,SWELLING Uncoded 05/22/24 14:00 OF FEET iv dye Allergy Unknown Unknown Uncoded 05/22/24 14:00 Review of Systems Constitutional: Constitutional: Reports no additional constitutional complaints ENT: Reports system reviewed and no additional complaints, except as documented Cardiovascular: Cardiovascular: Reports no additional cardiovascular complaints PMFSH Past Medical History Attestation statement: The following information was validated with the patient. Medical History Anemia Cognitive impairment Depression Otitis media Rib pain on left side Right knee pain Callus of foot Pneumonia Osteoarthritis of left hip Osteoarthritis of right hip Hypertension Surgical History No history of previous surgery Family History Family History Mother No problems noted. Father No problems noted. Social History Social History Household Members: Unknown / Unable to assess Housing: Apartment Unable to assess alcohol history related to: Unknown Alcohol intake: former Patient Tobacco Use Status: Never used Tobacco Tobacco use type: Cigarette e-Cigarette/Vaping Use: Never Used Second Hand Smoke Exposure: No Advance Directives: Yes Advance Directives on File: Yes Advance Directives Date on File: 03/21/24 Do you have a plan to hurt others: No Plan service: No Current occupational status: retired and disabled Cognitive needs: No Hearing needs: No Vision needs: No Physical Exam Vital Signs: Vital Signs: Last Vital Signs Temp 98.7 F 06/17/24 10:39 Pulse 73 06/17/24 10:39 Resp 18 06/17/24 10:39 BP 161/71 H 06/17/24 10:39 Pulse Ox 93 06/17/24 10:39 O2 Del Method Room Air 06/17/24 10:39 BMI result Body Mass Index 29.9 Const: General: cooperative, comfortable and no acute distress Nutritional Appearance: average body habitus Orientation/consciousness: patient oriented x3 HEENT: Head: Yes normal to inspection Face and sinus: Yes normal facial exam Throat: Yes posterior oropharynx normal Neck: Neck: Yes normal visual inspection and Yes full ROM Chest: Chest palpation & inspection: normal inspection of the chest Resp: Effort & Inspection: normal respiratory effort Cardio: Jugular venous distension: no JVD Rate: regular rate GI: Inspection: Yes normal to inspection Auscultation: normal bowel sounds Skin: General skin exam: no rashes or lesions noted Lesions: no lesions Rashes: no rashes Trauma: no lacerations or abrasions Neuro: General: patient oriented x3 Cranial nerves: Yes CN's II-XII intact bilaterally Course Reevaluation(s) Reevaluation #1: X-ray noted patient has an old avulsion fracture of the ankle questionably worse, x-ray was reviewed with the orthopedic regional engagement consultant Nikos PA weight bearing as tolerated. We will get Public Aid Eligibility Assistant and PT eval Reevaluation #2: I AM OFF SHIFT NOW,SIGNED OUT TO DR BAUTISTA PT EVAL PENDING Time: 16:09 Medical Decision Making Medical Decision Making MDM Narrative: Patient presented after a fall we will check labs a CT Differential Diagnosis Differential Diagnoses: The differential diagnosis associated with the presentation includes Subdural hematoma epidural hematoma cervical spine fracture Admission/Observation Consideration of admission/observation: Escalation of care including admission/observation considered Consult Healthcare Provider Management of the patient was discussed with: Warehouse Logistics Coordinator Esteban Knott Lab Data MDM Lab Attestation statement: I reviewed the patient's lab results. 06/17/24 12:26 06/17/24 11:37 Labs: Lab Results 06/17/24 06/17/24 06/17/24 Range/Units 11:26 11:37 12:21 WBC (4.8-10.8) X10*3/uL RBC (4.20-5.50) X10*6/uL Hgb (12.0-16.0) g/dl Hct (37.0-47.0) % MCV (80.0-98.0) fL MCH (27.0-33.0) pg MCHC (31.0-35.0) g/dl RDW (11.0-16.0) % Plt Count (160-400) X10*3/uL MPV (9.4-12.3) fL Immature Gran % (Auto) (0.0-0.4) % Neut % (Auto) (45-73) % Lymph % (Auto) (20-40) % [place] % (Auto) (2-11) % Eos % (Auto) (0-4) % Baso % (Auto) (0-2) % Lymph # (Auto) (1.2-4.9) X10*3/uL [place] # (Auto) (0.1-1.2) X10*3/uL Eos # (Auto) (0.0-0.4) X10*3/uL Baso # (Auto) (0.0-0.2) X10*3/uL Abs Immat Gran (auto) (0.00-0.03) X10*3/uL Absolute Neuts (auto) (2.0-8.3) x10*3/uL Absolute Nucleated RBC (0.0-0.012) X10*3/uL Nucleated RBC % (auto) (0.0-0.2) /100WBC Sodium 141 (135-145) mmol/L Potassium 5.5 H (3.3-5.1) mmol/L Chloride 108 (96-108) mmol/L Carbon Dioxide 27 (22-29) mmol/L Anion Gap 12 (12-20) BUN 46 H (9-16) mg/dL Creatinine 1.23 (0.5-1.4) mg/dL Estim Creat Clear Calc 28.5 Estimated GFR 43 Random Glucose 88 (60-115) mg/dL Calcium 8.5 D (8.4-10.2) mg/dL Total Bilirubin 0.1 (0.0-1.0) mg/dL AST 21 (5-31) U/L ALT 9 (0-31) U/L Alkaline Phosphatase 92 (39-117) U/L Troponin I High Sens < 2.7 D (<3.5-17.0) ng/L Total Protein 6.4 L (6.5-8.0) g/dL Albumin 3.7 (3.5-5.0) g/dL Urine Color Yellow Urine Appearance Clear Urine pH 5.5 (5.0-9.0) Ur Specific [place] 1.020 (1.005-1.025) Urine Protein Negative (Neg-Trace) mg/dL Urine Glucose (UA) Negative (Negative) mg/dL Urine Ketones Negative (Negative) mg/dL Urine Blood Negative (Negative) Urine Nitrite Negative (Negative) Ur Leukocyte Esterase Small (1+) H (Negative) Urine RBC 11-20 H (0-2) /HPF Urine WBC 11-20 H (0-5) /HPF Ur Squamous Epith Cells 6-10 (0-2) /HPF Urine Bacteria None Seen (None Seen) Hyaline Casts 0-2 (0-2) /LPF COVID-19 ([facility]) Negative (Negative) COVID-19 Clin Com See Note 06/17/24 Range/Units 12:26 WBC 6.2 (4.8-10.8) X10*3/uL RBC 3.11 L (4.20-5.50) X10*6/uL Hgb 10.1 L (12.0-16.0) g/dl Hct 32.1 L (37.0-47.0) % MCV 103.2 H (80.0-98.0) fL MCH 32.5 (27.0-33.0) pg MCHC 31.5 (31.0-35.0) g/dl RDW 13.8 (11.0-16.0) % Plt Count 205 (160-400) X10*3/uL MPV 9.6 (9.4-12.3) fL Immature Gran % (Auto) 0.2 (0.0-0.4) % Neut % (Auto) 61.7 (45-73) % Lymph % (Auto) 24.8 (20-40) % [place] % (Auto) 8.7 (2-11) % Eos % (Auto) 4.0 (0-4) % Baso % (Auto) 0.6 (0-2) % Lymph # (Auto) 1.5 (1.2-4.9) X10*3/uL [place] # (Auto) 0.5 (0.1-1.2) X10*3/uL Eos # (Auto) 0.3 (0.0-0.4) X10*3/uL Baso # (Auto) 0.0 (0.0-0.2) X10*3/uL Abs Immat Gran (auto) 0.01 (0.00-0.03) X10*3/uL Absolute Neuts (auto) 3.8 (2.0-8.3) x10*3/uL Absolute Nucleated RBC 0.000 (0.0-0.012) X10*3/uL Nucleated RBC % (auto) 0.0 (0.0-0.2) /100WBC Sodium (135-145) mmol/L Potassium (3.3-5.1) mmol/L Chloride (96-108) mmol/L Carbon Dioxide (22-29) mmol/L Anion Gap (12-20) BUN (9-16) mg/dL Creatinine (0.5-1.4) mg/dL Estim Creat Clear Calc Estimated GFR Random Glucose (60-115) mg/dL Calcium (8.4-10.2) mg/dL Total Bilirubin (0.0-1.0) mg/dL AST (5-31) U/L ALT (0-31) U/L Alkaline Phosphatase (39-117) U/L Troponin I High Sens (<3.5-17.0) ng/L Total Protein (6.5-8.0) g/dL Albumin (3.5-5.0) g/dL Urine Color Urine Appearance Urine pH (5.0-9.0) Ur Specific [place] (1.005-1.025) Urine Protein (Neg-Trace) mg/dL Urine Glucose (UA) (Negative) mg/dL Urine Ketones (Negative) mg/dL Urine Blood (Negative) Urine Nitrite (Negative) Ur Leukocyte Esterase (Negative) Urine RBC (0-2) /HPF Urine WBC (0-5) /HPF Ur Squamous Epith Cells (0-2) /HPF Urine Bacteria (None Seen) Hyaline Casts (0-2) /LPF COVID-19 ([facility]) (Negative) COVID-19 Clin Com Independent Interpretation I performed an independent interpretation of an: Plain X-Ray Interpretation: X-ray reviewed by me interpreted by me as avulsion fracture Radiology Impression Discussion of test interpretation with radiology: I have reviewed the radiologist's reading. Independent Historian Clinical information obtained from an independent historian. History obtained from or confirmed by: Other External Record Review son Discharge Plan Discharge Clinical Impression: Fall in elderly patient Avulsion fracture of ankle Qualifiers: Encounter type: initial encounter Fracture type: closed Laterality: left Qualified Code(s): S82.892A - Other fracture of left lower leg, initial encounter for closed fracture Patient Disposition: Still a Patient Prescriptions: No Action atorvastatin [Lipitor] 40 mg tablet 40 mg PO DAILY Qty: 90 6RF quetiapine 150 mg tablet extended release 24 hr 150 mg PO BEDTIME trazodone 150 mg tablet 150 mg PO BEDTIME buspirone 10 mg tablet 10 mg PO BID calcium carbonate [Calcium 600] 600 mg calcium (1,500 mg) Tablet 600 mg PO DAILY nystatin 100,000 unit/gram powder 1 appl topical TID PRN (Reason: Rash) metoprolol succinate 50 mg tablet extended release 24 hr 50 mg PO DAILY duloxetine 60 mg capsule,delayed release(DR/EC) 60 mg PO DAILY acetaminophen 325 mg capsule 650 mg PO Q4H PRN (Reason: Pain) gohlfpenokhp-motmplnc-sotose Tablet 1 tab PO DAILY ascorbic acid (vitamin C) 1,000 mg tablet 1 g PO DAILY@1200 gabapentin 300 mg capsule 300 mg PO DAILY@1300 hydroxyzine HCl 10 mg tablet 10 mg PO SUMOWEFR@1000 oxycodone 5 mg capsule 5 mg PO Q6H PRN Print Language: Lebanese
--- NOTE | 2024-06-17 10:54 | ECG_ITS ---
Test Reason : CHEST PAIN Blood Pressure : / mmHG Vent. Rate : 073 BPM Atrial Rate : 073 BPM P-R Int : 158 ms QRS Dur : 084 ms QT Int : 382 ms P-R-T Axes : 034 -02 038 degrees QTc Int : 420 ms Normal sinus rhythm Normal ECG When compared with ECG of 02-APR-2024 08:12, Vent. rate has decreased BY 41 BPM Referred By: Ryan Taylor Electronically Signed By:George Calhoun
[2024-06-17 11:37] LABS: Appearance Urine Clear; Color Urine Yellow; Glucose Urine UA Negative (Negative); Leukocyte Esterase Urine Small (1+) (Negative); Nitrite Urine Negative (Negative); PH 5.5 (5.0-9.0); UMIC TRIGGER UACC YES; Urine Blood Negative (Negative); Urine Ketones Negative (Negative); Urine Protein Negative (Neg-Trace)
[2024-06-17 11:54] LABS: Bacteria Urine None Seen (None Seen); Hyaline Casts Urine 0-2 /LPF (0-2); UACC Culture Trigger YES
[2024-06-17 12:06] LABS: Alanine Aminotransferase 9 U/L (0-31); Albumin Level 3.7 g/dL (3.5-5.0); Alkaline Phosphatase 92 U/L (39-117); Anion Gap 12 (12-20); Aspartate Amino Transferase 21 U/L (5-31); Bilirubin Total 0.1 mg/dL (0.0-1.0); Blood Urea Nitrogen 46 mg/dL (9-16); Calcium 8.5 mg/dL (8.4-10.2); Carbon Dioxide 27 mmol/L (22-29); Chloride 108 mmol/L (96-108); Creatinine Clr Calc Pharmacy 28.5; Estimated Glomerular Filt Rate 43; Glucose Random 88 mg/dL (60-115); Potassium 5.5 mmol/L (3.3-5.1); Sodium 141 mmol/L (135-145); Total Protein 6.4 g/dL (6.5-8.0)
[2024-06-17 12:13] LABS: Troponin-I High Sensitivity < 2.7 ng/L (<3.5-17.0)
[2024-06-17 12:35] LABS: Basophils Percent Auto 0.6 % (0-2); Eosinophils Absolute Auto 0.3 X10*3/uL (0.0-0.4); Hematocrit 32.1 % (37.0-47.0); Hemoglobin 10.1 g/dl (12.0-16.0); Imm Gran Abs Auto 0.01 X10*3/uL (0.00-0.03); Imm Gran Pct Auto 0.2 % (0.0-0.4); Lymphocytes Absolute Auto 1.5 X10*3/uL (1.2-4.9); Lymphocytes Percent Auto 24.8 % (20-40); Mean Corpuscular HGB Conc 31.5 g/dl (31.0-35.0); Mean Corpuscular Hemoglobin 32.5 pg (27.0-33.0); Mean Corpuscular Volume 103.2 fL (80.0-98.0); Mean Platelet Volume 9.6 fL (9.4-12.3); Monocytes Absolute Auto 0.5 X10*3/uL (0.1-1.2); Monocytes Percent Auto 8.7 % (2-11); Neutrophils Absolute Auto 3.8 x10*3/uL (2.0-8.3); Neutrophils Percent Auto 61.7 % (45-73); Platelet Count 205 X10*3/uL (160-400); Red Blood Count 3.11 X10*6/uL (4.20-5.50); Red Cell Distribution Width 13.8 % (11.0-16.0); White Blood Count 6.2 X10*3/uL (4.8-10.8)
[2024-06-17 12:48] LABS: COVID-19 Test Negative (Negative); IDNOW Serial# 08D9AD1C
[2024-06-17 14:02] LABS: MANUAL DIFF FLAG NO
--- NOTE | 2024-06-17 19:12 | PC.NURSE ---
received report from previous nurse, assume care of pt at this time
[2024-06-17 20:00] VITALS: BP 115/58; PULSE 54; RESP 16; TEMP 36.2; O2SAT 93
[2024-06-17] MEDS: traZODone HCL 50 MG TABLET 150 MG PO (20:56)
[2024-06-17] MEDS: busPIRone HCl 5 MG TABLET PO (20:57)
--- NOTE | 2024-06-17 21:33 | PC.NURSE ---
pt up to the bathroom, with standby assist, and walker. Pt refused to have the male tech assist her.
--- NOTE | 2024-06-18 00:44 | PC.NURSE ---
pt up to the br, with the walker, and standby assist. Pt ambs slowly with the walker
[2024-06-18 06:00] VITALS: BP 170/81; PULSE 92; RESP 12; TEMP 36.6; O2SAT 92
--- NOTE | 2024-06-18 07:09 | PC.NURSE ---
report given to Juaquin VILLEGAS
--- NOTE | 2024-06-18 08:11 | MHC.EDTECH ---
Assisted patient with personal hygiene, on/off commode. Changed patients linen and emptied commode, replaced liner.
[2024-06-18] MEDS: Atorvastatin Calcium 40 MG TABLET PO (08:24)
[2024-06-18] MEDS: busPIRone HCl 5 MG TABLET PO (08:25)
[2024-06-18] MEDS: Metoprolol Succinate ER 50 MG TAB.ER.24H PO (08:25)
--- NOTE | 2024-06-18 09:33 | MHC.EDTECH ---
Assisted patient on/off commode and with personal hygeine.
--- NOTE | 2024-06-18 09:35 | PC.NURSE ---
no acute complications or issues this AM during med pass and assessment. pt is forgetful and anxious at times
--- NOTE | 2024-06-18 09:49 | PHA.MEDREC ---
Addendum entered by Nohemi Powers RPh 06/18/24 09:54: Reviewed by [facility] Original Note: Pharmacy Consult ? Medication Reconciliation Pharmacy has completed the medication reconciliation. Spoke to patient to confirm med list. Patient was able to confirm medications , however she was a little confused on when the last time she took her medications. She kept saying I think so isaías time I asked when she took her medications. Utilized claims to confirm med list.
--- NOTE | 2024-06-18 10:59 | MHC.CM.ED ---
Received case management consult from Dr Taylor. Rohan came to the ER after a fall. Physical therapy eval completed. Home with services is recommended. Met with patient in regards to discharge planning. Patient lives alone, has [employer] hours at home and is active with Mike ARTHUR. Patient was at [facility] from 04/10-05/09. PCP verified. Copy of HCP verified to be on file. Patient agreeable to returning home with resumption of services. Patient friend, Riky, will assist in getting patient transported home. Patient, Juaquin VILLEGAS and Marissa COYLE aware. Mike ARTHUR made aware. Continue to monitor for d/c needs.
== END 2024-06-18 12:16 | disposition home or self-care (01) ==
PROVIDERS: Emergency Medicine; Emergency Provider Emergency Medicine; PCP Internal Medicine
DX: S82.52XA Displaced fracture of medial malleolus of left tibia, initial encounter for closed fracture (principal); S09.90XA Unspecified injury of head, initial encounter; W19.XXXA Unspecified fall, initial encounter; Y93.9 Activity, unspecified; Y92.9 Unspecified place or not applicable; Y99.9 Unspecified external cause status; M54.50 Low back pain, unspecified; R07.9 Chest pain, unspecified; M54.2 Cervicalgia; G31.84 Mild cognitive impairment of uncertain or unknown etiology; D64.9 Anemia, unspecified; F32.A Depression, unspecified; I10 Essential (primary) hypertension; M16.0 Bilateral primary osteoarthritis of hip; Z79.899 Other long term (current) drug therapy; Z11.52 Encounter for screening for COVID-19
CPT/HCPCS: 36415; 70450; 72125; 73610; 80053; 81001; 84484; 85025; 87086; 87635; 93005; 97161; 99285

== ENCOUNTER → 2024-06-17 10:54 | Outpatient (BNV) | payer MEDICARE, MEDICAID, SELFPAY | PROVIDERS: Emergency Provider Emergency Medicine; PCP Internal Medicine; Visit Provider Internal Medicine Cardiovascular Disease | DX: R07.9 Chest pain, unspecified (principal) | CPT/HCPCS: 93010 ==

== ENCOUNTER 2024-07-14 10:53 | Outpatient (AMB) | payer MEDICARE, MEDICAID, SELFPAY ==
--- NOTE | 2024-07-14 10:59 | MHC.OFFVIS ---
Intake Visit Reasons: OV- left ankle avulsion fx follow up Intake Note: Joanna a 73 year old female who presents today in a stretcher for a new patient evaluation of left medial tibia fx, DOI 03/15/24. Patient reports she is still feeling a bit sore. She mentions that she notices some improvements when she is working with PT. Allergies amoxicillin Allergy (Unknown, Verified 07/14/24 11:02) tachycardia doxycycline Allergy (Unknown, Verified 07/14/24 11:02) stomach upset iron Allergy (Unknown, Verified 07/14/24 11:02) unknown nitroglycerin Allergy (Unknown, Verified 07/14/24 11:02) Unknown From Ferrlecit Allergy (Mild, Uncoded 05/22/24 14:00) RED,ITCH,BURNING,SWELLING OF FEET iv dye Allergy (Unknown, Uncoded 05/22/24 14:00) Unknown HPI HPI OV- left ankle avulsion fx follow up: Details: 73-year-old female who returns to the office today for a follow-up of left ankle fracture, 03/15/24. She states she has some improvement in pain however she continues to have soreness in her ankle. She also experiences pain with ambulation. She has been working on physical therapy at home with mild relief. She has no other concerns today. [facility] Medical History Anemia Cognitive impairment Depression Otitis media Rib pain on left side Right knee pain Callus of foot Pneumonia Osteoarthritis of left hip Osteoarthritis of right hip Hypertension Surgical History No history of previous surgery Family History Mother No problems noted. Father No problems noted. Social History Household Members: Unknown / Unable to assess Housing: Apartment Unable to assess alcohol history related to: Unknown Alcohol intake: former Patient Tobacco Use Status: Never used Tobacco Tobacco use type: Cigarette e-Cigarette/Vaping Use: Never Used Second Hand Smoke Exposure: No Advance Directives Date on File: 03/21/24 service: No Current occupational status: retired and disabled Cognitive needs: No Hearing needs: No Vision needs: No Review of Systems Const All systems reviewed & are unremarkable except as noted in HPI and below Physical Exam Const General: cooperative, healthy appearing, comfortable, no acute distress, well developed and alert Orientation/consciousness: patient oriented x3 HEENT Head: Yes normal to inspection, Yes normocephalic and Yes atraumatic Eyes General: appearance normal, both eyes and all related structures Resp Effort & Inspection: normal respiratory effort and able to speak in complete sentences Cardio Rate: regular rate Peripheral pulses: Peripheral pulses 2+ throughout GI Palpation (GI): Soft to palpation Skin Lesions: no lesions Rashes: no rashes Neuro General: patient oriented x3 Extrem Other: Left ankle: Normal to inspection. She has mild tenderness at the lateral side of the ankle along the soft tissues and medial malleolus. No tenderness over the syndesmosis. NVI. Assessment & Plan Assessment & Plan (1) Avulsion fracture of medial malleolus of left tibia: Code(s): S82.52XA - Displaced fracture of medial malleolus of left tibia, initial encounter for closed fracture Category: Medical Qualifiers: Encounter type: subsequent encounter Fracture healing: with routine healing Fracture type: closed Qualified Code(s): S82.52XD - Displaced fracture of medial malleolus of left tibia, subsequent encounter for closed fracture with routine healing Plan She was fit for a lace up ankle brace in the office today. A prescription of Celebrex was given to take twice a day for 2 weeks. I encouraged her to working with physical therapy for balance and gait training. She does not drive and is considered home bound and had previous home therapy session which she would like to continue so an order was placed in the office today. She will contact us moving forward. Medications: New celecoxib (Celebrex) 200 mg PO BID 60 caps 3RF 30 days Patient Instructions: Scribed for Nikos Bowen PA-C, by Nahid Morrell medical records tech, on 07/14/2024 at 11:00 AM EST.? I, Nikos Bowen PA-C, have personally reviewed and agree with the information entered by the scribe. Coding Level of Care Code Global (32395) Diagnoses Avulsion fracture of medial malleolus of left tibia S82.52XD Encounter type: subsequent encounter Fracture healing: with routine healing Fracture type: closed
--- OUTSIDE RECORDS SUMMARY | 2024-07-16 14:50 | XMS_ITS | Clinical Summary ---
Author Organization [facility] Address [address] [place] [address] Phone Care Team Providers Care Application Architect Manager Name Role Phone Jeferson Ordoñez MD Primary Care Provider [phone] [facility] Unavailable [phone] Reason for Visit and Chief Complaint Established Patient Plan of Treatment 1. Physical therapy for active assisted range of motion right shoulder. 2. Activities of daily living. 3. General strengthening. 4. Return to office for final visit in 6 weeks - Last Documented On 03/06/2023 3:41PM ; [facility] Pending Tests Order Diagnosis Results Due Ordering Jeannine arnett Follow Up - Appointment 6 weeks Nondisp fx of sternal end r clavicle, 7thD 03/06/23 Osmar Wiseman MD Last Documented On 3 3:41PM ; [facility] Assessments Includes: Assessments from this encounter No Assessments Recorded Medical Equipment - Implanted Devices Includes: Current Devices No Medical Equipment Recorded Medications Administered Includes: Administered Medications from this encounter No Administered Medications Recorded Vital Signs Includes: Vital Signs from this encounter Vital Name 03/06/2023 10:06A Blood Pressure Sitting (mmHg) 125/88 Pulse Rate-Sitting (bpm) 99 Temp-Temporal 97.8 Height (in) 55 Weight (lb) 141 Body Mass Index 32.8 Body Surface Area 1.5 Oxygen Saturation (%) 97 Last Documented: On 03/06/2023 10:07A M ; [facility] Results Includes: Results discussed during this encounter No Results Recorded For Specified Dates History of Present Illness Includes: History of Present Illness from this encounter HPI The patient is a 72-year-old female. She fell and injured her right shoulder area on 01/12/2023. A CT scan revealed a fracture involving the medial aspect of her right clavicle. She is here today for follow-up. Social History No Social History Recorded - Smoking Status Unknown Medical History Includes: Medical History addressed during this encounter No Medical History Recorded Family History Includes: Family History addressed during this encounter No Family History Recorded Review of Systems Includes: Review of Systems from this encounter 1. Fracture medial aspect of right clavicle. 2. Possible greater tuberosity fracture right humerus Mental Status Includes: Mental Status from this encounter No Mental Status Recorded Functional Status Includes: Functional Status from this encounter No Functional Status Recorded Physical Exam Includes: Physical Exam from this encounter Encounters Encounter Provider Location Date Check-In Time Check-Out Time Diagnosis Established Patient Osmar Wiseman MD [facility] 03/06/20 23 9:40AM 10:41AM Insurance Includes: Active Insurance Policies Plan Name Member ID Group # Subscriber Relationship Effect shruti Dates 1 - Medicare Part B [facility] [id number] [employer] 2 - [facility] [id number] JoannaArav Clinical Notes Includes: Clinical Notes from this encounter * Progress note Date Encounter Last Documented by 03/06/2023 Established Patient Javid goff on 03/06/2023; 3:41 PM, Osmar Wiseman MD; [facility] Chief Complaint Fractured medial aspect of right clavicle. History of Present Illness The patient is a 72-year-old female. She fell and injured her right shoulder area on 01/12/2023. A CT scan revealed a fracture involving the medial aspect of her right clavicle. She is here today for follow-up. Physical Findings - Vitals taken 03/06/2023 10:06 am BP-Sitting 125/88 mmHg Pulse Rate-Sitting 99 bpm Temp-Temporal 97.8 F Height 55 in Weight 141 lbs Body Mass Index 32.8 kg/m2 Body Surface Area 1.5 m2 Oxygen Saturation 97 % Some tenderness over medial aspect right clavicle. Neurovascular status right upper extremity intact. Right hand warm and pink. OB Ultrasound X-rays were taken of her right shoulder in the office today. X-ray shows a possible nondisplaced fracture involving the greater tuberosity of her right humerus. A fracture involving the medial aspect of right clavicle is also seen. User Defined 4 1. Fracture medial aspect of right clavicle. 2. Possible greater tuberosity fracture right humerus Plan StartCited - Nondisp fx of sternal end r clavicle, 7thD Follow Up/Appointment: 6 weeks EndCited 1. Physical therapy for active assisted range of motion right shoulder. 2. Activities of daily living. 3. General strengthening. 4. Return to office for final visit in 6 weeks
--- OUTSIDE RECORDS SUMMARY | 2024-07-16 14:50 | XMS_ITS ---
Author Organization [facility] Address [address] [place] [address] Phone Care Team Providers Care Client Strategist Name Role Phone Jeferson Ordoñez MD Primary Care Provider [phone] [facility] Unavailable [phone] Plan of Treatment No Plan of Treatment Recorded Assessments Includes: Assessments for all patient encounters No Assessments Recorded Medical Equipment - Implanted Devices Includes: Current and historical Devices No Medical Equipment Recorded Medications Administered Includes: Administered Medications in patient's chart No Administered Medications Recorded Results Includes: Results from 07/16/2023 through 07/16/2024 No Results Recorded For Specified Dates History of Present Illness History of Present Illness not supported for this document type No History of Present Illness Recorded Social History No Social History Recorded - Smoking Status Unknown Medical History Includes: Medical History in patient's chart No Medical History Recorded Family History Includes: Family History in patient's chart No Family History Recorded Review of Systems Review of Systems not supported for this document type No Review of Systems Recorded Mental Status No Mental Status Recorded Functional Status No Functional Status Recorded Physical Exam Physical Exam not supported for this document type No Physical Exam Recorded Insurance Includes: Active Insurance Policies Plan Name Member ID Group # Subscriber Relationship Effect shruti Dates 1 - Medicare Part B [place] [id number] Joanna Robert Nicho 2 - [facility] [id number] Joanna Robert Nicho Clinical Notes Includes: Signed Clinical Notes starting from 07/16/2022 No Clinical Notes Recorded
--- OUTSIDE RECORDS SUMMARY | 2024-07-16 14:50 | XMS_ITS | Clinical Summary ---
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, 7THD Active 2023-08 0-04 00:00: 00 ESSENTIAL (PRIMARY) HYPERTENSION Active 2023-08 0-04 00:00: 00 PERSONALITY DISORDER, UNSPECIFIED Active 2023-08 0-04 00:00: 00 MAJOR DEPRESSIVE DISORDER, SINGLE EPISODE, UNSPECIFIED Active 2023-08 0-04 00:00: 00 CHRONIC PAIN SYNDROME Active 2023-08 0-04 00:00: 00 SPINAL STENOSIS, SITE UNSPECIFIED Active 2023-08 0-04 00:00: 00 DYSPHAGIA, OROPHARYNGEA L PHASE Active 2023-08 0-04 00:00: 00 ADULT FAILURE TO THRIVE Active 2023-08 0-04 00:00: 00 UNSPECIFIED SEVERE PROTEIN-ANA JACOBY MALNUTRITION Active 2023-08 0-04 00:00: 00 UNSPECIFIED ASTHMA, UNCOMPLICATE D Active 2023-08 0-04 00:00: 00 ANXIETY DISORDER, UNSPECIFIED Active 2023-08 0-04 00:00: 00 ACUTE RESPIRATORY FAILURE, UNSP W HYPOXIA OR HYPERCAPNIA Active 2023-08 0-04 00:00: 00 INSOMNIA, UNSPECIFIED Active 2023-08 0-04 00:00: 00 PERSONAL HISTORY OF COVID-19 Active 2023-08 0-04 00:00: 00 Allergies, Adverse Reactions, Alerts Allergy Name Allergy Type Status Severity Reaction(s) Onset Date Inactive Date Treating Clinician Comments IODINATED CONTRAST ORAL AND IV Propensity to adverse reactions Active 2023-08 005 15:00: 20 Medications Ordered Medication Name Filled Medication Name Start Date Stop Date Current Medication? Ordering Clinician Indication Dosage Frequency Signature (SIG) Comments Components oxycodone 5 mg tablet 08-23 00:00: 00 09-08 00:00 :00 No [id number] Per instruc tions Per instructio ns (route: oral) Med Classific ation: Analgesic , Anti-infl ammatory or Antipyret ic metoprolol succinate ER 50 mg tablet,exte nded release 24 hr 08-12 00:00: 00 09-08 00:00 :00 No [id number] Per instruc tions Per instructio ns (route: oral) Med Classific ation: Cardiovas cular Therapy Agents lorazepam 0.5 mg tablet 08-23 00:00: 00 09-08 00:00 :00 No [id number] Per instruc tions Per instructio ns (route: oral) Med Classific ation: Central Nervous System Agents divalproex 125 mg tablet,trudi yed release 08-20 00:00: 00 09-08 00:00 :00 No [id number] Per instruc tions Per instructio ns (route: oral) Med Classific ation: Central Nervous System Agents gabapentin 100 mg capsule 08-13 00:00: 00 09-08 00:00 :00 No [id number] Per instruc tions Per instructio ns (route: oral) Med Classific ation: Central Nervous System Agents quetiapine 50 mg tablet 08-12 00:00: 00 09-08 00:00 :00 No [id number] Per instruc tions Per instructio ns (route: oral) Med Classific ation: Central Nervous System Agents furosemide 20 mg tablet 09-02 00:00: 00 09-08 00:00 :00 No [id number] Per instruc tions Per instructio ns (route: oral) Med Classific ation: Cardiovas cular Therapy Agents trazodone 100 mg tablet 2021-0 1-15 00:00: 00 09-08 00:00 :00 No [id number] Per instruc tions Per instructio ns (route: oral) Med Classific ation: Central Nervous System Agents mirtazapine 30 mg tablet 2019-08 00:00: 00 09-08 00:00 :00 No [id number] Per instruc tions Per instructio ns (route: oral) Med Classific ation: Central Nervous System Agents duloxetine 60 mg capsule,del ayed release -17 00:00: 00 09-08 00:00 :00 No [id number] Per instruc tions Per instructio ns (route: oral) Med Classific ation: Central Nervous System Agents OxyContin 10 mg tablet,jermain h resistant,e xtended release 08-20 00:00: 00 09-08 00:00 :00 No [id number] Per instruc tions Per instructio ns (route: oral) Med Classific ation: Analgesic , Anti-infl ammatory or Antipyret ic duloxetine 60 mg capsule,del ayed release 2- 00:00: 00 09-23 23:59 :00 No [id number] 1 capsule DAILY 1 capsule DAILY (route: oral) Med Classific ation: Central Nervous System Agents gabapentin 300 mg capsule 2-03 00:00: 00 09-23 23:59 :00 No [id number] 3 capsule 3 TIMES DAILY 3 capsule 3 TIMES DAILY (route: oral) Med Classific ation: Central Nervous System Agents lorazepam 0.5 mg tablet 2-03 00:00: 00 01-12 23:59 :00 No [id number] 1 tablet 2 TIMES DAILY 1 tablet 2 TIMES DAILY (route: oral) Med Classific ation: Central Nervous System Agents metoprolol succinate ER 50 mg tablet,exte nded release 24 hr 2-03 00:00: 00 09-23 23:59 :00 No [id number] 1 tablet DAILY 1 tablet DAILY (route: oral) Med Classific ation: Cardiovas cular Therapy Agents mirtazapine 30 mg tablet 2-03 00:00: 00 09-23 23:59 :00 No [id number] 1 tablet DAILY 1 tablet DAILY (route: oral) Med Classific ation: Central Nervous System Agents oxycodone 5 mg tablet 2-03 00:00: 00 09-23 23:59 :00 No [id number] 1 tablet 3 TIMES DAILY 1 tablet 3 TIMES DAILY (route: oral) Med Classific ation: Analgesic , Anti-infl ammatory or Antipyret ic OxyContin 10 mg tablet,jermain h resistant,e xtended release 2- 00:00: 00 01-12 23:59 :00 No [id number] 1 tablet DAILY 1 tablet DAILY (route: oral) Med Classific ation: Analgesic , Anti-infl ammatory or Antipyret ic Risperdal 0.25 mg tablet 2 00:00: 00 01-12 23:59 :00 No [id number] 1 tablet DAILY 1 tablet DAILY (route: oral) Med Classific ation: Central Nervous System Agents Seroquel 50 mg tablet 2- 00:00: 00 09-23 23:59 :00 No [id number] 1 tablet BEDTIME 1 tablet BEDTIME (route: oral) Med Classific ation: Central Nervous System Agents sodium chloride 1 gram tablet 2- 00:00: 00 09-23 23:59 :00 No [id number] 1 tablet 2 TIMES DAILY 1 tablet 2 TIMES DAILY (route: oral) Med Classific ation: Electroly te Balance-N utritiona l Products trazodone 100 mg tablet 2- 00:00: 00 01-12 23:59 :00 No [id number] 1 tablet BEDTIME 1 tablet BEDTIME (route: oral) Med Classific ation: Central Nervous System Agents Ativan 0.5 mg tablet 2-03 00:00: 00 01-12 23:59 :00 No [id number] 1 tablet 2 TIMES DAILY 1 tablet 2 TIMES DAILY (route: oral) Med Classific ation: Central Nervous System Agents calcium carbonate 500 mg calcium (1,250 mg) capsule 2-03 00:00: 00 09-22 23:59 :00 No [id number] 1 capsule 2 TIMES DAILY 1 capsule 2 TIMES DAILY (route: oral) Med Classific ation: Electroly te Balance-N utritiona l Products divalproex 125 mg tablet,trudi yed release 2- 00:00: 00 01-12 23:59 :00 No [id number] 1 tablet 3 TIMES DAILY 1 tablet 3 TIMES DAILY (route: oral) Med Classific ation: Central Nervous System Agents Fiber-Tabs 625 mg tablet 2- 00:00: 00 01-12 23:59 :00 No [id number] 1 tablet DAILY 1 tablet DAILY (route: oral) Med Classific ation: Gastroint estinal Therapy Agents Lasix 20 mg tablet 2- 00:00: 00 09-23 23:59 :00 No [id number] 1 tablet DAILY 1 tablet DAILY (route: oral) Med Classific ation: Cardiovas cular Therapy Agents Miralax 17 gram/dose oral powder 09-08 00:00: 00 01-12 23:59 :00 No [id number] Per instruc tions DAILY Per instructio ns DAILY (route: oral) Med Classific ation: Gastroint estinal Therapy Agents amoxicillin 500 mg-potassiu m clavulanate 125 mg tablet 09-22 00:00: 00 09-27 23:59 :00 No [id number] 1 tablet 2 TIMES DAILY 1 tablet 2 TIMES DAILY (route: oral) Med Classific ation: Anti-Infe ctive Agents gabapentin 100 mg capsule 09-23 00:00: 00 01-12 23:59 :00 No [id number] 1 capsule BEDTIME 1 capsule BEDTIME (route: oral) Med Classific ation: Central Nervous System Agents metoprolol succinate ER 50 mg capsule sprinkle, ext. release 24 hr 09-22 00:00: 00 01-12 23:59 :00 No [id number] 25 mg EVERY PM 25 mg EVERY PM (route: oral) Med Classific ation: Cardiovas cular Therapy Agents oxycodone 5 mg tablet 18 00:00: 00 01-12 23:59 :00 No [id number] 1 tablet 2 TIMES DAILY 1 tablet 2 TIMES DAILY (route: oral) Med Classific ation: Analgesic , Anti-infl ammatory or Antipyret ic quetiapine 50 mg tablet 09-22 00:00: 00 01-12 23:59 :00 No [id number] 25 mg BEDTIME 25 mg BEDTIME (route: oral) Med Classific ation: Central Nervous System Agents Senna Lax 8.6 mg tablet 09-22 00:00: 00 01-12 23:59 :00 No [id number] 2 tablet EVERY PM 2 tablet EVERY PM (route: oral) Med Classific ation: Gastroint estinal Therapy Agents metoprolol succinate ER 50 mg tablet,exte nded release 24 hr 01-05 00:00: 00 02-23 00:00 :00 No [id number] 1 tablet DAILY 1 tablet DAILY (route: oral) Med Classific ation: Cardiovas cular Therapy Agents divalproex 125 mg tablet,trudi yed release 01-01 00:00: 00 05-04 23:59 :00 No [id number] 1 tablet 2 TIMES DAILY 1 tablet 2 TIMES DAILY (route: oral) Med Classific ation: Central Nervous System Agents buspirone 5 mg tablet 12-15 00:00: 00 05-04 23:59 :00 No [id number] 1 tablet 2 TIMES DAILY 1 tablet 2 TIMES DAILY (route: oral) Med Classific ation: Central Nervous System Agents Calcium Citrate Plus 250 mg-40 mg-125 unit-3.75 mg tablet 01-16 00:00: 00 02-23 00:00 :00 No [id number] 1 tablet DAILY 1 tablet DAILY (route: oral) Med Classific ation: Electroly te Balance-N utritiona l Products duloxetine 60 mg capsule,del ayed release 01-16 00:00: 00 05-04 23:59 :00 No [id number] 1 capsule DAILY 1 capsule DAILY (route: oral) Med Classific ation: Central Nervous System Agents oxycodone 5 mg tablet 01-16 00:00: 00 02-23 00:00 :00 No [id number] 1 tablet EVERY 4 HOURS 1 tablet EVERY 4 HOURS (route: oral) Med Classific ation: Analgesic , Anti-infl ammatory or Antipyret ic Seroquel XR 150 mg tablet,exte nded release 01-16 00:00: 00 05-04 23:59 :00 No [id number] 1 tablet BEDTIME 1 tablet BEDTIME (route: oral) Med Classific ation: Central Nervous System Agents trazodone 100 mg tablet 01-16 00:00: 00 05-04 23:59 :00 No [id number] 1 tablet BEDTIME 1 tablet BEDTIME (route: oral) Med Classific ation: Central Nervous System Agents nitrofurant oin macrocrysta l 100 mg capsule 01-17 00:00: 00 02-23 00:00 :00 No [id number] 1 capsule EVERY 12 HOURS 1 capsule EVERY 12 HOURS (route: oral) Med Classific ation: Genitouri nary Therapy acetaminoph en 325 mg tablet 02-23 00:00: 00 05-04 23:59 :00 No [id number] 2 tablet EVERY 6 HOURS 2 tablet EVERY 6 HOURS (route: oral) Med Classific ation: Analgesic , Anti-infl ammatory or Antipyret ic aspirin 81 mg tablet,trudi yed release 02-23 00:00: 00 05-04 23:59 :00 No [id number] 1 tablet DAILY 1 tablet DAILY (route: oral) Med Classific ation: Hematolog ical Agents atorvastati n 40 mg tablet 02-23 00:00: 00 05-04 23:59 :00 No [id number] 1 tablet DAILY 1 tablet DAILY (route: oral) Med Classific ation: Cardiovas cular Therapy Agents gabapentin 300 mg capsule 02-23 00:00: 00 05-04 23:59 :00 No [id number] 1 capsule BEDTIME 1 capsule BEDTIME (route: oral) Med Classific ation: Central Nervous System Agents lorazepam 0.5 mg tablet 02-23 00:00: 00 03-05 23:59 :00 No [id number] 1 tablet EVERY 8 HOURS 1 tablet EVERY 8 HOURS (route: oral) Med Classific ation: Central Nervous System Agents Miralax 17 gram oral powder packet 02-23 00:00: 00 05-04 23:59 :00 No [id number] 1 powder in packet DAILY 1 powder in packet DAILY (route: oral) Med Classific ation: Gastroint estinal Therapy Agents propranolol 40 mg tablet 02-23 00:00: 00 05-04 23:59 :00 No [id number] 1 tablet 2 TIMES DAILY 1 tablet 2 TIMES DAILY (route: oral) Med Classific ation: Cardiovas cular Therapy Agents quetiapine 150 mg tablet 02-23 00:00: 00 05-04 23:59 :00 No [id number] 1 tablet BEDTIME 1 tablet BEDTIME (route: oral) Med Classific ation: Central Nervous System Agents ascorbic acid (vitamin C) 500 mg tablet 2023-08 00:00: 00 Yes [id number] 1 tablet DAILY 1 tablet DAILY (route: oral) Med Classific ation: Electroly te Balance-N utritiona l Products atorvastati n 40 mg tablet 2023-08 00:00: 00 Yes [id number] 1 tablet BEDTIME 1 tablet BEDTIME (route: oral) Med Classific ation: Cardiovas cular Therapy Agents buspirone 10 mg tablet 2023-08 0 00:00: 00 Yes [id number] 1 tablet 2 TIMES DAILY 1 tablet 2 TIMES DAILY (route: oral) Med Classific ation: Central Nervous System Agents Calcium-600 600 mg (as calcium carbonate 1,500 mg) tablet 2023-08 00:00: 00 Yes [id number] 1 tablet DAILY 1 tablet DAILY (route: oral) Med Classific ation: Electroly te Balance-N utritiona l Products Cymbalta 60 mg capsule,del ayed release 2023-08 0 00:00: 00 Yes [id number] 1 capsule DAILY 1 capsule DAILY (route: oral) Med Classific ation: Central Nervous System Agents gabapentin 300 mg capsule 2023-08 0 00:00: 00 Yes [id number] 1 capsule DAILY 1 capsule DAILY (route: oral) Med Classific ation: Central Nervous System Agents metoprolol succinate ER 50 mg tablet,exte nded release 24 hr 2023-08 0 00:00: 00 Yes [id number] 1 tablet DAILY 1 tablet DAILY (route: oral) Med Classific ation: Cardiovas cular Therapy Agents Miralax 17 gram oral powder packet 2023-08 0 00:00: 00 Yes [id number] 1 packet DAILY 1 packet DAILY (route: oral) Med Classific ation: Gastroint estinal Therapy Agents multivitami n tablet 2023-08 0 00:00: 00 Yes [id number] 1 tablet DAILY 1 tablet DAILY (route: oral) Med Classific ation: Electroly te Balance-N utritiona l Products Senna Lax 8.6 mg tablet 2023-08 0 00:00: 00 Yes [id number] 2 tablet DAILY 2 tablet DAILY (route: oral) Med Classific ation: Gastroint estinal Therapy Agents Seroquel 50 mg tablet 2023-08 0 00:00: 00 Yes [id number] 1 tablet 3 TIMES DAILY 1 tablet 3 TIMES DAILY (route: oral) Med Classific ation: Central Nervous System Agents trazodone 150 mg tablet 2023-08 0 00:00: 00 Yes [id number] 1 tablet BEDTIME 1 tablet BEDTIME (route: oral) Med Classific ation: Central Nervous System Agents Immunizations Ordered Immunization Name Filled Immunization Name Date Status Comments Refusal Reason INFLUENZA, TIV (INACTIVATED) 2023-05-08 00:00:00 Vital Signs Vital Name Observation Time Observation Value Commen ts Temperature 2024-07-07 11:01:00.000 97.5 [degF] Temperature 2024-07-01 09:54:00.000 98 [degF] Temperature 2024-06-30 10:17:00.000 96.7 [degF] Temperature 2024-06-25 11:00:00.000 97.3 [degF] Temperature 2024-06-24 12:23:00.000 97.2 [degF] Temperature 2024-06-20 11:30:00.000 97.6 [degF] Temperature 2024-06-19 18:16:00.000 97 [degF] Temperature 2024-06-13 11:57:00.000 96.6 [degF] Temperature 2024-06-11 12:20:00.000 97.5 [degF] Temperature 2024-06-04 13:21:00.000 96.6 [degF] Temperature 2024-06-03 14:43:00.000 98 [degF] Temperature 2024-05-30 11:09:00.000 97.6 [degF] Temperature 2024-05-29 11:46:00.000 98.2 [degF] Temperature 2024-05-22 13:07:00.000 97.1 [degF] Temperature 2024-05-22 11:02:00.000 96.6 [degF] Temperature 2024-05-15 12:06:00.000 97.1 [degF] Temperature 2024-05-14 10:20:00.000 96.8 [degF] Temperature 2024-05-09 20:16:00.000 97 [degF] BMI (%) 2024-05-09 20:16:00.000 24 kg/m2 Height 2024-05-09 20:16:00.000 63 [in_us] Pulse 2024-07-07 11:01:00.000 80 /min Pulse 2024-07-01 09:54:00.000 80 /min Pulse 2024-06-30 10:17:00.000 64 /min Pulse 2024-06-25 11:00:00.000 84 /min Pulse 2024-06-24 12:23:00.000 72 /min Pulse 2024-06-20 11:30:00.000 74 /min Pulse 2024-06-19 18:16:00.000 70 /min Pulse 2024-06-13 11:54:00.000 74 /min Pulse 2024-06-11 12:20:00.000 86 /min Pulse 2024-06-04 13:21:00.000 82 /min Pulse 2024-06-03 14:43:00.000 74 /min Pulse 2024-05-30 11:09:00.000 76 /min Pulse 2024-05-29 11:46:00.000 76 /min Pulse 2024-05-22 13:07:00.000 90 /min Pulse 2024-05-22 11:02:00.000 74 /min Pulse 2024-05-15 12:06:00.000 80 /min Pulse 2024-05-14 10:20:00.000 74 /min Pulse 2024-05-09 20:16:00.000 78 /min O2 Saturation (%) 2024-07-07 11:01:00.000 95 % O2 Saturation (%) 2024-07-01 09:54:00.000 96 % O2 Saturation (%) 2024-06-30 10:17:00.000 97 % O2 Saturation (%) 2024-06-25 11:00:00.000 98 % O2 Saturation (%) 2024-06-24 12:23:00.000 96 % O2 Saturation (%) 2024-06-20 11:30:00.000 97 % O2 Saturation (%) 2024-06-19 18:16:00.000 97 % O2 Saturation (%) 2024-06-13 11:54:00.000 95 % O2 Saturation (%) 2024-06-11 12:20:00.000 95 % O2 Saturation (%) 2024-06-04 13:21:00.000 94 % O2 Saturation (%) 2024-06-03 14:43:00.000 95 % O2 Saturation (%) 2024-05-30 11:09:00.000 94 % O2 Saturation (%) 2024-05-29 11:46:00.000 93 % O2 Saturation (%) 2024-05-22 13:07:00.000 96 % O2 Saturation (%) 2024-05-22 11:02:00.000 96 % O2 Saturation (%) 2024-05-15 12:06:00.000 98 % O2 Saturation (%) 2024-05-14 10:20:00.000 95 % O2 Saturation (%) 2024-05-09 20:16:00.000 97 % Respirations 2024-07-07 11:01:00.000 18 /min Respirations 2024-07-01 09:54:00.000 18 /min Respirations 2024-06-30 10:17:00.000 16 /min Respirations 2024-06-25 11:00:00.000 16 /min Respirations 2024-06-20 11:30:00.000 16 /min Respirations 2024-06-19 18:16:00.000 18 /min Respirations 2024-06-13 11:54:00.000 18 /min Respirations 2024-06-11 12:20:00.000 18 /min Respirations 2024-06-04 13:21:00.000 15 /min Respirations 2024-06-03 14:43:00.000 15 /min Respirations 2024-05-30 11:09:00.000 16 /min Respirations 2024-05-29 11:46:00.000 18 /min Respirations 2024-05-22 11:02:00.000 16 /min Respirations 2024-05-15 12:06:00.000 16 /min Respirations 2024-05-14 10:20:00.000 18 /min Respirations 2024-05-09 20:16:00.000 18 /min Weight (lbs) 2024-05-09 20:16:00.000 139 [lb_av] Systolic Blood Pressure 2024-07-07 11:01:00.000 102 mm [Hg] Systolic Blood Pressure 2024-07-01 09:54:00.000 126 mm [Hg] Systolic Blood Pressure 2024-06-30 10:17:00.000 112 mm [Hg] Systolic Blood Pressure 2024-06-25 11:00:00.000 120 mm [Hg] Systolic Blood Pressure 2024-06-24 12:23:00.000 114 mm [Hg] Systolic Blood Pressure 2024-06-20 11:30:00.000 124 mm [Hg] Systolic Blood Pressure 2024-06-19 18:16:00.000 134 mm [Hg] Systolic Blood Pressure 2024-06-13 11:54:00.000 114 mm [Hg] Systolic Blood Pressure 2024-06-11 12:20:00.000 118 mm [Hg] Systolic Blood Pressure 2024-06-04 13:21:00.000 118 mm [Hg] Systolic Blood Pressure 2024-06-03 14:43:00.000 142 mm [Hg] Systolic Blood Pressure 2024-05-30 11:09:00.000 122 mm [Hg] Systolic Blood Pressure 2024-05-29 11:46:00.000 142 mm [Hg] Systolic Blood Pressure 2024-05-22 13:07:00.000 120 mm [Hg] Systolic Blood Pressure 2024-05-22 11:02:00.000 112 mm [Hg] Systolic Blood Pressure 2024-05-15 12:06:00.000 122 mm [Hg] Systolic Blood Pressure 2024-05-14 10:20:00.000 116 mm [Hg] Systolic Blood Pressure 2024-05-09 20:16:00.000 134 mm [Hg] Diastolic Blood Pressure 2024-07-07 11:01:00.000 72 mm [Hg] Diastolic Blood Pressure 2024-07-01 09:54:00.000 68 mm [Hg] Diastolic Blood Pressure 2024-06-30 10:17:00.000 70 mm [Hg] Diastolic Blood Pressure 2024-06-25 11:00:00.000 74 mm [Hg] Diastolic Blood Pressure 2024-06-24 12:23:00.000 70 mm [Hg] Diastolic Blood Pressure 2024-06-20 11:30:00.000 74 mm [Hg] Diastolic Blood Pressure 2024-06-19 18:16:00.000 74 mm [Hg] Diastolic Blood Pressure 2024-06-13 11:54:00.000 66 mm [Hg] Diastolic Blood Pressure 2024-06-11 12:20:00.000 64 mm [Hg] Diastolic Blood Pressure 2024-06-04 13:21:00.000 80 mm [Hg] Diastolic Blood Pressure 2024-06-03 14:43:00.000 82 mm [Hg] Diastolic Blood Pressure 2024-05-30 11:09:00.000 70 mm [Hg] Diastolic Blood Pressure 2024-05-29 11:46:00.000 76 mm [Hg] Diastolic Blood Pressure 2024-05-22 13:07:00.000 68 mm [Hg] Diastolic Blood Pressure 2024-05-22 11:02:00.000 70 mm [Hg] Diastolic Blood Pressure 2024-05-15 12:06:00.000 70 mm [Hg] Diastolic Blood Pressure 2024-05-14 10:20:00.000 72 mm [Hg] Diastolic Blood Pressure 2024-05-09 20:16:00.000 60 mm [Hg] Plan of Treatment Planned Activity Planned Date Details Comments Future Scheduled Test SKILLED NU RSE TO EVALUATE PATIENT, IDENTIFY PRIMARY AND CO-MORBID CONDITIONS CODED PER CODING GUIDELINES, AND DEVELOP PATIENT SPECIFIC PLAN OF CARE THAT INCLUDES PATIENT GOAL FOR HOME HEALTH. [code = SKILLED NURSE TO EVALUATE PATIENT, IDENTIFY PRIMARY AND CO-MORBID CONDITIONS CODED PER CODING GUIDELINES, AND DEVELOP PATIENT SPECIFIC PLAN OF CARE THAT INCLUDES PATIENT GOAL FOR HOME HEALTH.] Future Scheduled Test SKILLED NU RSE TO REVIEW PATIENT MEDICATIONS. INSTRUCT PATIENT/CAREGIVER ON MONITORING OF EFFECTIVENESS, ADVERSE DRUG REACTIONS, SIDE EFFECTS OF ALL MEDICATIONS (PRESCRIPTION/-OTC), AND HOW AND WHEN TO REPORT PROBLEMS. [code = SKILLED NURSE TO REVIEW PATIENT MEDICATIONS. INSTRUCT PATIENT/CAREGIVER ON MONITORING OF EFFECTIVENESS, ADVERSE DRUG REACTIONS, SIDE EFFECTS OF ALL MEDICATIONS (PRESCRIPTION/-OTC), AND HOW AND WHEN TO REPORT PROBLEMS.] Future Scheduled Test SKILLED NU RSE TO ASSESS ANXIETY AND PROVIDE ASSISTANCE TO PATIENT FOR UNDERSTANDING AND MANAGEMENT OF FEELINGS. [code = SKILLED NURSE TO ASSESS ANXIETY AND PROVIDE ASSISTANCE TO PATIENT FOR UNDERSTANDING AND MANAGEMENT OF FEELINGS.] Future Scheduled Test SKILLED NU RSE FOR INSTRUCTION/ REINFORCEMENT OF NEEDS RELATED TO POOR NUTRITION/HYDRATION D/R ADULT FAILURE TO THRIVE. [code = SKILLED NURSE FOR INSTRUCTION/ REINFORCEMENT OF NEEDS RELATED TO POOR NUTRITION/HYDRATION D/R ADULT FAILURE TO THRIVE. ] Future Scheduled Test SKILLED NU RSE FOR O/A OF RESPIRATORY SYSTEM TO IDENTIFY CHANGES ASSOCIATED WITH EXACERBATION AND TO PROVIDE SKILLED TEACHING ON MANAGEMENT OF ASTHMA, COVID, ACUTE RESPIRATORY FAILURE WITH HYPOXIA DISEASE PROCESS. [code = SKILLED NURSE FOR O/A OF RESPIRATORY SYSTEM TO IDENTIFY CHANGES ASSOCIATED WITH EXACERBATION AND TO PROVIDE SKILLED TEACHING ON MANAGEMENT OF ASTHMA, COVID, ACUTE RESPIRATORY FAILURE WITH HYPOXIA DISEASE PROCESS.] Future Scheduled Test SKILLED NU RSE TO INSTRUCT/REINFORCE MEASURES TO PREVENT BARRIERS TO CARE. [code = SKILLED NURSE TO INSTRUCT/REINFORCE MEASURES TO PREVENT BARRIERS TO CARE.] Future Scheduled Test SKILLED NU RSE FOR O/A OF SELF-CARE DEFICITS AND TO PROVIDE TEACHING RELATED TO SAFE PROVISION OF ADLS. [code = SKILLED NURSE FOR O/A OF SELF-CARE DEFICITS AND TO PROVIDE TEACHING RELATED TO SAFE PROVISION OF ADLS.] Future Scheduled Test SKILLED NU RSE TO ASSESS PATIENTS PSYCHOSOCIAL STATUS TO IDENTIFY POTENTIAL ISSUES THAT MAY COMPLICATE THE PROVISION OF THE PLAN OF CARE INCLUDING THE PATIENTS ABILITY TO ACCESS COMMUNITY RESOURCES AND PSYCHOSOCIAL SUPPORT SERVICES. [code = SKILLED NURSE TO ASSESS PATIENTS PSYCHOSOCIAL STATUS TO IDENTIFY POTENTIAL ISSUES THAT MAY COMPLICATE THE PROVISION OF THE PLAN OF CARE INCLUDING THE PATIENTS ABILITY TO ACCESS COMMUNITY RESOURCES AND PSYCHOSOCIAL SUPPORT SERVICES.] Future Scheduled Test SKILLED NU RSE FOR O/A OF MUSCULOSKELETAL STATUS AND TEACHING ON MEASURES TO MANAGE AVULSION FX LLE AND TO MAINTAIN SAFETY WITH ACTIVITY [code = SKILLED NURSE FOR O/A OF MUSCULOSKELETAL STATUS AND TEACHING ON MEASURES TO MANAGE AVULSION FX LLE AND TO MAINTAIN SAFETY WITH ACTIVITY] Future Scheduled Test SKILLED NU RSE FOR O/A TO IDENTIFY CHANGES ASSOCIATED WITH INSOMNIA, DYSPHASIA AND PROVIDE INSTRUCTION RELATED TO SAFETY MEASURES TO PREVENT INJURY SECONDARY TO IMPAIRED NEUROLOGICAL STATUS. SKILLED NURSE TO REPORT SIGNIFICANT CHANGES OF NEUROLOGIC STATUS TO PHYSICIAN FOR EARLY INTERVENTION. [code = SKILLED NURSE FOR O/A TO IDENTIFY CHANGES ASSOCIATED WITH INSOMNIA, DYSPHASIA AND PROVIDE INSTRUCTION RELATED TO SAFETY MEASURES TO PREVENT INJURY SECONDARY TO IMPAIRED NEUROLOGICAL STATUS. SKILLED NURSE TO REPORT SIGNIFICANT CHANGES OF NEUROLOGIC STATUS TO PHYSICIAN FOR EARLY INTERVENTION.] Future Scheduled Test PHYSICAL T HERAPIST TO EVALUATE PATIENT FOR GAIT STABILITY AND STRENGTH [code = PHYSICAL THERAPIST TO EVALUATE PATIENT FOR GAIT STABILITY AND STRENGTH ] Future Scheduled Test SKILLED NU RSE TO PROVIDE TEACHING ON SIGNS AND SYMPTOMS AND MANAGEMENT OF HYPERTENSION. [code = SKILLED NURSE TO PROVIDE TEACHING ON SIGNS AND SYMPTOMS AND MANAGEMENT OF HYPERTENSION.] Future Scheduled Test SKILLED NU RSE FOR O/A AND SKILLED TEACHING RELATED TO ALTERED SKIN INTEGRITY FUNGAL RASH UNDER LEFT BREAST. [code = SKILLED NURSE FOR O/A AND SKILLED TEACHING RELATED TO ALTERED SKIN INTEGRITY FUNGAL RASH UNDER LEFT BREAST.] Future Scheduled Test SKILLED NU RSE FOR O/A AND SKILLED TEACHING RELATED TO SIGNS AND SYMPTOMS AND MANAGEMENT OF OA, LEFT LOWER LEG FX. [code = SKILLED NURSE FOR O/A AND SKILLED TEACHING RELATED TO SIGNS AND SYMPTOMS AND MANAGEMENT OF OA, LEFT LOWER LEG FX.] Future Scheduled Test VIRTUAL SIT FREQUENCY: 3-4 PRN VIRTUAL VISITS FOR HIGH RISK ASSESSMENTS AND/OR CHANGE IN STATUS MAY BE PERFORMED UTILIZING [employer] SYSTEM TO OPTIMIZE SKILLED SERVICES FURNISHED ON THE PLAN OF CARE. SKILLED NURSE TO ESTABLISH SUPPORT MEASURES TO MINIMIZE RISK OF REHOSPITALIZATION, AND INSTRUCT PATIENT/CAREGIVER ON METHODS TO REDUCE AVOIDABLE HOSPITALIZATION. [code = VIRTUAL VISIT FREQUENCY: 3-4 PRN VIRTUAL VISITS FOR HIGH RISK ASSESSMENTS AND/OR CHANGE IN STATUS MAY BE PERFORMED UTILIZING [employer] SYSTEM TO OPTIMIZE SKILLED SERVICES FURNISHED ON THE PLAN OF CARE. SKILLED NURSE TO ESTABLISH SUPPORT MEASURES TO MINIMIZE RISK OF REHOSPITALIZATION, AND INSTRUCT PATIENT/CAREGIVER ON METHODS TO REDUCE AVOIDABLE HOSPITALIZATION.] Future Scheduled Test PATIENT PRAKASH S A RISK OF HOSPITALIZATION AND ED USE. SKILLED NURSE TO ESTABLISH SUPPORT MEASURES TO MINIMIZE RISK OF HOSPITALIZATION AND ED USE, AND INSTRUCT PATIENT/CAREGIVER ON METHODS TO REDUCE AVOIDABLE HOSPITALIZATION AND ED USE. [code = PATIENT HAS A RISK OF HOSPITALIZATION AND ED USE. SKILLED NURSE TO ESTABLISH SUPPORT MEASURES TO MINIMIZE RISK OF HOSPITALIZATION AND ED USE, AND INSTRUCT PATIENT/CAREGIVER ON METHODS TO REDUCE AVOIDABLE HOSPITALIZATION AND ED USE.] Future Scheduled Test SKILLED NU RSE TO PROVIDE INSTRUCTION TO PATIENT/CAREGIVER RELATED TO DISCHARGE PLANNING. [code = SKILLED NURSE TO PROVIDE INSTRUCTION TO PATIENT/CAREGIVER RELATED TO DISCHARGE PLANNING.] Future Scheduled Test SKILLED NU RSE TO PERFORM HOME SAFETY AND FALL ASSESSMENT AND PROVIDE INSTRUCTION TO IMPLEMENT HOME SAFETY AND FALL PREVENTION STRATEGIES. [code = SKILLED NURSE TO PERFORM HOME SAFETY AND FALL ASSESSMENT AND PROVIDE INSTRUCTION TO IMPLEMENT HOME SAFETY AND FALL PREVENTION STRATEGIES.] Future Scheduled Test SKILLED NU RSE FOR OBSERVATION AND ASSESSMENT OF PATIENTS PAIN LEVEL AND EFFECTIVENESS OF PAIN MANAGEMENT REGIMEN. SKILLED NURSE TO INSTRUCT PATIENT/CAREGIVER REGARDING PHARMACOLOGIC AND NON-PHARMACOLOGIC PAIN CONTROL MEASURES. SKILLED NURSE TO REPORT TO PHYSICIAN IF PAIN IS UNCONTROLLED WITH CURRENT PAIN MANAGEMENT REGIMEN. [code = SKILLED NURSE FOR OBSERVATION AND ASSESSMENT OF PATIENTS PAIN LEVEL AND EFFECTIVENESS OF PAIN MANAGEMENT REGIMEN. SKILLED NURSE TO INSTRUCT PATIENT/CAREGIVER REGARDING PHARMACOLOGIC AND NON-PHARMACOLOGIC PAIN CONTROL MEASURES. SKILLED NURSE TO REPORT TO PHYSICIAN IF PAIN IS UNCONTROLLED WITH CURRENT PAIN MANAGEMENT REGIMEN.] Future Scheduled Test SKILLED NU RSE TO ASSESS PATIENT'S SKIN INTEGRITY AND INSTRUCT PATIENT/CAREGIVER ON MEASURES TO PREVENT PRESSURE ULCERS. [code = SKILLED NURSE TO ASSESS PATIENT'S SKIN INTEGRITY AND INSTRUCT PATIENT/CAREGIVER ON MEASURES TO PREVENT PRESSURE ULCERS.] Future Scheduled Test SKILLED NU RSE TO PROVIDE ASSESSMENT AND TEACHING/REINFORCEMENT OF MANAGEMENT OF DEPRESSION INCLUDING DISEASE PROCESS, MEDICATION MANAGEMENT, COPING SKILLS AND IDENTIFY CHANGES ASSOCIATED WITH DEPRESSIVE DISORDERS FOR EARLY INTERVENTION. [code = SKILLED NURSE TO PROVIDE ASSESSMENT AND TEACHING/REINFORCEMENT OF MANAGEMENT OF DEPRESSION INCLUDING DISEASE PROCESS, MEDICATION MANAGEMENT, COPING SKILLS AND IDENTIFY CHANGES ASSOCIATED WITH DEPRESSIVE DISORDERS FOR EARLY INTERVENTION.] Future Scheduled Test PHYSICAL T HERAPIST TO EVALUATE PATIENT SECONDARY TO FUNCTIONAL DEFICITS/SAFETY CONCERNS. PHYSICAL THERAPIST TO ASSESS BEST PRACTICE INTERVENTIONS TO ASSIST PATIENTS TO IMPROVE OR STABILIZE MEDICAL STATUS AND PREVENT RE-HOSPITALIZATION. MEASURES INCLUDING REVIEW AND IDENTIFICATION OF CONCERNS FOR THE FOLLOWING AREAS: DRUG REGIMEN, ENVIRONMENTAL SAFETY ISSUES AND FALLS, PRESSURE ULCERS, PAIN, AND DISEASE MANAGEMENT. PHYSICAL THERAPY TO ESTABLISH /UPGRADE/DOWNGRADE THERAPEUTIC EXERCISE PROGRAM AND INSTRUCT PATIENT/CAREGIVER ON EXERCISE PRECAUTIONS WITH WRITTEN HOME PROGRAM. MAY INCLUDE PROM, AAROM, AROM, RROM APPROPRIATE TO IMPROVE FUNCTIONAL STRENGTH AND RANGE OF MOTION. PHYSICAL THERAPY TO INSTRUCT PATIENT/CAREGIVER ON SAFE TRANSFER TECHNIQUES USING PROPER BODY MECHANICS AND EQUIPMENT. PHYSICAL THERAPY TO INSTRUCT PATIENT/CAREGIVER ON GAIT TRAINING TECHNIQUES USING APPROPRIATE ASSISTIVE DEVICE, PROPER BODY MECHANICS TO IMPROVE MOBILITY, AND PREVENT INJURY OF PATIENT AND/OR CAREGIVER. PHYSICAL THERAPY TO ASSESS AND RECOMMEND HOME SAFETY ADAPTATIONS AND EDUCATE PATIENT /CAREGIVER ON FALL PREVENTION STRATEGIES. PHYSICAL THERAPY FOR OBSERVATION AND ASSESSMENT OF PAIN, EFFECTIVENESS OF PAIN MANAGEMENT REGIMEN AND SKILLED TEACHING RELATED TO PAIN MANAGEMENT. THERAPIST TO REPORT INCREASED PAIN LEVEL TO PHYSICIAN FOR PROMPT INTERVENTION. PHYSICAL THERAPY TO INSTRUCT PATIENT/CAREGIVER ON BALANCE AND BALANCE STRATEGIES TO IMPROVE SAFE MOBILITY AND REDUCE RISK FOR FALL AND INJURY INCLUDING PARTICIPATION IN [facility] PROGRAM SUMMARY OF THERAPY EVAL/ASSESSMENT FINDINGS AND REASON(S) SKILLS OF A THERAPIST ARE INDICATED: PHYSICAL THERAPY EVALUATION (05/14/24) PATIENT IS A 73 YO FEMALE WITH PHYSICAL THERAPY REFERRAL AFTER FALL ON 03/15 RESULTING IN HOSPITALIZATION AND SNF STAY DUE TO FALL, DX: AVULSION FX LEFT DISTAL TIBIA. PATIENT HAD FOLLOWUP APPT AT [facility] 04/16/2014 AND WAS ISSUED ORDERS WBAT LEFT LE. PAST MD HX: PMH: HTN, CHRONIC BACK PAIN, OA, HYPONATREMIA, PERSONALITY DISORDER, CHRONIC PAIN SYNDROME, SPINAL STENOSIS, INSOMINIA, ANOREXIA NERVOSA, UTIS, FAILURE TO THRIVE. FALL HISTORY: LAST FALL ON 03/15/24 PATIENT LIVES ALONE IN APARTMENT, HAS 2 SUPPORTIVE FRIENDS THAT LIVE NEARBY INCLUDING NORMA VILA, 30 HRS ARTIST'S REPRESENTATIVE 2XDAY, 7 DAYS A WEEK. PLOF: MOD I TRANSFER AND AMB WITH ROLLATOR, SUPERVISION WITH AMB OUTSIDE APARTMENT CLOF: DME: FWW, ROLLATOR, COMMODE OVER TOILET, TUB SEAT, HANDHELD SHOWERHEAD, GRAB BAR, LIFE ALERT SAFETY RECOMMENDATION: BED RAIL AND GRAB BAR INSTALLATION. THIS THERAPIST CALLED [facility] [employer] [facility] AND SPOKE WITH KEIKO TO ORDER BED RAIL AND INQUIRE ABOUT GRAB BAR SIZE AVAIL. VISIT COMPLETED WITH TANIKA NUÑEZ PRESENT. NEXT VISIT TO OCCUR WITH TANIKA MAYBERRY PRESENT. PATIENT REPORTS 7/10 GENERALIZED BODY PAIN. THIS THERAPIST PROVIDED LETTER TO FRIEND SIOMARA FAN REQUESTING HOUSING COMPLEX INSTALL 2 GRAB BARS: 1 IN SHOWER AND 1 BY TOILET. BILAT LE ROM WFL, BILAT LE STRENGTH R: 4- TO 4/5, L: 3 TO 3+/5. TO INCREASE BILATERAL LOWER EXTREMITY STRENGTH, PATIENT COMPLETED BILATERAL LOWER EXTREMITY SEATED THER EXER WITH VERBAL CUES FOR FORM: PLANTAR/DORSIFLEXION, ANKLE CIRCLES, HIP FLEXION, KNEE EXTENSION. DISPENSED HEP SHEET. PATIENT COMPLETED SIT-->STAND WITH ROLLATOR AND SUPERVISION, VERBAL CUES TO LOCK BRAKES. PATIENT AMB 20' X 2 WITH ROLLATOR AND SUPERVISION, VERBAL CUES TO KEEP AD CLOSE TO BODY. PATIENT DEMO DIMINISHED BILAT LE STEP LENGTHS WITH FOOT FLAT AT INITIAL CONTACT, ANTALGIC WITH LEFT STANCE PHASE, 0 FALLS/LOB. TINETTI = 15/28, FALL RISK. PATIENT PRESENTS WITH THE FOLLOWING DEFICITS: BILAT LE WEAKNESS, DECREASED ENDURANCE, RESULTING IN DIFFICULTY WITH TRANSFERS AND AMB. [facility]ED [facility] FREQ 1X6WKS TO ADDRESS DEFICITS, MAX SAFETY AND FUNCTIONAL LEVEL IN HOME ENVIRONMENT WITH THER EXER, ESTABLISH HEP, TRANSFER AND GAIT TRAINING, DME ACQUISITION, BALANCE ACTIVITY. PATIENT, CG SHELLY NUÑEZ AND FRIEND NEHA INFORMED ABOUT PHYSICAL THERAPY POC, INCLUDING FREQ, VERBALIZED ACCEPTANCE. MD NOTIFIED ABOUT PATIENT STATUS AND POC. CONTINUE GOALS FROM CURRENT POC WITH EXPECTED DATE OF COMPLETION SPECIFIED ON ORDER FREQUENCY AND DURATION. [code = PHYSICAL THERAPIST TO EVALUATE PATIENT SECONDARY TO FUNCTIONAL DEFICITS/SAFETY CONCERNS. PHYSICAL THERAPIST TO ASSESS BEST PRACTICE INTERVENTIONS TO ASSIST PATIENTS TO IMPROVE OR STABILIZE MEDICAL STATUS AND PREVENT RE-HOSPITALIZATION. MEASURES INCLUDING REVIEW AND IDENTIFICATION OF CONCERNS FOR THE FOLLOWING AREAS: DRUG REGIMEN, ENVIRONMENTAL SAFETY ISSUES AND FALLS, PRESSURE ULCERS, PAIN, AND DISEASE MANAGEMENT. PHYSICAL THERAPY TO ESTABLISH /UPGRADE/DOWNGRADE THERAPEUTIC EXERCISE PROGRAM AND INSTRUCT PATIENT/CAREGIVER ON EXERCISE PRECAUTIONS WITH WRITTEN HOME PROGRAM. MAY INCLUDE PROM, AAROM, AROM, RROM APPROPRIATE TO IMPROVE FUNCTIONAL STRENGTH AND RANGE OF MOTION. PHYSICAL THERAPY TO INSTRUCT PATIENT/CAREGIVER ON SAFE TRANSFER TECHNIQUES USING PROPER BODY MECHANICS AND EQUIPMENT. PHYSICAL THERAPY TO INSTRUCT PATIENT/CAREGIVER ON GAIT TRAINING TECHNIQUES USING APPROPRIATE ASSISTIVE DEVICE, PROPER BODY MECHANICS TO IMPROVE MOBILITY, AND PREVENT INJURY OF PATIENT AND/OR CAREGIVER. PHYSICAL THERAPY TO ASSESS AND RECOMMEND HOME SAFETY ADAPTATIONS AND EDUCATE PATIENT /CAREGIVER ON FALL PREVENTION STRATEGIES. PHYSICAL THERAPY FOR OBSERVATION AND ASSESSMENT OF PAIN, EFFECTIVENESS OF PAIN MANAGEMENT REGIMEN AND SKILLED TEACHING RELATED TO PAIN MANAGEMENT. THERAPIST TO REPORT INCREASED PAIN LEVEL TO PHYSICIAN FOR PROMPT INTERVENTION. PHYSICAL THERAPY TO INSTRUCT PATIENT/CAREGIVER ON BALANCE AND BALANCE STRATEGIES TO IMPROVE SAFE MOBILITY AND REDUCE RISK FOR FALL AND INJURY INCLUDING PARTICIPATION IN [facility]ANCE SPECIAL[facility] PROGRAM SUMMARY OF THERAPY EVAL/ASSESSMENT FINDINGS AND REASON(S) SKILLS OF A THERAPIST ARE INDICATED: PHYSICAL THERAPY EVALUATION (05/14/24) PATIENT IS A 73 YO FEMALE WITH PHYSICAL THERAPY REFERRAL AFTER FALL ON 03/15 RESULTING IN HOSPITALIZATION AND SNF STAY DUE TO FALL, MD DX: AVULSION FX LEFT DISTAL TIBIA. PATIENT HAD FOLLOWUP APPT AT [facility] 04/16/2014 AND WAS ISSUED ORDERS WBAT LEFT LE. PAST MD HX: PMH: HTN, CHRONIC BACK PAIN, OA, HYPONATREMIA, PERSONALITY DISORDER, CHRONIC PAIN SYNDROME, SPINAL STENOSIS, INSOMINIA, ANOREXIA NERVOSA, UTIS, FAILURE TO THRIVE. FALL HISTORY: LAST FALL ON 03/15/24 PATIENT LIVES ALONE IN APARTMENT, HAS 2 SUPPORTIVE FRIENDS THAT LIVE NEARBY INCLUDING NORMA VILA, 30 HRS ARTIST'S REPRESENTATIVE 2XDAY, 7 DAYS A WEEK. PLOF: MOD I TRANSFER AND AMB WITH ROLLATOR, SUPERVISION WITH AMB OUTSIDE APARTMENT CLOF: DME: FWW, ROLLATOR, COMMODE OVER TOILET, TUB SEAT, HANDHELD SHOWERHEAD, GRAB BAR, LIFE ALERT SAFETY RECOMMENDATION: BED RAIL AND GRAB BAR INSTALLATION. THIS THERAPIST CALLED [facility] [employer] [facility] AND SPOKE WITH KEIKO TO ORDER BED RAIL AND INQUIRE ABOUT GRAB BAR SIZE AVAIL. VISIT COMPLETED WITH TANIKA NUÑEZ PRESENT. NEXT VISIT TO OCCUR WITH TANIKA MAYBERRY PRESENT. PATIENT REPORTS 7/10 GENERALIZED BODY PAIN. THIS THERAPIST PROVIDED LETTER TO FRIEND SIOMARA FAN REQUESTING HOUSING COMPLEX INSTALL 2 GRAB BARS: 1 IN SHOWER AND 1 BY TOILET. BILAT LE ROM WFL, BILAT LE STRENGTH R: 4- TO 4/5, L: 3 TO 3+/5. TO INCREASE BILATERAL LOWER EXTREMITY STRENGTH, PATIENT COMPLETED BILATERAL LOWER EXTREMITY SEATED THER EXER WITH VERBAL CUES FOR FORM: PLANTAR/DORSIFLEXION, ANKLE CIRCLES, HIP FLEXION, KNEE EXTENSION. DISPENSED HEP SHEET. PATIENT COMPLETED SIT-->STAND WITH ROLLATOR AND SUPERVISION, VERBAL CUES TO LOCK BRAKES. PATIENT AMB 20' X 2 WITH ROLLATOR AND SUPERVISION, VERBAL CUES TO KEEP AD CLOSE TO BODY. PATIENT DEMO DIMINISHED BILAT LE STEP LENGTHS WITH FOOT FLAT AT INITIAL CONTACT, ANTALGIC WITH LEFT STANCE PHASE, 0 FALLS/LOB. TINETTI = 15/28, FALL RISK. PATIENT PRESENTS WITH THE FOLLOWING DEFICITS: BILAT LE WEAKNESS, DECREASED ENDURANCE, RESULTING IN DIFFICULTY WITH TRANSFERS AND AMB. [facility]ED [facility] FREQ 1X6WKS TO ADDRESS DEFICITS, MAX SAFETY AND FUNCTIONAL LEVEL IN HOME ENVIRONMENT WITH THER EXER, ESTABLISH HEP, TRANSFER AND GAIT TRAINING, DME ACQUISITION, BALANCE ACTIVITY. PATIENT, CG ARTIST'S REPRESENTATIVE JOAQUIN AND FRIEND NEHA INFORMED ABOUT PHYSICAL THERAPY POC, INCLUDING FREQ, VERBALIZED ACCEPTANCE. MD NOTIFIED ABOUT PATIENT STATUS AND POC. CONTINUE GOALS FROM CURRENT POC WITH EXPECTED DATE OF COMPLETION SPECIFIED ON ORDER FREQUENCY AND DURATION.] Goal Patient Goal - STAY WELL Goal Provider Goal - A PLAN OF CARE WILL BE ESTABLISHED THAT MEETS PATIENT'S LONG-TERM NEEDS AND INCLUDES PATIENT GOAL FOR HOME HEALTH. Goal Provider Goal - PATIENT/CAREGIVER WILL VERBALIZE UNDERSTANDING OF EDUCATION PROVIDED ON MEDICATIONS BY THE END OF THE CERTIFICATION PERIOD. Goal Provider Goal - SYMPTOMS OF ANXIETY ARE IDENTIFIED AND INTERVENTIONS INITIATED TO ENABLE PATIENT TO UNDERSTAND AND MANAGE FEELINGS THROUGHOUT EPISODE. Goal Provider Goal - PATIENT/CAREGIVER WILL DEMONSTRATE ABILITY TO SELF MANAGE NEEDS RELATED TO NUTRITION/HYDRATION THROUGHOUT THE EPISODE. Goal Provider Goal - PATIENT/CAREGIVER WILL VERBALIZE/DEMONSTRATE MANAGEMENT OF RESPIRATORY DISEASE PROCESS. CHANGES IN RESPIRATORY STATUS WILL BE IDENTIFIED AND REPORTED TO PHYSICIAN FOR PROMPT INTERVENTION THROUGHOUT THE CERTIFICATION PERIOD. Goal Provider Goal - PATIENT / CAREGIVER WILL VERBALIZE UNDERSTANDING OF BARRIERS PREVENTING PROPER CARE AND DEMONSTRATE MEASURES TO ELIMINATE THOSE BARRIERS DURING THIS EPISODE. Goal Provider Goal - PATIENT/CAREGIVER WILL VERBALIZE/DEMONSTRATE UNDERSTANDING OF SAFE PROVISION OF ADLS BY THE END OF THE CERTIFICATION PERIOD. Goal Provider Goal - CHANGES IN PSYCHOSOCIAL STATUS WILL BE IDENTIFIED AND PLAN IMPLEMENTED TO MINIMIZE PATIENT RISKS THROUGHOUT THE CERTIFICATION PERIOD. Goal Provider Goal - PATIENT/CAREGIVER WILL VERBALIZE/DEMONSTRATE ABILITY TO MANAGE MUSCULOSKELETAL DISEASE WHILE MAINTAINING SAFETY THROUGHOUT THE EPISODE. Goal Provider Goal - CHANGES IN NEUROLOGIC STATUS WILL BE IDENTIFIED AND REPORTED TO THE PHYSICIAN FOR PROMPT INTERVENTION OF ASSOCIATED RISK. PATIENT/CAREGIVER WILL VERBALIZE/DEMONSTRATE APPROPRIATE SAFETY MEASURES TO PREVENT INJURY BY THE END OF THE CERTIFICATION PERIOD. Goal Provider Goal - A PHYSICAL THERAPY EVALUATION TO BE COMPLETED WITH RECOMMENDATIONS AND/OR WRITTEN PLAN OF TREATMENT ESTABLISHED FOR PHYSICIANS SIGNATURE. Goal Provider Goal - PATIENT/CAREGIVER WILL VERBALIZE SIGNS AND SYMPTOMS OF HYPERTENSION AND WILL BE ABLE TO DEMONSTRATE ABILITY TO MANAGE EXACERBATION BY END OF THE EPISODE. Goal Provider Goal - PATIENT/CAREGIVER WILL VERBALIZE/DEMONSTRATE UNDERSTANDING OF TEACHING RELATED TO ALTERED SKIN INTEGRITY BY END OF CERTIFICATION PERIOD. Goal Provider Goal - PATIENT/CAREGIVER WILL VERBALIZE UNDERSTANDING OF MUSCULOSKELETAL DISEASE INCLUDING SIGNS AND SYMPTOMS, MANAGEMENT, AND PRESCRIBED TREATMENT REGIMEN BY END OF EPISODE. Goal Provider Goal - PATIENT/CAREGIVER WILL UTILIZE VIRTUAL VISITS TO ACHIEVE GOALS OUTLINED ON THE PLAN OF CARE. PATIENT WILL HAVE SUPPORT MEASURES ESTABLISHED TO PREVENT HOSPITALIZATION AND PATIENT/CAREGIVER WILL VERBALIZE/DEMONSTRATE METHODS TO REDUCE AVOIDABLE HOSPITALIZATION THROUGHOUT THE CERTIFICATION PERIOD. Goal Provider Goal - PATIENT WILL HAVE SUPPORT MEASURES ESTABLISHED TO PREVENT HOSPITALIZATION AND ED USE AND PATIENT/CAREGIVER WILL VERBALIZE/DEMONSTRATE METHODS TO REDUCE AVOIDABLE HOSPITALIZATION AND ED USE BY END OF EPISODE. Goal Provider Goal - PATIENT/CAREGIVER WILL VERBALIZE UNDERSTANDING OF DISCHARGE PLANNING INSTRUCTIONS BY DATE OF DISCHARGE. Goal Provider Goal - PATIENT/CAREGIVER WILL VERBALIZE/DEMONSTRATE EFFECTIVE HOME SAFETY AND FALL PREVENTION STRATEGIES THROUGHOUT CERTIFICATION PERIOD. Goal Provider Goal - PATIENT/CAREGIVER WILL DEMONSTRATE UNDERSTANDING OF PHARMACOLOGIC AND NONPHARMACOLOGIC PAIN CONTROL MEASURES AND PATIENT WILL HAVE IMPROVEMENT IN PAIN INTERFERING WITH ACTIVITY EVIDENCED BY PAIN CONTROLLED AT LEVEL OF 7 OR LESS BY END OF CERTIFICATION PERIOD. Goal Provider Goal - PATIENT/CAREGIVER WILL VERBALIZE UNDERSTANDING OF PRESSURE ULCER PREVENTION BY END OF THE EPISODE. Goal Provider Goal - PATIENT/CAREGIVER WILL VERBALIZE/DEMONSTRATE UNDERSTANDING OF THE MANAGEMENT OF DEPRESSION THROUGHOUT THE CERTIFICATION PERIOD AND SYMPTOMS ARE IDENTIFIED AND MANAGED TO MAINTAIN PATIENT SAFETY IN THE HOME. Goal Provider Goal - PHYSICAL THERAPY EVALUATION TO BE COMPLETED WITH RECOMMENDATIONS AND/OR WRITTEN TREATMENT PLAN OF CARE ESTABLISHED FOR THE PHYSICIANS SIGNATURE PATIENT/CAREGIVER VERBALIZES UNDERSTANDING OF THE INITIAL BEST PRACTICE RECOMMENDATIONS. PHYSICIAN TO BE NOTIFIED APPROPRIATE FOR ANY CHANGES OR COMPLICATIONS THROUGHOUT THE CERTIFICATION PERIOD. PATIENT/CAREGIVER WILL PERFORM THERAPEUTIC EXERCISE/S AND DEMONSTRATE PARTICIPATION IN A HOME PROGRAM. PATIENT/CAREGIVER WILL DEMONSTRATE SAFE TRANSFERS USING APPROPRIATE ASSISTIVE DEVICE, BODY MECHANICS AND EQUIPMENT. PATIENT/CAREGIVER WILL DEMONSTRATE IMPROVED GAIT TECHNIQUES TO MINIMIZE RISK OF INJURY. PATIENT/CAREGIVER WILL DEMONSTRATE/VERBALIZE UNDERSTANDING OF RECOMMENDATIONS TO INCREASE SAFETY IN THE HOME AND FALL PREVENTION. INCREASED PAIN OR INEFFECTIVE PAIN CONTROL MEASURES WILL BE IDENTIFIED AND PROMPTLY REPORTED TO THE PHYSICIAN. PATIENT/CAREGIVER WILL DEMONSTRATE EFFECTIVE PAIN MANAGEMENT. PATIENT/CAREGIVER WILL DEMONSTRATE IMPROVED BALANCE AND REDUCE THE RISK OF FALLS AND INJURY. PHYSICAL THERAPY REASSESSMENT WILL BE COMPLETED WITH ESTABLISHMENT OF CONTINUED POC. Reason for Visit MINIMUM ASSIST WITH TRANSFER/AMBULATION/ADLS Encounters Start Date/Time End Date/Time Encounter Type Admission Type Attending [facility] Care Department Encounter ID Discharge Date Discharge Status Discharge Condition Discharge Reason Percent Goals Met 2024-05-09 00:00:00 2024-07-07 00:00:00 Outpatient OSMAR NUNEZ [facility] [id number] 2024-07-07 00:00:00 DISCHARGE TO HOME OR SELF CARE MINIMUM ASSIST WITH TRANSFER/A MBULATION/ ADLS GOALS MET ( ONLY) 95.92
--- OUTSIDE RECORDS SUMMARY | 2024-07-16 14:50 | XMS_ITS ---
Care Plan - [facility] Created on: July 16, 2024 Joanna Jones : 1950 Sex: Female Author Organization [facility] Address [address] [place] [address] Phone Care Team Providers Care Veneer Sander Name Role Phone Jeferson Ordoñez MD Primary Care Provider [phone] [facility] Unavailable [phone]
--- OUTSIDE RECORDS SUMMARY | 2024-07-16 14:50 | XMS_ITS | Clinical Summary ---
Author Organization [facility] Address [address] [place] [address] Phone Care Team Providers Care Screwmaker Automatic Name Role Phone Smita MCCRACKEN, Jeferson Primary Care Provider [phone] [facility] Un[facility] [phone] Reason for Visit and Chief Complaint Medicare New Patient Plan of Treatment Pending Tests Order Diagnosis Results Due Ordering P hope Follow Up - Appointment 1 Month Nondisp fx of sternal end of right clavicle, init 02/05/[address] MD Last Documented On 3 10:03AM ; [facility] Assessments Includes: Assessments from this encounter No Assessments Recorded Medical Equipment - Implanted Devices Includes: Current Devices No Medical Equipment Recorded Medications Administered Includes: Administered Medications from this encounter No Administered Medications Recorded Results Includes: Results discussed during this encounter No Results Recorded For Specified Dates History of Present Illness Includes: History of Present Illness from this encounter No History of Present Illness Recorded Social History No Social History Recorded - Smoking Status Unknown Medical History Includes: Medical History addressed during this encounter No Medical History Recorded Family History Includes: Family History addressed during this encounter No Family History Recorded Review of Systems Includes: Review of Systems from this encounter No Review of Systems Recorded Mental Status Includes: Mental Status from this encounter No Mental Status Recorded Functional Status Includes: Functional Status from this encounter No Functional Status Recorded Physical Exam Includes: Physical Exam from this encounter Encounters Encounter Provider Location Date Check-In Time Check-Out Time Diagnosis Medicare New Patient Nic Street MD [facility] 02/06/20 23 9:20AM 10:18AM Insurance Includes: Active Insurance Policies Plan Name Member ID Group # Subscriber Relationship Effect shruti Dates 1 - Medicare Part B [facility] [id number] Joanna Torre 2 - [facility] [id number] Joanna Torre Clinical Notes Includes: Clinical Notes from this encounter * Progress note Date Encounter Last Documented by 02/05/2023 Medicare New Patient Javid raineyed on 02/05/2023; 10:03 AM, Nic Street MD; [facility], Physical Findings Chief complaint: Right shoulder injury History of Present Illness: This is a 72-year-old woman who ambulates with a walker. She lost her balance and fell on 01/12/2022 and injured her right shoulder. She was seen in the emergency room and was found to have a fracture of her clavicle. This was demonstrated on a chest CT. She was treated with oxycodone and a sling. She is staying at a nursing facility. She has some persistent pain in her right medial clavicular area. She denies numbness or tingling. Physical exam: Imaging: Radiographs of the right clavicle taken today are compared with CT of the chest from 01/12/2023. There is a mildly displaced fracture of the medial clavicle. The fracture appears to be extra-articular. Impression: Fracture right medial clavicle Plan: The right shoulder has mild resolving ecchymosis. There is mild tenderness over the medial clavicle. Skin and neurovascular exams are otherwise intact to the right upper extremity. The patient may wean herself from the sling as tolerated. She should avoid overhead activities but may use her arm at her side. I asked her to return in 1 month for reexamination and x-ray of the right clavicle. Plan StartCited - Nondisp fx of sternal end of right clavicle, init Follow Up/Appointment: 1 Month EndCited
== END 2024-07-14 11:27 | disposition home or self-care (01) ==
PROVIDERS: PCP Internal Medicine; Visit Provider Physician Assistant
DX: S82.52XD Displaced fracture of medial malleolus of left tibia, subsequent encounter for closed fracture with routine healing (principal)
CPT/HCPCS: 99213

== ENCOUNTER → 2024-07-14 10:53 | Outpatient (BNVA) | payer MEDICARE, MEDICAID, SELFPAY | PROVIDERS: PCP Internal Medicine; Visit Provider Physician Assistant | DX: S82.52XD Displaced fracture of medial malleolus of left tibia, subsequent encounter for closed fracture with routine healing (principal); X58.XXXD Exposure to other specified factors, subsequent encounter; Z98.890 Other specified postprocedural states | CPT/HCPCS: 99212 ==

== ENCOUNTER 2024-07-16 10:48 | Outpatient (REF) | payer MEDICARE, MEDICAID, SELFPAY ==
--- NOTE | ~2024-07-16 | MM_ITS ---
EXAMINATION: BONE DENSITOMETRY CLINICAL INDICATION: Other specified disorders of bone density and structure, unspecified. COMPARISON: Previous BD dated 01/09/2014 and baseline BD dated 12/18/2007. TECHNIQUE: Using a VB Rags DXA System (software version: 13.1) manufactured by [employer], dual-energy x-ray absorptiometry was performed of the lumbar spine and left hip. The images are of good technical quality. Summary results are attached. FINDINGS: LEFT FEMUR, NECK: Current: BMD 0.807 g/cm2, Z-score 0.2, T-score -1.7, osteopenia. Prior: BMD 0.528 g/cm2. Baseline: BMD 0.686 g/cm2. LEFT FEMUR, TOTAL: Current: BMD 0.533 g/cm2, Z-score -2.1, T-score -3.8, osteoporosis, 20.9% increase from previous, 20.6% decrease from baseline (<5% change is not significant). Prior: BMD 0.441 g/cm2. Baseline: BMD 0.671 g/cm2. AP SPINE L1-L4: Current: BMD 0.766 g/cm2, Z-score -1.6, T-score -3.4, osteoporosis, 12.0% increase from previous, 9.5% decrease from baseline (<5% change is not significant). Prior: BMD 0.684 g/cm2. Baseline: BMD 0.846 g/cm2. IDENTIFIED RISK FACTORS: Early menopause, secondary osteoporosis, height loss, history of fracture (adult), osteoporosis, secondary osteoporosis (anorexia or bulimia). HISTORY OF FRACTURE: Other. MEDICATIONS: Calcium supplements or multivitamin, vitamin D. MM/XR DEXA axial skeleton IMPRESSION: 1. DIAGNOSIS: Osteoporosis based on the lowest T-score value of -3.8 in the total femur applying World Health Organization criteria. 2. 10-YEAR FRACTURE RISK PREDICTION, FRAX: According to the guidelines, FRAX calculation should only be performed on patients in the osteopenia bone density category. Therefore, FRAX was not performed on this patient. 3. Treatment Recommendations: NOF guidelines recommend consideration for treatment in postmenopausal women and men age 50 and older presenting with the following: -A hip or vertebral (clinical or morphometric) fracture. -T-score less than or equal to -2.5 at the femoral neck or spine after appropriate evaluation to exclude secondary causes. -Low bone mass at the hip or spine and a 10-year fracture probability by FRAX of greater than or equal to 3% for hip fracture or greater than or equal to 20% for major osteoporotic fracture based on the [place] adapted WHO algorithm. 4. Other Recommendations: All treatment decisions require clinical judgment and consideration of individual patient factors, including patient preferences, comorbidities, previous drug use, risk factors not captured in the FRAX model (e.g. frailty, falls, vitamin D deficiency, increased bone turnover, interval significant decline in bone density) and possible under or overestimation of fracture risk by FRAX. Additional medical evaluation for secondary cause of low bone mineral density may be appropriate. FUTURE SCAN RECOMMENDATION: People with diagnosed cases of osteoporosis or at high risk for fracture should have regular bone mineral density tests. For patients eligible for Medicare, routine testing is allowed once every 2 years. The testing frequency can be increased to one year for patients who have rapidly progressing disease, those who are receiving or discontinuing medical therapy to restore bone mass, or have additional risk factors. Electronically signed by: Panchito Antonio MD 07/16/2024 04:47 PM CARMELITA NORRIS
--- OUTSIDE RECORDS SUMMARY | 2024-07-17 01:07 | XMS_ITS | Clinical Summary ---
Author Organization [facility] Address [address] [place] [address] Phone Care Team Providers Care Wellness Program Manager Name Role Phone Smita MCCRACKEN, Jeferson Primary Care Provider [phone] [facility] Un[facility] [phone] Reason for Visit and Chief Complaint Medicare New Patient Plan of Treatment Pending Tests Order Diagnosis Results Due Ordering P hope Follow Up - Appointment 1 Month Nondisp fx of sternal end of right clavicle, init 02/05/[address] MD Last Documented On 3 10:03AM ; [facility] Assessments Includes: Assessments from this encounter [...] Diagnosis Medicare New Patient Nic Street MD [facility] 02/06/20 23 9:20AM 10:18AM Insurance Includes: Active Insurance Policies Plan Name Member ID Group # Subscriber Relationship Effect shruti Dates 1 - Medicare Part B [facility] [id number] Joanna Torre 2 - [facility] [id number] Joanna Torre Clinical Notes Includes: Clinical Notes from this encounter * Progress note Date Encounter Last Documented by 02/05/2023 Medicare New Patient Javid raineyed on 02/05/2023; 10:03 AM, Nic Street MD; [facility], Physical Findings Chief complaint: Right shoulder injury [...]
--- OUTSIDE RECORDS SUMMARY | 2024-07-17 01:07 | XMS_ITS ---
Author Organization [facility] Address [address] [place] [address] Phone Care Team Providers Care Receptionist Scheduler Name Role Phone Jeferson Ordoñez MD Primary Care Provider [phone] [facility] Unavailable [phone] Plan of Treatment No Plan of Treatment Recorded Assessments Includes: Assessments for all patient encounters No Assessments Recorded Medical Equipment - Implanted Devices Includes: Current and historical Devices No Medical Equipment Recorded Medications Administered Includes: Administered Medications in patient's chart No Administered Medications Recorded Results Includes: Results from 07/17/2023 through 07/17/2024 No Results Recorded For Specified Dates History [...] Dates 1 - Medicare Part B of [place] [id number] Joanna Robert Nicho 2 - [facility] [id number] Joanna Robert Nicho Clinical Notes Includes: Signed Clinical Notes starting from 07/16/2022 No Clinical Notes Recorded
--- OUTSIDE RECORDS SUMMARY | 2024-07-17 01:07 | XMS_ITS | Clinical Summary ---
Author Organization Unknown Care Team Providers Care Storage Facility Housekeeper Name Role Phone EUSEBIO MCCRACKEN, SHASTA Unavailable Unavailable RONY RN, OSMAR Unavailable Unavailable NICOLE PT, GEOVANNI Unavailable Unavailable Payers Payer Name Policy Type Policy Number Effective Date Expira tion Date MEDICARE - [facility] [place] - [place] [id number] Problems Condition Name Condition Details Condition Category [...] 08-23 00:00: 00 09-08 00:00 :00 No [id number] Per instruc tions Per instructio ns (route: oral) Med Classific ation: Analgesic , Anti-infl ammatory or Antipyret ic metoprolol succinate ER 50 mg tablet,exte nded release 24 hr 08-12 00:00: 00 09-08 00:00 :00 No [id number] Per instruc tions Per instructio ns (route: oral) Med Classific ation: Cardiovas cular Therapy Agents lorazepam 0.5 mg tablet 08-23 00:00: 00 09-08 00:00 :00 No [id number] Per instruc tions Per instructio ns (route: oral) Med Classific ation: Central Nervous System Agents divalproex 125 mg tablet,trudi yed release 08-20 00:00: 00 09-08 00:00 :00 No [id number] Per instruc tions Per instructio ns (route: oral) Med Classific ation: Central Nervous System Agents gabapentin 100 mg capsule 08-13 00:00: 00 09-08 00:00 :00 No [id number] Per instruc tions Per instructio ns (route: oral) Med Classific ation: Central Nervous System Agents quetiapine 50 mg tablet 08-12 00:00: 00 09-08 00:00 :00 No [id number] Per instruc tions Per instructio ns (route: oral) Med Classific ation: Central Nervous System Agents furosemide 20 mg tablet 09-02 00:00: 00 09-08 00:00 :00 No [id number] Per instruc tions Per instructio ns (route: oral) Med Classific ation: Cardiovas cular Therapy Agents trazodone 100 mg tablet 2021-0 1-15 00:00: 00 09-08 00:00 :00 No [id number] Per instruc tions Per instructio ns (route: oral) Med Classific ation: Central Nervous System Agents mirtazapine 30 mg tablet 2019-08 00:00: 00 09-08 00:00 :00 No [id number] Per instruc tions Per instructio ns (route: oral) Med Classific ation: Central Nervous System Agents duloxetine 60 mg capsule,del ayed release -17 00:00: 00 09-08 00:00 :00 No [id number] Per instruc tions Per instructio ns (route: oral) Med Classific ation: Central Nervous System Agents OxyContin 10 mg tablet,jermain h resistant,e xtended release 08-20 00:00: 00 09-08 00:00 :00 No [id number] Per instruc tions Per instructio ns (route: oral) Med Classific ation: Analgesic , Anti-infl ammatory or Antipyret ic duloxetine 60 mg capsule,del ayed release 2- 00:00: 00 09-23 23:59 :00 No [id number] 1 capsule DAILY 1 capsule DAILY (route: oral) Med Classific ation: Central Nervous System Agents gabapentin 300 mg capsule 2-03 00:00: 00 09-23 23:59 :00 No [id number] 3 capsule 3 TIMES DAILY 3 capsule 3 TIMES DAILY (route: oral) Med Classific ation: Central Nervous System Agents lorazepam 0.5 mg tablet 2-03 00:00: 00 01-12 23:59 :00 No [id number] 1 tablet 2 TIMES DAILY 1 tablet 2 TIMES DAILY (route: oral) Med Classific ation: Central Nervous System Agents metoprolol succinate ER 50 mg tablet,exte nded release 24 hr 2-03 00:00: 00 09-23 23:59 :00 No [id number] 1 tablet DAILY 1 tablet DAILY (route: oral) Med Classific ation: Cardiovas cular Therapy Agents mirtazapine 30 mg tablet 2-03 00:00: 00 09-23 23:59 :00 No [id number] 1 tablet DAILY 1 tablet DAILY (route: oral) Med Classific ation: Central Nervous System Agents oxycodone 5 mg tablet 2-03 00:00: 00 09-23 23:59 :00 No [id number] 1 tablet 3 TIMES DAILY 1 tablet 3 TIMES DAILY (route: oral) Med Classific ation: Analgesic , Anti-infl ammatory or Antipyret ic OxyContin 10 mg tablet,jermain h resistant,e xtended release 2- 00:00: 00 01-12 23:59 :00 No [id number] 1 tablet DAILY 1 tablet DAILY (route: oral) Med Classific ation: Analgesic , Anti-infl ammatory or Antipyret ic Risperdal 0.25 mg tablet 2 00:00: 00 01-12 23:59 :00 No [id number] 1 tablet DAILY 1 tablet DAILY (route: oral) Med Classific ation: Central Nervous System Agents Seroquel 50 mg tablet 2- 00:00: 00 09-23 23:59 :00 No [id number] 1 tablet BEDTIME 1 tablet BEDTIME (route: oral) Med Classific ation: Central Nervous System Agents sodium chloride 1 gram tablet 2- 00:00: 00 09-23 23:59 :00 No [id number] 1 tablet 2 TIMES DAILY 1 tablet 2 TIMES DAILY (route: oral) Med Classific ation: Electroly te Balance-N utritiona l Products trazodone 100 mg tablet 2- 00:00: 00 01-12 23:59 :00 No [id number] 1 tablet BEDTIME 1 tablet BEDTIME (route: oral) Med Classific ation: Central Nervous System Agents Ativan 0.5 mg tablet 2-03 00:00: 00 01-12 23:59 :00 No [id number] 1 tablet 2 TIMES DAILY 1 tablet 2 TIMES DAILY (route: oral) Med Classific ation: Central Nervous System Agents calcium carbonate 500 mg calcium (1,250 mg) capsule 2-03 00:00: 00 09-22 23:59 :00 No [id number] 1 capsule 2 TIMES DAILY 1 capsule 2 TIMES DAILY (route: oral) Med Classific ation: Electroly te Balance-N utritiona l Products divalproex 125 mg tablet,trudi yed release 2- 00:00: 00 01-12 23:59 :00 No [id number] 1 tablet 3 TIMES DAILY 1 tablet 3 TIMES DAILY (route: oral) Med Classific ation: Central Nervous System Agents Fiber-Tabs 625 mg tablet 2- 00:00: 00 01-12 23:59 :00 No [id number] 1 tablet DAILY 1 tablet DAILY (route: oral) Med Classific ation: Gastroint estinal Therapy Agents Lasix 20 mg tablet 2- 00:00: 00 09-23 23:59 :00 No [id number] 1 tablet DAILY 1 tablet DAILY (route: oral) Med Classific ation: Cardiovas cular Therapy Agents Miralax 17 gram/dose oral powder 09-08 00:00: 00 01-12 23:59 :00 No [id number] Per instruc tions DAILY Per instructio ns DAILY (route: oral) Med Classific ation: Gastroint estinal Therapy Agents amoxicillin 500 mg-potassiu m clavulanate 125 mg tablet 09-22 00:00: 00 09-27 23:59 :00 No [id number] 1 tablet 2 TIMES DAILY 1 tablet 2 TIMES DAILY (route: oral) Med Classific ation: Anti-Infe ctive Agents gabapentin 100 mg capsule 09-23 00:00: 00 01-12 23:59 :00 No [id number] 1 capsule BEDTIME 1 capsule BEDTIME (route: oral) Med Classific ation: Central Nervous System Agents metoprolol succinate ER 50 mg capsule sprinkle, ext. release 24 hr 09-22 00:00: 00 01-12 23:59 :00 No [id number] 25 mg EVERY PM 25 mg EVERY PM (route: oral) Med Classific ation: Cardiovas cular Therapy Agents oxycodone 5 mg tablet 18 00:00: 00 01-12 23:59 :00 No [id number] 1 tablet 2 TIMES DAILY 1 tablet 2 TIMES DAILY (route: oral) Med Classific ation: Analgesic , Anti-infl ammatory or Antipyret ic quetiapine 50 mg tablet 09-22 00:00: 00 01-12 23:59 :00 No [id number] 25 mg BEDTIME 25 mg BEDTIME (route: oral) Med Classific ation: Central Nervous System Agents Senna Lax 8.6 mg tablet 09-22 00:00: 00 01-12 23:59 :00 No [id number] 2 tablet EVERY PM 2 tablet EVERY PM (route: oral) Med Classific ation: Gastroint estinal Therapy Agents metoprolol succinate ER 50 mg tablet,exte nded release 24 hr 01-05 00:00: 00 02-23 00:00 :00 No [id number] 1 tablet DAILY 1 tablet DAILY (route: oral) Med Classific ation: Cardiovas cular Therapy Agents divalproex 125 mg tablet,trudi yed release 01-01 00:00: 00 05-04 23:59 :00 No [id number] 1 tablet 2 TIMES DAILY 1 tablet 2 TIMES DAILY (route: oral) Med Classific ation: Central Nervous System Agents buspirone 5 mg tablet 12-15 00:00: 00 05-04 23:59 :00 No [id number] 1 tablet 2 TIMES DAILY 1 tablet 2 TIMES DAILY (route: oral) Med Classific ation: Central Nervous System Agents Calcium Citrate Plus 250 mg-40 mg-125 unit-3.75 mg tablet 01-16 00:00: 00 02-23 00:00 :00 No [id number] 1 tablet DAILY 1 tablet DAILY (route: oral) Med Classific ation: Electroly te Balance-N utritiona l Products duloxetine 60 mg capsule,del ayed release 01-16 00:00: 00 05-04 23:59 :00 No [id number] 1 capsule DAILY 1 capsule DAILY (route: oral) Med Classific ation: Central Nervous System Agents oxycodone 5 mg tablet 01-16 00:00: 00 02-23 00:00 :00 No [id number] 1 tablet EVERY 4 HOURS 1 tablet EVERY 4 HOURS (route: oral) Med Classific ation: Analgesic , Anti-infl ammatory or Antipyret ic Seroquel XR 150 mg tablet,exte nded release 01-16 00:00: 00 05-04 23:59 :00 No [id number] 1 tablet BEDTIME 1 tablet BEDTIME (route: oral) Med Classific ation: Central Nervous System Agents trazodone 100 mg tablet 01-16 00:00: 00 05-04 23:59 :00 No [id number] 1 tablet BEDTIME 1 tablet BEDTIME (route: oral) Med Classific ation: Central Nervous System Agents nitrofurant oin macrocrysta l 100 mg capsule 01-17 00:00: 00 02-23 00:00 :00 No [id number] 1 capsule EVERY 12 HOURS 1 capsule EVERY 12 HOURS (route: oral) Med Classific ation: Genitouri nary Therapy acetaminoph en 325 mg tablet 02-23 00:00: 00 05-04 23:59 :00 No [id number] 2 tablet EVERY 6 HOURS 2 tablet EVERY 6 HOURS (route: oral) Med Classific ation: Analgesic , Anti-infl ammatory or Antipyret ic aspirin 81 mg tablet,trudi yed release 02-23 00:00: 00 05-04 23:59 :00 No [id number] 1 tablet DAILY 1 tablet DAILY (route: oral) Med Classific ation: Hematolog ical Agents atorvastati n 40 mg tablet 02-23 00:00: 00 05-04 23:59 :00 No [id number] 1 tablet DAILY 1 tablet DAILY (route: oral) Med Classific ation: Cardiovas cular Therapy Agents gabapentin 300 mg capsule 02-23 00:00: 00 05-04 23:59 :00 No [id number] 1 capsule BEDTIME 1 capsule BEDTIME (route: oral) Med Classific ation: Central Nervous System Agents lorazepam 0.5 mg tablet 02-23 00:00: 00 03-05 23:59 :00 No [id number] 1 tablet EVERY 8 HOURS 1 tablet EVERY 8 HOURS (route: oral) Med Classific ation: Central Nervous System Agents Miralax 17 gram oral powder packet 02-23 00:00: 00 05-04 23:59 :00 No [id number] 1 powder in packet DAILY 1 powder in packet DAILY (route: oral) Med Classific ation: Gastroint estinal Therapy Agents propranolol 40 mg tablet 02-23 00:00: 00 05-04 23:59 :00 No [id number] 1 tablet 2 TIMES DAILY 1 tablet 2 TIMES DAILY (route: oral) Med Classific ation: Cardiovas cular Therapy Agents quetiapine 150 mg tablet 02-23 00:00: 00 05-04 23:59 :00 No [id number] 1 tablet BEDTIME 1 tablet BEDTIME (route: oral) Med Classific ation: Central Nervous System Agents ascorbic acid (vitamin C) 500 mg tablet 2023-08 00:00: 00 Yes [id number] 1 tablet DAILY 1 tablet DAILY (route: oral) Med Classific ation: Electroly te Balance-N utritiona l Products atorvastati n 40 mg tablet 2023-08 00:00: 00 Yes [id number] 1 tablet BEDTIME 1 tablet BEDTIME (route: oral) Med Classific ation: Cardiovas cular Therapy Agents buspirone 10 mg tablet 2023-08 0 00:00: 00 Yes [id number] 1 tablet 2 TIMES DAILY 1 tablet 2 TIMES DAILY (route: oral) Med Classific ation: Central Nervous System Agents Calcium-600 600 mg (as calcium carbonate 1,500 mg) tablet 2023-08 00:00: 00 Yes [id number] 1 tablet DAILY 1 tablet DAILY (route: oral) Med Classific ation: Electroly te Balance-N utritiona l Products Cymbalta 60 mg capsule,del ayed release 2023-08 0 00:00: 00 Yes [id number] 1 capsule DAILY 1 capsule DAILY (route: oral) Med Classific ation: Central Nervous System Agents gabapentin 300 mg capsule 2023-08 0 00:00: 00 Yes [id number] 1 capsule DAILY 1 capsule DAILY (route: oral) Med Classific ation: Central Nervous System Agents metoprolol succinate ER 50 mg tablet,exte nded release 24 hr 2023-08 0 00:00: 00 Yes [id number] 1 tablet DAILY 1 tablet DAILY (route: oral) Med Classific ation: Cardiovas cular Therapy Agents Miralax 17 gram oral powder packet 2023-08 0 00:00: 00 Yes [id number] 1 packet DAILY 1 packet DAILY (route: oral) Med Classific ation: Gastroint estinal Therapy Agents multivitami n tablet 2023-08 0 00:00: 00 Yes [id number] 1 tablet DAILY 1 tablet DAILY (route: oral) Med Classific ation: Electroly te Balance-N utritiona l Products Senna Lax 8.6 mg tablet 2023-08 0 00:00: 00 Yes [id number] 2 tablet DAILY 2 tablet DAILY (route: oral) Med Classific ation: Gastroint estinal Therapy Agents Seroquel 50 mg tablet 2023-08 0 00:00: 00 Yes [id number] 1 tablet 3 TIMES DAILY 1 tablet 3 TIMES DAILY (route: oral) Med Classific ation: Central Nervous System Agents trazodone 150 mg tablet 2023-08 0 00:00: 00 Yes [id number] 1 tablet BEDTIME 1 tablet BEDTIME (route: [...] CHANGE IN STATUS MAY BE PERFORMED UTILIZING [employer] SYSTEM TO OPTIMIZE SKILLED SERVICES FURNISHED ON THE PLAN OF CARE. SKILLED NURSE TO ESTABLISH SUPPORT MEASURES TO MINIMIZE RISK OF REHOSPITALIZATION, AND INSTRUCT PATIENT/CAREGIVER ON METHODS TO REDUCE AVOIDABLE HOSPITALIZATION. [code = VIRTUAL VISIT FREQUENCY: 3-4 PRN VIRTUAL VISITS FOR HIGH RISK ASSESSMENTS AND/OR CHANGE IN STATUS MAY BE PERFORMED UTILIZING [employer] SYSTEM TO OPTIMIZE SKILLED SERVICES FURNISHED ON [...] FOR FALL AND INJURY INCLUDING PARTICIPATION IN [facility] BALANCE SPECIALTY PROGRAM SUMMARY OF THERAPY EVAL/ASSESSMENT FINDINGS AND REASON(S) SKILLS OF A THERAPIST ARE INDICATED: PHYSICAL THERAPY EVALUATION (05/14/24) PATIENT IS A 73 YO FEMALE WITH PHYSICAL THERAPY REFERRAL AFTER FALL ON 03/15 RESULTING IN HOSPITALIZATION AND SNF STAY DUE TO FALL, DX: AVULSION FX LEFT DISTAL TIBIA. PATIENT HAD FOLLOWUP APPT AT [facility] 04/16/2014 AND WAS ISSUED ORDERS WBAT LEFT LE. PAST MD HX: PMH: HTN, CHRONIC BACK PAIN, OA, HYPONATREMIA, PERSONALITY DISORDER, CHRONIC PAIN SYNDROME, SPINAL STENOSIS, INSOMINIA, ANOREXIA NERVOSA, UTIS, FAILURE TO THRIVE. FALL HISTORY: LAST FALL ON 03/15/24 PATIENT LIVES ALONE IN APARTMENT, HAS 2 SUPPORTIVE FRIENDS THAT LIVE NEARBY INCLUDING NORMA VILA, 30 HRS POLE CUTTER 2XDAY, 7 DAYS A WEEK. PLOF: MOD I TRANSFER AND AMB WITH ROLLATOR, SUPERVISION WITH AMB OUTSIDE APARTMENT CLOF: DME: FWW, ROLLATOR, COMMODE OVER TOILET, TUB SEAT, HANDHELD SHOWERHEAD, GRAB BAR, LIFE ALERT SAFETY RECOMMENDATION: BED RAIL AND GRAB BAR INSTALLATION. THIS THERAPIST CALLED [facility] AND SPOKE WITH KEIKO TO ORDER BED [...] FOR FALL AND INJURY INCLUDING PARTICIPATION IN [facility] BALANCE SPECIALTY PROGRAM SUMMARY OF THERAPY EVAL/ASSESSMENT FINDINGS AND REASON(S) SKILLS OF A THERAPIST ARE INDICATED: PHYSICAL THERAPY EVALUATION (05/14/24) PATIENT IS A 73 YO FEMALE WITH PHYSICAL THERAPY REFERRAL AFTER FALL ON 03/15 RESULTING IN HOSPITALIZATION AND SNF STAY DUE TO FALL, MD DX: AVULSION FX LEFT DISTAL TIBIA. PATIENT HAD FOLLOWUP APPT AT [facility] 04/16/2014 AND WAS ISSUED ORDERS WBAT LEFT LE. PAST MD HX: PMH: HTN, CHRONIC BACK PAIN, OA, HYPONATREMIA, PERSONALITY DISORDER, CHRONIC PAIN SYNDROME, SPINAL STENOSIS, INSOMINIA, ANOREXIA NERVOSA, UTIS, FAILURE TO THRIVE. FALL HISTORY: LAST FALL ON 03/15/24 PATIENT LIVES ALONE IN APARTMENT, HAS 2 SUPPORTIVE FRIENDS THAT LIVE NEARBY INCLUDING NORMA VILA, 30 HRS POLE CUTTER 2XDAY, 7 DAYS A WEEK. PLOF: MOD I TRANSFER AND AMB WITH ROLLATOR, SUPERVISION WITH AMB OUTSIDE APARTMENT CLOF: DME: FWW, ROLLATOR, COMMODE OVER TOILET, TUB SEAT, HANDHELD SHOWERHEAD, GRAB BAR, LIFE ALERT SAFETY RECOMMENDATION: BED RAIL AND GRAB BAR INSTALLATION. THIS THERAPIST CALLED [facility] AND SPOKE WITH KEIKO TO ORDER BED [...] TRAINING, DME ACQUISITION, BALANCE ACTIVITY. PATIENT, CG POLE CUTTER JOAQUIN AND FRIEND NEHA INFORMED ABOUT PHYSICAL THERAPY POC, INCLUDING FREQ, VERBALIZED ACCEPTANCE. MD NOTIFIED ABOUT PATIENT STATUS AND POC. CONTINUE GOALS FROM CURRENT POC WITH EXPECTED DATE OF COMPLETION SPECIFIED ON ORDER FREQUENCY AND DURATION.] Goal Patient Goal - STAY WELL Goal Provider Goal - A PLAN OF CARE WILL BE ESTABLISHED THAT MEETS PATIENT'S GROUP HOME NEEDS AND INCLUDES PATIENT GOAL FOR HOME [...] End Date/Time Encounter Type Admission Type Attending [facility] Care Department Encounter ID Discharge Date Discharge Status Discharge Condition Discharge Reason Percent Goals Met 2024-05-09 00:00:00 2024-07-07 00:00:00 Outpatient OSMAR NUNEZ [facility] [id number] 2024-07-07 00:00:00 DISCHARGE TO HOME OR SELF CARE MINIMUM ASSIST WITH TRANSFER/A MBULATION/ ADLS GOALS MET ( ONLY) 95.92
--- OUTSIDE RECORDS SUMMARY | 2024-07-17 01:07 | XMS_ITS | Clinical Summary ---
Author Organization [facility] Address [address] [place] [address] Phone Care Team Providers Care Manager Forms Name Role Phone Jeferson Ordoñez MD Primary Care Provider [phone] [facility] Un[facility] [phone] Reason for Visit and Chief Complaint Established Patient Plan of Treatment 1. Physical therapy for active assisted range of motion right shoulder. 2. Activities of daily living. 3. General strengthening. 4. Return to office for final visit in 6 weeks - Last Documented On 03/06/2023 3:41PM ; [facility] Pending Tests Order Diagnosis Results Due Ordering Jeannine arnett Follow Up - Appointment 6 weeks Nondisp fx of sternal end r clavicle, 7thD 03/06/23 Osmar Wiseman MD Last Documented On 3 3:41PM ; [facility] Assessments Includes: Assessments from this encounter [...] Last Documented: On 03/06/2023 10:07A M ; [facility] Results Includes: Results discussed during this [...] Time Diagnosis Established Patient Osmar Wiseman MD [facility] 03/06/20 23 9:40AM 10:41AM Insurance Includes: Active Insurance Policies Plan Name Member ID Group # Subscriber Relationship Effect shruti Dates 1 - Medicare Part B [facility] [id number] JoannaPROTEGO 2 - [facility] [id number] [employer] Clinical Notes Includes: Clinical Notes from this encounter * Progress note Date Encounter Last Documented by 03/06/2023 Established Patient Javid goff on 03/06/2023; 3:41 PM, Osmar Wiseman MD; [facility] Chief Complaint Fractured medial aspect of [...]
--- OUTSIDE RECORDS SUMMARY | 2024-07-17 01:07 | XMS_ITS ---
Care Plan - [facility] Created on: July 17, 2024 Joanna Jones : 1950 Sex: Female Author Organization [facility] Address [address] [place] [address] Phone Care Team Providers Care Gis Programmer Name Role Phone Jeferson Ordoñez MD Primary Care Provider [phone] [facility] Unavailable [phone]
--- OUTSIDE RECORDS SUMMARY | 2024-07-17 01:08 | XMS_ITS | Clinical Summary ---
Author Organization Unknown Care Team Providers Care Data Integrity Consultant Name Role Phone EUSEBIO MCCRACKEN, SHASTA Unavailable Unavailable RONY RN, OSMAR Unavailable Unavailable NICOLE PT, GEOVANNI Unavailable Unavailable Payers Payer Name Policy Type Policy Number Effective Date Expira tion Date MEDICARE - [facility] [place] - [place] [id number] Problems Condition Name Condition Details Condition Category [...] 08-23 00:00: 00 09-08 00:00 :00 No [id number] Per instruc tions Per instructio ns (route: oral) Med Classific ation: Analgesic , Anti-infl ammatory or Antipyret ic metoprolol succinate ER 50 mg tablet,exte nded release 24 hr 08-12 00:00: 00 09-08 00:00 :00 No [id number] Per instruc tions Per instructio ns (route: oral) Med Classific ation: Cardiovas cular Therapy Agents lorazepam 0.5 mg tablet 08-23 00:00: 00 09-08 00:00 :00 No [id number] Per instruc tions Per instructio ns (route: oral) Med Classific ation: Central Nervous System Agents divalproex 125 mg tablet,trudi yed release 08-20 00:00: 00 09-08 00:00 :00 No [id number] Per instruc tions Per instructio ns (route: oral) Med Classific ation: Central Nervous System Agents gabapentin 100 mg capsule 08-13 00:00: 00 09-08 00:00 :00 No [id number] Per instruc tions Per instructio ns (route: oral) Med Classific ation: Central Nervous System Agents quetiapine 50 mg tablet 08-12 00:00: 00 09-08 00:00 :00 No [id number] Per instruc tions Per instructio ns (route: oral) Med Classific ation: Central Nervous System Agents furosemide 20 mg tablet 09-02 00:00: 00 09-08 00:00 :00 No [id number] Per instruc tions Per instructio ns (route: oral) Med Classific ation: Cardiovas cular Therapy Agents trazodone 100 mg tablet 2021-0 1-15 00:00: 00 09-08 00:00 :00 No [id number] Per instruc tions Per instructio ns (route: oral) Med Classific ation: Central Nervous System Agents mirtazapine 30 mg tablet 2019-08 00:00: 00 09-08 00:00 :00 No [id number] Per instruc tions Per instructio ns (route: oral) Med Classific ation: Central Nervous System Agents duloxetine 60 mg capsule,del ayed release -17 00:00: 00 09-08 00:00 :00 No [id number] Per instruc tions Per instructio ns (route: oral) Med Classific ation: Central Nervous System Agents OxyContin 10 mg tablet,jermain h resistant,e xtended release 08-20 00:00: 00 09-08 00:00 :00 No [id number] Per instruc tions Per instructio ns (route: oral) Med Classific ation: Analgesic , Anti-infl ammatory or Antipyret ic duloxetine 60 mg capsule,del ayed release 2- 00:00: 00 09-23 23:59 :00 No [id number] 1 capsule DAILY 1 capsule DAILY (route: oral) Med Classific ation: Central Nervous System Agents gabapentin 300 mg capsule 2-03 00:00: 00 09-23 23:59 :00 No [id number] 3 capsule 3 TIMES DAILY 3 capsule 3 TIMES DAILY (route: oral) Med Classific ation: Central Nervous System Agents lorazepam 0.5 mg tablet 2-03 00:00: 00 01-12 23:59 :00 No [id number] 1 tablet 2 TIMES DAILY 1 tablet 2 TIMES DAILY (route: oral) Med Classific ation: Central Nervous System Agents metoprolol succinate ER 50 mg tablet,exte nded release 24 hr 2-03 00:00: 00 09-23 23:59 :00 No [id number] 1 tablet DAILY 1 tablet DAILY (route: oral) Med Classific ation: Cardiovas cular Therapy Agents mirtazapine 30 mg tablet 2-03 00:00: 00 09-23 23:59 :00 No [id number] 1 tablet DAILY 1 tablet DAILY (route: oral) Med Classific ation: Central Nervous System Agents oxycodone 5 mg tablet 2-03 00:00: 00 09-23 23:59 :00 No [id number] 1 tablet 3 TIMES DAILY 1 tablet 3 TIMES DAILY (route: oral) Med Classific ation: Analgesic , Anti-infl ammatory or Antipyret ic OxyContin 10 mg tablet,jermain h resistant,e xtended release 2- 00:00: 00 01-12 23:59 :00 No [id number] 1 tablet DAILY 1 tablet DAILY (route: oral) Med Classific ation: Analgesic , Anti-infl ammatory or Antipyret ic Risperdal 0.25 mg tablet 2 00:00: 00 01-12 23:59 :00 No [id number] 1 tablet DAILY 1 tablet DAILY (route: oral) Med Classific ation: Central Nervous System Agents Seroquel 50 mg tablet 2- 00:00: 00 09-23 23:59 :00 No [id number] 1 tablet BEDTIME 1 tablet BEDTIME (route: oral) Med Classific ation: Central Nervous System Agents sodium chloride 1 gram tablet 2- 00:00: 00 09-23 23:59 :00 No [id number] 1 tablet 2 TIMES DAILY 1 tablet 2 TIMES DAILY (route: oral) Med Classific ation: Electroly te Balance-N utritiona l Products trazodone 100 mg tablet 2- 00:00: 00 01-12 23:59 :00 No [id number] 1 tablet BEDTIME 1 tablet BEDTIME (route: oral) Med Classific ation: Central Nervous System Agents Ativan 0.5 mg tablet 2-03 00:00: 00 01-12 23:59 :00 No [id number] 1 tablet 2 TIMES DAILY 1 tablet 2 TIMES DAILY (route: oral) Med Classific ation: Central Nervous System Agents calcium carbonate 500 mg calcium (1,250 mg) capsule 2-03 00:00: 00 09-22 23:59 :00 No [id number] 1 capsule 2 TIMES DAILY 1 capsule 2 TIMES DAILY (route: oral) Med Classific ation: Electroly te Balance-N utritiona l Products divalproex 125 mg tablet,trudi yed release 2- 00:00: 00 01-12 23:59 :00 No [id number] 1 tablet 3 TIMES DAILY 1 tablet 3 TIMES DAILY (route: oral) Med Classific ation: Central Nervous System Agents Fiber-Tabs 625 mg tablet 2- 00:00: 00 01-12 23:59 :00 No [id number] 1 tablet DAILY 1 tablet DAILY (route: oral) Med Classific ation: Gastroint estinal Therapy Agents Lasix 20 mg tablet 2- 00:00: 00 09-23 23:59 :00 No [id number] 1 tablet DAILY 1 tablet DAILY (route: oral) Med Classific ation: Cardiovas cular Therapy Agents Miralax 17 gram/dose oral powder 09-08 00:00: 00 01-12 23:59 :00 No [id number] Per instruc tions DAILY Per instructio ns DAILY (route: oral) Med Classific ation: Gastroint estinal Therapy Agents amoxicillin 500 mg-potassiu m clavulanate 125 mg tablet 09-22 00:00: 00 09-27 23:59 :00 No [id number] 1 tablet 2 TIMES DAILY 1 tablet 2 TIMES DAILY (route: oral) Med Classific ation: Anti-Infe ctive Agents gabapentin 100 mg capsule 09-23 00:00: 00 01-12 23:59 :00 No [id number] 1 capsule BEDTIME 1 capsule BEDTIME (route: oral) Med Classific ation: Central Nervous System Agents metoprolol succinate ER 50 mg capsule sprinkle, ext. release 24 hr 09-22 00:00: 00 01-12 23:59 :00 No [id number] 25 mg EVERY PM 25 mg EVERY PM (route: oral) Med Classific ation: Cardiovas cular Therapy Agents oxycodone 5 mg tablet 18 00:00: 00 01-12 23:59 :00 No [id number] 1 tablet 2 TIMES DAILY 1 tablet 2 TIMES DAILY (route: oral) Med Classific ation: Analgesic , Anti-infl ammatory or Antipyret ic quetiapine 50 mg tablet 09-22 00:00: 00 01-12 23:59 :00 No [id number] 25 mg BEDTIME 25 mg BEDTIME (route: oral) Med Classific ation: Central Nervous System Agents Senna Lax 8.6 mg tablet 09-22 00:00: 00 01-12 23:59 :00 No [id number] 2 tablet EVERY PM 2 tablet EVERY PM (route: oral) Med Classific ation: Gastroint estinal Therapy Agents metoprolol succinate ER 50 mg tablet,exte nded release 24 hr 01-05 00:00: 00 02-23 00:00 :00 No [id number] 1 tablet DAILY 1 tablet DAILY (route: oral) Med Classific ation: Cardiovas cular Therapy Agents divalproex 125 mg tablet,trudi yed release 01-01 00:00: 00 05-04 23:59 :00 No [id number] 1 tablet 2 TIMES DAILY 1 tablet 2 TIMES DAILY (route: oral) Med Classific ation: Central Nervous System Agents buspirone 5 mg tablet 12-15 00:00: 00 05-04 23:59 :00 No [id number] 1 tablet 2 TIMES DAILY 1 tablet 2 TIMES DAILY (route: oral) Med Classific ation: Central Nervous System Agents Calcium Citrate Plus 250 mg-40 mg-125 unit-3.75 mg tablet 01-16 00:00: 00 02-23 00:00 :00 No [id number] 1 tablet DAILY 1 tablet DAILY (route: oral) Med Classific ation: Electroly te Balance-N utritiona l Products duloxetine 60 mg capsule,del ayed release 01-16 00:00: 00 05-04 23:59 :00 No [id number] 1 capsule DAILY 1 capsule DAILY (route: oral) Med Classific ation: Central Nervous System Agents oxycodone 5 mg tablet 01-16 00:00: 00 02-23 00:00 :00 No [id number] 1 tablet EVERY 4 HOURS 1 tablet EVERY 4 HOURS (route: oral) Med Classific ation: Analgesic , Anti-infl ammatory or Antipyret ic Seroquel XR 150 mg tablet,exte nded release 01-16 00:00: 00 05-04 23:59 :00 No [id number] 1 tablet BEDTIME 1 tablet BEDTIME (route: oral) Med Classific ation: Central Nervous System Agents trazodone 100 mg tablet 01-16 00:00: 00 05-04 23:59 :00 No [id number] 1 tablet BEDTIME 1 tablet BEDTIME (route: oral) Med Classific ation: Central Nervous System Agents nitrofurant oin macrocrysta l 100 mg capsule 01-17 00:00: 00 02-23 00:00 :00 No [id number] 1 capsule EVERY 12 HOURS 1 capsule EVERY 12 HOURS (route: oral) Med Classific ation: Genitouri nary Therapy acetaminoph en 325 mg tablet 02-23 00:00: 00 05-04 23:59 :00 No [id number] 2 tablet EVERY 6 HOURS 2 tablet EVERY 6 HOURS (route: oral) Med Classific ation: Analgesic , Anti-infl ammatory or Antipyret ic aspirin 81 mg tablet,trudi yed release 02-23 00:00: 00 05-04 23:59 :00 No [id number] 1 tablet DAILY 1 tablet DAILY (route: oral) Med Classific ation: Hematolog ical Agents atorvastati n 40 mg tablet 02-23 00:00: 00 05-04 23:59 :00 No [id number] 1 tablet DAILY 1 tablet DAILY (route: oral) Med Classific ation: Cardiovas cular Therapy Agents gabapentin 300 mg capsule 02-23 00:00: 00 05-04 23:59 :00 No [id number] 1 capsule BEDTIME 1 capsule BEDTIME (route: oral) Med Classific ation: Central Nervous System Agents lorazepam 0.5 mg tablet 02-23 00:00: 00 03-05 23:59 :00 No [id number] 1 tablet EVERY 8 HOURS 1 tablet EVERY 8 HOURS (route: oral) Med Classific ation: Central Nervous System Agents Miralax 17 gram oral powder packet 02-23 00:00: 00 05-04 23:59 :00 No [id number] 1 powder in packet DAILY 1 powder in packet DAILY (route: oral) Med Classific ation: Gastroint estinal Therapy Agents propranolol 40 mg tablet 02-23 00:00: 00 05-04 23:59 :00 No [id number] 1 tablet 2 TIMES DAILY 1 tablet 2 TIMES DAILY (route: oral) Med Classific ation: Cardiovas cular Therapy Agents quetiapine 150 mg tablet 02-23 00:00: 00 05-04 23:59 :00 No [id number] 1 tablet BEDTIME 1 tablet BEDTIME (route: oral) Med Classific ation: Central Nervous System Agents ascorbic acid (vitamin C) 500 mg tablet 2023-08 00:00: 00 Yes [id number] 1 tablet DAILY 1 tablet DAILY (route: oral) Med Classific ation: Electroly te Balance-N utritiona l Products atorvastati n 40 mg tablet 2023-08 00:00: 00 Yes [id number] 1 tablet BEDTIME 1 tablet BEDTIME (route: oral) Med Classific ation: Cardiovas cular Therapy Agents buspirone 10 mg tablet 2023-08 0 00:00: 00 Yes [id number] 1 tablet 2 TIMES DAILY 1 tablet 2 TIMES DAILY (route: oral) Med Classific ation: Central Nervous System Agents Calcium-600 600 mg (as calcium carbonate 1,500 mg) tablet 2023-08 00:00: 00 Yes [id number] 1 tablet DAILY 1 tablet DAILY (route: oral) Med Classific ation: Electroly te Balance-N utritiona l Products Cymbalta 60 mg capsule,del ayed release 2023-08 0 00:00: 00 Yes [id number] 1 capsule DAILY 1 capsule DAILY (route: oral) Med Classific ation: Central Nervous System Agents gabapentin 300 mg capsule 2023-08 0 00:00: 00 Yes [id number] 1 capsule DAILY 1 capsule DAILY (route: oral) Med Classific ation: Central Nervous System Agents metoprolol succinate ER 50 mg tablet,exte nded release 24 hr 2023-08 0 00:00: 00 Yes [id number] 1 tablet DAILY 1 tablet DAILY (route: oral) Med Classific ation: Cardiovas cular Therapy Agents Miralax 17 gram oral powder packet 2023-08 0 00:00: 00 Yes [id number] 1 packet DAILY 1 packet DAILY (route: oral) Med Classific ation: Gastroint estinal Therapy Agents multivitami n tablet 2023-08 0 00:00: 00 Yes [id number] 1 tablet DAILY 1 tablet DAILY (route: oral) Med Classific ation: Electroly te Balance-N utritiona l Products Senna Lax 8.6 mg tablet 2023-08 0 00:00: 00 Yes [id number] 2 tablet DAILY 2 tablet DAILY (route: oral) Med Classific ation: Gastroint estinal Therapy Agents Seroquel 50 mg tablet 2023-08 0 00:00: 00 Yes [id number] 1 tablet 3 TIMES DAILY 1 tablet 3 TIMES DAILY (route: oral) Med Classific ation: Central Nervous System Agents trazodone 150 mg tablet 2023-08 0 00:00: 00 Yes [id number] 1 tablet BEDTIME 1 tablet BEDTIME (route: [...] CHANGE IN STATUS MAY BE PERFORMED UTILIZING TELEHitFix SYSTEM TO OPTIMIZE SKILLED SERVICES FURNISHED ON THE PLAN OF CARE. SKILLED NURSE TO ESTABLISH SUPPORT MEASURES TO MINIMIZE RISK OF REHOSPITALIZATION, AND INSTRUCT PATIENT/CAREGIVER ON METHODS TO REDUCE AVOIDABLE HOSPITALIZATION. [code = VIRTUAL VISIT FREQUENCY: 3-4 PRN VIRTUAL VISITS FOR HIGH RISK ASSESSMENTS AND/OR CHANGE IN STATUS MAY BE PERFORMED UTILIZING TELECOMFireHost SYSTEM TO OPTIMIZE SKILLED SERVICES FURNISHED ON [...] FOR FALL AND INJURY INCLUDING PARTICIPATION IN [facility] BALANCE SPECIALTY PROGRAM SUMMARY OF THERAPY EVAL/ASSESSMENT FINDINGS AND REASON(S) SKILLS OF A THERAPIST ARE INDICATED: PHYSICAL THERAPY EVALUATION (05/14/24) PATIENT IS A 73 YO FEMALE WITH PHYSICAL THERAPY REFERRAL AFTER FALL ON 03/15 RESULTING IN HOSPITALIZATION AND SNF STAY DUE TO FALL, DX: AVULSION FX LEFT DISTAL TIBIA. PATIENT HAD FOLLOWUP APPT AT [facility] 04/16/2014 AND WAS ISSUED ORDERS WBAT LEFT LE. PAST MD HX: PMH: HTN, CHRONIC BACK PAIN, OA, HYPONATREMIA, PERSONALITY DISORDER, CHRONIC PAIN SYNDROME, SPINAL STENOSIS, INSOMINIA, ANOREXIA NERVOSA, UTIS, FAILURE TO THRIVE. FALL HISTORY: LAST FALL ON 03/15/24 PATIENT LIVES ALONE IN APARTMENT, HAS 2 SUPPORTIVE FRIENDS THAT LIVE NEARBY INCLUDING NORMA VILA, 30 HRS ENVIRONMENTAL SERVICES DIRECTOR 2XDAY, 7 DAYS A WEEK. PLOF: MOD I TRANSFER AND AMB WITH ROLLATOR, SUPERVISION WITH AMB OUTSIDE APARTMENT CLOF: DME: FWW, ROLLATOR, COMMODE OVER TOILET, TUB SEAT, HANDHELD SHOWERHEAD, GRAB BAR, LIFE ALERT SAFETY RECOMMENDATION: BED RAIL AND GRAB BAR INSTALLATION. THIS THERAPIST CALLED [facility] AND SPOKE WITH KEIKO TO ORDER BED [...] FOR FALL AND INJURY INCLUDING PARTICIPATION IN [facility] BALANCE SPECIALTY PROGRAM SUMMARY OF THERAPY EVAL/ASSESSMENT FINDINGS AND REASON(S) SKILLS OF A THERAPIST ARE INDICATED: PHYSICAL THERAPY EVALUATION (05/14/24) PATIENT IS A 73 YO FEMALE WITH PHYSICAL THERAPY REFERRAL AFTER FALL ON 03/15 RESULTING IN HOSPITALIZATION AND SNF STAY DUE TO FALL, MD DX: AVULSION FX LEFT DISTAL TIBIA. PATIENT HAD FOLLOWUP APPT AT [facility] 04/16/2014 AND WAS ISSUED ORDERS WBAT LEFT LE. PAST MD HX: PMH: HTN, CHRONIC BACK PAIN, OA, HYPONATREMIA, PERSONALITY DISORDER, CHRONIC PAIN SYNDROME, SPINAL STENOSIS, INSOMINIA, ANOREXIA NERVOSA, UTIS, FAILURE TO THRIVE. FALL HISTORY: LAST FALL ON 03/15/24 PATIENT LIVES ALONE IN APARTMENT, HAS 2 SUPPORTIVE FRIENDS THAT LIVE NEARBY INCLUDING NORMA VILA, 30 HRS ENVIRONMENTAL SERVICES DIRECTOR 2XDAY, 7 DAYS A WEEK. PLOF: MOD I TRANSFER AND AMB WITH ROLLATOR, SUPERVISION WITH AMB OUTSIDE APARTMENT CLOF: DME: FWW, ROLLATOR, COMMODE OVER TOILET, TUB SEAT, HANDHELD SHOWERHEAD, GRAB BAR, LIFE ALERT SAFETY RECOMMENDATION: BED RAIL AND GRAB BAR INSTALLATION. THIS THERAPIST CALLED [facility] AND SPOKE WITH KEIKO TO ORDER BED [...] TRAINING, DME ACQUISITION, BALANCE ACTIVITY. PATIENT, CG ENVIRONMENTAL SERVICES DIRECTOR JOAQUIN AND FRIEND NEHA INFORMED ABOUT PHYSICAL THERAPY POC, INCLUDING FREQ, VERBALIZED ACCEPTANCE. MD NOTIFIED ABOUT PATIENT STATUS AND POC. CONTINUE GOALS FROM CURRENT POC WITH EXPECTED DATE OF COMPLETION SPECIFIED ON ORDER FREQUENCY AND DURATION.] Goal Patient Goal - STAY WELL Goal Provider Goal - A PLAN OF CARE WILL BE ESTABLISHED THAT MEETS PATIENT'S CARE HOME NEEDS AND INCLUDES PATIENT GOAL FOR [...] End Date/Time Encounter Type Admission Type Attending [facility] Care Department Encounter ID Discharge Date Discharge Status Discharge Condition Discharge Reason Percent Goals Met 2024-05-09 00:00:00 2024-07-07 00:00:00 Outpatient OSMAR NUNEZ [facility] [id number] 2024-07-07 00:00:00 DISCHARGE TO HOME OR SELF CARE MINIMUM ASSIST WITH TRANSFER/A MBULATION/ ADLS GOALS MET ( ONLY) 95.92
== END 2024-07-16 10:49 | disposition home or self-care (01) ==
LOC: HO.MAMMO 10:48
PROVIDERS: PCP Internal Medicine; Visit Provider Internal Medicine
DX: M85.80 Other specified disorders of bone density and structure, unspecified site (principal); Z78.0 Asymptomatic menopausal state
CPT/HCPCS: 77080

== ENCOUNTER 2024-08-20 11:10 | Outpatient (REF) | payer MEDICARE, MEDICAID, SELFPAY ==
--- OUTSIDE RECORDS SUMMARY | 2024-08-20 13:13 | XMS_ITS | Clinical Summary ---
Author Organization Unknown Care Team Providers Care Balance Wheel Arm Burnisher Name Role Phone EUSEBIO MCCRACKEN, SHASTA Unavailable Unavailable RONY RN, OSMAR Unavailable Unavailable NICOLE PT, GEOVANNI Unavailable Unavailable Payers Payer Name Policy Type Policy Number Effective Date Expira tion Date MEDICARE - [facility] [place] - PD [id number] Problems Condition Name Condition Details Condition Category [...] 08-23 00:00: 00 09-08 00:00 :00 No [id number] Per instruc tions Per instructio ns (route: oral) Med Classific ation: Analgesic , Anti-infl ammatory or Antipyret ic metoprolol succinate ER 50 mg tablet,exte nded release 24 hr 08-12 00:00: 00 09-08 00:00 :00 No [id number] Per instruc tions Per instructio ns (route: oral) Med Classific ation: Cardiovas cular Therapy Agents lorazepam 0.5 mg tablet 08-23 00:00: 00 09-08 00:00 :00 No [id number] Per instruc tions Per instructio ns (route: oral) Med Classific ation: Central Nervous System Agents divalproex 125 mg tablet,trudi yed release 08-20 00:00: 00 09-08 00:00 :00 No [id number] Per instruc tions Per instructio ns (route: oral) Med Classific ation: Central Nervous System Agents gabapentin 100 mg capsule 08-13 00:00: 00 09-08 00:00 :00 No [id number] Per instruc tions Per instructio ns (route: oral) Med Classific ation: Central Nervous System Agents quetiapine 50 mg tablet 08-12 00:00: 00 09-08 00:00 :00 No [id number] Per instruc tions Per instructio ns (route: oral) Med Classific ation: Central Nervous System Agents furosemide 20 mg tablet 09-02 00:00: 00 09-08 00:00 :00 No [id number] Per instruc tions Per instructio ns (route: oral) Med Classific ation: Cardiovas cular Therapy Agents trazodone 100 mg tablet 2021-0 1-15 00:00: 00 09-08 00:00 :00 No [id number] Per instruc tions Per instructio ns (route: oral) Med Classific ation: Central Nervous System Agents mirtazapine 30 mg tablet 2019-08 00:00: 00 09-08 00:00 :00 No [id number] Per instruc tions Per instructio ns (route: oral) Med Classific ation: Central Nervous System Agents duloxetine 60 mg capsule,del ayed release -17 00:00: 00 09-08 00:00 :00 No [id number] Per instruc tions Per instructio ns (route: oral) Med Classific ation: Central Nervous System Agents OxyContin 10 mg tablet,jermain h resistant,e xtended release 08-20 00:00: 00 09-08 00:00 :00 No [id number] Per instruc tions Per instructio ns (route: oral) Med Classific ation: Analgesic , Anti-infl ammatory or Antipyret ic duloxetine 60 mg capsule,del ayed release 2- 00:00: 00 09-23 23:59 :00 No [id number] 1 capsule DAILY 1 capsule DAILY (route: oral) Med Classific ation: Central Nervous System Agents gabapentin 300 mg capsule 2-03 00:00: 00 09-23 23:59 :00 No [id number] 3 capsule 3 TIMES DAILY 3 capsule 3 TIMES DAILY (route: oral) Med Classific ation: Central Nervous System Agents lorazepam 0.5 mg tablet 2-03 00:00: 00 01-12 23:59 :00 No [id number] 1 tablet 2 TIMES DAILY 1 tablet 2 TIMES DAILY (route: oral) Med Classific ation: Central Nervous System Agents metoprolol succinate ER 50 mg tablet,exte nded release 24 hr 2-03 00:00: 00 09-23 23:59 :00 No [id number] 1 tablet DAILY 1 tablet DAILY (route: oral) Med Classific ation: Cardiovas cular Therapy Agents mirtazapine 30 mg tablet 2-03 00:00: 00 09-23 23:59 :00 No [id number] 1 tablet DAILY 1 tablet DAILY (route: oral) Med Classific ation: Central Nervous System Agents oxycodone 5 mg tablet 2-03 00:00: 00 09-23 23:59 :00 No [id number] 1 tablet 3 TIMES DAILY 1 tablet 3 TIMES DAILY (route: oral) Med Classific ation: Analgesic , Anti-infl ammatory or Antipyret ic OxyContin 10 mg tablet,jermain h resistant,e xtended release 2- 00:00: 00 01-12 23:59 :00 No [id number] 1 tablet DAILY 1 tablet DAILY (route: oral) Med Classific ation: Analgesic , Anti-infl ammatory or Antipyret ic Risperdal 0.25 mg tablet 2 00:00: 00 01-12 23:59 :00 No [id number] 1 tablet DAILY 1 tablet DAILY (route: oral) Med Classific ation: Central Nervous System Agents Seroquel 50 mg tablet 2- 00:00: 00 09-23 23:59 :00 No [id number] 1 tablet BEDTIME 1 tablet BEDTIME (route: oral) Med Classific ation: Central Nervous System Agents sodium chloride 1 gram tablet 2- 00:00: 00 09-23 23:59 :00 No [id number] 1 tablet 2 TIMES DAILY 1 tablet 2 TIMES DAILY (route: oral) Med Classific ation: Electroly te Balance-N utritiona l Products trazodone 100 mg tablet 2- 00:00: 00 01-12 23:59 :00 No [id number] 1 tablet BEDTIME 1 tablet BEDTIME (route: oral) Med Classific ation: Central Nervous System Agents Ativan 0.5 mg tablet 2-03 00:00: 00 01-12 23:59 :00 No [id number] 1 tablet 2 TIMES DAILY 1 tablet 2 TIMES DAILY (route: oral) Med Classific ation: Central Nervous System Agents calcium carbonate 500 mg calcium (1,250 mg) capsule 2-03 00:00: 00 09-22 23:59 :00 No [id number] 1 capsule 2 TIMES DAILY 1 capsule 2 TIMES DAILY (route: oral) Med Classific ation: Electroly te Balance-N utritiona l Products divalproex 125 mg tablet,trudi yed release 2- 00:00: 00 01-12 23:59 :00 No [id number] 1 tablet 3 TIMES DAILY 1 tablet 3 TIMES DAILY (route: oral) Med Classific ation: Central Nervous System Agents Fiber-Tabs 625 mg tablet 2- 00:00: 00 01-12 23:59 :00 No [id number] 1 tablet DAILY 1 tablet DAILY (route: oral) Med Classific ation: Gastroint estinal Therapy Agents Lasix 20 mg tablet 2- 00:00: 00 09-23 23:59 :00 No [id number] 1 tablet DAILY 1 tablet DAILY (route: oral) Med Classific ation: Cardiovas cular Therapy Agents Miralax 17 gram/dose oral powder 09-08 00:00: 00 01-12 23:59 :00 No [id number] Per instruc tions DAILY Per instructio ns DAILY (route: oral) Med Classific ation: Gastroint estinal Therapy Agents amoxicillin 500 mg-potassiu m clavulanate 125 mg tablet 09-22 00:00: 00 09-27 23:59 :00 No [id number] 1 tablet 2 TIMES DAILY 1 tablet 2 TIMES DAILY (route: oral) Med Classific ation: Anti-Infe ctive Agents gabapentin 100 mg capsule 09-23 00:00: 00 01-12 23:59 :00 No [id number] 1 capsule BEDTIME 1 capsule BEDTIME (route: oral) Med Classific ation: Central Nervous System Agents metoprolol succinate ER 50 mg capsule sprinkle, ext. release 24 hr 09-22 00:00: 00 01-12 23:59 :00 No [id number] 25 mg EVERY PM 25 mg EVERY PM (route: oral) Med Classific ation: Cardiovas cular Therapy Agents oxycodone 5 mg tablet 18 00:00: 00 01-12 23:59 :00 No [id number] 1 tablet 2 TIMES DAILY 1 tablet 2 TIMES DAILY (route: oral) Med Classific ation: Analgesic , Anti-infl ammatory or Antipyret ic quetiapine 50 mg tablet 09-22 00:00: 00 01-12 23:59 :00 No [id number] 25 mg BEDTIME 25 mg BEDTIME (route: oral) Med Classific ation: Central Nervous System Agents Senna Lax 8.6 mg tablet 09-22 00:00: 00 01-12 23:59 :00 No [id number] 2 tablet EVERY PM 2 tablet EVERY PM (route: oral) Med Classific ation: Gastroint estinal Therapy Agents metoprolol succinate ER 50 mg tablet,exte nded release 24 hr 01-05 00:00: 00 02-23 00:00 :00 No [id number] 1 tablet DAILY 1 tablet DAILY (route: oral) Med Classific ation: Cardiovas cular Therapy Agents divalproex 125 mg tablet,trudi yed release 01-01 00:00: 00 05-04 23:59 :00 No [id number] 1 tablet 2 TIMES DAILY 1 tablet 2 TIMES DAILY (route: oral) Med Classific ation: Central Nervous System Agents buspirone 5 mg tablet 12-15 00:00: 00 05-04 23:59 :00 No [id number] 1 tablet 2 TIMES DAILY 1 tablet 2 TIMES DAILY (route: oral) Med Classific ation: Central Nervous System Agents Calcium Citrate Plus 250 mg-40 mg-125 unit-3.75 mg tablet 01-16 00:00: 00 02-23 00:00 :00 No [id number] 1 tablet DAILY 1 tablet DAILY (route: oral) Med Classific ation: Electroly te Balance-N utritiona l Products duloxetine 60 mg capsule,del ayed release 01-16 00:00: 00 05-04 23:59 :00 No [id number] 1 capsule DAILY 1 capsule DAILY (route: oral) Med Classific ation: Central Nervous System Agents oxycodone 5 mg tablet 01-16 00:00: 00 02-23 00:00 :00 No [id number] 1 tablet EVERY 4 HOURS 1 tablet EVERY 4 HOURS (route: oral) Med Classific ation: Analgesic , Anti-infl ammatory or Antipyret ic Seroquel XR 150 mg tablet,exte nded release 01-16 00:00: 00 05-04 23:59 :00 No [id number] 1 tablet BEDTIME 1 tablet BEDTIME (route: oral) Med Classific ation: Central Nervous System Agents trazodone 100 mg tablet 01-16 00:00: 00 05-04 23:59 :00 No [id number] 1 tablet BEDTIME 1 tablet BEDTIME (route: oral) Med Classific ation: Central Nervous System Agents nitrofurant oin macrocrysta l 100 mg capsule 01-17 00:00: 00 02-23 00:00 :00 No [id number] 1 capsule EVERY 12 HOURS 1 capsule EVERY 12 HOURS (route: oral) Med Classific ation: Genitouri nary Therapy acetaminoph en 325 mg tablet 02-23 00:00: 00 05-04 23:59 :00 No [id number] 2 tablet EVERY 6 HOURS 2 tablet EVERY 6 HOURS (route: oral) Med Classific ation: Analgesic , Anti-infl ammatory or Antipyret ic aspirin 81 mg tablet,trudi yed release 02-23 00:00: 00 05-04 23:59 :00 No [id number] 1 tablet DAILY 1 tablet DAILY (route: oral) Med Classific ation: Hematolog ical Agents atorvastati n 40 mg tablet 02-23 00:00: 00 05-04 23:59 :00 No [id number] 1 tablet DAILY 1 tablet DAILY (route: oral) Med Classific ation: Cardiovas cular Therapy Agents gabapentin 300 mg capsule 02-23 00:00: 00 05-04 23:59 :00 No [id number] 1 capsule BEDTIME 1 capsule BEDTIME (route: oral) Med Classific ation: Central Nervous System Agents lorazepam 0.5 mg tablet 02-23 00:00: 00 03-05 23:59 :00 No [id number] 1 tablet EVERY 8 HOURS 1 tablet EVERY 8 HOURS (route: oral) Med Classific ation: Central Nervous System Agents Miralax 17 gram oral powder packet 02-23 00:00: 00 05-04 23:59 :00 No [id number] 1 powder in packet DAILY 1 powder in packet DAILY (route: oral) Med Classific ation: Gastroint estinal Therapy Agents propranolol 40 mg tablet 02-23 00:00: 00 05-04 23:59 :00 No [id number] 1 tablet 2 TIMES DAILY 1 tablet 2 TIMES DAILY (route: oral) Med Classific ation: Cardiovas cular Therapy Agents quetiapine 150 mg tablet 02-23 00:00: 00 05-04 23:59 :00 No [id number] 1 tablet BEDTIME 1 tablet BEDTIME (route: oral) Med Classific ation: Central Nervous System Agents ascorbic acid (vitamin C) 500 mg tablet 2023-08 00:00: 00 08-11 23:59 :00 No [id number] 1 tablet DAILY 1 tablet DAILY (route: oral) Med Classific ation: Electroly te Balance-N utritiona l Products atorvastati n 40 mg tablet 2023-08 00:00: 00 08-11 23:59 :00 No [id number] 1 tablet BEDTIME 1 tablet BEDTIME (route: oral) Med Classific ation: Cardiovas cular Therapy Agents buspirone 10 mg tablet 2023-08 00:00: 00 08-11 23:59 :00 No [id number] 1 tablet 2 TIMES DAILY 1 tablet 2 TIMES DAILY (route: oral) Med Classific ation: Central Nervous System Agents Calcium-600 600 mg (as calcium carbonate 1,500 mg) tablet 2023-0804 00:00: 00 08-11 23:59 :00 No [id number] 1 tablet DAILY 1 tablet DAILY (route: oral) Med Classific ation: Electroly te Balance-N utritiona l Products Cymbalta 60 mg capsule,del ayed release 2023-08 0- 00:00: 00 08-11 23:59 :00 No [id number] 1 capsule DAILY 1 capsule DAILY (route: oral) Med Classific ation: Central Nervous System Agents gabapentin 300 mg capsule 2023-08 0- 00:00: 00 08-11 23:59 :00 No [id number] 1 capsule DAILY 1 capsule DAILY (route: oral) Med Classific ation: Central Nervous System Agents metoprolol succinate ER 50 mg tablet,exte nded release 24 hr 2023-08 0 00:00: 00 08-11 23:59 :00 No [id number] 1 tablet DAILY 1 tablet DAILY (route: oral) Med Classific ation: Cardiovas cular Therapy Agents Miralax 17 gram oral powder packet 2023-08 0 00:00: 00 08-11 23:59 :00 No [id number] 1 packet DAILY 1 packet DAILY (route: oral) Med Classific ation: Gastroint estinal Therapy Agents multivitami n tablet 2023-08 0 00:00: 00 08-11 23:59 :00 No [id number] 1 tablet DAILY 1 tablet DAILY (route: oral) Med Classific ation: Electroly te Balance-N utritiona l Products Senna Lax 8.6 mg tablet 2023-08 0- 00:00: 00 08-11 23:59 :00 No [id number] 2 tablet DAILY 2 tablet DAILY (route: oral) Med Classific ation: Gastroint estinal Therapy Agents Seroquel 50 mg tablet 2023-08 0- 00:00: 00 08-11 23:59 :00 No [id number] 1 tablet 3 TIMES DAILY 1 tablet 3 TIMES DAILY (route: oral) Med Classific ation: Central Nervous System Agents trazodone 150 mg tablet 2023-08 0- 00:00: 00 08-11 23:59 :00 No [id number] 1 tablet BEDTIME 1 tablet BEDTIME (route: [...] CHANGE IN STATUS MAY BE PERFORMED UTILIZING TELECOMMUNICATIONS SYSTEM TO OPTIMIZE SKILLED SERVICES FURNISHED ON THE PLAN OF CARE. SKILLED NURSE TO ESTABLISH SUPPORT MEASURES TO MINIMIZE RISK OF REHOSPITALIZATION, AND INSTRUCT PATIENT/CAREGIVER ON METHODS TO REDUCE AVOIDABLE HOSPITALIZATION. [code = VIRTUAL VISIT FREQUENCY: 3-4 PRN VIRTUAL VISITS FOR HIGH RISK ASSESSMENTS AND/OR CHANGE IN STATUS MAY BE PERFORMED UTILIZING TELECOMMUNICATIONS SYSTEM TO OPTIMIZE SKILLED SERVICES FURNISHED ON [...] FOR FALL AND INJURY INCLUDING PARTICIPATION IN [facility] BAL[facility] SPECIALTY PROGRAM SUMMARY OF THERAPY EVAL/ASSESSMENT FINDINGS AND REASON(S) SKILLS OF A THERAPIST ARE INDICATED: PHYSICAL THERAPY EVALUATION (05/14/24) PATIENT IS A 73 YO FEMALE WITH PHYSICAL THERAPY REFERRAL AFTER FALL ON 03/15 RESULTING IN HOSPITALIZATION AND SNF STAY DUE TO FALL, DX: AVULSION FX LEFT DISTAL TIBIA. PATIENT HAD FOLLOWUP APPT AT [facility] 04/16/2014 AND WAS ISSUED ORDERS WBAT LEFT LE. PAST MD HX: PMH: HTN, CHRONIC BACK PAIN, OA, HYPONATREMIA, PERSONALITY DISORDER, CHRONIC PAIN SYNDROME, SPINAL STENOSIS, INSOMINIA, ANOREXIA NERVOSA, UTIS, FAILURE TO THRIVE. 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 PLOF: MOD I TRANSFER AND AMB WITH ROLLATOR, SUPERVISION WITH AMB OUTSIDE APARTMENT CLOF: DME: FWW, ROLLATOR, COMMODE OVER TOILET, TUB SEAT, HANDHELD SHOWERHEAD, GRAB BAR, LIFE ALERT SAFETY RECOMMENDATION: BED RAIL AND GRAB BAR INSTALLATION. THIS THERAPIST CALLED [facility] AND SPOKE WITH KEIKO TO ORDER BED [...] FOR FALL AND INJURY INCLUDING PARTICIPATION IN [facility] BALANCE SPECIALTY PROGRAM SUMMARY OF THERAPY EVAL/ASSESSMENT FINDINGS AND REASON(S) SKILLS OF A THERAPIST ARE INDICATED: PHYSICAL THERAPY EVALUATION (05/14/24) PATIENT IS A 73 YO FEMALE WITH PHYSICAL THERAPY REFERRAL AFTER FALL ON 03/15 RESULTING IN HOSPITALIZATION AND SNF STAY DUE TO FALL, DX: AVULSION FX LEFT DISTAL TIBIA. PATIENT HAD FOLLOWUP APPT AT [facility] 04/16/2014 AND WAS ISSUED ORDERS WBAT LEFT LE. PAST MD HX: PMH: HTN, CHRONIC BACK PAIN, OA, HYPONATREMIA, PERSONALITY DISORDER, CHRONIC PAIN SYNDROME, SPINAL STENOSIS, INSOMINIA, ANOREXIA NERVOSA, UTIS, FAILURE TO THRIVE. 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 PLOF: MOD I TRANSFER AND AMB WITH ROLLATOR, SUPERVISION WITH AMB OUTSIDE APARTMENT CLOF: DME: FWW, ROLLATOR, COMMODE OVER TOILET, TUB SEAT, HANDHELD SHOWERHEAD, GRAB BAR, LIFE ALERT SAFETY RECOMMENDATION: BED RAIL AND GRAB BAR INSTALLATION. THIS THERAPIST CALLED [facility] AND SPOKE WITH KEIKO TO ORDER BED [...] CARE WILL BE ESTABLISHED THAT MEETS PATIENT'S RESIDENTIAL NEEDS AND INCLUDES PATIENT GOAL FOR HOME [...] End Date/Time Encounter Type Admission Type Attending [facility] Care Department Encounter ID Discharge Date Discharge Status Discharge Condition Discharge Reason Percent Goals Met 2024-05-09 00:00:00 2024-07-07 00:00:00 Outpatient OSMAR NUNEZ [facility] [id number] 2024-07-07 00:00:00 DISCHARGE TO HOME OR SELF CARE MINIMUM ASSIST WITH TRANSFER/A MBULATION/ ADLS GOALS MET ( ONLY) 95.92
--- OUTSIDE RECORDS SUMMARY | 2024-08-20 13:13 | XMS_ITS | Clinical Summary ---
Author Organization Unknown Care Team Providers Care Informatics Scientist Name Role Phone EUSEBIO MCCRACKEN, SHASTA Unavailable Unavailable RONY RN, OSMAR Unavailable Unavailable NICOLE PT, GEOVANNI Unavailable Unavailable Payers Payer Name Policy Type Policy Number Effective Date Expira tion Date MEDICARE - [facility] [place] - [place] [id number] Problems Condition Name Condition Details Condition Category [...] 08-23 00:00: 00 09-08 00:00 :00 No [id number] Per instruc tions Per instructio ns (route: oral) Med Classific ation: Analgesic , Anti-infl ammatory or Antipyret ic metoprolol succinate ER 50 mg tablet,exte nded release 24 hr 08-12 00:00: 00 09-08 00:00 :00 No [id number] Per instruc tions Per instructio ns (route: oral) Med Classific ation: Cardiovas cular Therapy Agents lorazepam 0.5 mg tablet 08-23 00:00: 00 09-08 00:00 :00 No [id number] Per instruc tions Per instructio ns (route: oral) Med Classific ation: Central Nervous System Agents divalproex 125 mg tablet,trudi yed release 08-20 00:00: 00 09-08 00:00 :00 No [id number] Per instruc tions Per instructio ns (route: oral) Med Classific ation: Central Nervous System Agents gabapentin 100 mg capsule 08-13 00:00: 00 09-08 00:00 :00 No [id number] Per instruc tions Per instructio ns (route: oral) Med Classific ation: Central Nervous System Agents quetiapine 50 mg tablet 08-12 00:00: 00 09-08 00:00 :00 No [id number] Per instruc tions Per instructio ns (route: oral) Med Classific ation: Central Nervous System Agents furosemide 20 mg tablet 09-02 00:00: 00 09-08 00:00 :00 No [id number] Per instruc tions Per instructio ns (route: oral) Med Classific ation: Cardiovas cular Therapy Agents trazodone 100 mg tablet 2021-0 1-15 00:00: 00 09-08 00:00 :00 No [id number] Per instruc tions Per instructio ns (route: oral) Med Classific ation: Central Nervous System Agents mirtazapine 30 mg tablet 2019-08 00:00: 00 09-08 00:00 :00 No [id number] Per instruc tions Per instructio ns (route: oral) Med Classific ation: Central Nervous System Agents duloxetine 60 mg capsule,del ayed release -17 00:00: 00 09-08 00:00 :00 No [id number] Per instruc tions Per instructio ns (route: oral) Med Classific ation: Central Nervous System Agents OxyContin 10 mg tablet,jermain h resistant,e xtended release 08-20 00:00: 00 09-08 00:00 :00 No [id number] Per instruc tions Per instructio ns (route: oral) Med Classific ation: Analgesic , Anti-infl ammatory or Antipyret ic duloxetine 60 mg capsule,del ayed release 2- 00:00: 00 09-23 23:59 :00 No [id number] 1 capsule DAILY 1 capsule DAILY (route: oral) Med Classific ation: Central Nervous System Agents gabapentin 300 mg capsule 2-03 00:00: 00 09-23 23:59 :00 No [id number] 3 capsule 3 TIMES DAILY 3 capsule 3 TIMES DAILY (route: oral) Med Classific ation: Central Nervous System Agents lorazepam 0.5 mg tablet 2-03 00:00: 00 01-12 23:59 :00 No [id number] 1 tablet 2 TIMES DAILY 1 tablet 2 TIMES DAILY (route: oral) Med Classific ation: Central Nervous System Agents metoprolol succinate ER 50 mg tablet,exte nded release 24 hr 2-03 00:00: 00 09-23 23:59 :00 No [id number] 1 tablet DAILY 1 tablet DAILY (route: oral) Med Classific ation: Cardiovas cular Therapy Agents mirtazapine 30 mg tablet 2-03 00:00: 00 09-23 23:59 :00 No [id number] 1 tablet DAILY 1 tablet DAILY (route: oral) Med Classific ation: Central Nervous System Agents oxycodone 5 mg tablet 2-03 00:00: 00 09-23 23:59 :00 No [id number] 1 tablet 3 TIMES DAILY 1 tablet 3 TIMES DAILY (route: oral) Med Classific ation: Analgesic , Anti-infl ammatory or Antipyret ic OxyContin 10 mg tablet,jermain h resistant,e xtended release 2- 00:00: 00 01-12 23:59 :00 No [id number] 1 tablet DAILY 1 tablet DAILY (route: oral) Med Classific ation: Analgesic , Anti-infl ammatory or Antipyret ic Risperdal 0.25 mg tablet 2 00:00: 00 01-12 23:59 :00 No [id number] 1 tablet DAILY 1 tablet DAILY (route: oral) Med Classific ation: Central Nervous System Agents Seroquel 50 mg tablet 2- 00:00: 00 09-23 23:59 :00 No [id number] 1 tablet BEDTIME 1 tablet BEDTIME (route: oral) Med Classific ation: Central Nervous System Agents sodium chloride 1 gram tablet 2- 00:00: 00 09-23 23:59 :00 No [id number] 1 tablet 2 TIMES DAILY 1 tablet 2 TIMES DAILY (route: oral) Med Classific ation: Electroly te Balance-N utritiona l Products trazodone 100 mg tablet 2- 00:00: 00 01-12 23:59 :00 No [id number] 1 tablet BEDTIME 1 tablet BEDTIME (route: oral) Med Classific ation: Central Nervous System Agents Ativan 0.5 mg tablet 2-03 00:00: 00 01-12 23:59 :00 No [id number] 1 tablet 2 TIMES DAILY 1 tablet 2 TIMES DAILY (route: oral) Med Classific ation: Central Nervous System Agents calcium carbonate 500 mg calcium (1,250 mg) capsule 2-03 00:00: 00 09-22 23:59 :00 No [id number] 1 capsule 2 TIMES DAILY 1 capsule 2 TIMES DAILY (route: oral) Med Classific ation: Electroly te Balance-N utritiona l Products divalproex 125 mg tablet,trudi yed release 2- 00:00: 00 01-12 23:59 :00 No [id number] 1 tablet 3 TIMES DAILY 1 tablet 3 TIMES DAILY (route: oral) Med Classific ation: Central Nervous System Agents Fiber-Tabs 625 mg tablet 2- 00:00: 00 01-12 23:59 :00 No [id number] 1 tablet DAILY 1 tablet DAILY (route: oral) Med Classific ation: Gastroint estinal Therapy Agents Lasix 20 mg tablet 2- 00:00: 00 09-23 23:59 :00 No [id number] 1 tablet DAILY 1 tablet DAILY (route: oral) Med Classific ation: Cardiovas cular Therapy Agents Miralax 17 gram/dose oral powder 09-08 00:00: 00 01-12 23:59 :00 No [id number] Per instruc tions DAILY Per instructio ns DAILY (route: oral) Med Classific ation: Gastroint estinal Therapy Agents amoxicillin 500 mg-potassiu m clavulanate 125 mg tablet 09-22 00:00: 00 09-27 23:59 :00 No [id number] 1 tablet 2 TIMES DAILY 1 tablet 2 TIMES DAILY (route: oral) Med Classific ation: Anti-Infe ctive Agents gabapentin 100 mg capsule 09-23 00:00: 00 01-12 23:59 :00 No [id number] 1 capsule BEDTIME 1 capsule BEDTIME (route: oral) Med Classific ation: Central Nervous System Agents metoprolol succinate ER 50 mg capsule sprinkle, ext. release 24 hr 09-22 00:00: 00 01-12 23:59 :00 No [id number] 25 mg EVERY PM 25 mg EVERY PM (route: oral) Med Classific ation: Cardiovas cular Therapy Agents oxycodone 5 mg tablet 18 00:00: 00 01-12 23:59 :00 No [id number] 1 tablet 2 TIMES DAILY 1 tablet 2 TIMES DAILY (route: oral) Med Classific ation: Analgesic , Anti-infl ammatory or Antipyret ic quetiapine 50 mg tablet 09-22 00:00: 00 01-12 23:59 :00 No [id number] 25 mg BEDTIME 25 mg BEDTIME (route: oral) Med Classific ation: Central Nervous System Agents Senna Lax 8.6 mg tablet 09-22 00:00: 00 01-12 23:59 :00 No [id number] 2 tablet EVERY PM 2 tablet EVERY PM (route: oral) Med Classific ation: Gastroint estinal Therapy Agents metoprolol succinate ER 50 mg tablet,exte nded release 24 hr 01-05 00:00: 00 02-23 00:00 :00 No [id number] 1 tablet DAILY 1 tablet DAILY (route: oral) Med Classific ation: Cardiovas cular Therapy Agents divalproex 125 mg tablet,trudi yed release 01-01 00:00: 00 05-04 23:59 :00 No [id number] 1 tablet 2 TIMES DAILY 1 tablet 2 TIMES DAILY (route: oral) Med Classific ation: Central Nervous System Agents buspirone 5 mg tablet 12-15 00:00: 00 05-04 23:59 :00 No [id number] 1 tablet 2 TIMES DAILY 1 tablet 2 TIMES DAILY (route: oral) Med Classific ation: Central Nervous System Agents Calcium Citrate Plus 250 mg-40 mg-125 unit-3.75 mg tablet 01-16 00:00: 00 02-23 00:00 :00 No [id number] 1 tablet DAILY 1 tablet DAILY (route: oral) Med Classific ation: Electroly te Balance-N utritiona l Products duloxetine 60 mg capsule,del ayed release 01-16 00:00: 00 05-04 23:59 :00 No [id number] 1 capsule DAILY 1 capsule DAILY (route: oral) Med Classific ation: Central Nervous System Agents oxycodone 5 mg tablet 01-16 00:00: 00 02-23 00:00 :00 No [id number] 1 tablet EVERY 4 HOURS 1 tablet EVERY 4 HOURS (route: oral) Med Classific ation: Analgesic , Anti-infl ammatory or Antipyret ic Seroquel XR 150 mg tablet,exte nded release 01-16 00:00: 00 05-04 23:59 :00 No [id number] 1 tablet BEDTIME 1 tablet BEDTIME (route: oral) Med Classific ation: Central Nervous System Agents trazodone 100 mg tablet 01-16 00:00: 00 05-04 23:59 :00 No [id number] 1 tablet BEDTIME 1 tablet BEDTIME (route: oral) Med Classific ation: Central Nervous System Agents nitrofurant oin macrocrysta l 100 mg capsule 01-17 00:00: 00 02-23 00:00 :00 No [id number] 1 capsule EVERY 12 HOURS 1 capsule EVERY 12 HOURS (route: oral) Med Classific ation: Genitouri nary Therapy acetaminoph en 325 mg tablet 02-23 00:00: 00 05-04 23:59 :00 No [id number] 2 tablet EVERY 6 HOURS 2 tablet EVERY 6 HOURS (route: oral) Med Classific ation: Analgesic , Anti-infl ammatory or Antipyret ic aspirin 81 mg tablet,trudi yed release 02-23 00:00: 00 05-04 23:59 :00 No [id number] 1 tablet DAILY 1 tablet DAILY (route: oral) Med Classific ation: Hematolog ical Agents atorvastati n 40 mg tablet 02-23 00:00: 00 05-04 23:59 :00 No [id number] 1 tablet DAILY 1 tablet DAILY (route: oral) Med Classific ation: Cardiovas cular Therapy Agents gabapentin 300 mg capsule 02-23 00:00: 00 05-04 23:59 :00 No [id number] 1 capsule BEDTIME 1 capsule BEDTIME (route: oral) Med Classific ation: Central Nervous System Agents lorazepam 0.5 mg tablet 02-23 00:00: 00 03-05 23:59 :00 No [id number] 1 tablet EVERY 8 HOURS 1 tablet EVERY 8 HOURS (route: oral) Med Classific ation: Central Nervous System Agents Miralax 17 gram oral powder packet 02-23 00:00: 00 05-04 23:59 :00 No [id number] 1 powder in packet DAILY 1 powder in packet DAILY (route: oral) Med Classific ation: Gastroint estinal Therapy Agents propranolol 40 mg tablet 02-23 00:00: 00 05-04 23:59 :00 No [id number] 1 tablet 2 TIMES DAILY 1 tablet 2 TIMES DAILY (route: oral) Med Classific ation: Cardiovas cular Therapy Agents quetiapine 150 mg tablet 02-23 00:00: 00 05-04 23:59 :00 No [id number] 1 tablet BEDTIME 1 tablet BEDTIME (route: oral) Med Classific ation: Central Nervous System Agents ascorbic acid (vitamin C) 500 mg tablet 2023-08 00:00: 00 08-11 23:59 :00 No [id number] 1 tablet DAILY 1 tablet DAILY (route: oral) Med Classific ation: Electroly te Balance-N utritiona l Products atorvastati n 40 mg tablet 2023-08 00:00: 00 08-11 23:59 :00 No [id number] 1 tablet BEDTIME 1 tablet BEDTIME (route: oral) Med Classific ation: Cardiovas cular Therapy Agents buspirone 10 mg tablet 2023-08 00:00: 00 08-11 23:59 :00 No [id number] 1 tablet 2 TIMES DAILY 1 tablet 2 TIMES DAILY (route: oral) Med Classific ation: Central Nervous System Agents Calcium-600 600 mg (as calcium carbonate 1,500 mg) tablet 2023-0804 00:00: 00 08-11 23:59 :00 No [id number] 1 tablet DAILY 1 tablet DAILY (route: oral) Med Classific ation: Electroly te Balance-N utritiona l Products Cymbalta 60 mg capsule,del ayed release 2023-08 0- 00:00: 00 08-11 23:59 :00 No [id number] 1 capsule DAILY 1 capsule DAILY (route: oral) Med Classific ation: Central Nervous System Agents gabapentin 300 mg capsule 2023-08 0- 00:00: 00 08-11 23:59 :00 No [id number] 1 capsule DAILY 1 capsule DAILY (route: oral) Med Classific ation: Central Nervous System Agents metoprolol succinate ER 50 mg tablet,exte nded release 24 hr 2023-08 0 00:00: 00 08-11 23:59 :00 No [id number] 1 tablet DAILY 1 tablet DAILY (route: oral) Med Classific ation: Cardiovas cular Therapy Agents Miralax 17 gram oral powder packet 2023-08 0 00:00: 00 08-11 23:59 :00 No [id number] 1 packet DAILY 1 packet DAILY (route: oral) Med Classific ation: Gastroint estinal Therapy Agents multivitami n tablet 2023-08 0 00:00: 00 08-11 23:59 :00 No [id number] 1 tablet DAILY 1 tablet DAILY (route: oral) Med Classific ation: Electroly te Balance-N utritiona l Products Senna Lax 8.6 mg tablet 2023-08 0- 00:00: 00 08-11 23:59 :00 No [id number] 2 tablet DAILY 2 tablet DAILY (route: oral) Med Classific ation: Gastroint estinal Therapy Agents Seroquel 50 mg tablet 2023-08 0- 00:00: 00 08-11 23:59 :00 No [id number] 1 tablet 3 TIMES DAILY 1 tablet 3 TIMES DAILY (route: oral) Med Classific ation: Central Nervous System Agents trazodone 150 mg tablet 2023-08 0- 00:00: 00 08-11 23:59 :00 No [id number] 1 tablet BEDTIME 1 tablet BEDTIME (route: [...] FOR FALL AND INJURY INCLUDING PARTICIPATION IN [facility] SPECIALTY PROGRAM SUMMARY OF THERAPY EVAL/ASSESSMENT FINDINGS AND REASON(S) SKILLS OF A THERAPIST ARE INDICATED: PHYSICAL THERAPY EVALUATION (05/14/24) PATIENT IS A 73 YO FEMALE WITH PHYSICAL THERAPY REFERRAL AFTER FALL ON 03/15 RESULTING IN HOSPITALIZATION AND SNF STAY DUE TO FALL, DX: AVULSION FX LEFT DISTAL TIBIA. PATIENT HAD FOLLOWUP APPT AT [facility] 04/16/2014 AND WAS ISSUED ORDERS WBAT LEFT LE. PAST MD HX: PMH: HTN, CHRONIC BACK PAIN, OA, HYPONATREMIA, PERSONALITY DISORDER, CHRONIC PAIN SYNDROME, SPINAL STENOSIS, INSOMINIA, ANOREXIA NERVOSA, UTIS, FAILURE TO THRIVE. FALL HISTORY: LAST FALL ON 03/15/24 PATIENT LIVES ALONE IN APARTMENT, HAS 2 SUPPORTIVE FRIENDS THAT LIVE NEARBY INCLUDING NORMA VILA, 30 HRS CONTRACT CONSULTANT 2XDAY, 7 DAYS A WEEK. PLOF: MOD I TRANSFER AND AMB WITH ROLLATOR, SUPERVISION WITH AMB OUTSIDE APARTMENT CLOF: DME: FWW, ROLLATOR, COMMODE OVER TOILET, TUB SEAT, HANDHELD SHOWERHEAD, GRAB BAR, LIFE ALERT SAFETY RECOMMENDATION: BED RAIL AND GRAB BAR INSTALLATION. THIS THERAPIST CALLED [facility] [employer] BADGER AND SPOKE WITH KEIKO TO ORDER BED [...] FOR FALL AND INJURY INCLUDING PARTICIPATION IN [facility] PRO[facility] SUMMARY OF THERAPY EVAL/ASSESSMENT FINDINGS AND REASON(S) SKILLS OF A THERAPIST ARE INDICATED: PHYSICAL THERAPY EVALUATION (05/14/24) PATIENT IS A 73 YO FEMALE WITH PHYSICAL THERAPY REFERRAL AFTER FALL ON 03/15 RESULTING IN HOSPITALIZATION AND SNF STAY DUE TO FALL, DX: AVULSION FX LEFT DISTAL TIBIA. PATIENT HAD FOLLOWUP APPT AT [facility] 04/16/2014 AND WAS ISSUED ORDERS WBAT LEFT LE. PAST MD HX: PMH: HTN, CHRONIC BACK PAIN, OA, HYPONATREMIA, PERSONALITY DISORDER, CHRONIC PAIN SYNDROME, SPINAL STENOSIS, INSOMINIA, ANOREXIA NERVOSA, UTIS, FAILURE TO THRIVE. FALL HISTORY: LAST FALL ON 03/15/24 PATIENT LIVES ALONE IN APARTMENT, HAS 2 SUPPORTIVE FRIENDS THAT LIVE NEARBY INCLUDING NORMA VILA, 30 HRS CONTRACT CONSULTANT 2XDAY, 7 DAYS A WEEK. PLOF: MOD I TRANSFER AND AMB WITH ROLLATOR, SUPERVISION WITH AMB OUTSIDE APARTMENT CLOF: DME: FWW, ROLLATOR, COMMODE OVER TOILET, TUB SEAT, HANDHELD SHOWERHEAD, GRAB BAR, LIFE ALERT SAFETY RECOMMENDATION: BED RAIL AND GRAB BAR INSTALLATION. THIS THERAPIST CALLED [employer] [facility] AND SPOKE WITH KEIKO TO ORDER BED [...] CARE WILL BE ESTABLISHED THAT MEETS PATIENT'S CUSTODIAL NEEDS AND INCLUDES PATIENT GOAL FOR HOME [...] Date/Time Encounter Type Admission Type Attending [facility] Care Department Encounter ID Discharge Date Discharge Status Discharge Condition Discharge Reason Percent Goals Met 2024-05-09 00:00:00 2024-07-07 00:00:00 Outpatient OSMAR NUNEZ [facility] [id number] 2024-07-07 00:00:00 DISCHARGE TO HOME OR SELF CARE MINIMUM ASSIST WITH TRANSFER/A MBULATION/ ADLS GOALS MET ( ONLY) 95.92
--- OUTSIDE RECORDS SUMMARY | 2024-08-20 13:13 | XMS_ITS ---
Care Plan - [facility] Created on: August 20, 2024 Joanna Jones : 1950 Sex: Female Author Organization [facility] Address [address] [place] [address] Phone Care Team Providers Care Home Companion Name Role Phone Jeferson Ordoñez MD Primary Care Provider [phone] [facility] Unavailable [phone]
--- OUTSIDE RECORDS SUMMARY | 2024-08-20 13:13 | XMS_ITS | Clinical Summary ---
Author Organization [facility] Address [address] [place] [address] Phone Care Team Providers Care Supervisor Bindery Name Role Phone Jeferson Ordoñez MD Primary Care Provider [phone] [facility] Un[facility] [phone] Reason for Visit and Chief Complaint Established Patient Plan of Treatment 1. Physical therapy for active assisted range of motion right shoulder. 2. Activities of daily living. 3. General strengthening. 4. Return to office for final visit in 6 weeks - Last Documented On 03/06/2023 3:41PM ; [facility] Pending Tests Order Diagnosis Results Due Ordering Jeannine arnett Follow Up - Appointment 6 weeks Nondisp fx of sternal end r clavicle, 7thD 03/06/23 Osmar Wiseman MD Last Documented On 3 3:41PM ; [facility] Assessments Includes: Assessments from this encounter No [...] Last Documented: On 03/06/2023 10:07A M ; [facility] Results Includes: Results discussed during this encounter [...] Time Diagnosis Established Patient Osmar Wiseman MD [facility] 03/06/20 23 9:40AM 10:41AM Insurance Includes: Active Insurance Policies Plan Name Member ID Group # Subscriber Relationship Effect shruti Dates 1 - Medicare Part B [facility] [id number] [email or web address] [facility] [id number] [employer] Clinical Notes Includes: Clinical Notes from this encounter * Progress note Date Encounter Last Documented by 03/06/2023 Established Patient Javid goff on 03/06/2023; 3:41 PM, Osmar Wiseman MD; [facility] Chief Complaint Fractured medial aspect of right [...]
--- OUTSIDE RECORDS SUMMARY | 2024-08-20 13:13 | XMS_ITS | Clinical Summary ---
Author Organization [facility] Address [address] [place] [address] Phone Care Team Providers Care Silverware Supervisor Name Role Phone Smita MCCRACKEN, Jeferson Primary Care Provider [phone] [facility] [phone] Reason for Visit and Chief Complaint Medicare New Patient Plan of Treatment Pending Tests Order Diagnosis Results Due Ordering P hope Follow Up - Appointment 1 Month Nondisp fx of sternal end of right clavicle, init 02/05/[address] MD Last Documented On 3 10:03AM ; [facility] Assessments Includes: Assessments from this [...] Diagnosis Medicare New Patient Nic Street MD [facility] 02/06/20 23 9:20AM 10:18AM Insurance Includes: Active Insurance Policies Plan Name Member ID Group # Subscriber Relationship Effect shruti Dates 1 - Medicare Part B [facility] [id number] Joanna Torre 2 - [facility] [id number] Joanna Torre Clinical Notes Includes: Clinical Notes from this encounter * Progress note Date Encounter Last Documented by 02/05/2023 Medicare New Patient Javid raineyed on 02/05/2023; 10:03 AM, Nic Street MD; [facility], Physical Findings Chief complaint: Right shoulder injury [...]
== END 2024-08-20 11:11 | disposition home or self-care (01) ==
LOC: HO.MAMMO 11:10
PROVIDERS: PCP Internal Medicine; Visit Provider Internal Medicine
DX: Z12.31 Encounter for screening mammogram for malignant neoplasm of breast (principal)
CPT/HCPCS: 77063; 77067

== ENCOUNTER → 2024-08-20 11:30 | Outpatient (BNV) | payer MEDICARE, MEDICAID, SELFPAY | PROVIDERS: PCP Internal Medicine; Visit Provider Internal Medicine | DX: Z12.31 Encounter for screening mammogram for malignant neoplasm of breast (principal) | CPT/HCPCS: 77063; 77067 ==

== ENCOUNTER 2025-04-30 12:39 | Outpatient (AMB) | payer MEDICARE, MEDICAID, SELFPAY ==
[2025-04-30 12:50] VITALS: BP 114/66; PULSE 67; TEMP 36.2; O2SAT 95; BMI 31.6
--- NOTE | 2025-04-30 12:50 | A.OFFPC_ITS ---
Vital Signs 04/30/25 12:50 Height 4 ft 7 in Weight 135 lb 12.876 oz BMI 31.6 BP 114/66 Blood Pressure Location Lt brachial Position Sitting Pulse 67 Pulse Source Pulse Oximeter Temp 97.1 F Temp Source Temporal Artery Scan Pulse Oximetry (%) 95 Oxygen Delivery Method Room Air Intake Visit Reasons: follow up Accompanied by: Friend Allergies amoxicillin Allergy (Unknown, Verified 04/30/25 13:05) tachycardia doxycycline Allergy (Unknown, Verified 04/30/25 13:05) stomach upset iron Allergy (Unknown, Verified 04/30/25 13:05) unknown nitroglycerin Allergy (Unknown, Verified 04/30/25 13:05) Unknown From Ferrlecit Allergy (Mild, Uncoded 04/30/25 13:05) RED,ITCH,BURNING,SWELLING OF FEET iv dye Allergy (Unknown, Uncoded 04/30/25 13:05) Unknown Medication List - Last Reconciled 04/30/25 by Sara Robison PA-C acetaminophen 650 mg PO Q4H PRN ascorbic acid (vitamin C) 1 g PO DAILY@1200 atorvastatin (Lipitor) 40 mg PO DAILY buspirone 5 mg PO BID calcium carbonate (Calcium 600) 600 mg PO DAILY celecoxib (Celebrex) 200 mg PO BID 90 days divalproex 250 mg PO TID duloxetine 60 mg PO DAILY gabapentin 300 mg PO DAILY@1300 metoprolol succinate ER 50 mg PO DAILY nystatin 1 appl topical TID PRN quetiapine ER 150 mg PO BEDTIME trazodone 150 mg PO BEDTIME Tobacco use date assessed: 04/30/25 Fall risk assessment: No Falls in past year Last assessed Fall Risk: 04/30/25 Dental Screening Dental Screen Date: 04/30/25 Did you have a dental visit in the last 12 months?: No Did you have a dental problem in the last 6 months where you did not have access to dental care?: No Was dental information given to patient?: No HPI follow up HPI Details 74-year-old female with past medical his tory of hypertension, obesity, mood disorder last seen 05/[address] Cortes coming in for follow up/YUE. In review of the notes, patient was seen by [facility] 02/09/2025 follow up in 8 weeks. Presenting with osteoporosis management and evaluation for a urinary tract infection. Osteoporosis Diagnosed with significant bone loss, requiring increased calcium intake and vitamin D supplementation. The patient had a bone density test in July of last year, confirming osteoporosis. Urinary Tract Infection Diagnosed during the visit with a urine test, and antibiotics were prescribed for treatment. She has difficulty obtaining blood work due to transportation issues and is looking to have [facility] come into the home for blood work. She does have [employer] services but they are unable to bring her to medical visits. mammogram: 08/2024 DEXA: 07/2024 Cologuard: 08/2021 eye doctor: yearly with Dr. Roberts [facility] Medical History Anemia Cognitive impairment Depression Otitis media Rib pain on left side Right knee pain Callus of foot Pneumonia Osteoarthritis of left hip Osteoarthritis of right hip Hypertension Surgical History No history of previous surgery Family History Mother No problems noted. Father No problems noted. Social History Household Members: Unknown / Unable to assess Housing: Apartment Alcohol intake: former Patient Tobacco Use Status: Never used Tobacco Tobacco use type: Cigarette e-Cigarette/Vaping Use: Never Used Second Hand Smoke Exposure: No Advance Directives Date on File: 03/21/24 service: No Current occupational status: retired and disabled Cognitive needs: No Hearing needs: No Vision needs: No Questionnaire PHQ-9 Over the last 2 weeks, how often have you been bothered by any of the following problems? 1. Little interest or pleasure in doing things: several days 2. Feeling down, depressed, or hopeless: not at all 3. Trouble falling or staying asleep, or sleeping too much: several days 4. Feeling tired or having little energy: several days 5. Poor appetite or overeating: not at all 6. Feeling bad about yourself - or that you are a failure or have let yourself or your family down: not at all 7. Trouble concentrating on things, such as reading the newspaper or watching television: not at all 8. Moving or speaking so slowly that other people could have noticed. Or the opposite - being so fidgety or restless that you have been moving around a lot more than usual: not at all 9. Thoughts that you would be better off or of hurting yourself in some way: not at all Total score: 3 Source: Developed by Drs. Felipe Leiva, Jessica Valadez, Estuardo Livingston and colleagues, with an educational nghia from [employer]. Thrive Questionnaire Date Thrive assessed: 04/30/25 I am a: Patient What is your living situation today?: I have a steady place to live Within the past 12 months, did the food you bought not last and you didn't have the money to get more?: Never true Within the past 12 months, did you worry whether your food would run out before you got money to buy more?: Never true Do you have trouble paying for medicines?: No Do you have trouble getting transportation to medical appointments?: Yes Do you have trouble paying your heating and electricity bill?: No Do you have trouble taking care of your child, family member or friend?: No Do you have trouble with day-to-day activities such as bathing, preparing meals, shopping, managing finances, etc.?: No Are you currently unemployed and looking for a job?: No Are you interested in more education?: No Please select the resources that you would like help with: None Currently or been in a relationship where the following occur: No concerns reported THRIVE Score: 1 AUDIT C Alcohol Use Questionnaire (AUDIT-C) 1. How often do you have a drink containing alcohol?: Never 3. How often do you have six or more drinks on one occasion?: Never Total Score: 0 SUSAN-7 AMB Questionnaire SUSAN-7 Date SUSAN - 7 assessed: 04/30/25 Feeling nervous, anxious, or on edge: 2 = More than half the days Not being able to stop or control worryin = Several days Worrying too much about different things: 1 = Several days Trouble relaxin = Several days Being so restless that it is hard to sit still: 1 = Several days Becoming easily annoyed or irritable: 0 = Not at all Feeling afraid as if something awful might happen: 0 = Not at all Total SUSAN-7 score (0-4 normal; 5-9 mild; 10-14 moderate; 15-21 severe): 6 Source: Developed by Drs. Felipe Leiva, Jessica Valadez, Estuardo Livingston and colleagues, with an educational nghia from [employer]. SUSAN-7 Assessment Billing SUSAN-7 Assessment Tool: SUSAN-7 Assessment 90359 Review of Systems Const Denies body aches, Denies chills, Denies fever(s), Denies headache(s) and Denies poor appetite Eyes Reports no additional complaints ENT Denies dysphagia, Denies dizziness, Denies headache(s) and Denies odynophagia Card Denies chest pain, Denies syncope, Denies edema, Denies irregular heart rhythm, Denies lightheadedness and Denies dyspnea Resp Denies cough and Denies dyspnea GI Denies abdominal pain, Denies constipation, Denies dysphagia, Denies diarrhea, Denies nausea, Denies odynophagia and Denies vomiting Reports no additional complaints Musc Reports no additional complaints and Denies abnormal gait Skin/Breast Reports system reviewed and no additional complaints, except as documented Neuro Denies abnormal gait, Denies dizziness, Denies syncope and Denies headache(s) Psych Reports no additional complaints Physical exam (Primary Care) Vital Signs: Last Vital Signs Temp 97.1 F 04/30/25 12:50 Pulse 67 04/30/25 12:50 BP 114/66 04/30/25 12:50 Pulse Ox 95 04/30/25 12:50 Oxygen Delivery Method Room Air 04/30/25 12:50 BMI result Body Mass Index 31.6 Tobacco/Smoking Status: Tobacco use Status Tobacco use date assessed 04/30/25 04/30/25 12:59 Patient Tobacco Use Status Never used Tobacco 04/30/25 12:59 Tobacco use type Cigarette 04/30/25 12:59 e-Cigarette/Vaping Use Never Used 04/30/25 12:59 PHQ-9: PHQ-9 Score PHQ-9: Total score 3 04/30/25 13:38 Thrive Assessment: Date of Thrive Assessment Date Thrive assessed 04/30/25 04/30/25 12:59 Currently or been in a relationship where the following occur: No concerns reported Const General: cooperative, healthy appearing, comfortable and no acute distress Orientation/consciousness: patient oriented x3 HENMT Head: Yes normocephalic Ears: hearing grossly normal bilaterally General nose exam: Normal external nose present Eyes General: appearance normal, both eyes and all related structures Conjunctivae: conjunctivae normal Neck Neck: Yes full ROM and Yes no lymphadenopathy Resp Effort & Inspection: normal respiratory effort Auscultation: clear to auscultation bilaterally, no crackles, no rales, no rhonchi and no wheezes Cardio Rate: regular rate Rhythm: regular rhythm Skin General skin exam: no rashes or lesions noted Neuro General: patient oriented x3 Gait exam (Neuro): Normal gait present Extrem General: Yes normal to inspection, Yes full ROM and No edema Psych Affect: normal affect Attitude: cooperative Insight: Good insight present (Psych) Judgement: Good judgement present (Psych) Results AMB Urinalysis, Automated UA Leukoctes 125 Oumou/uL Last Edit by Nicole Solano CMA on 04/30/25 13:54 UA Nitrite Negative Last Edit by Nicole Solano CMA on 04/30/25 13:54 UA Urobilinogen 0.2 mg/dL Last Edit by Nicole Solano CMA on 04/30/25 13:54 UA Protein 15 mg/dL Last Edit by Nicole Solano CMA on 04/30/25 13:54 UA pH 6.0 Last Edit by Nicole Solano CMA on 04/30/25 13:54 UA Blood 0 Michael/uL Last Edit by Nicole Solano CMA on 04/30/25 13:54 UA Specific [place] 1.020 Last Edit by Nicole Solano CMA on 04/30/25 13:54 UA Ketone Negative Last Edit by Nicole Solano CMA on 04/30/25 13:54 UA Bilirubin 0 mg/dL Last Edit by Nicole Solano CMA on 04/30/25 13:54 UA Glucose 0 mg/dL Last Edit by Nicole Solano CMA on 04/30/25 13:54 Results Reviewed Results Reviewed: Laboratory Last Values Urine pH (Auto) 6.0 04/30/25 13:53 Specific [place] (Auto) 1.020 04/30/25 13:53 Urine Protein (Auto) 15 mg/dL 04/30/25 13:53 Glucose (UA)(Auto) 0 mg/dL 04/30/25 13:53 Urine Ketones (Auto) Negative 04/30/25 13:53 Urine Blood (Auto) 0 Michael/uL 04/30/25 13:53 Urine Nitrite (Auto) Negative 04/30/25 13:53 Urine Bilirubin (Auto) 0 mg/dL 04/30/25 13:53 Urine Urobilinogen (Auto) 0.2 mg/dL 04/30/25 13:53 Leukocyte Esterase (Auto) 125 Oumou/uL 04/30/25 13:53 Coding Level of Care Code Est Pt Level 4 (53076) Diagnoses Decreased hearing H91.90 UTI (urinary tract infection) N39.0 Mood disorder F39 Essential hypertension I10 Hypertension type: essential hypertension Obesity E66.9 Additional Codes SUSAN-7 Assessment Billing - SUSAN-7 Assessment Tool: SUSAN-7 Assessment 43643 ([id number]) Assessment & Plan Assessment & Plan (1) Decreased hearing: Code(s): H91.90 - Unspecified hearing loss, unspecified ear Category: Medical Plan: Requesting a hearing test which has been placed today. (2) UTI (urinary tract infection): Code(s): N39.0 - Urinary tract infection, site not specified Category: Medical Plan: Patient complaining of urinary burning and urinalysis in the office today was positive. She has tolerated Bactrim in the past for UTI and prescription was sent to the pharmacy today. Ordered for urine culture to further guide antibiotic management. (3) Mood disorder: Comment: Dr. Baptiste Code(s): F39 - Unspecified mood [affective] disorder Category: Medical Plan: Patient follows with Dr. Baptiste for management of her mood disorder and is on a multitude of medications and feels well managed at this time. (4) Hypertension: Code(s): I10 - Essential (primary) hypertension Category: Medical Qualifiers: Hypertension type: essential hypertension Qualified Code(s): I10 - Essential (primary) hypertension Plan: Continue on current blood pressure medication. Avoid salt intake and encourage healthy diet and regular exercise. (5) Obesity: Code(s): E66.9 - Obesity, unspecified Category: Medical Plan: Healthy diet and regular exercise is encouraged. Plan This note was constructed using voice recognition software. While every effort has been made to ensure accuracy and reflector driller and deburrer, still areas may have been included sometimes these areas may affect the content or meeting of the given symptoms. Total time spent caring for the patient today was 30 minutes. This includes time spent before the visit reviewing the chart, time spent during the visit, and time spent after the visit and documentation. Patient was informed and verbally consented to the use of an ambient scribe for clinic note documentation during this visit. Orders: Orders Comprehensive Met. Panel 04/30/25 Z00.00 - Encounter for general adult medical examination without abnormal findings, Z13.1 - Encounter for screening for diabetes mellitus Hemoglobin A1c 04/30/25 E11.65 - Type 2 diabetes mellitus with hyperglycemia, Z13.1 - Encounter for screening for diabetes mellitus TSH reflex Free T4 04/30/25 Z13.29 - Encounter for screening for other suspected endocrine disorder AMB Urinalysis Automated 04/30/25 Z13.9 - Encounter for screening, unspecified Lipid Panel 04/30/25 Z13.220 - Encounter for screening for lipoid disorders Vitamin B12 and Folate 04/30/25 Z13.21 - Encounter for screening for nutritional disorder Vitamin D 25-OH Total 04/30/25 Z13.21 - Encounter for screening for nutritional disorder Complete Blood Count Auto Diff 04/30/25 R31.9 - Hematuria, unspecified, Z00.00 - Encounter for general adult medical examination without abnormal findings Referrals Cologuard Test Z12.11 - Encounter for screening for malignant neoplasm of colon, Z12.12 - Encounter for screening for malignant neoplasm of rectum Speech and Hearing Referral H91.90 - Unspecified hearing loss, unspecified ear Medications: Refilled sulfamethoxazole-trimethoprim 800-160 mg 1 tab PO BID 7 days 14 tabs 0RF sulfamethoxazole-trimethoprim 800-160 mg 1 tab PO BID 14 tabs 0RF 7 days atorvastatin (Lipitor) takes at 1300 40 mg PO DAILY 90 tabs 6RF
--- OUTSIDE RECORDS SUMMARY | 2025-04-30 17:27 | XMS_ITS ---
Author Organization [facility] Care Team Providers Care Utility Inspector Name Role Phone Jeferson Ordoñez Unavailable Unavailable Funmi Coronel Unavailable Unavailable Addie Mcgarry Unavailable Unavailable Allergies and adverse reactions Code CodeSystem Substance Reaction Severity StartDate Concern Status 4917 RXNORM Nitroglycerin Unknown 01/25/2023 active Latex Unknown 01/25/2023 active 57012 RXNORM Iron Unknown 01/25/2023 active Iodine Unknown 01/25/2023 active Care Team Name Role Address Phone Organization Dates Jeferson Ordoñez PCP [address], [place], [address], [place] (Office): : [facility] 01/25/2023 - 02/21/2023 Funmi Coronel [address], [place], [address], [place] (Office[place] : [facility] 01/25/2023 - 02/21/2023 Addie Martinheim [address], [place], [address], [place] (Office): [facility] 01/25/2023 - 02/21/2023 Immunizations Immunization Status Vaccine Details Vaccine Code CodeSystem Jasen e Notes Influenza completed Influenza, split virus, trivalent, injectable, contains preservative 141 CVX created date: 01/26/2023 administered date: 06/07/2022 SARS-COV-2 (COVID-19) completed SARS-COV-2 (COVID-19) vaccine, mRNA, spike protein, LNP, preservative free, 30 mcg/0.3mL dose, freddy-sucrose formulation Step 2 of Multi-step with next step required 217 CVX created date: 01/26/2023 administered date: 09/01/2020 SARS-COV-2 (COVID-19) completed SARS-COV-2 (COVID-19) vaccine, mRNA, spike protein, LNP, preservative free, 30 mcg/0.3mL dose Mfg: [facility] Step 1 of Multi-step with next step required 208 CVX created date: 01/26/2023 administered date: 08/11/2020 Pfizer Covid-19 Booster (SARS-COV-2) vaccine completed SARS-COV-2 (COVID-19) vaccine, mRNA, spike protein, LNP, preservative free, 30 mcg/0.3mL dose 208 CVX created date: 01/26/2023 administered date: 11/17/2021 Pfizer Covid-19 Booster (SARS-COV-2) vaccine completed SARS-COV-2 (COVID-19) vaccine, mRNA, spike protein, LNP, preservative free, 30 mcg/0.3mL dose 208 CVX created date: 01/26/2023 administered date: 07/07/2021 CloudOpt Covid-19 Bi-valent Solution completed SARS-COV-2 (COVID-19) vaccine, mRNA, spike protein, LNP, bivalent, preservative free, 30 mcg/0.3 mL dose, freddy-sucrose formulation 300 CVX created date: 01/26/2023 consent date: 01/26/2023 administered date: 05/16/2022 Mental Status Section Date Assessment Total Score Description 02/21/2023 BIMS 15 cognitively int act CAM 0 No delirium ind icated PHQ-9 04 minimal depress ion 01/29/2023 BIMS 15 cognitively int act CAM 0 No delirium ind icated PHQ-9 07 mild depression Problems Problem # Description Date of onset Resolved Date Code CodeSystem Concern Status 1 ANEMIA, UNSPECIFIED 01/25/[address] active 2 DEPRESSION, UNSPECIFIED 01/25/[address] active 3 ESSENTIAL (PRIMARY) HYPERTENSION 01/25/[address] active 4 FRACTURE OF UNSPECIFIED PART OF RIGHT CLAVICLE, SUBSEQUENT ENCOUNTER FOR FRACTURE WITH ROUTINE HEALING 01/25/[address] active 5 GENERALIZED ANXIETY DISORDER 01/25/[address] active 6 MUSCLE WASTING AND ATROPHY, NOT ELSEWHERE CLASSIFIED, MULTIPLE SITES 01/25/[address] active 7 PERSONAL HISTORY OF TRANSIENT ISCHEMIC ATTACK (TIA), AND CEREBRAL INFARCTION WITHOUT RESIDUAL DEFICITS 01/25/[address] active 8 UNSPECIFIED ASTHMA, UNCOMPLICATED 01/25/[address] active 9 UNSPECIFIED DEMENTIA, UNSPECIFIED SEVERITY, WITHOUT BEHAVIORAL DISTURBANCE, PSYCHOTIC DISTURBANCE, MOOD DISTURBANCE, AND ANXIETY 01/25/[address] active 10 UNSPECIFIED FRACTURE OF THE LOWER END OF RIGHT RADIUS, SUBSEQUENT ENCOUNTER FOR CLOSED FRACTURE WITH ROUTINE HEALING 01/25/[address] active 11 UNSPECIFIED PROTEIN-CALORIE MALNUTRITION 01/25/[address] active Reason for Referral No Reasons for Referral Entered Social History Social History Observation Description Start Date End Date Code Code System Current Smoking Status Tobacco smoking consumption unknown 889211598 SNOMED CT Sex Assigned At Female 1950 [address]84[birth year]-3 [facility] Gender Identity Sexual Orientation Vital Signs Code Code System Vitals Name Values and Units Timing Information 72841-8 LOINC Pain Level Value=0.0 02/21/2023 9279-1 LOINC Respiratory Rate Value=16.0 Units=/m in 02/21/2023 8462-4 LOINC Blood Pressure-Diastolic Value=64 Un its=mmHg 02/21/2023 8480-6 LOINC Blood Pressure-Systolic Ogvan=269 Un its=mmHg 02/21/2023 8310-5 LOINC Body Temperature Value=98.2 Units= F 02/21/2023 8867-4 LOINC Heart rate Value=58.0 Units=/min 25168-9 LOINC O2 % BldC Oximetry Value=95.0 Units= % 02/21/2023 41168-1 LOINC Weight Kwrsp=133.2 Units=Lbs 07/2023 8302-2 LOINC Height Value=59.0 Units=Inches 01/25/2023
== END 2025-04-30 14:07 | disposition home or self-care (01) ==
LOC: HO.HMCH 12:40
DX: Z13.9 Encounter for screening, unspecified (principal)

== ENCOUNTER 2025-04-30 12:39 | Outpatient (REF) | payer MEDICARE, MEDICAID, SELFPAY ==
[2025-04-30 14:59] LABS: MANUAL DIFF FLAG NO
[2025-04-30 15:26] LABS: Hematocrit 34.6 % (37.0-47.0); Hemoglobin 11.4 g/dl (12.0-16.0); Imm Gran Abs Auto 0.02 X10*3/uL (0.00-0.03); Imm Gran Pct Auto 0.3 % (0.0-0.4); Lymphocytes Absolute Auto 2.0 X10*3/uL (1.2-4.9); Mean Corpuscular HGB Conc 32.9 g/dl (31.0-35.0); Mean Corpuscular Hemoglobin 33.4 pg (27.0-33.0); Mean Corpuscular Volume 101.5 fL (80.0-98.0); NRBC Abs Auto 0.000 X10*3/uL (0.0-0.012); NRBC Pct Auto 0.0 /100WBC (0.0-0.2); Platelet Count 230 X10*3/uL (160-400); Red Blood Count 3.41 X10*6/uL (4.20-5.50); White Blood Count 6.0 X10*3/uL (4.8-10.8)
[2025-04-30 15:58] LABS: Alanine Aminotransferase 14 U/L (0-31); Albumin Level 4.4 g/dL (3.5-5.0); Alkaline Phosphatase 51 U/L (39-117); Anion Gap 12 (12-20); Aspartate Amino Transferase 29 U/L (5-31); Blood Urea Nitrogen 37 mg/dL (9-16); Calcium 10.3 mg/dL (8.4-10.2); Carbon Dioxide 31 mmol/L (22-29); Chloride 105 mmol/L (96-108); Cholesterol 359 mg/dL (<200); Estimated Glomerular Filt Rate 60; HDL Cholesterol 58 mg/dL (>40); Potassium 5.0 mmol/L (3.3-5.1); Sodium 143 mmol/L (135-145); Total Protein 7.1 g/dL (6.5-8.0); Triglycerides 294 mg/dL (<150)
[2025-04-30 16:21] LABS: Folate > 20.0 ng/mL (> or = 4.0); Vitamin B12 > 2000 pg/mL (200-900)
== END 2025-04-30 12:40 | disposition home or self-care (01) ==
LOC: HO.LAB 12:39
DX: Z00.00 Encounter for general adult medical examination without abnormal findings (principal); R31.9 Hematuria, unspecified; E11.65 Type 2 diabetes mellitus with hyperglycemia; H91.90 Unspecified hearing loss, unspecified ear; N39.0 Urinary tract infection, site not specified; F39 Unspecified mood [affective] disorder; I10 Essential (primary) hypertension; E66.9 Obesity, unspecified; Z68.31 Body mass index [BMI] 31.0-31.9, adult; Z71.3 Dietary counseling and surveillance
CPT/HCPCS: 36415; 80053; 80061; 81003; 82306; 82607; 82746; 83036; 84443; 85025; 87086; 96127; 99212

== ENCOUNTER 2025-05-05 07:51 | Inpatient (IN) | payer MEDICARE, MEDICAID, SELFPAY ==
--- NOTE | ~2025-05-05 | CT_ITS ---
EXAMINATION: CT FACIAL BONES WITHOUT CONTRAST CLINICAL INFORMATION: Status post fall. COMPARISON: None available. TECHNIQUE: Contiguous axial images through the maxillofacial bones using 3 mm collimation with bone and soft tissue algorithm. Sagittal and coronal reformatted images acquired. DLP: 506.[address] examination was performed using dose optimization techniques as appropriate, variously including the following: *Automated exposure control *Adjustment of mA and/or kV according to patient size (this includes techniques or standardized protocols for targeted exams where dose is matched to indication/reason for exam; i.e. extremities or head) *Use of iterative reconstruction technique FINDINGS: Limited by patient's motion artifact. Cortical irregularities in the nasal bones. Nasal septum and vomer are intact. The orbital rims, orbital fissures and orbital apices are grossly intact. Zygomatic arcs are grossly intact. Maxilla and pterygoid plates are intact. Mandible is grossly intact with limited evaluation. There is a metallic plate in the horizontal right ramus.. Temporal mandibular joints are grossly intact. Edentulous, maxilla. The eyeballs are intact. No gross hematoma in the intraconal or extraconal compartments of the orbits. No gross soft tissue contusion/preseptal periorbital regions. Thyroid gland is small/atrophic. Multilevel cervical spondylosis. Osteopenia versus osteoporosis. CT/CT facial bones wo IV con IMPRESSION: Limited evaluation due to patient's motion artifact with inadequate evaluation specifically of the mandible. Probable old traumatic deformities, nasal bones without acute fracture. Electronically signed by: Wellington Lim MD 05/05/2025 12:26 PM EDT
--- NOTE | ~2025-05-05 | XR_ITS ---
EXAMINATION: XR ANKLE 3 OR MORE VIEWS LEFT, XR FOOT 1-2 VIEWS LEFT HISTORY: Fall COMPARISON: Comparison is made with the prior examination of the left ankle dated 06/17/2024. FINDINGS: Six views of the left foot and ankle are submitted. The bones are osteopenic. There is a healed fracture deformity of the medial malleolus. No definite acute fracture is seen. There is no dislocation. There is osteoarthritis of the DIP and PIP joints. The soft tissues are unremarkable. XR/XR foot LT 2V IMPRESSION: Osteopenia. No definite acute fracture of the left foot or ankle. Electronically signed by: Felipe Mac MD 05/05/2025 09:03 AM EDT
--- NOTE | ~2025-05-05 | CT_ITS ---
EXAMINATION: CT CERVICAL SPINE WITHOUT CONTRAST CLINICAL INFORMATION: Status post fall. COMPARISON: June 17, 2024. TECHNIQUE: Contiguous axial images through the cervical spine using 3 mm collimation with bone and soft tissue algorithm. Sagittal and coronal reformatted images acquired. DLP: 403.[address] examination was performed using dose optimization techniques as appropriate, variously including the following: *Automated exposure control *Adjustment of mA and/or kV according to patient size (this includes techniques or standardized protocols for targeted exams where dose is matched to indication/reason for exam; i.e. extremities or head) *Use of iterative reconstruction technique FINDINGS: Inadequate evaluation due to patient's motion artifact. Craniocervical junction is intact with normal alignment between the occipital condyles and lateral masses of C1. Degenerative changes in the periodontal C1 region. Endplate sclerosis and marginal osteophyte formation at C4-5 and C5-6 level. Chondrocalcinosis in the intervertebral disc C4-5 and C5-6. Grade 1 retrolisthesis, C4-5. Osteopenia versus osteoporosis. C1 is grossly intact. C2 is grossly intact. C3 is grossly intact. C3 is grossly intact. C4 is grossly intact. C5 is grossly intact. C6 is grossly intact. C7 is grossly intact. Final facet joint hypertrophy. No gross prevertebral compartment hematoma. Atrophic appearance of the thyroid gland. Tympanic cavities and mastoid cells are aerated. CT/CT cervical spine wo IV con IMPRESSION: Limited by patient's motion artifact. Multilevel cervical spondylosis and grade 1 retrolisthesis C4-5 without acute fracture or trauma-related listhesis. Fleischner guidelines were followed. Electronically signed by: Wellington Lim MD 05/05/2025 12:30 PM EDT
--- NOTE | ~2025-05-05 | CT_ITS ---
EXAMINATION: CT CHEST WITHOUT IV CONTRAST, CT ABDOMEN PELVIS WITHOUT IV CONTRAST INDICATION: Fall COMPARISON: Correlation is made with the prior CT of the abdomen dated 03/08/2024. TECHNIQUE: CT scan of the chest, abdomen and pelvis was performed without contrast using standard departmental protocol. Coronal and sagittal reformatted images were generated and reviewed. This CT exam was performed with one or more of the following dose reduction techniques: automated exposure control, adjustment of the mA and/or kV according to patient size, use of iterative reconstruction technique. DLP: 1095 mGy-cm CHEST: THYROID: The thyroid is unremarkable. LUNGS: There is dependent atelectasis bilaterally. There are no focal airspace opacities. MEDIASTINUM: There is no mediastinal lymphadenopathy. ERIKA: Evaluation of the hilar regions is limited by lack of intravenous contrast material. CARDIOVASCULATURE: The heart is enlarged. There is no pericardial effusion. The thoracic aorta is normal in caliber. DEGREE OF CORONARY CALCIFICATION: mild PLEURA: There is no pleural effusion. No pneumothorax. MAIN AIRWAYS: The mainstem bronchi and proximal branches are patent. AXILLA: There is no axillary lymphadenopathy. SOFT TISSUES: Unremarkable. BONES: The bones are osteopenic. There is mild loss of height of numerous lower thoracic vertebral bodies which appear to represent osteoporotic compression fractures. ABDOMEN: LIVER: The liver is normal in size and contour. The liver has an unremarkable unenhanced appearance. GALLBLADDER / BILE DUCTS: The gallbladder is distended, without evidence of calcified stones. There is no intra or extrahepatic biliary ductal dilatation. SPLEEN: The spleen is normal in size and has an unremarkable unenhanced appearance. PANCREAS: The pancreas has an unremarkable unenhanced appearance. ADRENAL GLANDS: Unremarkable. KIDNEYS/RETROPERITONEUM: No renal calculi are identified. There is no hydronephrosis. LYMPH NODES: No retroperitoneal lymphadenopathy is identified in the abdomen or pelvis. VASCULATURE: The abdominal aorta is normal in caliber. MESENTERY/PERITONEUM: No free fluid. No masses. There is no free intraperitoneal gas. STOMACH: The stomach is collapsed, limiting evaluation. SMALL BOWEL: The small bowel is normal in caliber. COLON: There is diverticulosis of the descending and sigmoid colon, without evidence of diverticulitis. APPENDIX: The appendix is not seen, however no inflammatory changes are seen adjacent to the cecum. URINARY BLADDER/PELVIC ORGANS: The urinary bladder is unremarkable. The uterus has an unremarkable unenhanced appearance. BONES / SOFT TISSUES: There is degenerative disc disease of the spine. There is mild loss of height of multiple vertebral bodies likely representing osteoporotic compression fractures. There is severe osteoarthritis of the left hip. No fracture is seen. CT/CT abdomen pelvis wo IV con IMPRESSION: No evidence of acute traumatic injury to the chest, abdomen, or pelvis. Please note that evaluation for solid organ injury is limited on unenhanced CT. Electronically signed by: Felipe Mac MD 05/05/2025 12:26 PM EDT
--- NOTE | ~2025-05-05 | XR_ITS ---
EXAMINATION: XR ANKLE 3 OR MORE VIEWS LEFT, XR FOOT 1-2 VIEWS LEFT HISTORY: Fall COMPARISON: Comparison is made with the prior examination of the left ankle dated 06/17/2024. FINDINGS: Six views of the left foot and ankle are submitted. The bones are osteopenic. There is a healed fracture deformity of the medial malleolus. No definite acute fracture is seen. There is no dislocation. There is osteoarthritis of the DIP and PIP joints. The soft tissues are unremarkable. XR/XR ankle LT min 3V IMPRESSION: Osteopenia. No definite acute fracture of the left foot or ankle. Electronically signed by: Feliep Mac MD 05/05/2025 09:03 AM EDT
--- NOTE | ~2025-05-05 | CT_ITS ---
EXAMINATION: CT HEAD WITHOUT CONTRAST CLINICAL INFORMATION: Fall COMPARISON: June 17, 2024 TECHNIQUE: Contiguous axial imaging was performed from the skull base to vertex without intravenous administration of contrast. This CT examination was performed using dose optimization techniques as appropriate, variously including the following: *Automated exposure control *Adjustment of mA and/or kV according to patient size (this includes techniques or standardized protocols for targeted exams where dose is matched to indication/reason for exam; i.e. extremities or head) *Use of iterative reconstruction technique DLP: 812.25 mGy-cm FINDINGS: No acute cortical disruption in the bony calvarium. Traumatic deformity nasal bones. No acute intracranial hemorrhage, mass effect, midline shift, hydrocephalus or herniation. Bilateral multifocal patchy and confluent deep periventricular white matter hypodensities involving centrum semiovale and riojas radiata. Old lacunar infarcts, basal ganglia and riojas radiata white matter. Prominence of the extra-axial CSF spaces cerebral sulci and ventricles. Zelaya-white matter differentiation is normal. Calcified plaques in the V4 segments right vertebral artery and cavernous supracavernous segments both ICAs. Poor pneumatization of the frontal sinus. Tympanic cavities and mastoid air cells are aerated. Sellar/suprasellar region demonstrated no gross masses. Craniocervical junction demonstrates normal position of the cerebellar tonsils. No gross hematoma in the intraconal or extraconal compartments of the orbits. The eyeballs are intact demonstrated bilateral intraocular lens surgery. CT/CT head/brain wo IV con IMPRESSION: No acute fracture, bony calvarium. No acute intracranial hemorrhage. Small vessel occlusive disease. Global cerebral atrophy. Electronically signed by: Wellington Lim MD 05/05/2025 12:19 PM EDT
[2025-05-05 08:00] VITALS: BP 111/59; BP 142/78; PULSE 72; PULSE 74; RESP 16; TEMP 36.6; O2SAT 96; BMI 29.1
--- NOTE | 2025-05-05 08:37 | ECG_ITS ---
Test Reason : FALL Blood Pressure : */* mmHG Vent. Rate : 65 BPM Atrial Rate : 65 BPM P-R Int : 178 ms QRS Dur : 80 ms QT Int : 374 ms P-R-T Axes : 16 -11 10 degrees QTcB Int : 388 ms Normal sinus rhythm Normal ECG When compared with ECG of 17-Jun-2024 11:56, No significant change was found Referred By: Jay Alexander Electronically Signed By: SHANEKA SANTILLAN
--- OUTSIDE RECORDS SUMMARY | 2025-05-05 08:47 | XMS_ITS | Clinical Summary ---
Author Organization [address] [facility] Address [address] [place] [address] Phone Care Team Providers Care Senior Linux Systems Administrator Name Role Phone Aj Cortes MD Primary Care Provider [phone] Allergies Active Allergy Reactions Criticality Noted Date Comments Amoxicillin 01/14/2021 Doxycycline 01/14/2021 Iodinated Contrast Media 01/14/2021 Iron 01/14/2021 Nitroglycerin 01/14/2021 Medications mupirocin (BACTROBAN) 2 % ointment Apply topically to wound dialy 4 Active acetaminophen (Children's acetaminophen) 160 mg/5 mL liquid Take by mouth. Activ e azithromycin (ZITHROMAX) 500 mg tablet Take 500 mg by mouth daily. Active calcium carbonate-vitam in D 500 mg-5 mcg (200 unit) per tablet Take by mouth. Acti ve divalproex (DEPAKOTE SPRINKLE) 125 mg capsule Take by mouth. Acti ve DULoxetine (Drizalma Sprinkle) 60 mg capsule, delayed rel sprinkle Take by mouth. Activ e gabapentin (NEURONTIN) 300 mg capsule Take 300 mg by mouth 2 times daily. Active LORazepam (ATIVAN) 0.5 mg tablet Take 0.5 mg by mouth every 6 hours as needed. Active metoprolol succinate (TOPROL-XL) 50 mg 24 hr tablet Take 50 mg by mouth daily. Active mirtazapine (REMERON) 30 mg tablet Take 30 mg by mouth at bedtime. Active QUEtiapine (SEROquel) 50 mg tablet Take 50 mg by mouth 2 times daily. Active risperiDONE (RisperDAL) 0.25 mg tablet Take 0.25 mg by mouth 2 times daily. Active sennosides 17.2 mg tablet Take by mouth. Activ e traZODone (DESYREL) 50 mg tablet Take 50 mg by mouth at bedtime. Active busPIRone (BUSPAR) 5 mg tablet Take 5 mg by mouth 3 times daily. Active Encounters Date Type Department Care Team Description 02/09/2025 1:15 PM EDT Office Visit Orthopedic Surgery - [place] [address] [id number] Ruben Zapata DPM Dislocation of interphalangeal joint of right great toe, sequela (Primary Dx); Ingrowing nail; Hypertrophy of nail; Difficulty walking; Pain in toe of right foot; Pain in toe of left foot [M79.675] from Last 3 Months Surgical History Surgery Date Site/Laterality Comments OTHER SURGICAL HISTORY PROCEDURE: DENIES PREVIOUS SURGERY Medical History Medical History Date Comments Callous ulcer ([facility] V24, [facility] V28) DX:Callous ulcer ([facility]) Hypertension DX:Hypertension Osteoarthritis DX:Osteoarthriti s; COMMENT: both hips Family History Relation Name Status Comments Father Social History Tobacco Use Types Packs/Day Years Used Date Smoking Tobacco: Never Smokeless Tobacco: Never Alcohol Use Standard Drinks/Week Comments Not Currently 0 (1 standard drink = 0.6 oz pur e alcohol) Comments Unknown Sex and Gender Information Value Date Recorded Sex Assigned at Not on file Legal Sex Female 2:02 PM EST Gender Identity Not on file Sexual Orientation Not on file Obstetrics History Last Filed Vital Signs Vital Sign Reading Time Taken Comments Blood Pressure - - Pulse - - Temperature - - Respiratory Rate - - Oxygen Saturation - - Inhaled Oxygen Concentration - - Weight 60.3 kg (133 lb) 09/08/2024 11:17 AM EST Height 162.6 cm (5' 4.02 ) 09/08/2024 11:[address] Body Mass Index 22.82 09/08/2024 11:17 AM EST Plan of Treatment Upcoming Encounters Date Type Department Care Team (Late st Contact Info) Description 05/11/2025 1:15 PM EDT Office Visit Orthopedic Surgery [facility] [address] [facility] [address] [place] [phone] Ruben Zapata DPCarlos [address] [facility] [address] [place] [address] Health Maintenance Due Date Last Done Comments Breast Cancer Screening 1950 Colorectal Cancer Screening: Colonoscopy 1950 DTaP,Tdap,and Td Vaccines (1 - Tdap) 1970 Pneumococcal Vaccine: 50+ Years (1 of 2 - PCV) 1970 Cholesterol Screening (Lipid Panel) 07/15/2022 Falls Risk Assessment 07/15/2022 Hepatitis C Screening 07/15/2022 Medicare Annual Wellness Visit 07/15/2022 Osteoporosis Screening (Bone Density Screening) 07/15/2022 Social Influencers of Health Screening 07/15/2022 Depression Screening 08/06/2024 Hypertension/CHF/CAD Annual BMP Blood Test 02/09/2025 COVID-19 Vaccine ( season) 2025 05/07/2024, 05/03/2023, 05/16/2022, Additional history exists Influenza Vaccine (#1) 2025 , 06/07/2023, 06/07/2022, Additional history exists RSV Immunization Adult Patients Completed 07/22/2023 Zoster Vaccines Completed 10/31/2024, 07/26/2024 HIB Vaccines Aged Out No longer eligi ble based on patient's age to complete this topic HPV Vaccines Aged Out No longer eligi ble based on patient's age to complete this topic Hepatitis A Vaccines Aged Out No long er eligible based on patient's age to complete this topic Hepatitis B Vaccines Aged Out No long er eligible based on patient's age to complete this topic IPV Vaccines Aged Out No longer eligi ble based on patient's age to complete this topic MMR Vaccines Aged Out No longer eligi ble based on patient's age to complete this topic Meningococcal ACWY Vaccine Aged Out N o longer eligible based on patient's age to complete this topic Meningococcal B Vaccine Aged Out No l onger eligible based on patient's age to complete this topic RSV Immunization Patients Under 20 months Aged Out No longer eligible based on patient's age to complete this topic Varicella Vaccines Aged Out No longer eligible based on patient's age to complete this topic Insurance MEDICARE MEDICAID - [place] Advance Directives Documents on File Type Date Recorded Patient Software Clerk Expl anation Health Care Decision (hx) 08/23/2017 AD HERNANDEZ DIRECTIVE Health Care Decision (hx) 08/23/2017 AD HERNANDEZ DIRECTIVE Health Care Decision (hx) 08/23/2017 AD HERNANDEZ DIRECTIVE Health Care Decision (hx) 08/23/2017 AD HERNANDEZ DIRECTIVE Health Care Decision (hx) 08/23/2017 AD HERNANDEZ DIRECTIVE Health Care Decision (hx) 08/23/2017 AD HERNANDEZ DIRECTIVE Care Teams Senior Linux Systems Administrator Relationship Specialty Start Date End Date Aj Cortes MD [address] [place] [address] PCP - General Internal Medicine 12/16/20
--- OUTSIDE RECORDS SUMMARY | 2025-05-05 08:47 | XMS_ITS ---
Author Organization [facility] Care Team Providers Care Shipfitter Name Role Phone Jeferson Ordoñez Unavailable Unavailable Funmi Coronel Unavailable Unavailable Addie Mcgarry Unavailable Unavailable Allergies and adverse reactions Code CodeSystem Substance Reaction Severity StartDate Concern Status 4917 RXNORM Nitroglycerin Unknown 01/25/2023 active Latex Unknown 01/25/2023 active 86349 RXNORM Iron Unknown 01/25/2023 active Iodine Unknown 01/25/2023 active Care Team Name Role Address Phone Organization Dates Jeferson Ordoñez PCP [address] [facility] [facility] [address], [place], [address], [place] (Office): : [facility] 01/25/2023 - 02/21/2023 Funmi Coronel [address], [place], [address], [place] (Office[place] : [facility] 01/25/2023 - 02/21/2023 Addie Martinheim [address] [facility] [address], [place], [address], [place] (Office): [facility] 01/25/2023 - 02/21/2023 Immunizations Immunization Status [...] LNP, preservative free, 30 mcg/0.3mL dose Mfg: [facility] Step 1 of Multi-step with next step [...] CVX created date: 01/26/2023 administered date: 07/07/2021 1Ring Covid-19 Bi-valent Solution completed SARS-COV-2 (COVID-19) vaccine, [...] CodeSystem Concern Status 1 ANEMIA, UNSPECIFIED 01/25/[address] active 2 DEPRESSION, UNSPECIFIED 01/25/[address] active 3 ESSENTIAL (PRIMARY) HYPERTENSION 01/25/[address] active 4 FRACTURE OF UNSPECIFIED PART OF RIGHT CLAVICLE, SUBSEQUENT ENCOUNTER FOR FRACTURE WITH ROUTINE HEALING 01/25/[address] active 5 GENERALIZED ANXIETY DISORDER 01/25/[address] active 6 MUSCLE WASTING AND ATROPHY, NOT ELSEWHERE CLASSIFIED, MULTIPLE SITES 01/25/[address] active 7 PERSONAL HISTORY OF TRANSIENT ISCHEMIC ATTACK (TIA), AND CEREBRAL INFARCTION WITHOUT RESIDUAL DEFICITS 01/25/[address] active 8 UNSPECIFIED ASTHMA, UNCOMPLICATED 01/25/[address] active 9 UNSPECIFIED DEMENTIA, UNSPECIFIED SEVERITY, WITHOUT BEHAVIORAL DISTURBANCE, PSYCHOTIC DISTURBANCE, MOOD DISTURBANCE, AND ANXIETY 01/25/[address] active 10 UNSPECIFIED FRACTURE OF THE LOWER END OF RIGHT RADIUS, SUBSEQUENT ENCOUNTER FOR CLOSED FRACTURE WITH ROUTINE HEALING 01/25/[address] active 11 UNSPECIFIED PROTEIN-CALORIE MALNUTRITION 01/25/[address] active Reason for Referral No Reasons for Referral Entered Social History Social History Observation Description Start Date End Date Code Code System Current Smoking Status Tobacco smoking consumption unknown 575788470 SNOMED CT Sex Assigned At Female 1950 [address]-9 [facility] Gender Identity Sexual Orientation Vital Signs Code Code System Vitals Name Values and Units Timing Information 35365-5 LOINC Pain Level Value=0.0 02/21/2023 9279-1 LOINC Respiratory Rate Value=16.0 Units=/m in 02/21/2023 8462-4 LOINC Blood Pressure-Diastolic Value=64 Un its=mmHg 02/21/2023 8480-6 LOINC Blood Pressure-Systolic Dtvuq=904 Un its=mmHg 02/21/2023 8310-5 LOINC Body Temperature Value=98.2 Units= F 02/21/2023 8867-4 LOINC Heart rate Value=58.0 Units=/min 98992-4 LOINC O2 % BldC Oximetry Value=95.0 Units= % 02/21/2023 72492-8 LOINC Weight Vysei=085.2 Units=Lbs 07/2023 8302-2 LOINC Height Value=59.0 Units=Inches 01/25/2023
--- NOTE | 2025-05-05 08:54 | MHC.EDTECH ---
Went to complete patient's EKG. Patient was not in the room. Patient is with radiology.
--- NOTE | 2025-05-05 09:08 | ED.GENADULT ---
HPI - General Adult General Chief complaint: Fall Stated complaint: falls,l face/l foot/digit pain per ems Time Seen by Provider: 05/05/25 08:22 Source: patient Mode of arrival: ambulatory Limitations: no limitations History of Present Illness ED Provider: Jay Alexander HPI narrative: 74 yold female with pmh of UTI, osteoartheritits, HTN presents to the ED for mutliple falls. Patient fell yesterday and once again fell this morning while using the bathroom. Patient does not know why she fell. Patient hit her face, hip pain and left toe pain. Patient brought in by EMS. Related Data Home Medications ?Medication ?Instructions ?Recorded ?Confirmed duloxetine 60 mg capsule,delayed 60 mg PO DAILY 09/13/20 05/05/25 release metoprolol succinate 50 mg 50 mg PO DAILY 09/13/20 05/05/25 tablet,extended release 24 hr ascorbic acid (vitamin C) 1,000 mg 1 g PO DAILY@1200 03/22/21 05/05/25 tablet gabapentin 300 mg capsule 300 mg PO DAILY@1130 02/28/23 05/05/25 buspirone 10 mg tablet 10 mg PO BID 03/15/24 05/05/25 trazodone 150 mg tablet 150 mg PO BEDTIME 03/15/24 05/05/25 quetiapine 150 mg tablet,extended 150 mg PO BEDTIME 04/09/24 05/05/25 release 24 hr cranberry fruit 450 mg tablet 450 mg PO BID 05/05/25 05/05/25 (cranberry) divalproex 125 mg tablet,delayed 125 mg PO BID 05/05/25 05/05/25 release vitamin B complex 1 tab PO DAILY 05/05/25 05/05/25 Previous Rx's ?Medication ?Instructions ?Recorded celecoxib 200 mg capsule (Celebrex) 200 mg PO BID 90 days #180 caps 11/10/24 atorvastatin 40 mg tablet (Lipitor) 40 mg PO DAILY #90 tabs 04/30/25 sulfamethoxazole 800 1 tab PO BID 7 days #14 tabs 04/30/25 mg-trimethoprim 160 mg tablet Allergies Allergy/AdvReac Type Severity Reaction Status Date / Time amoxicillin Allergy Unknown tachycardia Verified 05/05/25 08:16 doxycycline Allergy Unknown stomach Verified 05/05/25 08:16 upset iron Allergy Unknown unknown Verified 05/05/25 08:16 nitroglycerin Allergy Unknown Unknown Verified 05/05/25 08:16 From Ferrlecit Allergy Mild RED,ITCH,BURNING,SWELLING Uncoded 04/30/25 13:05 OF FEET iv dye Allergy Unknown Unknown Uncoded 04/30/25 13:05 Review of Systems Review of Systems: Fall. Right eye abuse, right hip pain, left total Yes all other systems are reviewed and are negative [facility] Past Medical History Medical History Anemia Cognitive impairment Depression Otitis media Rib pain on left side Right knee pain Callus of foot Pneumonia Osteoarthritis of left hip Osteoarthritis of right hip Hypertension Surgical History No history of previous surgery Family History Family History Mother No problems noted. Father No problems noted. Social History Social History Household Members: Unknown / Unable to assess Housing: Apartment Alcohol intake: former Patient Tobacco Use Status: Never used Tobacco Tobacco use type: Cigarette Smoked in Last 30 Days: No e-Cigarette/Vaping Use: Never Used Second Hand Smoke Exposure: No Use of substances other than those prescribed or required for medical reasons: No Advance Directives: Yes Advance Directives on File: Yes Advance Directives Date on File: 03/21/24 service: No Current occupational status: retired and disabled Cognitive needs: No Hearing needs: No Vision needs: No Physical Exam ED Vital Signs: Vital Signs - 24 hr 05/05/25 08:00 05/05/25 10:00 05/05/25 12:00 Temperature 97.8 F 98.2 F 98.2 F Pulse Rate 74 66 67 Respiratory Rate 16 15 14 Blood Pressure 111/59 L 100/60 99/60 Pulse Oximetry 96 96 96 Oxygen Delivery Method Nasal Cannula Nasal Cannula Nasal Cannula Oxygen Flow Rate 2 2 05/05/25 14:00 Temperature 98.2 F Pulse Rate 67 Respiratory Rate 14 Blood Pressure 102/70 Pulse Oximetry 100 Oxygen Delivery Method Nasal Cannula Oxygen Flow Rate 2 BMI result Body Mass Index 29.1 Const General: cooperative, healthy appearing, comfortable, no acute distress, well developed, alert, awake and Physically active Orientation/consciousness: patient oriented x3 [facility] Head: Yes normal to inspection, Yes No palpable skull fracture present, Yes normocephalic and Yes atraumatic Head images:  1. Right facial bruise Eyes General: appearance normal, both eyes and all related structures Neck Neck: Yes normal visual inspection, Yes full ROM, Yes no lymphadenopathy, Yes no meningeal signs, Yes trachea midline, Yes supple, No anterior neck swelling and No tender Chest Chest palpation & inspection: normal inspection of the chest and normal palpation of entire chest wall Resp Effort & Inspection: normal respiratory effort and able to speak in complete sentences Cardio Jugular venous distension: no JVD Heart sounds: S1 normal heart sound present and S2 normal heart sound present GI Inspection: Yes normal to inspection Palpation (GI): Soft to palpation, not firm, nontender, no guarding and not rigid General: Yes no CVA tenderness Back/Spine/Pelvis Back: no CVA tenderness and No back tenderness Skin General skin exam: no rashes or lesions noted, elasticity normal and turgor normal Neuro General: patient oriented x3, tone normal, moves all extremities, Normal light touch and pain sensation, no meningeal signs, no focal motor deficits, CN's II-XI intact bilaterally and normal sensation to monofilament Extrem Other: Patient can move all extremities. Negative for hip tenderness Ankle/foot/toe images:  1. Positive for ecchymosis negative for deformity. Positive for mild tenderness. Rest of extremity normal. Motor/neuro/vascular exam Psych Appearance: grossly normal, well kempt and not disheveled Medications Administered Generic Name Dose Route Start Last Admin Trade Name Freq PRN Reason Stop Dose Admin Cefuroxime Axetil 250 mg 05/05/25 18:00 05/05/25 17:35 Cefuroxime Axetil 250 Mg Tablet PO 250 mg Q12H JESSA Administration Enoxaparin Sodium 30 mg 05/05/25 18:00 05/05/25 17:35 Enoxaparin Sodium 30 Mg/0.3 Ml Syringe SUBCUT 30 mg Q24H JESSA Administration Lactated Ringer's 1,000 mls @ 125 mls/hr 05/05/25 17:15 05/05/25 18:50 Lr IVCONT 125 mls/hr .Q8H JESSA Administration Discontinued Medications Generic Name Dose Route Start Last Admin Trade Name Freq PRN Reason Stop Dose Admin Acetaminophen 650 mg 05/05/25 14:21 05/05/25 14:53 Acetaminophen 325 Mg Tablet PO 05/05/25 14:22 650 mg ONCE ONE Administration Sodium Chloride 1,000 mls @ 999 mls/hr 05/05/25 15:39 05/05/25 17:54 Ns IV 05/05/25 16:39 Infused .Q1H1M STA Infusion Sodium Zirconium Cyclosilicate 10 gm 05/05/25 15:40 05/05/25 16:04 Sodium Zirconium Cyclosilicate 10 Gm Powd.Pack PO 05/05/25 15:41 10 gm ONCE ONE Administration Procedures EJ/Peripheral Line Arm R: Time Out Performed: Yes Skin Cleansed in Sterile Fashion: Yes Size (gauge): 18 IV Secured and Dressing Applied: Yes Patient Tolerated Procedure: well Medical Decision Making Medical Decision Making [facility] Narrative: [age] year female presents to ED for recurrent falls. Patient's vital signs are stable. Patient is not in distress. Patient will be sent for head CT cervical spine CT chest abdominal CT scan to look for any traumatic injuries. Patient will have medical slightly patient will be case managed. Physical therapy. 2: 52pm: Images are normal. Troponin negative EKG negative STEMI. Initial labs or hyperkalemia which lab check states which was hemolyzed. IV ultrasound placed for repeat labs and possible fluids. 4:12pm: Patient found to be hyperkalemic and in a KI. EKG negative peak T-waves. Lokelma ordered and IV FLuids ordered. Case presented to hospitalist for admission. LEENA Arriaga 4;22pm: BNP 726. We will only give 1 L fluid. Differential Diagnosis Differential Diagnoses: The differential diagnosis associated with the presentation includes (Brain bleed neck fracture, [place],) Consult Healthcare Provider Management of the patient was discussed with: Hospitalist (LEENA arriaga) Lab Data [facility] Lab Attestation statement: I reviewed the patient's lab results. 05/05/25 11:04 05/05/25 14:53 Labs: Lab Results 05/05/25 05/05/25 Range/Units 11:04 14:53 WBC 6.1 (4.8-10.8) X10*3/uL RBC 3.21 L (4.20-5.50) X10*6/uL Hgb 10.6 L (12.0-16.0) g/dl Hct 32.4 L (37.0-47.0) % MCV 100.9 H (80.0-98.0) fL MCH 33.0 (27.0-33.0) pg MCHC 32.7 (31.0-35.0) g/dl RDW 12.3 (11.0-16.0) % Plt Count 203 (160-400) X10*3/uL MPV 9.6 (9.4-12.3) fL Immature Gran % (Auto) 0.3 (0.0-0.4) % Neut % (Auto) 70.5 (45-73) % Lymph % (Auto) 19.8 L (20-40) % Nobles % (Auto) 6.6 (2-11) % Eos % (Auto) 2.3 (0-4) % Baso % (Auto) 0.5 (0-2) % Lymph # (Auto) 1.2 (1.2-4.9) X10*3/uL Nobles # (Auto) 0.4 (0.1-1.2) X10*3/uL Eos # (Auto) 0.1 (0.0-0.4) X10*3/uL Baso # (Auto) 0.0 (0.0-0.2) X10*3/uL Abs Immat Gran (auto) 0.02 (0.00-0.03) X10*3/uL Absolute Neuts (auto) 4.3 (2.0-8.3) x10*3/uL Absolute Nucleated RBC 0.000 (0.0-0.012) X10*3/uL Nucleated RBC % (auto) 0.0 (0.0-0.2) /100WBC PT 10.8 L (10.9-12.4) SEC INR 0.9 (0.9-1.1) APTT 23.5 L (26.7-34.1) SEC Sodium 139 139 (135-145) mmol/L Potassium 6.2 H* D 5.7 H (3.3-5.1) mmol/L Chloride 106 107 (96-108) mmol/L Carbon Dioxide 28 28 (22-29) mmol/L Anion Gap 11 L 10 L (12-20) BUN 53 H 50 H (9-16) mg/dL Creatinine 1.84 H 1.61 H (0.5-1.4) mg/dL Estim Creat Clear Calc 22.4 25.6 Estimated GFR 27 31 Random Glucose 96 126 H (60-115) mg/dL Estimat Average Glucose 108 mg/dL Hemoglobin A1c % 5.4 (<6.0) % Calcium 10.3 H 9.6 D (8.4-10.2) mg/dL Total Bilirubin 0.2 0.2 (0.0-1.0) mg/dL AST 28 27 (5-31) U/L ALT 14 11 (0-31) U/L Alkaline Phosphatase 51 52 (39-117) U/L Total Creatine Kinase 67 (26-140) U/L Troponin I High Sens < 2.7 < 2.7 (<3.5-17.0) ng/L NT-Pro-B Natriuret Pep 726.0 H (<300) pg/mL Total Protein 6.8 6.5 (6.5-8.0) g/dL Albumin 4.1 3.9 (3.5-5.0) g/dL Independent Interpretation I performed an independent interpretation of an: EKG (Negative STEMI) Independent Historian Clinical information obtained from an independent historian. History obtained from or confirmed by: Other (patient) Discharge Plan Discharge Clinical Impression: CELINE (acute kidney injury), Acute hyperkalemia Patient Disposition: Admitted As Inpatient
--- NOTE | 2025-05-05 09:49 | MHC.EDTECH ---
This Mold Repairer tried two times to obtain bloodwork from the patient. Will try again in 10 minutes.
[2025-05-05 10:00] VITALS: BP 100/60; PULSE 66; RESP 15; TEMP 36.8; O2SAT 96
--- NOTE | 2025-05-05 10:28 | MHC.EDTECH ---
This Mine Motor Operator attempted to draw the patients blood. Finger stick was attempted as well. Phlebotomy called.
[2025-05-05 11:09] LABS: MANUAL DIFF FLAG NO
[2025-05-05 11:15] LABS: Hematocrit 32.4 % (37.0-47.0); Hemoglobin 10.6 g/dl (12.0-16.0); Imm Gran Abs Auto 0.02 X10*3/uL (0.00-0.03); Imm Gran Pct Auto 0.3 % (0.0-0.4); Lymphocytes Absolute Auto 1.2 X10*3/uL (1.2-4.9); Mean Corpuscular HGB Conc 32.7 g/dl (31.0-35.0); Mean Corpuscular Hemoglobin 33.0 pg (27.0-33.0); Mean Corpuscular Volume 100.9 fL (80.0-98.0); NRBC Abs Auto 0.000 X10*3/uL (0.0-0.012); NRBC Pct Auto 0.0 /100WBC (0.0-0.2); Platelet Count 203 X10*3/uL (160-400); Red Blood Count 3.21 X10*6/uL (4.20-5.50); White Blood Count 6.1 X10*3/uL (4.8-10.8)
[2025-05-05 11:32] LABS: INTERNATIONAL NORM RATIO 0.9 (0.9-1.1); Partial Thromboplastin Time 23.5 SEC (26.7-34.1); Prothrombin Time 10.8 SEC (10.9-12.4)
[2025-05-05 11:36] LABS: Alanine Aminotransferase 14 U/L (0-31); Albumin Level 4.1 g/dL (3.5-5.0); Alkaline Phosphatase 51 U/L (39-117); Anion Gap 11 (12-20); Aspartate Amino Transferase 28 U/L (5-31); Blood Urea Nitrogen 53 mg/dL (9-16); Calcium 10.3 mg/dL (8.4-10.2); Carbon Dioxide 28 mmol/L (22-29); Chloride 106 mmol/L (96-108); Creatinine Clr Calc Pharmacy 22.4; Estimated Glomerular Filt Rate 27; Potassium 6.2 mmol/L (3.3-5.1); Sodium 139 mmol/L (135-145); Total Protein 6.8 g/dL (6.5-8.0)
[2025-05-05 11:46] LABS: Troponin-I High Sensitivity < 2.7 ng/L (<3.5-17.0)
[2025-05-05 12:00] VITALS: BP 99/60; PULSE 67; RESP 14; TEMP 36.8; O2SAT 96
--- NOTE | 2025-05-05 12:56 | PC.NURSE ---
PT Visitor at bedside who helps patient at home everyday states that pt has been on a regular diet and had no troubles. Provider Aware.
[2025-05-05 14:00] VITALS: BP 102/70; PULSE 67; RESP 14; TEMP 36.8; O2SAT 100
[2025-05-05 15:18] LABS: Alanine Aminotransferase 11 U/L (0-31); Albumin Level 3.9 g/dL (3.5-5.0); Alkaline Phosphatase 52 U/L (39-117); Anion Gap 10 (12-20); Aspartate Amino Transferase 27 U/L (5-31); Blood Urea Nitrogen 50 mg/dL (9-16); Calcium 9.6 mg/dL (8.4-10.2); Carbon Dioxide 28 mmol/L (22-29); Chloride 107 mmol/L (96-108); Creatinine Clr Calc Pharmacy 25.6; Estimated Glomerular Filt Rate 31; Potassium 5.7 mmol/L (3.3-5.1); Sodium 139 mmol/L (135-145); Total Protein 6.5 g/dL (6.5-8.0)
[2025-05-05 15:27] LABS: Troponin-I High Sensitivity < 2.7 ng/L (<3.5-17.0)
[2025-05-05 16:01] LABS: NT Pro B Type Natriuretic Pept 726.0 pg/mL (<300)
--- NOTE | 2025-05-05 16:38 | PM.IMHP ---
History of Present Illness Date of Service: 05/05/25 Chief Complaint: multiple falls over several days The patient is a 74-year-old female with a history of hypertension, chronic lower back pain, osteoarthritis, and depression who presented to the ED after experiencing multiple falls over the past several days. She was recently diagnosed with a urinary tract infection and has been on antibiotics (Bactrim). She reports that her knees shake and buckle, leading to falls. She has struck her head several times but denies loss of consciousness or serious injury. She currently has right hip pain and a bruise around her right eye. She denies dizziness, shortness of breath, or confusion. ED work up: Imaging: CT head/face/chest/c-spine/abdomen/pelvis and ankle/foot X-rays show no acute injury. Laboratory findings: Creatinine: 1.61. BUN: 50 Potassium: 5.7 Hemoglobin: 10.6 ED treatmetn: IVF Review of Systems Review of Systems: Constitutional:?No fever, chills, or weight loss Cardiovascular:?No chest pain, palpitations Respiratory:?No shortness of breath, cough GI:?No abdominal pain, nausea, vomiting :?No dysuria, frequency, urgency (on antibiotics for UTI) Neuro:?No confusion, no focal weakness, no dizziness Musculoskeletal:?Right hip pain, knees buckle Psych:?History of depression, no acute symptoms reported [facility] Medical History Anemia Cognitive impairment Depression Otitis media Rib pain on left side Right knee pain Callus of foot Pneumonia Osteoarthritis of left hip Osteoarthritis of right hip Hypertension Family History Mother No problems noted. Father No problems noted. Surgical History No history of previous surgery Social History Household Members: Unknown / Unable to assess Housing: Apartment Alcohol intake: former Patient Tobacco Use Status: Never used Tobacco Tobacco use type: Cigarette e-Cigarette/Vaping Use: Never Used Second Hand Smoke Exposure: No Advance Directives: Yes Advance Directives on File: Yes Advance Directives Date on File: 03/21/24 service: No Current occupational status: retired and disabled Cognitive needs: No Hearing needs: No Vision needs: No Meds Allergies Allergy/AdvReac Type Severity Reaction Status Date / Time amoxicillin Allergy Unknown tachycardia Verified 05/05/25 08:16 doxycycline Allergy Unknown stomach Verified 05/05/25 08:16 upset iron Allergy Unknown unknown Verified 05/05/25 08:16 nitroglycerin Allergy Unknown Unknown Verified 05/05/25 08:16 From Ferrlecit Allergy Mild RED,ITCH,BURNING,SWELLING Uncoded 04/30/25 13:05 OF FEET iv dye Allergy Unknown Unknown Uncoded 04/30/25 13:05 Active Medications: Current Medications Sodium Chloride (Ns) 1,000 mls @ 999 mls/hr IV .Q1H1M STA Stop: 05/05/25 16:39 Last Admin: 05/05/25 15:42 Dose: 999 mls/hr Home Medications ?Medication ?Instructions ?Recorded ?Confirmed ?Last Taken ?Type acetaminophen 325 mg capsule 650 mg PO Q4H PRN Pain 09/13/20 04/30/25 Unknown History duloxetine 60 mg capsule,delayed 60 mg PO DAILY 09/13/20 04/30/25 03/14/24 History release metoprolol succinate 50 mg 50 mg PO DAILY 09/13/20 04/30/25 03/14/24 History tablet,extended release 24 hr ascorbic acid (vitamin C) 1,000 mg 1 g PO DAILY@1200 03/22/21 04/30/25 03/14/24 History tablet gabapentin 300 mg capsule 300 mg PO DAILY@1300 02/28/23 04/30/25 03/14/24 History buspirone 10 mg tablet 5 mg PO BID 03/15/24 04/30/25 03/14/24 History calcium carbonate (Calcium 600) 600 mg PO DAILY 03/15/24 04/30/25 03/14/24 History nystatin 100,000 unit/gram topical 1 appl topical TID PRN Rash 03/15/24 06/18/24 Unknown History powder trazodone 150 mg tablet 150 mg PO BEDTIME 03/15/24 04/30/25 03/14/24 History quetiapine 150 mg tablet,extended 150 mg PO BEDTIME 04/09/24 04/30/25 Unknown History release 24 hr divalproex 125 mg tablet,delayed 125 mg PO BID 05/05/25 Unknown History release Physical Exam Vital Signs and Narrative: Vital Signs: Last Vital Signs Temp 98.2 F 05/05/25 14:00 Pulse 67 05/05/25 14:00 Resp 14 05/05/25 14:00 BP 102/70 05/05/25 14:00 Pulse Ox 100 05/05/25 14:00 O2 Del Method Nasal Cannula 05/05/25 14:00 O2 Flow Rate 2 05/05/25 14:00 Oxygen Flow Rate 2 05/05/25 08:00 BMI result Body Mass Index 29.1 Const: Other: General:?Alert, no acute distress HEENT:?Bruise around right eye, no other findings Neck:?No tenderness Cardiac:?Regular rate and rhythm Lungs:?Clear Abdomen:?Soft, non-tender Extremities:?Right hip tenderness, no deformity Neuro:?Alert, oriented, no focal deficits Skin:?Bruise around right eye Results Labs 05/05/25 11:04 05/05/25 14:53 Labs: Laboratory Results - last 24 hr 05/05/25 05/05/25 11:04 14:53 MCV 100.9 H MCH 33.0 MCHC 32.7 RDW 12.3 Plt Count 203 MPV 9.6 Immature Gran % (Auto) 0.3 Neut % (Auto) 70.5 Lymph % (Auto) 19.8 L [place] % (Auto) 6.6 Eos % (Auto) 2.3 Baso % (Auto) 0.5 Lymph # (Auto) 1.2 [place] # (Auto) 0.4 Eos # (Auto) 0.1 Baso # (Auto) 0.0 Abs Immat Gran (auto) 0.02 Absolute Neuts (auto) 4.3 Absolute Nucleated RBC 0.000 Nucleated RBC % (auto) 0.0 PT 10.8 L INR 0.9 APTT 23.5 L Anion Gap 11 L 10 L Estim Creat Clear Calc 22.4 25.6 Estimated GFR 27 31 Random Glucose 96 126 H Calcium 10.3 H 9.6 D Total Bilirubin 0.2 0.2 AST 28 27 ALT 14 11 Alkaline Phosphatase 51 52 Total Creatine Kinase 67 Troponin I High Sens < 2.7 < 2.7 NT-Pro-B Natriuret Pep 726.0 H Total Protein 6.8 6.5 Albumin 4.1 3.9 Imaging Radiologist's Impressions: Impressions Foot X-Ray 05/05/25 08:55 IMPRESSION: Osteopenia. No definite acute fracture of the left foot or ankle. Electronically signed by: Felipe Mac MD 05/05/2025 09:03 AM EDT RP Ankle X-Ray 05/05/25 08:57 IMPRESSION: Osteopenia. No definite acute fracture of the left foot or ankle. Electronically signed by: Felipe Mac MD 05/05/2025 09:03 AM EDT RP Abdomen/Pelvis CT 05/05/25 11:28 IMPRESSION: No evidence of acute traumatic injury to the chest, abdomen, or pelvis. Please note that evaluation for solid organ injury is limited on unenhanced CT. Electronically signed by: Felipe Mac MD 05/05/2025 12:26 PM EDT RP Cervical Spine CT 05/05/25 11:28 IMPRESSION: Limited by patient's motion artifact. Multilevel cervical spondylosis and grade 1 retrolisthesis C4-5 without acute fracture or trauma-related listhesis. Fleischner guidelines were followed. Electronically signed by: Wellington Lim MD 05/05/2025 12:30 PM EDT RP Chest CT 05/05/25 11:28 IMPRESSION: No evidence of acute traumatic injury to the chest, abdomen, or pelvis. Please note that evaluation for solid organ injury is limited on unenhanced CT. Electronically signed by: Felipe Mac MD 05/05/2025 12:26 PM EDT RP Face CT 05/05/25 11:28 IMPRESSION: Limited evaluation due to patient's motion artifact with inadequate evaluation specifically of the mandible. Probable old traumatic deformities, nasal bones without acute fracture. Electronically signed by: Wellington Lim MD 05/05/2025 12:26 PM EDT RP Head CT 05/05/25 11:28 IMPRESSION: No acute fracture, bony calvarium. No acute intracranial hemorrhage. Small vessel occlusive disease. Global cerebral atrophy. Electronically signed by: Wellington Lim MD 05/05/2025 12:19 PM EDT RP Assessment and Plan (1) Hypertension: Qualifiers: Hypertension type: essential hypertension Qualified Code(s): I10 - Essential (primary) hypertension Status: Acute (2) UTI (urinary tract infection): Status: Acute (3) CELINE (acute kidney injury): Status: Acute Plan 74/F with multiple comorbidity here with multiple falls, head trauman, CELINE and hyperkalemia 1. Multiple Falls with Head Trauma and Right Hip Pain Likely multifactorial: dehydration, deconditioning, , underlying osteoarthritis, and recent infection No acute injury on imaging Monitor for evolving symptoms Fall precautions, PT/OT evaluation 2. Acute Kidney Injury (CELINE) Elevated creatinine and BUN, likely multifactorial (dehydration, medication (bactrim) infection) Continue IV fluids, monitor renal function and urine output Avoid nephrotoxic agents 3. Hyperkalemia, likely from Bactrim and dehydration Potassium 5.7, treated with Lokelma in ED Monitor potassium levels, cardiac monitoring Stop Bactrim 4. Anemia Hgb 10.6, Hct 32 chronic and stable, no sing of ongoing blood loss 5. UTI on bactrim complete antibiotic course, but change to Ceftriaxone, repeat UA Monitor for resolution of infection 6. Hypertension, Osteoarthritis, Depression, Chronic Back Pain Continue home medications as appropriate once med rec available DVT prophylaxis: Lovenox Full code Diet: regular Disposition Inpatient Admission This patient meets inpatient criteria due to multiple high-risk factors: Multiple falls with head trauma and persistent right hip pain (risk for occult injury) Acute kidney injury requiring ongoing IV fluids and monitoring Hyperkalemia requiring serial labs and monitoring Anemia requiring monitoring and possible further workup Frailty and comorbidities increase risk for clinical deterioration The complexity and anticipated duration of care (48 hours), need for close monitoring, and risk of further complications make inpatient admission appropriate. Observation status would not be sufficient for the level of care required. Quality Stroke Does the patient have a stroke diagnosis?: No VTE Prior VTE?: No VTE Risk Level:: Medical - moderate - high VTE Device Contraindication: N/A - Device Ordered VTE Drug Contraindication: N/A - Med Ordered
[2025-05-05 16:53] LABS: Hemoglobin A1C 98.6777 umol/L; Total Hemoglobin (HGBA1C) 2789.3431 umol/L
--- NOTE | 2025-05-05 18:06 | PHA.MEDREC ---
Addendum entered by Pa Love yehuda 05/05/25 18:49: med rec reviewed Original Note: Pharmacy Consult ? Medication Reconciliation Pharmacy has completed the medication reconciliation. Patient had a list of medications with her. Utilized claims and list from patient to confirm med list. Patient last had her medications last night.
[2025-05-05] MEDS: Lactated Ringers 1,000 ML 125 ML IVCONT (18:50)
[2025-05-05 19:05] LABS: Appearance Urine Clear; Glucose Urine UA Negative (Negative); PH 5.5 (5.0-9.0); Specific Gravity - Urine 1.015 (1.005-1.025); UMIC TRIGGER UACC YES
[2025-05-05 19:23] LABS: UACC Culture Trigger YES
[2025-05-05 20:43] VITALS: BP 111/44; PULSE 73; RESP 16; TEMP 36.8; O2SAT 98
[2025-05-06] VITALS (10 sets, daily range): BP systolic 121–155; BP diastolic 54–90; PULSE 67–116; RESP 15–19; TEMP 36.3–36.8; O2SAT 92–96; BMI 29.6
--- NOTE | 2025-05-06 00:42 | PM.EVENT ---
Event Note Date of Service: 05/06/25 Event Note: Request from ED nursing to complete medication reconciliation. Patient requesting nighttime meds. Case reviewed patient in for a PE I status post fall. Normally on Depakote but this was held and a level will be pending in the morning. Also held atorvastatin secondary to CELINE. QTC is normal on EKG and patient will continue her Seroquel and her psychiatric meds other than Depakote. Time Spent With Patient Time: Total time managing care of this patient today ____ minutes.
[2025-05-06] MEDS: Lactated Ringers 1,000 ML 125 ML IVCONT ×2 (01:20→09:32)
--- NOTE | 2025-05-06 01:30 | PC.NURSE ---
PT complains of 7/10 leg pain. Notified provider
--- NOTE | 2025-05-06 02:22 | PC.NURSE ---
pt medicated as per mar
[2025-05-06 06:28] LABS: Alanine Aminotransferase 13 U/L (0-31); Albumin Level 4.0 g/dL (3.5-5.0); Alkaline Phosphatase 55 U/L (39-117); Anion Gap 12 (12-20); Aspartate Amino Transferase 24 U/L (5-31); Blood Urea Nitrogen 32 mg/dL (9-16); Calcium 9.2 mg/dL (8.4-10.2); Carbon Dioxide 26 mmol/L (22-29); Chloride 110 mmol/L (96-108); Creatinine Clr Calc Pharmacy 40.0; Estimated Glomerular Filt Rate 53; Potassium 4.5 mmol/L (3.3-5.1); Sodium 143 mmol/L (135-145); Total Protein 6.6 g/dL (6.5-8.0)
[2025-05-06] MEDS: Metoprolol Succinate ER 50 MG TAB.ER.24H PO (08:41)
--- NOTE | 2025-05-06 08:44 | PC.NURSE ---
This RN assumed care of this patient @ 0700 Patient A&O x 3 Patient experiencing some anxiety this AM Patient wanted to get to her room, patient redirected with success VSS and up to date Patient tolerated medication administration Patient awaiting bed assignment
--- NOTE | 2025-05-06 10:56 | MHC.CM.PN ---
IMM 05/06/25, Pt. lives alone, PCP is Sara Robison, HCP is on file and confirmed: Rayn. Pt. has home care services of 34-36 hrs a week [facility]. She uses a walker, and may need assistance with transport home at DC. DCP: home with services vs. STR, she has had multiple falls, PT eval to assist determine DCP. CM to follow for DC needs.
[2025-05-06] MEDS: Flu Vacc TS2025-26(6mo up)/PF 0.5 ML SYRINGE IM (13:17)
[2025-05-06] MEDS: 0.9 % Sodium Chloride Flush 3 ML SYRINGE IVFLUSH (16:43)
--- NOTE | 2025-05-06 17:07 | HO.PM.IMPN ---
Subjective Subjective Date of Service: 05/06/25 Interval History: Multiple falls, CELINE, hyperkalemia Review of Systems CELINE seems to be improving mental status also improving but has some sundowning in late afternoon time. Review of Systems: Yes all other systems are reviewed and are negative Physical Exam Exam: Exam: Appearance:awake ,alert ,somewhat agiatated cvs: [id number], [id number] . res: air entry seems fair , no rales or wheezing abd: no rebound or guarding ,nt, bs present. ext pulses present , no cyanosis . neuro: axo3 , nonfocal. Vital Signs: Vital Signs: Last Vital Signs Temp 98.3 F 05/06/25 16:00 Pulse 83 05/06/25 16:00 Resp 19 05/06/25 16:00 BP 155/90 H 05/06/25 16:00 Pulse Ox 95 05/06/25 16:00 O2 Del Method Room Air 05/06/25 16:00 O2 Flow Rate 2 05/06/25 00:00 Oxygen Flow Rate 2 05/05/25 08:00 BMI result Body Mass Index 29.1 Objective Data Active Medications Acetaminophen (Acetaminophen 325 Mg Tablet) 650 mg PO Q6H PRN PRN Reason: Pain, Mild 1-3,fever,headache Al Hydroxide/Mg Hydroxide (Magnesium Hydrox/Alum Hydrox 30 Ml Oral.Susp) 30 ml PO Q4H PRN PRN Reason: Heartburn Ascorbic Acid (Ascorbic Acid 500 Mg Tablet) 1,000 mg PO DAILY@1200 [facility] Last Admin: 05/06/25 13:17 Dose: 1,000 mg Documented By: JUVENTINO Buspirone HCl (Buspirone Hcl 10 Mg Tablet) 10 mg PO BID [facility] Last Admin: 05/06/25 08:41 Dose: 10 mg Documented By: MIKE Calcium Carbonate (Calcium Carbonate 750 Mg Tab.Chew) 750 mg PO Q4H PRN PRN Reason: Heartburn Cefuroxime Axetil (Cefuroxime Axetil 250 Mg Tablet) 250 mg PO Q12H [facility] Last Admin: 05/06/25 16:43 Dose: 250 mg Documented By: JUVENTINO Divalproex Sodium (Divalproex Sodium Sprinkles 125 Mg Cap.) 125 mg PO BID [facility] Duloxetine HCl (Duloxetine Hcl 60 Mg Sierra.) 60 mg PO DAILY [facility] Last Admin: 05/06/25 08:41 Dose: 60 mg Documented By: MIKE Enoxaparin Sodium (Enoxaparin Sodium 40 Mg/0.4 Ml Syringe) 40 mg SUBCUT Q24H [facility] Last Admin: 05/06/25 16:44 Dose: 40 mg Documented By: JUVENTINO Gabapentin (Gabapentin 300 Mg Capsule) 300 mg PO DAILY@1130 [facility] Lactated Ringer's (Lr) 1,000 mls @ 80 mls/hr IVCONT .[id number] [facility] Last Infusion: 05/06/25 16:44 Dose: 80 mls/hr Documented By: JUVENTINO Magnesium Hydroxide (Milk Of Magnesia 30 Ml Oral.Susp) 30 ml PO DAILY PRN PRN Reason: Constipation Melatonin (Melatonin 3 Mg Tablet) 6 mg PO BEDTIME PRN PRN Reason: Insomnia Metoprolol Succinate (Metoprolol Succinate Er 50 Mg Tab.Er.24h) 50 mg PO DAILY [facility]; Protocol Last Admin: 05/06/25 08:41 Dose: 50 mg Documented By: MIKE Multivitamins/Vitamin C (Multivitamin Tablet) 1 tab PO DAILY [facility] Last Admin: 05/06/25 08:41 Dose: 1 tab Documented By: MIKE Ondansetron HCl (Ondansetron Hcl 4 Mg/2 Ml Vial) 4 mg IVPUSH Q8H PRN PRN Reason: Nausea and Vomiting Polyethylene Glycol (Polyethylene Glycol 3350 17 Gm Powd.Pack) 17 gm PO DAILY PRN PRN Reason: Constipation Quetiapine Fumarate (Quetiapine Fumarate 25 Mg Tablet) 75 mg PO BID [facility] Last Admin: 05/06/25 08:40 Dose: 75 mg Documented By: MIKE Sodium Chloride (0.9 % Sodium Chloride Flush 3 Ml Syringe) 3 ml IVFLUSH QSHIFT [facility] Last Admin: 05/06/25 16:43 Dose: 3 ml Documented By: JUVENTINO Trazodone HCl (Trazodone Hcl 50 Mg Tablet) 150 mg PO BEDTIME [facility] Last Admin: 05/06/25 01:20 Dose: 150 mg Documented By: MACKENZIEIR Labs 05/05/25 11:04 05/06/25 05:32 Labs: Laboratory Results - last 24 hr 05/05/25 05/06/25 18:18 05:32 Anion Gap 12 Estim Creat Clear Calc 40.0 Estimated GFR 53 Random Glucose 96 Calcium 9.2 Total Bilirubin 0.2 AST 24 ALT 13 Alkaline Phosphatase 55 Total Protein 6.6 Albumin 4.0 Urine Color Yellow Urine Appearance Clear Urine pH 5.5 Ur Specific [place] 1.015 Urine Protein Negative Urine Glucose (UA) Negative Urine Ketones Negative Urine Blood Negative Urine Nitrite Negative Ur Leukocyte Esterase Small (1+) H Urine RBC 0-2 Urine WBC 0-5 Ur Squamous Epith Cells 3-5 Urine Bacteria None Seen Hyaline Casts 3-5 Valproic Acid < 12.5 L Microbiology Microbiology Results: Microbiology 05/05/25 Unknown Urine Culture - Preliminary Urine clean catch - Clean Catch Midstream No growth to date. Assessment and Plan (1) CELINE (acute kidney injury): Status: Acute Plan 74/F with multiple comorbidity here with multiple falls, head trauman, CELINE and hyperkalemia 1. Multiple Falls with Head Trauma and Right Hip Pain Likely multifactorial: dehydration, deconditioning, , underlying osteoarthritis, and recent infection No acute injury on imaging Monitor for evolving symptoms Fall precautions, PT/OT evaluation 2. Acute Kidney Injury (CELINE) Elevated creatinine and BUN, likely multifactorial (dehydration, medication (bactrim) infection) Continue IV fluids, monitor renal function and urine output celine improving Avoid nephrotoxic agents 3. Hyperkalemia, likely from Bactrim and dehydration Potassium 5.7, treated with Lokelma in ED resolved, Anemia Hgb 10.6, Hct 32 chronic and stable, no sing of ongoing blood loss UTI on bactrim complete antibiotic course, but change to Ceftriaxone, repeat UA Monitor for resolution of infection Hypertension, Osteoarthritis, Depression, Chronic Back Pain Continue home medications as appropriate once med rec available. Disposition Inpatient Admission This patient meets inpatient criteria due to multiple high-risk factors: Multiple falls with head trauma and persistent right hip pain (risk for occult injury) Acute kidney injury requiring ongoing IV fluids and monitoring Frailty and comorbidities increase risk for clinical deterioration. Quality Stroke Does the patient have a stroke diagnosis?: No VTE Prior VTE?: No VTE Risk Level:: Medical - moderate - high VTE Device Contraindication: Treatment Not Indicated VTE Drug Contraindication: N/A - Med Ordered
--- NOTE | 2025-05-06 18:26 | PC.NURSE ---
Pt A&Ox2. Forgetful and confused. Yelling out and yelling at significant other. Dr. Paulino notified. Extra dose of seroquel ordered and given. Encouraged pt to ring call [facility] for assistance and reassured pt that we would check on her frequently. Camera in place for safety.
[2025-05-06] MEDS: Lactated Ringers 1,000 ML 80 ML IVCONT (18:58)
[2025-05-06] MEDS: Divalproex Sodium Sprinkles 125 MG CAP.DR.SPR PO (20:00)
[2025-05-07 03:31] VITALS: BP 146/77; PULSE 82; RESP 18; TEMP 36.3; O2SAT 92
[2025-05-07 07:57] VITALS: BP 160/80; PULSE 93; RESP 18; TEMP 36.8; O2SAT 96
[2025-05-07] MEDS: Divalproex Sodium Sprinkles 125 MG CAP.DR.SPR PO ×2 (09:00→20:04)
[2025-05-07] MEDS: Lidocaine 4 % Patch ADH..PATCH 1 PATCH TRANSDERMA (09:01)
[2025-05-07] MEDS: Metoprolol Succinate ER 50 MG TAB.ER.24H PO (09:01)
[2025-05-07] MEDS: 0.9 % Sodium Chloride Flush 3 ML SYRINGE IVFLUSH ×3 (09:04→20:04)
[2025-05-07 12:00] VITALS: BP 157/64; PULSE 80; RESP 18; TEMP 36.6; O2SAT 95
[2025-05-07 16:00] VITALS: BP 110/65; PULSE 80; RESP 19; TEMP 36.5; O2SAT 95
--- NOTE | 2025-05-07 16:09 | MHC.CM.PN ---
PT HAS ACCEPTED A BED OFFER FROM [facility] LESLIE DECLINED HER AND HER HCP UNDERSTAND SHE MAY DC TOMORROW IF MEDICALLY CLEARED, VIA BLS
--- NOTE | 2025-05-07 16:32 | HO.PM.IMPN ---
Subjective Subjective Date of Service: 05/07/25 Interval History: Multiple falls, Review of Systems has mild pains no new c/o. Review of Systems: Yes all other systems are reviewed and are negative Physical Exam Exam: Exam: Appearance:awake ,alert ,somewhat agiatated cvs: [id number], [id number] . res: air entry seems fair , no rales or wheezing abd: no rebound or guarding ,nt, bs present. ext pulses present , no cyanosis . neuro: axo3 , nonfocal. Vital Signs: Vital Signs: Last Vital Signs Temp 97.7 F 05/07/25 16:00 Pulse 80 05/07/25 16:00 Resp 19 05/07/25 16:00 BP 110/65 05/07/25 16:00 Pulse Ox 95 05/07/25 16:00 O2 Del Method Room Air 05/07/25 16:00 O2 Flow Rate 2 05/06/25 20:00 Oxygen Flow Rate 2 05/05/25 08:00 BMI result Body Mass Index 29.6 Objective Data Active Medications Acetaminophen (Acetaminophen 325 Mg Tablet) 975 mg PO Q6H PRN PRN Reason: Pain, Mild 1-3,fever,headache Last Admin: 05/07/25 09:00 Dose: 975 mg Documented By: JUVENTINO Al Hydroxide/Mg Hydroxide (Magnesium Hydrox/Alum Hydrox 30 Ml Oral.Susp) 30 ml PO Q4H PRN PRN Reason: Heartburn Ascorbic Acid (Ascorbic Acid 500 Mg Tablet) 1,000 mg PO DAILY@1200 [facility] Last Admin: 05/07/25 12:07 Dose: 1,000 mg Documented By: JUVENTINO Buspirone HCl (Buspirone Hcl 10 Mg Tablet) 10 mg PO BID [facility] Last Admin: 05/07/25 09:01 Dose: 10 mg Documented By: JUVENTINO Calcium Carbonate (Calcium Carbonate 750 Mg Tab.Chew) 750 mg PO Q4H PRN PRN Reason: Heartburn Cefuroxime Axetil (Cefuroxime Axetil 250 Mg Tablet) 250 mg PO Q12H [facility] Last Admin: 05/07/25 05:58 Dose: 250 mg Documented By: JACQUI Divalproex Sodium (Divalproex Sodium Sprinkles 125 Mg ) 125 mg PO BID [facility] Last Admin: 05/07/25 09:00 Dose: 125 mg Documented By: JUVENTINO Duloxetine HCl (Duloxetine Hcl 60 Mg Capsule.Dr) 60 mg PO DAILY [facility] Last Admin: 05/07/25 09:01 Dose: 60 mg Documented By: JUVENTINO Enoxaparin Sodium (Enoxaparin Sodium 40 Mg/0.4 Ml Syringe) 40 mg SUBCUT Q24H [facility] Last Admin: 05/06/25 16:44 Dose: 40 mg Documented By: JUVENTINO Gabapentin (Gabapentin 300 Mg Capsule) 300 mg PO DAILY@1130 [facility] Last Admin: 05/07/25 12:07 Dose: 300 mg Documented By: JUVENTINO Lidocaine (Lidocaine 4 % Patch Adh..Patch) 1 patch TRANSDERMA DAILY [facility]; Protocol Last Admin: 05/07/25 09:01 Dose: 1 patch Documented By: JUVENTINO Magnesium Hydroxide (Milk Of Magnesia 30 Ml Oral.Susp) 30 ml PO DAILY PRN PRN Reason: Constipation Melatonin (Melatonin 3 Mg Tablet) 6 mg PO BEDTIME PRN PRN Reason: Insomnia Metoprolol Succinate (Metoprolol Succinate Er 50 Mg Tab.Er.24h) 50 mg PO DAILY [facility]; Protocol Last Admin: 05/07/25 09:01 Dose: 50 mg Documented By: JUVENTINO Multivitamins/Vitamin C (Multivitamin Tablet) 1 tab PO DAILY [facility] Last Admin: 05/07/25 09:01 Dose: 1 tab Documented By: JUVENTINO Ondansetron HCl (Ondansetron Hcl 4 Mg/2 Ml Vial) 4 mg IVPUSH Q8H PRN PRN Reason: Nausea and Vomiting Polyethylene Glycol (Polyethylene Glycol 3350 17 Gm Powd.Pack) 17 gm PO DAILY PRN PRN Reason: Constipation Quetiapine Fumarate (Quetiapine Fumarate 25 Mg Tablet) 75 mg PO BID [facility] Last Admin: 05/07/25 09:00 Dose: 75 mg Documented By: JUVENTINO Sodium Chloride (0.9 % Sodium Chloride Flush 3 Ml Syringe) 3 ml IVFLUSH QSHIFT [facility] Last Admin: 05/07/25 09:04 Dose: 3 ml Documented By: JUVENTINO Trazodone HCl (Trazodone Hcl 50 Mg Tablet) 150 mg PO BEDTIME [facility] Last Admin: 05/06/25 20:00 Dose: 150 mg Documented By: JACQUI Labs 05/05/25 11:04 05/06/25 05:32 Microbiology Microbiology Results: Microbiology 05/05/25 Unknown Urine Culture - Final Urine clean catch - Clean Catch Midstream Assessment and Plan (1) CELINE (acute kidney injury): Status: Acute Plan 74/F with multiple comorbidity here with multiple falls, head trauman, CELINE and hyperkalemia 1. Multiple Falls with Head Trauma and Right Hip Pain Likely multifactorial: dehydration, deconditioning, , underlying osteoarthritis, and recent infection No acute injury on imaging Monitor for evolving symptoms Fall precautions, PT/OT evaluation 2. Acute Kidney Injury (CELINE) Elevated creatinine and BUN, likely multifactorial (dehydration, medication (bactrim) infection) Continue IV fluids, monitor renal function and urine output celine improving Avoid nephrotoxic agents 3. Hyperkalemia, likely from Bactrim and dehydration Potassium 5.7, treated with Lokelma in ED resolved, Anemia Hgb 10.6, Hct 32 chronic and stable, no sing of ongoing blood loss UTI on bactrim complete antibiotic course, but change to Ceftriaxone, repeat UA Monitor for resolution of infection Hypertension, Osteoarthritis, Depression, Chronic Back Pain Continue home medications as appropriate once med rec available. Disposition Inpatient Admission This patient meets inpatient criteria due to multiple high-risk factors: Multiple falls with head trauma and persistent right hip pain (risk for occult injury) Acute kidney injury requiring ongoing IV fluids and monitoring Frailty and comorbidities increase risk for clinical deterioration. Awaiting rehab placement. Quality Stroke Does the patient have a stroke diagnosis?: No VTE Prior VTE?: No VTE Risk Level:: Medical - moderate - high VTE Device Contraindication: Treatment Not Indicated VTE Drug Contraindication: N/A - Med Ordered
--- NOTE | 2025-05-07 16:35 | P.PNIM_ITS ---
Subjective Subjective Date of Service: 05/07/25 Interval History: mild pains no new c/o Review of Systems Review of Systems: Yes all other systems are reviewed and are negative Physical Exam 2 Exam: Exam: Appearance:awake ,alert ,somewhat agiatated cvs: rrr, [id number] . res: air entry seems fair , no rales or wheezing abd: no rebound or guarding ,nt, bs present. ext pulses present , no cyanosis . neuro: axo3 , nonfocal. Vital Signs: Vital Signs: Last Vital Signs Temp 97.7 F 05/07/25 16:00 Pulse 80 05/07/25 16:00 Resp 19 05/07/25 16:00 BP 110/65 05/07/25 16:00 Pulse Ox 95 05/07/25 16:00 O2 Del Method Room Air 05/07/25 16:00 O2 Flow Rate 2 05/06/25 20:00 Oxygen Flow Rate 2 05/05/25 08:00 BMI result Body Mass Index 29.6 Objective Data Active Medications Acetaminophen (Acetaminophen 325 Mg Tablet) 975 mg PO Q6H PRN PRN Reason: Pain, Mild 1-3,fever,headache Last Admin: 05/07/25 09:00 Dose: 975 mg Documented By: JUVENTINO Al Hydroxide/Mg Hydroxide (Magnesium Hydrox/Alum Hydrox 30 Ml Oral.Susp) 30 ml PO Q4H PRN PRN Reason: Heartburn Ascorbic Acid (Ascorbic Acid 500 Mg Tablet) 1,000 mg PO DAILY@1200 [facility] Last Admin: 05/07/25 12:07 Dose: 1,000 mg Documented By: JUVENTINO Buspirone HCl (Buspirone Hcl 10 Mg Tablet) 10 mg PO BID [facility] Last Admin: 05/07/25 09:01 Dose: 10 mg Documented By: JUVENTINO Calcium Carbonate (Calcium Carbonate 750 Mg Tab.Chew) 750 mg PO Q4H PRN PRN Reason: Heartburn Cefuroxime Axetil (Cefuroxime Axetil 250 Mg Tablet) 250 mg PO Q12H [facility] Last Admin: 05/07/25 05:58 Dose: 250 mg Documented By: JACQUI Divalproex Sodium (Divalproex Sodium Sprinkles 125 Mg ) 125 mg PO BID [facility] Last Admin: 05/07/25 09:00 Dose: 125 mg Documented By: JUVENTINO Duloxetine HCl (Duloxetine Hcl 60 Mg Capsule.Dr) 60 mg PO DAILY [facility] Last Admin: 05/07/25 09:01 Dose: 60 mg Documented By: JUVENTINO Enoxaparin Sodium (Enoxaparin Sodium 40 Mg/0.4 Ml Syringe) 40 mg SUBCUT Q24H [facility] Last Admin: 05/06/25 16:44 Dose: 40 mg Documented By: JUVENTINO Gabapentin (Gabapentin 300 Mg Capsule) 300 mg PO DAILY@1130 [facility] Last Admin: 05/07/25 12:07 Dose: 300 mg Documented By: JUVENTINO Lidocaine (Lidocaine 4 % Patch Adh..Patch) 1 patch TRANSDERMA DAILY [facility]; Protocol Last Admin: 05/07/25 09:01 Dose: 1 patch Documented By: JUVENTINO Magnesium Hydroxide (Milk Of Magnesia 30 Ml Oral.Susp) 30 ml PO DAILY PRN PRN Reason: Constipation Melatonin (Melatonin 3 Mg Tablet) 6 mg PO BEDTIME PRN PRN Reason: Insomnia Metoprolol Succinate (Metoprolol Succinate Er 50 Mg Tab.Er.24h) 50 mg PO DAILY [facility]; Protocol Last Admin: 05/07/25 09:01 Dose: 50 mg Documented By: JUVENTINO Multivitamins/Vitamin C (Multivitamin Tablet) 1 tab PO DAILY [facility] Last Admin: 05/07/25 09:01 Dose: 1 tab Documented By: JUVENTINO Ondansetron HCl (Ondansetron Hcl 4 Mg/2 Ml Vial) 4 mg IVPUSH Q8H PRN PRN Reason: Nausea and Vomiting Polyethylene Glycol (Polyethylene Glycol 3350 17 Gm Powd.Pack) 17 gm PO DAILY PRN PRN Reason: Constipation Quetiapine Fumarate (Quetiapine Fumarate 25 Mg Tablet) 75 mg PO BID [facility] Last Admin: 05/07/25 09:00 Dose: 75 mg Documented By: JUVENTINO Sodium Chloride (0.9 % Sodium Chloride Flush 3 Ml Syringe) 3 ml IVFLUSH QSHIFT [facility] Last Admin: 05/07/25 09:04 Dose: 3 ml Documented By: JUVENTINO Trazodone HCl (Trazodone Hcl 50 Mg Tablet) 150 mg PO BEDTIME [facility] Last Admin: 05/06/25 20:00 Dose: 150 mg Documented By: JACQUI Burroughs 05/05/25 11:04 05/06/25 05:32 Microbiology Microbiology Results: Microbiology 05/05/25 Unknown Urine Culture - Final Urine clean catch - Clean Catch Midstream Assessment and Plan (1) CELINE (acute kidney injury): Status: Acute Plan 74/F with multiple comorbidity here with multiple falls, head trauman, CELINE and hyperkalemia 1. Multiple Falls with Head Trauma and Right Hip Pain Likely multifactorial: dehydration, deconditioning, , underlying osteoarthritis, and recent infection No acute injury on imaging Monitor for evolving symptoms Fall precautions, PT/OT evaluation 2. Acute Kidney Injury (CELINE) Elevated creatinine and BUN, likely multifactorial (dehydration, medication (bactrim) infection) Continue IV fluids, monitor renal function and urine output celine improving Avoid nephrotoxic agents 3. Hyperkalemia, likely from Bactrim and dehydration Potassium 5.7, treated with Lokelma in ED resolved, Anemia Hgb 10.6, Hct 32 chronic and stable, no sing of ongoing blood loss UTI on bactrim complete antibiotic course, but change to Ceftriaxone, repeat UA Monitor for resolution of infection Hypertension, Osteoarthritis, Depression, Chronic Back Pain Continue home medications as appropriate once med rec available. Disposition Inpatient Admission This patient meets inpatient criteria due to multiple high-risk factors: * Multiple falls with head trauma and persistent right hip pain (risk for occult injury) * Acute kidney injury requiring ongoing IV fluids and monitoring * Frailty and comorbidities increase risk for clinical deterioration. Awaiting rehab placement. Quality Stroke Does the patient have a stroke diagnosis?: No VTE Prior VTE?: No VTE Risk Level:: Medical - moderate - high VTE Device Contraindication: Treatment Not Indicated VTE Drug Contraindication: N/A - Med Ordered
[2025-05-07 20:00] VITALS: BP 127/73; PULSE 76; RESP 19; TEMP 36.6; O2SAT 95
[2025-05-08] VITALS: BP 151/76; PULSE 86; RESP 16; TEMP 36.3; O2SAT 94
[2025-05-08 03:37] VITALS: BP 160/77; PULSE 83; RESP 18; TEMP 36.7; O2SAT 92
[2025-05-08 07:30] VITALS: BP 176/81; PULSE 88; RESP 18; TEMP 36.8; O2SAT 94
--- NOTE | 2025-05-08 07:55 | HO.PM.IMPN ---
Subjective Subjective Date of Service: 05/08/25 Review of Systems Review of Systems: Yes all other systems are reviewed and are negative Physical Exam Vital Signs: Vital Signs: Last Vital Signs Temp 98.2 F 05/08/25 07:30 Pulse 88 05/08/25 07:30 Resp 18 05/08/25 07:30 BP 160/77 H 05/08/25 03:37 Pulse Ox 94 05/08/25 07:30 O2 Del Method Room Air 05/08/25 07:30 O2 Flow Rate 2 05/06/25 20:00 Oxygen Flow Rate 2 05/05/25 08:00 BMI result Body Mass Index 29.6 Objective Data Active Medications Acetaminophen (Acetaminophen 325 Mg Tablet) 975 mg PO Q6H PRN PRN Reason: Pain, Mild 1-3,fever,headache Last Admin: 05/07/25 09:00 Dose: 975 mg Documented By: JUVENTINO Al Hydroxide/Mg Hydroxide (Magnesium Hydrox/Alum Hydrox 30 Ml Oral.Susp) 30 ml PO Q4H PRN PRN Reason: Heartburn Ascorbic Acid (Ascorbic Acid 500 Mg Tablet) 1,000 mg PO DAILY@1200 [facility] Last Admin: 05/07/25 12:07 Dose: 1,000 mg Documented By: JUVENTINO Buspirone HCl (Buspirone Hcl 10 Mg Tablet) 10 mg PO BID [facility] Last Admin: 05/07/25 20:04 Dose: 10 mg Documented By: JACQUI Calcium Carbonate (Calcium Carbonate 750 Mg Tab.Chew) 750 mg PO Q4H PRN PRN Reason: Heartburn Cefuroxime Axetil (Cefuroxime Axetil 250 Mg Tablet) 250 mg PO Q12H [facility] Last Admin: 05/08/25 05:36 Dose: 250 mg Documented By: JACQUI Divalproex Sodium (Divalproex Sodium Sprinkles 125 Mg Cap.) 125 mg PO BID [facility] Last Admin: 05/07/25 20:04 Dose: 125 mg Documented By: JACQUI Duloxetine HCl (Duloxetine Hcl 60 Mg Capsule.) 60 mg PO DAILY [facility] Last Admin: 05/07/25 09:01 Dose: 60 mg Documented By: JUVENTINO Enoxaparin Sodium (Enoxaparin Sodium 40 Mg/0.4 Ml Syringe) 40 mg SUBCUT Q24H [facility] Last Admin: 05/07/25 17:44 Dose: 40 mg Documented By: JUVENTINO Gabapentin (Gabapentin 300 Mg Capsule) 300 mg PO DAILY@1130 [facility] Last Admin: 05/07/25 12:07 Dose: 300 mg Documented By: JUVENTINO Lidocaine (Lidocaine 4 % Patch Adh..Patch) 1 patch TRANSDERMA DAILY [facility]; Protocol Last Admin: 05/07/25 09:01 Dose: 1 patch Documented By: JUVENTINO Magnesium Hydroxide (Milk Of Magnesia 30 Ml Oral.Susp) 30 ml PO DAILY PRN PRN Reason: Constipation Melatonin (Melatonin 3 Mg Tablet) 6 mg PO BEDTIME PRN PRN Reason: Insomnia Metoprolol Succinate (Metoprolol Succinate Er 50 Mg Tab.Er.24h) 50 mg PO DAILY [facility]; Protocol Last Admin: 05/07/25 09:01 Dose: 50 mg Documented By: JUVENTINO Multivitamins/Vitamin C (Multivitamin Tablet) 1 tab PO DAILY [facility] Last Admin: 05/07/25 09:01 Dose: 1 tab Documented By: JUVENTINO Ondansetron HCl (Ondansetron Hcl 4 Mg/2 Ml Vial) 4 mg IVPUSH Q8H PRN PRN Reason: Nausea and Vomiting Polyethylene Glycol (Polyethylene Glycol 3350 17 Gm Powd.Pack) 17 gm PO DAILY PRN PRN Reason: Constipation Quetiapine Fumarate (Quetiapine Fumarate 25 Mg Tablet) 75 mg PO BID [facility] Last Admin: 05/07/25 20:04 Dose: 75 mg Documented By: JACQUI Sodium Chloride (0.9 % Sodium Chloride Flush 3 Ml Syringe) 3 ml IVFLUSH QSHIFT [facility] Last Admin: 05/07/25 20:04 Dose: 3 ml Documented By: JACQUI Trazodone HCl (Trazodone Hcl 50 Mg Tablet) 150 mg PO BEDTIME [facility] Last Admin: 05/07/25 20:04 Dose: 150 mg Documented By: JACQUI Labs 05/05/25 11:04 05/06/25 05:32 Microbiology Microbiology Results: Microbiology 05/05/25 Unknown Urine Culture - Final Urine clean catch - Clean Catch Midstream Assessment and Plan (1) CELINE (acute kidney injury): Status: Acute Plan 74/F with multiple comorbidity here with multiple falls, head trauman, CELINE and hyperkalemia 1. Multiple Falls with Head Trauma and Right Hip Pain Likely multifactorial: dehydration, deconditioning, , underlying osteoarthritis, and recent infection No acute injury on imaging Monitor for evolving symptoms Fall precautions, PT/OT evaluation 2. Acute Kidney Injury (CELINE) Elevated creatinine and BUN, likely multifactorial (dehydration, medication (bactrim) infection) Continue IV fluids, monitor renal function and urine output celine improving Avoid nephrotoxic agents 3. Hyperkalemia, likely from Bactrim and dehydration Potassium 5.7, treated with Lokelma in ED resolved, Anemia Hgb 10.6, Hct 32 chronic and stable, no sing of ongoing blood loss UTI on bactrim complete antibiotic course, but change to Ceftriaxone, repeat UA Monitor for resolution of infection Hypertension, Osteoarthritis, Depression, Chronic Back Pain Continue home medications as appropriate once med rec available. Disposition Inpatient Admission This patient meets inpatient criteria due to multiple high-risk factors: Multiple falls with head trauma and persistent right hip pain (risk for occult injury) Acute kidney injury requiring ongoing IV fluids and monitoring Frailty and comorbidities increase risk for clinical deterioration. Awaiting rehab placement. Quality Stroke Does the patient have a stroke diagnosis?: No VTE Prior VTE?: No VTE Risk Level:: Medical - moderate - high VTE Device Contraindication: Treatment Not Indicated VTE Drug Contraindication: N/A - Med Ordered
[2025-05-08] MEDS: Metoprolol Succinate ER 50 MG TAB.ER.24H PO (08:03)
[2025-05-08] MEDS: Divalproex Sodium Sprinkles 125 MG CAP.DR.SPR PO (08:03)
[2025-05-08] MEDS: Lidocaine 4 % Patch ADH..PATCH 1 PATCH TRANSDERMA (08:04)
[2025-05-08] MEDS: 0.9 % Sodium Chloride Flush 3 ML SYRINGE IVFLUSH (08:04)
[2025-05-08 10:45] VITALS: BP 158/69
--- NOTE | 2025-05-08 11:32 | MHC.CM.PN ---
pt to be dcd to [facility] today at 2 pt will let her friend know of dc
--- NOTE | 2025-05-08 11:35 | PM.DS ---
DS: Providers Provider Date of Service: 05/08/25 Date of admission: 05/05/25 16:08 Date of discharge: 05/08/25 Primary care physician: Sara Robison PA-C Attending physician on discharge: Hector Paulino Discharging clinician: Hector Paulino DS: Diagnosis Discharge Diagnosis (1) CELINE (acute kidney injury): Status: Acute DS: Summary Hospital Course Hospital Course: hpi: 74-year-old female with a history of hypertension, chronic lower back pain, osteoarthritis, and depression who presented to the ED after experiencing multiple falls over the past several days. She was recently diagnosed with a urinary tract infection and has been on antibiotics (Bactrim). She reports that her knees shake and buckle, leading to falls. She has struck her head several times but denies loss of consciousness or serious injury. She currently has right hip pain and a bruise around her right eye. She denies dizziness, shortness of breath, or confusion. ED work up: Imaging: CT head/face/chest/c-spine/abdomen/pelvis and ankle/foot X-rays show no acute injury(please see imaging studies details below). Laboratory findings: Creatinine: 1.61. BUN: 50 Potassium: 5.7 Hemoglobin: 10.6 Hospital course:74/F with multiple comorbidity here with multiple falls, head trauman, CELINE and hyperkalemia: Multiple Falls with Head Trauma and Right Hip Pain:Likely multifactorial: dehydration, deconditioning, , underlying osteoarthritis, and recent infection: No acute injury on imaging Patient was hydrated, p.o. intake is better, seems improving. Seen by PT recommended rehab. Acute Kidney Injury (CELINE):Elevated creatinine and BUN, likely multifactorial (dehydration, medication (bactrim) infection) Continue IV fluids, CELINE improved. Hyperkalemia, likely from Bactrim and dehydration Potassium 5.7, treated with Lokelma in ED resolved. Anemia Hgb 10.6, Hct 32 chronic and stable, no sing of ongoing blood loss UTI on bactrim complete antibiotic course, changed to po ceftin repeat ua -pyuria but no bacteruria.denies any urinary complaints. plan: bmp in moniter 1 week. complete ceftin 250 mg bidx3 more days. hold celecoxib ,may introduce if needed after repeating BMP if renal function is fine. Continue Tylenol/lidocaine patch. Above management discussed with the patient and her significant other Mr. Wang in detail-they both understand and in agreement with the plan, time spent 45 minutes. all question answered. Time Attestation Total time managing care of this patient today: 45 mintues. Discharge Coordination Time (in mins): 45 min Quality: Safe Use of Opioids Does Pt have an Active Cancer Diagnosis on the Problem List?: No Quality: Stroke Does the patient have a stroke diagnosis?: No Physical Exam Exam: Exam: Appearance:awake ,alert . cvs: rrr, [id number] . res: air entry seems fair , no rales or wheezing abd: no rebound or guarding ,nt, bs present. ext pulses present , no cyanosis . neuro: axo3 , nonfocal Vital Signs: Vital Signs: Last Vital Signs Temp 98.2 F 05/08/25 07:30 Pulse 88 05/08/25 07:30 Resp 18 05/08/25 07:30 BP 158/69 H 05/08/25 10:45 Pulse Ox 94 05/08/25 07:30 O2 Del Method Room Air 05/08/25 07:30 O2 Flow Rate 2 05/06/25 20:00 Oxygen Flow Rate 2 05/05/25 08:00 BMI result Body Mass Index 29.6 DS: Data Data Completed and Pending Completed studies during hospitalization [Text1]: Procedures Insertion of Endotracheal Airway into Trachea, Via Natural or Artificial Opening (03/22/24) Performance of Cardiac Output, Single, Manual (03/22/24) Respiratory Ventilation, Less than 24 Consecutive Hours (03/22/24) Imaging Chest x-ray: Radiologist's impression: ITS Impressions Foot X-Ray 05/05/25 08:55 IMPRESSION: Osteopenia. No definite acute fracture of the left foot or ankle. Ankle X-Ray 05/05/25 08:57 IMPRESSION: Osteopenia. No definite acute fracture of the left foot or ankle. Abdomen/Pelvis CT 05/05/25 11:28 IMPRESSION: No evidence of acute traumatic injury to the chest, abdomen, or pelvis. Please note that evaluation for solid organ injury is limited on unenhanced CT. Cervical Spine CT 05/05/25 11:28 IMPRESSION: Limited by patient's motion artifact. Multilevel cervical spondylosis and grade 1 retrolisthesis C4-5 without acute fracture or trauma-related listhesis. Fleischner guidelines were followed. Chest CT 05/05/25 11:28 IMPRESSION: No evidence of acute traumatic injury to the chest, abdomen, or pelvis. Please note that evaluation for solid organ injury is limited on unenhanced CT. Face CT 05/05/25 11:28 IMPRESSION: Limited evaluation due to patient's motion artifact with inadequate evaluation specifically of the mandible. Probable old traumatic deformities, nasal bones without acute fracture. Electronically signed by: Wellington Lim MD 05/05/2025 12:26 PM EDT RP Head CT 05/05/25 11:28 IMPRESSION: No acute fracture, bony calvarium. No acute intracranial hemorrhage. Small vessel occlusive disease. Global cerebral atrophy. Discharge Plan Discharge Anticipated Discharge Date/Time: 05/08/25 11:26 Patient Disposition: [facility] Discharge Diagnosis: celine , fall,recent uti Referrals: gulshan bessy [Other] - 1 Week Sara Robison PA-C [Primary Care Provider, Internal Medicine] - 1 Week Discharge Medications: New polyethylene glycol 3350 17 gram Powder In Packet 17 g PO DAILY PRN (Reason: Constipation) Qty: 30 0RF acetaminophen 325 mg Tablet 975 mg PO Q6H PRN (Reason: Pain, Mild 1-3,Fever,Headache) Qty: 20 0RF lidocaine [Lidocaine Pain Relief] 4 % Adhesive Patch,Medicated 1 patch transdermal DAILY Qty: 10 0RF Protocol: Apply to: Apply to: Affected area cefuroxime axetil 250 mg Tablet 250 mg PO Q12H Qty: 6 0RF Continued quetiapine 150 mg tablet extended release 24 hr 150 mg PO BEDTIME Rx Instructions: takes at 1930 divalproex 125 mg tablet,delayed release (DR/EC) 125 mg PO BID vitamin B complex Tablet 1 tab PO DAILY cranberry 450 mg Tablet 450 mg PO BID Rx Instructions: administer with meals trazodone 150 mg tablet 150 mg PO BEDTIME Rx Instructions: takes at 1930 buspirone 10 mg tablet 10 mg PO BID Rx Instructions: takes BID 0700 and 1300 metoprolol succinate 50 mg tablet extended release 24 hr 50 mg PO DAILY Rx Instructions: takes at 1930 duloxetine 60 mg capsule,delayed release(DR/EC) 60 mg PO DAILY ascorbic acid (vitamin C) 1,000 mg tablet 1 g PO DAILY@1200 gabapentin 300 mg capsule 300 mg PO DAILY@1130 atorvastatin [Lipitor] 40 mg tablet 40 mg PO DAILY Qty: 90 6RF Rx Instructions: takes at 1300 Held celecoxib [Celebrex] 200 mg capsule 200 mg PO BID 90 Days Qty: 180 3RF Hold Instructions: Resume on 05/26/25. Discontinued sulfamethoxazole-trimethoprim 800-160 mg tablet 1 tab PO BID 7 Days Qty: 14 0RF Discharge Orders: Discharge Order (Routine); Ordered 05/08/25 Ordered By: Hector Paulino Diet: Advance to usual diet Activity on Discharge: As tolerated Stand Alone Forms: Patient Portal Discharge page Print Language: Cuban Care Plan Goals: bmp in moniter 1 week. complete ceftin 250 mg bidx3 more days. hold celecoxib ,may introduce if needed after repeating BMP if renal function is fine. Continue Tylenol/lidocaine patch Health Concerns: As above. Plan of Treatment: As above. Assessment: As above.
[2025-05-08 12:00] VITALS: BP 161/79; PULSE 88; RESP 18; TEMP 36.8; O2SAT 95
[2025-05-08 14:08] VITALS: BP 115/62; PULSE 86; RESP 18; TEMP 36.7; O2SAT 93
== END 2025-05-08 15:09 | disposition skilled nursing facility (03) | DRG 683 ==
LOC: HO.ED 08:57 → HO.EDOVER 16:12 → HO.S3 05-06 08:47
PROVIDERS: Nurse Practitioner Family; Physician Assistant; Admitting Provider Internal Medicine; Emergency Provider Emergency Medicine; Visit Provider Internal Medicine
DX: N17.9 Acute kidney failure, unspecified (principal); F05 Delirium due to known physiological condition; N39.0 Urinary tract infection, site not specified; M54.59 Other low back pain; G89.29 Other chronic pain; R53.81 Other malaise; E87.5 Hyperkalemia; F32.A Depression, unspecified; D63.1 Anemia in chronic kidney disease; M19.90 Unspecified osteoarthritis, unspecified site; T36.8X5A Adverse effect of other systemic antibiotics, initial encounter; E86.0 Dehydration; I10 Essential (primary) hypertension; R29.6 Repeated falls; Z91.81 History of falling; Z79.899 Other long term (current) drug therapy
CPT/HCPCS: 36415; 70450; 70486; 71250; 72125; 73610; 73620; 74176; 80053; 80164; 81001; 82550; 83036; 83880; 84484; 85025; 85610; 85730; 87086; 90656; 93005; 97116; 97162; 97530; 99285; J1171; J1650; J7120

== ENCOUNTER → 2025-05-05 08:37 | Outpatient (BNV) | payer MEDICARE, MEDICAID, SELFPAY | PROVIDERS: Emergency Provider Emergency Medicine; Visit Provider Radiology Diagnostic Radiology | DX: K57.30 Diverticulosis of large intestine without perforation or abscess without bleeding (principal); J98.11 Atelectasis; M19.072 Primary osteoarthritis, left ankle and foot | CPT/HCPCS: 71250; 73610; 73620; 74176 ==

== ENCOUNTER → 2025-05-05 08:37 | Outpatient (BNV) | payer MEDICARE, MEDICAID, SELFPAY | PROVIDERS: Admitting Provider Internal Medicine; Emergency Provider Emergency Medicine; Visit Provider Internal Medicine | DX: Z04.3 Encounter for examination and observation following other accident (principal) | CPT/HCPCS: 93010 ==

== ENCOUNTER → 2025-05-05 16:08 | Outpatient (BNV) | payer MEDICARE, MEDICAID, SELFPAY | PROVIDERS: Admitting Provider Internal Medicine; Emergency Provider Emergency Medicine; Visit Provider Nurse Practitioner Family | DX: N17.9 Acute kidney failure, unspecified (principal) | CPT/HCPCS: 99223; 99232; 99239; 99499 ==

== ENCOUNTER 2025-07-01 09:45 | Outpatient (REF) | payer MEDICARE, MEDICAID, SELFPAY ==
--- OUTSIDE RECORDS SUMMARY | 2025-07-01 12:34 | XMS_ITS | Clinical Summary ---
Author Organization 175 [facility] Address [address] [place] [address] Phone Care Team Providers Care Spiral Runner Name Role Phone Aj Cortes MD Primary Care Provider [phone] Allergies Active Allergy Reactions Criticality Noted Date [...] mg by mouth 3 times daily. Active Surgical History Surgery Date Site/Laterality Comments OTHER SURGICAL HISTORY PROCEDURE: DENIES PREVIOUS SURGERY Medical History Medical History Date Comments Callous ulcer (CMS/HCC V24, CMS/HCC V28) DX:Callous ulcer (HCC) Hypertension DX:Hypertension Osteoarthritis DX:Osteoarthriti s; COMMENT: both [...] Care Team (Late st Contact Info) Description 07/16/2025 1:15 PM EST Office Visit Orthopedic Surgery - [place] [address] [id number] Ruben Zapata DPM [address] [address] Health Maintenance Due Date Last Done [...] Documents on File Type Date Recorded Patient Reconcilement Clerk Expl anation Health Care Decision (hx) 08/23/2017 AD HERNANDEZ DIRECTIVE Health Care Decision (hx) 08/23/2017 AD HERNANDEZ DIRECTIVE Health Care Decision (hx) 08/23/2017 AD HERNANDEZ DIRECTIVE Health Care Decision (hx) 08/23/2017 AD HERNANDEZ DIRECTIVE Health Care Decision (hx) 08/23/2017 AD HERNANDEZ DIRECTIVE Health Care Decision (hx) 08/23/2017 AD HERNANDEZ DIRECTIVE Care Teams Spiral Runner Relationship Specialty Start Date End Date Aj Cortes MD [address] [place] [id number] PCP - General Internal Medicine 12/16/20
[2025-07-01 14:31] LABS: Cholesterol 176 mg/dL (<200); HDL Cholesterol 61 mg/dL (>40); Triglycerides 137 mg/dL (<150)
[2025-07-01 15:42] LABS: Reflex LDLD? No
== END 2025-07-01 09:46 | disposition home or self-care (01) ==
LOC: HO.HVNA 09:45
PROVIDERS: Visit Provider Student in an Organized Health Care Education/Training Program
DX: E78.5 Hyperlipidemia, unspecified (principal)
CPT/HCPCS: 36415; 80061